=== PATIENT | female | born 1955 | race Caucasian/White ===

== ENCOUNTER 2016-11-28 12:05 | Inpatient (IN) | payer MEDICARE ==
[2016-11-28] MEDS ORDERED: NORMAL SALINE 1000 ML 1,000 ML IV ONE (12:36)
[2016-11-28 13:19] LABS: VENOUS BLOOD HCO3 7.9 mmol/L (20-32); VENOUS BLOOD PH 7.23 (7.30-7.42)
[2016-11-28 13:22] LABS: ABSOLUTE LYMPHOCYTES (AUTO) 1.3 10^3/uL (0.5-4.7); ABSOLUTE MONOCYTES (AUTO) 0.4 10^3/uL (0.1-1.4); BASOPHILS % (AUTO) 0.2 % (0-2); EOSINOPHILS % (AUTO) 0.2 % (0-6); HEMATOCRIT 27.3 % (36.0-47.0); HEMOGLOBIN 9.1 g/dL (12.0-15.5); LYMPHOCYTES % (AUTO) 23.1 % (13-45); MEAN CORPUSCULAR HEMOGLOBIN 35.5 pg (27.0-33.4); MEAN CORPUSCULAR HGB CONC 33.4 g/dL (32.0-36.0); MEAN CORPUSCULAR VOLUME 106 fl (80-97); MONOCYTES % (AUTO) 7.2 % (3-13); RED BLOOD COUNT 2.57 10^6/uL (3.72-5.28); RED CELL DISTRIBUTION WIDTH 14.7 % (11.5-14.0); SEGMENTED NEUTROPHILS % (AUTO) 69.3 % (42-78); WHITE BLOOD COUNT 5.8 10^3/uL (4.0-10.5)
--- NOTE | 2016-11-28 13:36 | RADIOLOGY REPORT (SQ) ---
EXAM DESCRIPTION: CTA CHEST COMPLETED DATE/TIME: 11/28/2016 1:21 pm REASON FOR STUDY: hypotension cp abd pulsations COMPARISON: 05/26/2016 TECHNIQUE: CT scan of the chest performed using helical scanning technique with dynamic intravenous contrast injection. Images reviewed with lung, soft tissue and bone windows. Reconstructed coronal and sagittal MPR images reviewed. Additional 3 dimensional post-processing performed to develop Maximal Intensity Projection images ([place] P). All images stored on PACS. All CT scanners at this facility use dose modulation, iterative reconstruction, and/or weight based d osing when appropriate to reduce radiation dose to as low as reasonably achievable (ALARA). [facility]: Dose Right [facility]: CareDose [facility]: Dose Right [facility]: Teradose 4D [facility]: AesRx CONTRAST TYPE AND DOSE: 95 Isovue 370- low osmolar. RENAL FUNCTION: Not obtained. RADIATION DOSE: 23.09 mGy. LIMITATIONS: None. FINDINGS: LUNGS AND PLEURA: Stable chronic lung change. No masses, infiltrates, pneumothorax. No p leural effusions, calcifications. AORTA AND GREAT VESSELS: Scattered atherosclerotic calcifications. No aneurysm or dissection. HEART: No pericardial effusion. PULMONARY ARTERIES: No emboli visualized in the main pulmonary arteries or the segmental branches. HILAR AND MEDIASTINAL STRUCTURES: No identified masses or abnormal nodes. HARDWARE: None in the chest. UPPER ABDOMEN: See separate report of the CT of the abdomen. THYROID AND OTHER SOFT TISSUES: No masses. No adenopathy. BONES: No acute or significant finding. 3D MIPS: Confirm above findings. OTHER: No other significant finding. IMPRESSION: NO ACUTE INTRATHORACIC PROCESS. NO ACUTE AORTIC INJURY, OR ANEURYSM. NO PULMONARY EMBO LI. TECHNICAL DOCUMENTATION: JOB ID: [id number] Quality ID # [id number]: Final reports with documentation of one or more dose reduction techniques (e.g., Au tomated exposure control, adjustment of the mA and/or kV according to patient size, use of iterative reconstruction technique) 2010 [email or web address]- All Rights Reserved
[2016-11-28 13:37] LABS: PROTHROMBIN TIME 15.8 SEC (11.4-15.4)
[2016-11-28 13:38] LABS: VENOUS BLOOD PCO2 19.4 mmHg (35-63)
[2016-11-28 13:40] LABS: ALANINE AMINOTRANSFERASE 24 U/L (9-52); ALBUMIN 1.9 g/dL (3.5-5.0); ALKALINE PHOSPHATASE 57 U/L (38-126); ANION GAP 9 (5-19); ASPARTATE AMINO TRANSFERASE 14 U/L (14-36); BILIRUBIN,DIRECT 0.3 mg/dL (0.0-0.4); BILIRUBIN,TOTAL 0.3 mg/dL (0.2-1.3); BLOOD UREA NITROGEN 28 mg/dL (7-20); CARBON DIOXIDE 11 mmol/L (22-30); CHLORIDE 109 mmol/L (98-107); CREATININE RESULT 1.19 mg/dL (0.52-1.25); GLUCOSE 106 mg/dL (75-110); POTASSIUM 3.7 mmol/L (3.6-5.0); TOTAL PROTEIN 3.9 g/dL (6.3-8.2)
--- NOTE | 2016-11-28 13:42 | RADIOLOGY REPORT (SQ) ---
EXAM DESCRIPTION: CTA ABDOMEN/PELVIS W WO COMPLETED DATE/TIME: 11/28/2016 1:21 pm REASON FOR STUDY: hypotension cp abd pulsations COMPARISON: 05/26/2016 TECHNIQUE: CT scan of the abdomen and pelvis performed with intravenous contrast using helical scann ing technique with dynamic intravenous contrast injection for CTA protocol. Images reviewed with lung , soft tissue, and bone windows. Reconstructed coronal and sagittal MPR images reviewed. All images s tored on PACS. Advanced 3D imaging as volume rendering, MIPS, SSD performed? yes All CT scanners at this facility use dose modulation, iterative reconstruction, and/or weight based d osing when appropriate to reduce radiation dose to as low as reasonably achievable (ALARA). [facility]: Dose Right [facility]: CareDose [facility]: Dose Right [facility]: Teradose 4D [facility]: [employer] CONTRAST TYPE AND DOSE: 95 Isovue 370- low osmolar. RENAL FUNCTION: Not obtained. LIMITATIONS: None. FINDINGS: AORTA AND VESSELS: Atherosclerotic calcifications. No aneurysm. No dissection. Renal rajinder leta, SMA, celiac without stenosis. LUNG BASES: See separate CT chest report. LIVER: Normal size. No masses or dilated ducts. SPLEEN: Normal size. No focal lesions. PANCREAS: No masses. No significant calcifications. No adjacent inflammation or peripancreatic fluid collections. Pancreatic duct not dilated. GALLBLADDER: Surgically absent. ADRENAL GLANDS: No significant masses or asymmetry. RIGHT KIDNEY AND URETER: Stable simple cyst. No mass, calculi or urinary tract obstruction. LEFT KIDNEY AND URETER: No mass, calculi or urinary tract obstruction. RETROPERITONEUM: No retroperitoneal adenopathy, hemorrhage or masses. BOWEL AND PERITONEAL CAVITY: Postsurgical change related to gastric bypass. No masses or inflammator y changes. No free fluid or peritoneal masses. APPENDIX: Normal. ABDOMINAL WALL: No masses. Stable postsurgical change with small seroma at incision site. BONY STRUCTURES: Stable degenerative change without fracture or suspicious osseous lesion. 3-D IMAGING: Confirms the above findings. OTHER: IVC filter in place. IMPRESSION: NO ABDOMINAL AORTIC ANEURYSM, DISSECTION OR SIGNIFICANT STENOSIS. NO SIGNIFICANT CHANGE FROM PRIOR STUDY. TECHNICAL DOCUMENTATION: JOB ID: [id number] Quality ID # [id number]: Final reports with documentation of one or more dose reduction techniques (e.g., Au tomated exposure control, adjustment of the mA and/or kV according to patient size, use of iterative reconstruction technique) 2010 [employer]- All Rights Reserved
[2016-11-28 13:53] LABS: CALCIUM 5.5 mg/dL (8.4-10.2)
[2016-11-28] MEDS ORDERED: MAG HYDROX/AL HYDROX/SIMETH SUSP 30 ML UDCUP PO ONE (13:57)
[2016-11-28] MEDS ORDERED: METOCLOPRAMIDE HCL ORAL SOLN 10 MG/10 ML UDCUP PO ONE (13:57)
[2016-11-28] MEDS ORDERED: LIDOCAINE 2% VISCOUS SOLN 20 ML UDCUP PO ONE (13:57)
[2016-11-28] MEDS ORDERED: NITROGLYCERIN 2% OINTMENT 1 GM PACKET TP ONE (14:24)
[2016-11-28 14:56] LABS: APPEARANCE,URINE SLIGHTLY-CLOUDY; BILIRUBIN,URINE NEGATIVE (NEGATIVE); GLUCOSE, URINE NEGATIVE (NEGATIVE); KETONES,URINE NEGATIVE (NEGATIVE); LEUKOCYTE ESTERASE,URINE TRACE (NEGATIVE); NITRITE,URINE NEGATIVE (NEGATIVE); PROTEIN,URINE NEGATIVE (NEGATIVE); URINE SPECIFIC GRAVITY 1.021; UROBILINOGEN,URINE NEGATIVE mg/dL (<2.0)
[2016-11-28 15:11] LABS: URINE BARBITURATES SCREEN UNCONFIRMED POSITIVE; URINE METHADONE SCREEN NEGATIVE; URINE OPIATES LOW NEGATIVE; URINE PHENCYCLIDINE SCREEN NEGATIVE
--- NOTE | 2016-11-28 16:03 | ER Document Report ---
ED General - General Chief Complaint: Chest Pain Stated Complaint: CHEST PAIN Time Seen by Provider: 11/28/16 12:35 TRAVEL OUTSIDE OF THE [place] IN LAST 30 DAYS: No - HPI Patient complains to provider of: Pain in chest Notes: Patient coming in for evaluation chest pain. Patient states chest pains been intermittent for the last 3 days she has been taking nitro at home. Patient states that she took for nitrates prior to arrival. Upon arrival patient had a systolic blood pressure of 60. Patient states no history of stones but was transferred to [facility] 1 year ago after severe infection DIC patient states she was on ventilator states that she was told she would need a cardiac catheterization and stent however this was not performed when she was hospitalized patient has not followed up since that time. Patient states chest pain is sharp radiating to her back also abdominal pain that feels like it is pulsating. Patient upon my evaluation patient does look pale however oriented 3 with GCS of 15. - Related Data Allergies/Adverse Reactions: divalproex sodium [From Depakote] Allergy (Verified 11/28/16 12:08) ibuprofen [From Motrin] Allergy (Verified 11/28/16 12:08) nortriptyline Allergy (Verified 11/28/16 12:08) Penicillins Allergy (Verified 11/28/16 12:08) phenytoin sodium extended [From Dilantin] Allergy (Verified 11/28/16 12:08) Past Medical History - Social History Smoking Status: Unknown if Ever Smoked Family History: None Patient has suicidal ideation: No Patient has homicidal ideation: No - Past Medical History Cardiac Medical History: Reports: Hx Hypertension Neurological Medical History: Reports: Hx Seizures Endocrine Medical History: Reports: Hx Diabetes Mellitus Type 2 Renal/ Medical History: Denies: Hx Peritoneal Dialysis Past Surgical History: Reports: Hx Abdominal Surgery - gastric bypass, Hx Cholecystectomy, Hx Hysterectomy, Hx Orthopedic Surgery - bria wrists, Hx Vascular Surgery - IVC filter Review of Systems - Review of Systems Constitutional: No symptoms reported EENT: No symptoms reported Cardiovascular: Chest pain Respiratory: No symptoms reported Gastrointestinal: No symptoms reported Genitourinary: No symptoms reported Female Genitourinary: No symptoms reported Musculoskeletal: No symptoms reported Skin: No symptoms reported Hematologic/Lymphatic: No symptoms reported Neurological/Psychological: No symptoms reported -: Yes All other systems reviewed and negative Physical Exam - Vital signs Vitals: Pulse Resp BP Pulse Ox 81 14 69/46 L 100 11/28/16 12:08 11/28/16 12:08 11/28/16 12:08 11/28/16 12:08 Interpretation: Hypotensive - General General appearance: Appears well, Alert - HEENT Head: Normocephalic, Atraumatic Eyes: Normal Pupils: PERRL - Respiratory Respiratory status: No respiratory distress Chest status: Nontender Breath sounds: Normal Chest palpation: Normal - Cardiovascular Rhythm: Regular Heart sounds: Normal auscultation Murmur: No - Abdominal Inspection: Normal Distension: No distension Bowel sounds: Normal Tenderness: Nontender Organomegaly: No organomegaly - Back Back: Normal, Nontender - Extremities General upper extremity: Normal inspection, Nontender, Normal color, Normal ROM , Normal temperature General lower extremity: Normal inspection, Nontender, Normal color, Normal ROM , Normal temperature, Normal weight bearing. No: Pamela's sign - Neurological Neuro grossly intact: Yes Cognition: Normal Orientation: AAOx4 [place] Coma Scale Eye Opening: Spontaneous [place] Coma Scale Verbal: Oriented Brenda Coma Scale Motor: Obeys Commands Brenda Coma Scale Total: 15 Speech: Normal Motor strength normal: LUE, RUE, LLE, RLE Sensory: Normal - Psychological Associated symptoms: Normal affect, Normal mood - Skin Skin Temperature: Warm Skin Moisture: Dry Skin Color: Normal Course - Re-evaluation Re-evalutation: 11/28/16 16:04 Ultrasound-guided IV was established in the patient's left arm for emergent CTA of the chest abdomen pelvis to rule out aortic dissection after the patient was complaining of chest pain back pain and abdominal pain not pulsatile. She occasionally came back as negative. Patient's lab work does show a metabolic acidosis and chronic anemia. Unclear etiology and metabolic acidosis probably due to the patient's GI bypass. Patient also has a very low calcium waiting for ionized calcium to return. Patient also has hypoalbuminemia. Patient's blood pressure did improve 1 L fluid. Patient otherwise has been stable patient did continue to complain of some mild chest pain Nitropaste was applied with resolution of his pain. Patient case was referred to the hospital for further evaluation as no etiology at this time can be found for her symptoms. - Vital Signs Vital signs: Temp Pulse Resp BP Pulse Ox 81 13 108/51 L 100 11/28/16 12:08 11/28/16 15:30 11/28/16 15:30 11/28/16 15:30 - Laboratory Result Diagrams: 11/28/16 12:54 11/28/16 12:54 Laboratory results interpreted by me: 11/28/16 11/28/16 11/28/16 12:54 12:54 12:54 RBC 2.57 L Hgb 9.1 L Hct 27.3 L MCV 106 H MCH 35.5 H RDW 14.7 H PT 15.8 H VBG pH VBG pCO2 VBG HCO3 Sodium 129.0 L Chloride 109 H Carbon Dioxide 11 L BUN 28 H Est GFR ( Amer) 56 L Est GFR (Non-Af Amer) 47 L Lactic Acid Calcium 5.5 L* Total Protein 3.9 L Albumin 1.9 L Ur Leukocyte Esterase 11/28/16 11/28/16 11/28/16 12:54 12:54 14:15 RBC Hgb Hct MCV MCH RDW PT VBG pH 7.23 L VBG pCO2 19.4 L* VBG HCO3 7.9 L Sodium Chloride Carbon Dioxide BUN Est GFR ( Amer) Est GFR (Non-Af Amer) Lactic Acid < 0.5 L Calcium Total Protein Albumin Ur Leukocyte Esterase TRACE H Critical Care Note - Critical Care Note Total time excluding time spent on procedures (mins): 35 Comments: Multiple evaluations for transient hypotension. Discharge - Discharge Clinical Impression: Metabolic acidemia Chest pain Qualifiers: Chest pain type: unspecified Qualified Code(s): R07.9 - Chest pain, unspecified Abdominal pain Qualifiers: Abdominal location: generalized Qualified Code(s): R10.84 - Generalized abdominal pain Condition: Good Admitting Provider: Hospitalist [facility] Unit Admitted: Telemetry
[2016-11-28] MEDS ORDERED: NITROGLYCERIN 0.4 MG/TAB 25 TAB/BOTTLE SL PRN (16:29)
[2016-11-28] MEDS ORDERED: ONDANSETRON 4 MG TAB.RAPDIS PO PRN (16:29)
[2016-11-28] MEDS ORDERED: ONDANSETRON HCL INJ/PF 4 MG/2 ML SDV IV PRN (16:29)
[2016-11-28] MEDS ORDERED: PANTOPRAZOLE SODIUM 40 MG VIAL IV ONE (16:30)
[2016-11-28] MEDS ORDERED: CYANOCOBALAMIN (VITAMIN B-12) INJ 1000 MCG/1 ML VIAL IM ONE (17:00)
[2016-11-28] MEDS ORDERED: SODIUM BICARBONATE 650 MG TABLET PO ONE (17:00)
[2016-11-28 17:13] LABS: CREATINE KINASE MB 0.82 ng/mL (<4.55)
[2016-11-28] MEDS: LANSOPRAZOLE 30 MG TAB.RAP.DR PO SCH (17:16)
[2016-11-28 17:17] LABS: FREE T3 2.26 pg/mL (2.77-5.27); TROPONIN I < 0.012 ng/mL
[2016-11-28 17:30] LABS: THYROID STIMULATING HORMONE 2.51 uIU/mL (0.47-4.68)
[2016-11-28] MEDS ORDERED: CEFTRIAXONE 1 GM/D5W RTU 1 GM/50 ML RTUPB IV SCH (18:00)
[2016-11-28] MEDS ORDERED: CALCIUM GLUCONATE 1000 MG/10 ML INJ IV ONE ×2 (18:14→22:00)
--- NOTE | 2016-11-28 18:49 | PDOC H&P ---
History of Present Illness Admission Date/PCP: 11/28/16 16:45 ALICE LANDRY DO History of Present Illness: Patient coming in for evaluation chest pain. Patient states chest pains been intermittent for the last 10 days she has been taking nitro at home. Patient states that she took for nitrates prior to arrival. Upon arrival patient had a systolic blood pressure of 60. Patient states chest pain feels like bricks on her chest and radiates to her back also abdominal pain that feels like it is pulsating. Reports that this is accompanied by shortness of breath, sweating, nausea and vomiting. Patient reports that she has not been eating for the last several days and has been unable to tolerate water very well patient reports that she had a bowel movement because she took a cathartic thinking that she may have been constipated. Patient reports that she perspires also when she eats. Patient reports that recently she has begun decreasing the amount that she takes her Protonix and started taking pepito. Medications are currently being reconciled by the pharmacy and are unavailable to me at this time. Patient is unable to recall a list of her medication to entirety. Past Medical History Cardiac Medical History: Reports: DVT, Myocardial Infarction, Hypertension, Pulmonary Embolism Pulmonary Medical History: Reports: Chronic Obstructive Pulmonary Disease (COPD) , Intubation, Pneumonia Neurological Medical History: Reports: Seizures Endocrine Medical History: Reports: Diabetes Mellitus Type 2, Hypothyroidism Endocrine History Note: secondary hyperparathyroidism GI Medical History: Reports: Gastroesophageal Reflux Disease Musculoskeltal Medical History: Reports: Arthritis Psychiatric Medical History: Reports: Tobacco Dependency Hematology: Reports: Anemia, Other - Protein C+ Protein S deficiency Past Surgical History Past Surgical History: Reports: Cholecystectomy, Gastric Bypass Surgery, Hysterectomy, Orthopedic Surgery - bria wrists, Vascular Surgery - IVC filter, Other - Tummy tuck and multiple surgeries related to this, trach and peg Social History Smoking Status: Current Some Day Smoker Frequency of Alcohol Use: Occasional Hx Recreational Drug Use: No Drugs: None Hx Prescription Drug Abuse: No - Advance Directive Resuscitation Status: Full Code Surrogate healthcare decision maker:: Senait Esteban, Family History Family History: Other - Father had IHSS Mother with a-fib, dvt, Parental Family History Reviewed: Yes Children Family History Reviewed: Yes Sibling(s) Family History Reviewed.: Yes Medication/Allergy Home Medications: Levetiracetam [Keppra 500 mg Tablet] 500 mg PO BID 12/08/15 Levocetirizine Dihydrochloride [Xyzal 5 mg Tablet] 5 mg PO DAILY 12/08/15 Levothyroxine Sodium [Synthroid 0.1 mg Tablet] 0.1 mg PO DAILY 12/08/15 Melatonin/Pyridoxine [Melatonin 3 mg Tablet] 3 mg PO DAILY 12/08/15 Mirtazapine [Remeron 15 mg Tablet] 15 mg PO QHS 12/08/15 Ondansetron HCl [Zofran 4 mg Tablet] 1 - 2 tab PO Q4H PRN 12/08/15 Tizanidine HCl [Zanaflex 4 Mg Tablet] 4 mg PO TID 12/08/15 Topiramate [Topamax 25 mg Tablet] 25 mg PO TID PRN 12/08/15 Tramadol HCl [Ultram 50 mg Tablet] 50 mg PO ASDIR PRN #20 tablet 05/26/16 Allergies/Adverse Reactions: divalproex sodium [From Depakote] Allergy (Verified 11/28/16 12:08) ibuprofen [From Motrin] Allergy (Verified 11/28/16 12:08) nortriptyline Allergy (Verified 11/28/16 12:08) Penicillins Allergy (Verified 11/28/16 12:08) phenytoin sodium extended [From Dilantin] Allergy (Verified 11/28/16 12:08) Review of Systems Constitutional: PRESENT: anorexia, fatigue, weight loss. ABSENT: chills, fever( s), headache(s), weight gain Eyes: ABSENT: visual disturbances Ears: ABSENT: hearing changes Cardiovascular: PRESENT: chest pain. ABSENT: dyspnea on exertion, edema, orthropnea, palpitations Respiratory: ABSENT: cough, dyspnea, hemoptysis, sputum Gastrointestinal: PRESENT: abdominal pain, heartburn, nausea, vomiting. ABSENT : constipation, diarrhea, hematemesis, hematochezia, melena Genitourinary: ABSENT: dysuria, hematuria Musculoskeletal: ABSENT: joint swelling Integumentary: ABSENT: rash, wounds Neurological: PRESENT: abnormal gait - chronic. ABSENT: abnormal speech, confusion, dizziness, focal weakness, syncope Psychiatric: ABSENT: anxiety, depression, homidical ideation, suicidal ideation Endocrine: PRESENT: cold intolerance, other - sweat when eating. ABSENT: heat intolerance, polydipsia, polyuria Hematologic/Lymphatic: ABSENT: easy bleeding, easy bruising Physical Exam Vital Signs: Temp Pulse Resp BP Pulse Ox 97.4 F 81 13 108/51 L 100 11/28/16 16:40 11/28/16 12:08 11/28/16 15:30 11/28/16 15:30 11/28/16 15:30 General appearance: PRESENT: no acute distress, well-developed. ABSENT: well- nourished Head exam: PRESENT: atraumatic, normocephalic Eye exam: PRESENT: conjunctiva pink, EOMI, PERRLA. ABSENT: scleral icterus Ear exam: PRESENT: normal external ear exam Mouth exam: PRESENT: dry mucosa, tongue midline Neck exam: ABSENT: JVD, lymphadenopathy, thyromegaly, tracheal deviation Respiratory exam: PRESENT: clear to auscultation bria, prolonged expiratory phas. ABSENT: crackles, rales, rhonchi, wheezes Cardiovascular exam: PRESENT: RRR. ABSENT: diastolic murmur, rubs, systolic murmur Pulses: PRESENT: normal dorsalis pedis pul Vascular exam: PRESENT: normal capillary refill GI/Abdominal exam: PRESENT: normal bowel sounds, soft. ABSENT: distended, guarding, mass, organolmegaly, rebound, tenderness Rectal exam: PRESENT: deferred Extremities exam: PRESENT: full ROM. ABSENT: calf tenderness, clubbing, pedal edema Neurological exam: PRESENT: alert, awake, oriented to person, oriented to place , oriented to time, oriented to situation, CN II-XII grossly intact. ABSENT: motor sensory deficit Psychiatric exam: PRESENT: appropriate affect, normal mood. ABSENT: homicidal ideation, suicidal ideation Skin exam: PRESENT: dry, intact, warm. ABSENT: cyanosis, rash Results Impressions: Abdomen/Pelvis CTA 11/28/16 12:52 IMPRESSION: NO ABDOMINAL AORTIC ANEURYSM, DISSECTION OR SIGNIFICANT STENOSIS. NO SIGNIFICANT CHANGE FROM PRIOR STUDY. Chest/Abdomen CTA 11/28/16 12:52 IMPRESSION: NO ACUTE INTRATHORACIC PROCESS. NO ACUTE AORTIC INJURY, OR ANEURYSM. NO PULMONARY EMBOLI. Assessment & Plan - Diagnosis (1) Chest pain Qualifiers: Chest pain type: precordial pain Qualified Code(s): R07.2 - Precordial pain Is this a current diagnosis for this admission?: YesPlan: Place patient on telemetry and rule out for acute coronary syndrome. Place patient on full dose Lovenox. Place patient on metoprolol, lisinopril, nitroglycerin, and aspirin as needed. Suspect this may be from GI origin. (2) Metabolic acidemia Is this a current diagnosis for this admission?: YesPlan: significant metabolic acidosis which is likely secondary to GI losses. Will initiate patient on sodium bicarbonate. (3) Abdominal pain Qualifiers: Abdominal location: generalized Qualified Code(s): R10.84 - Generalized abdominal pain Is this a current diagnosis for this admission?: YesPlan: The abdomen is unrevealing for pathology. Suspect however that patient likely has GERD plus or minus ulceration. Will consult GI for upper endoscopy. And on Carafate and Protonix (4) Seizure disorder Is this a current diagnosis for this admission?: YesPlan: Patient reports her last seizure was 1 year ago. She is on Keppra 500 twice daily and we will continue this. (5) History of pulmonary embolus (PE) Is this a current diagnosis for this admission?: YesPlan: Has a Lengby filter in place, but reports a history of protein C and protein S deficiency. Currently initiate patient on Lovenox, and will consult hematology/oncology for imput/clarification. (6) Protein C deficiency Is this a current diagnosis for this admission?: No (7) Protein-calorie malnutrition, severe Is this a current diagnosis for this admission?: YesPlan: Dietary (8) Secondary hyperparathyroidism, non-renal Is this a current diagnosis for this admission?: YesPlan: Upon patient's last admission she was found to have hyperparathyroidism secondary to her bariatric surgery. Will send vitamin D level. (9) Anemia Qualifiers: Anemia type: unspecified type Qualified Code(s): D64.9 - Anemia, unspecified Is this a current diagnosis for this admission?: YesPlan: Patient reports B12 deficiency, and will send repeat anemia labs. Patient appears to be more anemic than prior. Guaiac stool. - Time Time Spent: Greater than 70 Minutes Medications reviewed and adjusted accordingly: No - Reconciliation - Inpatient Certification Based on my medical assessment, after consideration of the patient's comorbidities, presenting symptoms, or acuity I expect that the services needed warrant INPATIENT care.: Yes I certify that my determination is in accordance with my understanding of Medicare's requirements for reasonable and necessary INPATIENT services [42 CFR 412.3e].: Yes Medical Necessity: Need For Continuous Telemetry Monitoring, Need for Pain Control, Risk of Complication if Not Cared For in Hospital, Risk of Diagnosis Which Will Require Inpatient Eval/Care/Monitoring Post Hospital Care: D/C Chief Investment Officer Documentation
[2016-11-28 18:59] LABS: PHOSPHORUS 4.6 mg/dL (2.5-4.5)
[2016-11-28] MEDS: NORMAL SALINE 1000 ML 1,000 ML IV PRN (19:07)
[2016-11-28] MEDS: SUCRALFATE SUSP 1 GM/10 ML UDCUP PO SCH (19:09)
[2016-11-28] MEDS: CALCIUM CARBONATE 500 MG TABLET PO SCH (19:13)
[2016-11-28 19:18] LABS: FOLATE > 20.00 ng/mL (>2.76)
[2016-11-28] MEDS ORDERED: TRAZODONE HCL 50 MG TABLET PO SCH (22:00)
[2016-11-28] MEDS ORDERED: METOPROLOL TARTRATE 25 MG TABLET PO SCH (22:00)
[2016-11-28] MEDS: CEFTRIAXONE 1 GM/D5W RTU 1 GM/50 ML RTUPB IV SCH (22:11)
[2016-11-28] MEDS: ENOXAPARIN SODIUM INJ 60 MG/0.6 ML DISP.SYRIN SUBCUT SCH (23:13)
[2016-11-28] MEDS: ATORVASTATIN CALCIUM 40 MG TABLET PO SCH (23:14)
[2016-11-28] MEDS: LEVETIRACETAM 500 MG TABLET PO SCH (23:14)
[2016-11-28] MEDS: METOPROLOL TARTRATE 25 MG TABLET PO SCH (23:15)
[2016-11-28 23:44] LABS: CREATINE KINASE MB 0.64 ng/mL (<4.55)
[2016-11-28 23:45] LABS: TROPONIN I < 0.012 ng/mL
[2016-11-29] MEDS: SUCRALFATE SUSP 1 GM/10 ML UDCUP PO SCH ×5 (00:18→22:58)
[2016-11-29] MEDS: MORPHINE SULFATE 10 MG/ML INJ IV PRN ×2 (04:18→22:58)
[2016-11-29 05:48] LABS: CREATINE KINASE MB 0.62 ng/mL (<4.55)
[2016-11-29 05:53] LABS: TROPONIN I < 0.012 ng/mL
[2016-11-29] MEDS: LANSOPRAZOLE 30 MG TAB.RAP.DR PO SCH ×2 (06:54→17:02)
[2016-11-29 07:34] LABS: ABSOLUTE BASOPHILS # (AUTO) 0.1 10^3/uL (0.0-0.2); ABSOLUTE LYMPHOCYTES (AUTO) 3.2 10^3/uL (0.5-4.7); ABSOLUTE MONOCYTES (AUTO) 0.5 10^3/uL (0.1-1.4); ABSOLUTE NEUT (AUTO) 3.5 10^3/uL (1.7-8.2); BASOPHILS % (AUTO) 0.7 % (0-2); EOSINOPHILS % (AUTO) 0.3 % (0-6); HEMATOCRIT 32.9 % (36.0-47.0); HEMOGLOBIN 11.1 g/dL (12.0-15.5); HGB HCT DIFFERENCE 0.4; LYMPHOCYTES % (AUTO) 44.1 % (13-45); MEAN CORPUSCULAR HEMOGLOBIN 35.6 pg (27.0-33.4); MEAN CORPUSCULAR HGB CONC 33.8 g/dL (32.0-36.0); MEAN CORPUSCULAR VOLUME 105 fl (80-97); MONOCYTES % (AUTO) 6.8 % (3-13); RED BLOOD COUNT 3.13 10^6/uL (3.72-5.28); RED CELL DISTRIBUTION WIDTH 14.7 % (11.5-14.0); SEGMENTED NEUTROPHILS % (AUTO) 48.1 % (42-78); WHITE BLOOD COUNT 7.4 10^3/uL (4.0-10.5)
[2016-11-29 08:03] LABS: ANION GAP 9 (5-19); BLOOD UREA NITROGEN 27 mg/dL (7-20); CALCIUM 8.5 mg/dL (8.4-10.2); CARBON DIOXIDE 16 mmol/L (22-30); CHLORIDE 107 mmol/L (98-107); CHOLESTEROL 153.58 mg/dL (0-200); CREATINE KINASE 28 U/L (30-135); CREATININE RESULT 1.14 mg/dL (0.52-1.25); Direct HDL 73 mg/dL (>40); GLUCOSE 106 mg/dL (75-110); POTASSIUM 4.1 mmol/L (3.6-5.0); SODIUM 131.5 mmol/L (137-145); TRIGLYCERIDES 263 mg/dL (<150)
[2016-11-29 08:14] LABS: DIRECT LDL 50 mg/dL (<100)
[2016-11-29 08:18] LABS: VLDL CHOLESTEROL 52.6 mg/dL (10-31)
[2016-11-29] MEDS: SODIUM BICARBONATE 650 MG TABLET PO SCH ×3 (08:25→17:02)
[2016-11-29] MEDS: NORMAL SALINE 1000 ML 1,000 ML IV PRN (08:26)
[2016-11-29] MEDS: CALCIUM CARBONATE 500 MG TABLET PO SCH ×3 (08:31→17:02)
[2016-11-29] MEDS: LEVETIRACETAM 500 MG TABLET PO SCH ×2 (08:32→21:26)
[2016-11-29] MEDS: DOCUSATE SODIUM 100 MG CAPSULE PO SCH (08:33)
--- NOTE | 2016-11-29 09:33 | EKG REPORT ---
SEVERITY:- ABNORMAL ECG - SINUS RHYTHM FIRST DEGREE AV BLOCK ANTERIOR INFARCT, OLD : Confirmed by: Mitchel Hollingsworth 29-Nov-2016 09:32:59
--- NOTE | 2016-11-29 09:34 | EKG REPORT ---
SEVERITY:- ABNORMAL ECG - SINUS RHYTHM PROBABLE LEFT ATRIAL ABNORMALITY LEFT VENTRICULAR HYPERTROPHY ANTERIOR INFARCT, OLD : Confirmed by: Mitchel Hollingsworth 29-Nov-2016 09:33:22
[2016-11-29] MEDS ORDERED: LISINOPRIL 5 MG TABLET PO SCH (10:00)
[2016-11-29] MEDS ORDERED: ASPIRIN 325 MG TABLET, ENT COATED PO SCH (10:00)
[2016-11-29] MEDS: ENOXAPARIN SODIUM INJ 60 MG/0.6 ML DISP.SYRIN SUBCUT SCH ×2 (10:56→21:26)
[2016-11-29] MEDS: METOPROLOL TARTRATE 25 MG TABLET PO SCH (11:01)
[2016-11-29 12:06] LABS: APPEARANCE,URINE CLEAR; BILIRUBIN,URINE NEGATIVE (NEGATIVE); GLUCOSE, URINE 150 mg/dL (NEGATIVE); KETONES,URINE NEGATIVE (NEGATIVE); LEUKOCYTE ESTERASE,URINE TRACE (NEGATIVE); NITRITE,URINE NEGATIVE (NEGATIVE); PROTEIN,URINE NEGATIVE (NEGATIVE); URINE SPECIFIC GRAVITY 1.013; UROBILINOGEN,URINE NEGATIVE mg/dL (<2.0)
[2016-11-29] MEDS ORDERED: ALBUTEROL SULFATE HFA (90 MCG/PUFF) 200 PUFF/8.5 GM MDI IH PRN (14:15)
[2016-11-29] MEDS ORDERED: ONDANSETRON HCL INJ/PF 4 MG/2 ML SDV IV PRN (14:20)
--- NOTE | 2016-11-29 18:58 | XCELERA REPORT ---
[address] [address] Transthoracic Echocardiogram Report Name: ROBERTO LAYTON Age: 60 yrs Gender: Female : 1955 Patient Status: Inpatient Patient Location: [id number]\S\425\S\A Study Date: 11/29/2016 08:57 AM Height: 57 in Weight: 106 lb BSA: 1.4 m2 Procedure: A complete two-dimensional transthoracic echocardiogram was performed (2D, M-mode, spectral and color flow Doppler). The study was technically adequate with some images being suboptimal in quality. Reason For Study: LV Function, size, wall thickness,Valve Function Ordering Physician: ROB SCOTT Performed By: Olena Herman Interpretation Summary The left ventricular ejection fraction is normal. There is borderline concentric left ventricular hypertrophy. The left ventricle is grossly normal size. Doppler measurements suggest pseudonormalized left ventricular relaxation, which is associated with grade II/IV or mild to moderate diastolic dysfunction Wall motion cannot be accurately commented on, but no definite regional wall motion abnormalities noted. The right ventricular systolic function is normal. The right ventricle is borderline dilated. The right atrium is normal in size The left atrial size is normal. There is a trace to mild amount of mitral regurgitation There is no mitral valve stenosis. No aortic regurgitation is present. There is no aortic valve stenosis There is a trace to mild amount of tricuspid regurgitation Right ventricular systolic pressure is estimated to be within upper limit of normal. The aortic root is not well visualized. The inferior vena cava was not well visualized There is no pericardial effusion. MMode/2D Measurements \T\ Calculations RVDd: 3.0 cm LVIDd: 4.0 cm FS: 46.2 % Ao root diam: 2.4 cm IVSd: 1.0 cm LVIDs: 2.2 cm EDV(Teich): 70.1 ml LVPWd: 1.0 cm ESV(Teich): 15.4 ml Ao root area: 4.7 cm2 EF(Teich): 78.1 % LA dimension: 3.2 cm Doppler Measurements \T\ Calculations MV E max naya: MV P1/2t max naya: Ao V2 max: LV V1 max P.8 cm/sec 143.8 cm/sec 192.0 cm/sec 13.4 mmHg MV A max naya: MV P1/2t: 98.4 msec Ao max PG: LV V1 max: 156.1 cm/sec 14.7 mmHg 183.2 cm/sec MV E/A: 0.92 MVA(P1/2t): 2.2 cm2 MV dec slope: 427.9 cm/sec2 MV dec time: 0.33 sec PA V2 max: TR max naya: 104.6 cm/sec 285.0 cm/sec PA max PG: TR max P.5 mmHg 4.4 mmHg Left Ventricle The left ventricle is grossly normal size. There is borderline concentric left ventricular hypertrophy. The left ventricular ejection fraction is normal. Doppler measurements suggest pseudonormalized left ventricular relaxation, which is associated with grade II/IV or mild to moderate diastolic dysfunction. Wall motion cannot be accurately commented on, but no definite regional wall motion abnormalities noted. Right Ventricle The right ventricle is borderline dilated. There is normal right ventricular wall thickness. The right ventricular systolic function is normal. Atria The right atrium is normal in size. The left atrial size is normal. Interarterial septum not well visualized and not well dopplered. Cannot comment on ASD/PFO presence. Mitral Valve The mitral valve is grossly normal. There is no mitral valve stenosis. There is a trace to mild amount of mitral regurgitation. Aortic Valve The aortic valve is grossly normal. There is no aortic valve stenosis. No aortic regurgitation is present. Tricuspid Valve The tricuspid valve is not well visualized secondary to technical limitations. There is no tricuspid stenosis. There is a trace to mild amount of tricuspid regurgitation. Right ventricular systolic pressure is estimated to be within upper limit of normal. Great Vessels The aortic root is not well visualized. The inferior vena cava was not well visualized. Effusions There is no pericardial effusion. : ROB SCTOT > Mitchel Hollingsworth
--- NOTE | 2016-11-29 19:41 | PDOC PROGRESS REPORT ---
Subjective Progress Note for:: 11/29/16 Subjective:: Reports that she is feeling 100% better today. Patient denied chest pain, shortness of breath, nausea, vomiting, fever, chills, diarrhea. Physical Exam Vital Signs: Temp Pulse Resp BP Pulse Ox 98.1 F 75 16 120/49 L 99 11/29/16 11:00 11/29/16 11:00 11/29/16 07:11 11/29/16 11:00 11/29/16 11:00 Intake & Output 11/28/16 11/29/16 11/30/16 06:59 06:59 06:59 Intake Total 890 Output Total 900 Balance -10 Weight 51.8 kg Exam: GENERAL: No acute distress, no acute distress HEENT: Conjunctiva clear, nonicteric, moist mucous membranes, no JVD, midline trachea RESPIRATORY: CTAB CARDIAC: Regular rate and rhythm, no murmurs/gallops/rubs ABDOMEN: Soft, nondistended, nontender, positive bowel sounds, no rebound, no guarding EXTREMETIES: No cyanosis, clubbing; trace edema NEUROLOGIC: Alert, oriented to person/place/time, CN's grossly intact, no focal deficits SKIN: No rashes or lesions PSYCH: Normal mood and affect Results Laboratory Results: 11/29/16 05:12 11/29/16 05:12 11/28/16 11/28/16 11/29/16 18:22 18:22 05:12 WBC 7.4 RBC 3.13 L Hgb 11.1 L Hct 32.9 L MCV 105 H MCH 35.6 H MCHC 33.8 RDW 14.7 H Plt Count 371 Seg Neutrophils % 48.1 Lymphocytes % 44.1 Monocytes % 6.8 Eosinophils % 0.3 Basophils % 0.7 Absolute Neutrophils 3.5 Absolute Lymphocytes 3.2 Absolute Monocytes 0.5 Absolute Eosinophils 0.0 Absolute Basophils 0.1 Sodium Potassium Chloride Carbon Dioxide Anion Gap BUN Creatinine Est GFR ( Amer) Est GFR (Non-Af Amer) Glucose Calcium Phosphorus 4.6 H Triglycerides Cholesterol LDL Cholesterol Direct VLDL Cholesterol HDL Cholesterol Urine Color Urine Appearance Urine pH Ur Specific [place] Urine Protein Urine Glucose (UA) Urine Ketones Urine Blood Urine Nitrite Ur Leukocyte Esterase Urine WBC (Auto) Urine RBC (Auto) Blood Type O POSITIVE Antibody Screen NEGATIVE 11/29/16 11/29/16 05:12 11:50 WBC RBC Hgb Hct MCV MCH MCHC RDW Plt Count Seg Neutrophils % Lymphocytes % Monocytes % Eosinophils % Basophils % Absolute Neutrophils Absolute Lymphocytes Absolute Monocytes Absolute Eosinophils Absolute Basophils Sodium 131.5 L Potassium 4.1 Chloride 107 Carbon Dioxide 16 L Anion Gap 9 BUN 27 H Creatinine 1.14 Est GFR ( Amer) 59 L Est GFR (Non-Af Amer) 49 L Glucose 106 Calcium 8.5 Phosphorus Triglycerides 263 H Cholesterol 153.58 LDL Cholesterol Direct 50 VLDL Cholesterol 52.6 H HDL Cholesterol 73 Urine Color YELLOW Urine Appearance CLEAR Urine pH 5.0 Ur Specific [place] 1.013 Urine Protein NEGATIVE Urine Glucose (UA) 150 H Urine Ketones NEGATIVE Urine Blood NEGATIVE Urine Nitrite NEGATIVE Ur Leukocyte Esterase TRACE H Urine WBC (Auto) 4 Urine RBC (Auto) 0 Blood Type Antibody Screen 11/28/16 11/29/16 11/29/16 23:03 05:12 05:12 Creatine Kinase 28 L CK-MB (CK-2) 0.64 0.62 Troponin I < 0.012 < 0.012 Impressions: Abdomen/Pelvis CTA 11/28/16 12:52 IMPRESSION: NO ABDOMINAL AORTIC ANEURYSM, DISSECTION OR SIGNIFICANT STENOSIS. NO SIGNIFICANT CHANGE FROM PRIOR STUDY. Chest/Abdomen CTA 11/28/16 12:52 IMPRESSION: NO ACUTE INTRATHORACIC PROCESS. NO ACUTE AORTIC INJURY, OR ANEURYSM. NO PULMONARY EMBOLI. Assessment & Plan - Diagnosis (1) Chest pain Qualifiers: Chest pain type: precordial pain Qualified Code(s): R07.2 - Precordial pain Is this a current diagnosis for this admission?: YesPlan: Patient on telemetry and rule out for acute coronary syndrome. Patient on full dose Lovenox. On metoprolol, lisinopril, nitroglycerin, and aspirin as needed. Likely GI origin for chest pain. Stress test placed for tomorrow. (2) Metabolic acidemia Is this a current diagnosis for this admission?: YesPlan: significant metabolic acidosis which is likely secondary to GI losses. Improving on sodium bicarbonate. (3) Abdominal pain Qualifiers: Abdominal location: generalized Qualified Code(s): R10.84 - Generalized abdominal pain Is this a current diagnosis for this admission?: YesPlan: The abdomen is unrevealing for pathology. Suspect however that patient likely has GERD plus or minus ulceration. Will consult GI for upper endoscopy. And on Carafate and Protonix (4) Seizure disorder Is this a current diagnosis for this admission?: YesPlan: Patient reports her last seizure was 1 year ago. She is on Keppra 1500 twice daily and we will continue this. (5) History of pulmonary embolus (PE) Is this a current diagnosis for this admission?: YesPlan: Has a Bassett filter in place, but reports a history of protein C and protein S deficiency. Currently initiate patient on Lovenox, and will consult hematology/oncology for imput/clarification. (6) Protein C deficiency Is this a current diagnosis for this admission?: No (7) Protein-calorie malnutrition, severe Is this a current diagnosis for this admission?: Yes (8) Secondary hyperparathyroidism, non-renal Is this a current diagnosis for this admission?: YesPlan: Upon patient's last admission she was found to have hyperparathyroidism secondary to her bariatric surgery. Will send vitamin D level. Suspect this is the cause of this. (9) Anemia Qualifiers: Anemia type: unspecified type Qualified Code(s): D64.9 - Anemia, unspecified Is this a current diagnosis for this admission?: YesPlan: Stable and well repleted. Suspect iron and B12 deficiency secondary to malabsorption. - Time Time Spent with patient: 35 or more minutes Medications reviewed and adjusted accordingly: Yes Anticipated discharge: Home Within: within 48 hours
[2016-11-29] MEDS: CEFTRIAXONE 1 GM/D5W RTU 1 GM/50 ML RTUPB IV SCH (21:25)
[2016-11-29] MEDS: TRAZODONE HCL 50 MG TABLET PO SCH (21:26)
[2016-11-29] MEDS: LISINOPRIL 5 MG TABLET PO SCH (21:26)
[2016-11-29] MEDS: ATORVASTATIN CALCIUM 40 MG TABLET PO SCH (21:26)
[2016-11-29] MEDS ORDERED: LISINOPRIL 10 MG TABLET PO SCH (22:00)
[2016-11-29] MEDS ORDERED: CARVEDILOL 3.125 MG TABLET PO SCH (22:00)
[2016-11-29] MEDS: TRAMADOL HCL 50 MG TABLET PO PRN (23:49)
[2016-11-30] MEDS ORDERED: LEVOTHYROXINE SODIUM 0.075 MG TABLET PO SCH ×2 (06:00)
[2016-11-30 08:04] LABS: VITAMIN D 25-HYDROXY 31.2 ng/mL (30.0-100.0)
[2016-11-30] MEDS ORDERED: LISINOPRIL 10 MG TABLET PO SCH (10:00)
[2016-11-30] MEDS ORDERED: ATORVASTATIN CALCIUM 10 MG TABLET PO SCH (10:00)
[2016-11-30] MEDS: SUCRALFATE SUSP 1 GM/10 ML UDCUP PO SCH ×4 (11:03→23:55)
[2016-11-30] MEDS: LISINOPRIL 5 MG TABLET PO SCH ×2 (11:03→21:37)
[2016-11-30] MEDS: LANSOPRAZOLE 30 MG TAB.RAP.DR PO SCH ×2 (11:03→18:01)
[2016-11-30] MEDS: SODIUM BICARBONATE 650 MG TABLET PO SCH ×3 (11:03→15:24)
[2016-11-30] MEDS: ENOXAPARIN SODIUM INJ 60 MG/0.6 ML DISP.SYRIN SUBCUT SCH ×2 (11:08→21:37)
[2016-11-30] MEDS: LEVETIRACETAM 500 MG TABLET PO SCH ×2 (12:44→20:00)
[2016-11-30] MEDS: LEVOTHYROXINE SODIUM 0.088 MG TABLET PO SCH (12:45)
[2016-11-30] MEDS: DOCUSATE SODIUM 100 MG CAPSULE PO SCH (12:53)
[2016-11-30] MEDS: CALCIUM CARBONATE 500 MG TABLET PO SCH ×3 (12:53→18:01)
--- NOTE | 2016-11-30 13:29 | DRAGON STRESS TEST REPORT ---
INTRAVENOUS LEXISCAN CARDIOLITE STRESS TEST USING SINGLE PHOTON EMMISION COMPUTERIZED TOMOGRAPHIC. DATE OF PROCEDURE: November 30, 2016 INDICATION : Chest pain CARDIAC RISK FACTORS: Diabetes, hypertension, dyslipidemia, tobacco abuse RESTING EKG: Sinus rhythm, no significant baseline ST segment changes noted. STRESS EKG: No significant changes noted with LexiScan bolus REASON FOR TERMINATION: Protocol. PROCEDURE REPORT: Baseline heart rate 76 beats per minute with blood pressure of 125/60. Patient had no significant complaints. Heart rate at 2 minutes post bolus 92 with a blood pressure of 122/89. 3 minutes post bolus heart rate 86 with blood pressure of 132/55. No significant EKG changes were noted. Patient had no significant complaints during the procedure or postprocedure. Patient injected with Aminophyllin 75 mg at 3 minutes or later after Lexiscan bolus. CONCLUSIONS: Normal EKG and hemodynamic response to IV LexiScan. NUCLEAR DATA: At rest the patient was given 9.96 millicuries of technetium 99 sestamibi injected intravenously. As per protocol rest gated SPECT images were obtained. Subsequently the patient was given intravenous LexiScan at a dose of 0.4 mg in 5 mL intravenously, followed by flush with normal saline. Subsequently the stress dose of 29.8 millicuries of technetium 99 sestamibi was injected intravenously. As per protocol stress gated images were obtained. NUCLEAR INTERPRETATION: Both raw and processed data were used for interpretation. Visual, qualitative, computer-generated quantitative data was used. There was good myocardial uptake of technetium compound. Motion artifact and soft tissue attenuations were noted. Increased visceral uptake was noted. No definitive areas of transient perfusion defect noted, except for mild decreased uptake in the distal anterior wall in the stress images but there was no corresponding wall motion abnormalities and review of raw data suggest most likely related to differences in breast attenuation artifact. A underlying mild ischemia however cannot be entirely ruled out. No definitive areas of fixed perfusion defect or scars noted. EKG gated imaging showed LV EF at 63 %, rest and stress gated EF similar visually. T. I D. ratio was 0.97. Lung heart ratio noted to be within normal limits 0.27. No significant extracardiac and abnormal radiotracer activities were noted. RV free wall uptake was noted to be WNL. IMPRESSION: Also refer to comments under nuclear interpretation. Also test results needs to be interpreted in the context of pretest probability. 1. There is no definitive scintigraphic evidence of LexiScan induced myocardial ischemia. Please see comments under nuclear interpretation. 2. There is no definitive scintigraphic evidence of myocardial infarction/scar. 3. EKG gated imaging shows left ejection fraction of approximately 63 %. 4. Clinical correlation requested as occasionally single vessel disease or balanced ischemia could be missed. In approximately 10% of the cases Lexiscan may not cause adequate vasodilatory stress. RECOMMENDATIONS: Aggressive risk factor modification, medical therapy. Clinical correlation with echocardiogram derived ejection fraction. Inability to exercise by itself can lead to increased cardiovascular event risks. Consider cardiology consultation and or follow-up if clinically indicated. I AM AVAILABLE FOR CARDIOLOGY CONSULTATION AND FOLLOWUP IF REQUESTED BY PMD Mitchel Hollingsworth M.D., JENN Senior Marketing Associate retail administrative assistant, Board certified in cardiovascular diseases, Nuclear cardiology, Echocardiography Cardiac CT and cardiac MRI Ph. [phone] [facility]
[2016-11-30] MEDS ORDERED: AMINOPHYLLINE INJ/PF 250 MG/10 ML SDV IV ONE (13:43)
[2016-11-30] MEDS ORDERED: REGADENOSON INJ 0.4 MG/5 ML DISP.SYRIN IV ONE (13:43)
--- NOTE | 2016-11-30 14:31 | PDOC PROGRESS REPORT ---
Subjective Progress Note for:: 11/30/16 Subjective:: Patient has no chest pain. She continues to have left upper quadrant. She denies nausea, vomiting, hematemesis, melena. She states that she stopped taking Protonix 6 months ago and started taking an herbal supplement instead. Patient states that she is followed by Dr. Pike hematology for history of DVT , protein C/S deficiency. She was taken off anticoagulation at [facility] last year. It sounds like Dr. Pike was concerned about patient being off anticoagulation given her history of VTE, hypercoagulable state, and IVC filter. Physical Exam Vital Signs: Temp Pulse Resp BP Pulse Ox 98.5 F 74 20 146/70 H 100 11/30/16 13:05 11/30/16 13:05 11/30/16 13:05 11/30/16 13:05 11/30/16 13:05 Intake & Output 11/29/16 11/30/16 12/01/16 06:59 06:59 06:59 Intake Total 890 1590 Output Total 900 850 Balance -10 740 Weight 51.8 kg 51.8 kg GENERAL: No acute distress HEENT: Conjunctiva clear, nonicteric, moist mucous membranes, no JVD, midline trachea RESPIRATORY: Clear to auscultation bilaterally, no wheezes, no rhonchi CARDIAC: Regular rate and rhythm, no murmurs/gallops/rubs ABDOMEN: Soft, nondistended, mild left upper quadrant tenderness, positive bowel sounds, no rebound, no guarding EXTREMETIES: No edema, cyanosis, clubbing NEUROLOGIC: Alert, oriented to person/place/time, CN's grossly intact, no focal deficits SKIN: No rash, wounds PSYCH: Normal mood, normal affect Results Laboratory Results: 11/29/16 05:12 11/29/16 05:12 11/28/16 11/29/16 18:22 18:23 Transferrin 172 L Stool Occult Blood POSITIVE 11/28/16 11/29/16 11/29/16 23:03 05:12 05:12 Creatine Kinase 28 L CK-MB (CK-2) 0.64 0.62 Troponin I < 0.012 < 0.012 Impressions: Abdomen/Pelvis CTA 11/28/16 12:52 IMPRESSION: NO ABDOMINAL AORTIC ANEURYSM, DISSECTION OR SIGNIFICANT STENOSIS. NO SIGNIFICANT CHANGE FROM PRIOR STUDY. Chest/Abdomen CTA 11/28/16 12:52 IMPRESSION: NO ACUTE INTRATHORACIC PROCESS. NO ACUTE AORTIC INJURY, OR ANEURYSM. NO PULMONARY EMBOLI. Cardiolite stress test 11/30/2016: No evidence of ischemia/scar Assessment & Plan - Diagnosis (1) Abdominal pain Qualifiers: Abdominal location: generalized Qualified Code(s): R10.84 - Generalized abdominal pain Is this a current diagnosis for this admission?: YesPlan: CT of abdomen/pelvis with no acute process. Given patient's history of gastric bypass she is being evaluated by GI with EGD. It is noteworthy that patient stopped her Protonix about 6 months ago and switched to an herbal supplement. It is also noted that she has been on Fosamax for osteoporosis. (2) Chest pain Qualifiers: Chest pain type: precordial pain Qualified Code(s): R07.2 - Precordial pain Is this a current diagnosis for this admission?: YesPlan: Cardiolite stress test negative. (3) History of pulmonary embolus (PE) Is this a current diagnosis for this admission?: YesPlan: Followed by Dr. Pike of hematology. Patient has been off anticoagulation for the past year for unclear reasons. She is currently on Lovenox for now. If EGD shows no ulcer or source of GI bleeding then we may start patient back on Eliquis. (4) Protein C deficiency Is this a current diagnosis for this admission?: Yes - Time Time Spent with patient: 35 or more minutes
[2016-11-30] MEDS: TRAMADOL HCL 50 MG TABLET PO PRN ×2 (15:22→23:55)
--- NOTE | 2016-11-30 19:08 | CONSULTATION REPORT E ---
Consultation Report NAME: ROBERTO LAYTON : 1955 AGE: 60Y DATE: 11/30/2016 425 A TO: CLAUDIA MCRAE M.D. FROM: ROB SCOTT M.D. Requesting Physician REASON FOR CONSULTATION: Patient referred with history of blood clots with a Anshul filter, question with anticoagulation. CONSULTATION REPORT: The patient was admitted into the hospital. She presently has a Anshul filter and has not been on anticoagulation at home. She has thrombophilia with protein S and C deficiency. She was unable to receive anticoagulation during her last hospitalization in [place] because of bleeding, so she had a Anshul filter placed. She is doing a lot better since this hospitalization. PAST MEDICAL HISTORY: 1. History of gastric bypass. 2. She has had tummy tuck surgery. 3. Cholecystectomy. 4. Bilateral wrist surgery. 5. She has had several admissions because of respiratory failure. ALLERGIES: 1. NORTRIPTYLINE. 2. NSAIDS. 3. IBUPROFEN. 4. DILANTIN. PHYSICAL EXAMINATION: GENERAL: She is a middle-aged man. She is not acutely ill looking. EXTREMITIES: Lower extremities with no edema. ABDOMEN: Soft. DIAGNOSTIC TEST RESULTS: From 11/29: white count 7.5, hemoglobin 11.1, platelet count 371. Sodium 131.5, potassium 4.1, BUN 27, creatinine 1.1. IMPRESSION/PLAN: The patient is a 60-year-old woman with thrombophilia. She presently has a Anshul filter in place. I explained to her that during periods of high risk of thrombosis, she could be started on Lovenox, if there is no bleeding complication. At other times, I would recommend possibly aspirin, full dose 325 mg if tolerated, otherwise baby aspirin. I explained that if she has bleeding complications, all anticoagulation should be discontinued. I reviewed with her the high-risk periods which would include during hospitalizations, trip that would necessitate prolonged immobilization, post surgery. She understands. I will send in a prescription to *------* Pharmacy, as she tells me she might be taking a trip to [place] following her discharge from the hospital. I will see her back as an outpatient post discharge. I thank you for this consultation and allowing me to be part of her care. DICTATING PHYSICIAN: CLAUDIA MCRAE M.D. [id number] [id number] ID: [id number] JOB#: [id number] ACCT: [id number] cc:CLAUDIA MCRAE M.D. >
[2016-11-30] MEDS: TRAZODONE HCL 50 MG TABLET PO SCH (21:37)
[2016-11-30] MEDS: CEFTRIAXONE 1 GM/D5W RTU 1 GM/50 ML RTUPB IV SCH (21:37)
[2016-11-30] MEDS: ATORVASTATIN CALCIUM 40 MG TABLET PO SCH (21:37)
[2016-12-01] MEDS: MORPHINE SULFATE 10 MG/ML INJ IV PRN (02:51)
[2016-12-01] MEDS: SUCRALFATE SUSP 1 GM/10 ML UDCUP PO SCH ×4 (05:56→23:33)
[2016-12-01] MEDS: LANSOPRAZOLE 30 MG TAB.RAP.DR PO SCH ×2 (05:56→17:18)
[2016-12-01] MEDS: LEVETIRACETAM 500 MG TABLET PO SCH ×2 (05:56→21:12)
[2016-12-01] MEDS: LEVOTHYROXINE SODIUM 0.088 MG TABLET PO SCH (05:56)
[2016-12-01 06:01] LABS: HEMATOCRIT 31.7 % (36.0-47.0); HEMOGLOBIN 10.6 g/dL (12.0-15.5); HGB HCT DIFFERENCE 0.1; MEAN CORPUSCULAR HEMOGLOBIN 35.7 pg (27.0-33.4); MEAN CORPUSCULAR HGB CONC 33.5 g/dL (32.0-36.0); MEAN CORPUSCULAR VOLUME 107 fl (80-97); RED BLOOD COUNT 2.98 10^6/uL (3.72-5.28); RED CELL DISTRIBUTION WIDTH 14.3 % (11.5-14.0)
[2016-12-01 06:16] LABS: ANION GAP 6 (5-19); BLOOD UREA NITROGEN 11 mg/dL (7-20); CALCIUM 8.2 mg/dL (8.4-10.2); CARBON DIOXIDE 26 mmol/L (22-30); CHLORIDE 100 mmol/L (98-107); CREATININE RESULT 0.52 mg/dL (0.52-1.25); GLUCOSE 91 mg/dL (75-110); POTASSIUM 4.6 mmol/L (3.6-5.0)
[2016-12-01 07:01] LABS: VITAMIN D 1,25 DIHYDROXY 36.6 pg/mL (19.9-79.3)
[2016-12-01 07:50] LABS: APPEARANCE,URINE CLEAR; BILIRUBIN,URINE NEGATIVE (NEGATIVE); GLUCOSE, URINE NEGATIVE (NEGATIVE); KETONES,URINE NEGATIVE (NEGATIVE); LEUKOCYTE ESTERASE,URINE NEGATIVE (NEGATIVE); NITRITE,URINE NEGATIVE (NEGATIVE); PROTEIN,URINE NEGATIVE (NEGATIVE); URINE SPECIFIC GRAVITY 1.009; UROBILINOGEN,URINE NEGATIVE mg/dL (<2.0)
[2016-12-01] MEDS: DOCUSATE SODIUM 100 MG CAPSULE PO SCH (09:29)
[2016-12-01] MEDS: CALCIUM CARBONATE 500 MG TABLET PO SCH ×3 (09:29→17:18)
[2016-12-01] MEDS: SODIUM BICARBONATE 650 MG TABLET PO SCH ×3 (09:30→17:18)
[2016-12-01] MEDS: LISINOPRIL 5 MG TABLET PO SCH (09:30)
[2016-12-01] MEDS: ENOXAPARIN SODIUM INJ 60 MG/0.6 ML DISP.SYRIN SUBCUT SCH ×2 (09:30→21:11)
[2016-12-01] MEDS: TRAMADOL HCL 50 MG TABLET PO PRN ×2 (12:01→22:25)
[2016-12-01] MEDS: SULFAMETHOXAZOLE/TRIMETHOPRIM 800-160 MG TABLET PO SCH (17:18)
[2016-12-01] MEDS: CARBAMIDE PEROXIDE 6.5% OTIC SOLN 15 ML AS SCH (17:19)
--- NOTE | 2016-12-01 17:20 | PDOC PROGRESS REPORT ---
Subjective Progress Note for:: 12/01/16 Subjective:: Patient has no chest pain. She continues to have left upper quadrant. She denies nausea, vomiting, hematemesis, melena. Physical Exam Vital Signs: Temp Pulse Resp BP Pulse Ox 97.6 F 74 12 125/67 100 12/01/16 14:34 12/01/16 14:34 12/01/16 14:34 12/01/16 14:34 12/01/16 14:34 Intake & Output 11/30/16 12/01/16 12/02/16 06:59 06:59 06:59 Intake Total 1590 2172 Output Total 850 450 Balance 740 1722 Weight 51.8 kg 55.2 kg GENERAL: No acute distress HEENT: Conjunctiva clear, nonicteric, moist mucous membranes, no JVD, midline trachea RESPIRATORY: Clear to auscultation bilaterally, no wheezes, no rhonchi CARDIAC: Regular rate and rhythm, no murmurs/gallops/rubs ABDOMEN: Soft, nondistended, mild left upper quadrant tenderness, positive bowel sounds, no rebound, no guarding EXTREMETIES: No edema, cyanosis, clubbing NEUROLOGIC: Alert, oriented to person/place/time, CN's grossly intact, no focal deficits SKIN: No rash, wounds PSYCH: Normal mood, normal affect Results Laboratory Results: 12/01/16 05:14 12/01/16 05:14 12/01/16 12/01/16 12/01/16 05:14 05:14 07:00 WBC 5.0 RBC 2.98 L Hgb 10.6 L Hct 31.7 L MCV 107 H MCH 35.7 H MCHC 33.5 RDW 14.3 H Plt Count 280 Sodium 132.0 L Potassium 4.6 Chloride 100 Carbon Dioxide 26 Anion Gap 6 BUN 11 Creatinine 0.52 Est GFR ( Amer) > 60 Est GFR (Non-Af Amer) > 60 Glucose 91 Calcium 8.2 L Urine Color YELLOW Urine Appearance CLEAR Urine pH 6.0 Ur Specific [place] 1.009 Urine Protein NEGATIVE Urine Glucose (UA) NEGATIVE Urine Ketones NEGATIVE Urine Blood NEGATIVE Urine Nitrite NEGATIVE Ur Leukocyte Esterase NEGATIVE Urine WBC (Auto) 0 11/28/16 11/29/16 11/29/16 23:03 05:12 05:12 Creatine Kinase 28 L CK-MB (CK-2) 0.64 0.62 Troponin I < 0.012 < 0.012 Impressions: Abdomen/Pelvis CTA 11/28/16 12:52 IMPRESSION: NO ABDOMINAL AORTIC ANEURYSM, DISSECTION OR SIGNIFICANT STENOSIS. NO SIGNIFICANT CHANGE FROM PRIOR STUDY. Chest/Abdomen CTA 11/28/16 12:52 IMPRESSION: NO ACUTE INTRATHORACIC PROCESS. NO ACUTE AORTIC INJURY, OR ANEURYSM. NO PULMONARY EMBOLI. Assessment & Plan - Diagnosis (1) Abdominal pain Qualifiers: Abdominal location: generalized Qualified Code(s): R10.84 - Generalized abdominal pain Is this a current diagnosis for this admission?: YesPlan: CT of abdomen/pelvis with no acute process. Given patient's history of gastric bypass she is being evaluated by GI with EGD. It is noteworthy that patient stopped her Protonix about 6 months ago and switched to an herbal supplement. It is also noted that she has been on Fosamax for osteoporosis. (2) Chest pain Qualifiers: Chest pain type: precordial pain Qualified Code(s): R07.2 - Precordial pain Is this a current diagnosis for this admission?: YesPlan: Cardiolite stress test negative. (3) History of pulmonary embolus (PE) Is this a current diagnosis for this admission?: YesPlan: Followed by Dr. Pike of hematology. Patient has been off anticoagulation for the past year for unclear reasons. She is currently on Lovenox for now. If EGD shows no ulcer or source of GI bleeding then we may start patient back on Eliquis. Dr. Pike recommended having patient on aspirin 325 mg daily continuously. Patient should take Lovenox during high-risk situations such as long travel, prolonged immobilization. Dr. Pike has sent prescription to pharmacy for this medication given patient's upcoming trip to [place]. (4) Protein C deficiency Is this a current diagnosis for this admission?: Yes (5) Hypothyroid Is this a current diagnosis for this admission?: YesPlan: Patient's levothyroxine was increased to 88 mcg this admission. She is to follow-up with Dr. Christine Arriola of endocrinology after discharge. (6) Hypertension Is this a current diagnosis for this admission?: YesPlan: Decrease lisinopril to 5 mg daily secondary to low blood pressure readings (7) Seizure disorder Is this a current diagnosis for this admission?: YesPlan: Continue Keppra. (8) History of gastric bypass Is this a current diagnosis for this admission?: Yes - Time Time Spent with patient: 25-34 minutes Anticipated discharge: Home Within: within 24 hours
--- NOTE | 2016-12-01 19:34 | PDOC CONSULTATION ---
Consultation Consult Date: 12/01/16 History of Present Illness Admission Date/PCP: 11/28/16 16:45 ALICE LANDRY DO History of Present Illness: This is a 60-year-old patient who was admitted with chest pain and anemia. Consultation was requested for abdominal pain and anemia. According to the patient she has had anemia for many years. Her hemoglobin was 9 on the day of admission but came up to 11 the next day. She has not received any transfusion. Her ferritin was 800, B12 and folate was also normal. She denies any rectal bleeding or black stools. She also has a chronic history of upper abdominal pain radiating down to the suprapubic area. She has had this pain for at least a year but has become worse in the last 6 months. She used to be on Protonix with significant improvement in her pain. She stopped the Protonix in May of last year. She has a history of gastric bypass. The plan was to do an endoscopy on her this evening the patient decided to eat. Past Medical History Cardiac Medical History: Reports: DVT, Myocardial Infarction, Hypertension, Pulmonary Embolism Pulmonary Medical History: Reports: Chronic Obstructive Pulmonary Disease (COPD) , Intubation, Pneumonia EENT Medical History: Reports: Other - Protein C+ Protein S deficiency Neurological Medical History: Reports: Seizures Endocrine Medical History: Reports: Diabetes Mellitus Type 2, Hypothyroidism GI Medical History: Reports: Gastroesophageal Reflux Disease Musculoskeltal Medical History: Reports: Arthritis Psychiatric Medical History: Reports: Tobacco Dependency Hematology: Reports: Anemia, Other - Protein C+ Protein S deficiency Past Surgical History Past Surgical History: Reports: Cholecystectomy, Gastric Bypass Surgery, Hysterectomy, Orthopedic Surgery - bria wrists, Vascular Surgery - IVC filter, Other - Tummy tuck and multiple surgeries related to this, trach and peg Social History Smoking Status: Current Some Day Smoker Frequency of Alcohol Use: Occasional Hx Recreational Drug Use: No Drugs: None Hx Prescription Drug Abuse: No - Advance Directive Resuscitation Status: Full Code Family History Family History: Other - Father had IHSS Mother with a-fib, dvt, Parental Family History Reviewed: No Children Family History Reviewed: NA Sibling(s) Family History Reviewed.: NA Medication/Allergy Home Medications: Albuterol Sulfate [Albuterol Sulfate 2.5mg/3 mL] 1 vial IH RTQIDP PRN 11/29/16 Albuterol Sulfate [Proair HFA] 2 puff IH Q4HP PRN 11/29/16 Alendronate Sodium [Fosamax 70 mg Tablet] 1 tab PO VILLEDA@1000 11/29/16 Atorvastatin Calcium [Lipitor 10 mg Tablet] 10 mg PO DAILY 11/29/16 Butalb/Acetaminophen/Caffeine [Fioricet (50-325-40 mg) Tablet] 1 tab PO Q4HP PRN 11/29/16 Butorphanol Tartrate 1 spray NS Q6HP PRN 11/29/16 Carvedilol [Coreg 3.125 mg Tablet] 3.125 mg PO Q12 11/29/16 Cyclobenzaprine HCl [Flexeril 10 mg Tablet] 10 mg PO Q12HP PRN 11/29/16 Levetiracetam [Keppra 500 mg Tablet] 1,500 mg PO Q12 11/29/16 Levothyroxine Sodium [Synthroid 0.075 mg Tablet] 0.075 mg PO DAILY 11/29/16 Lisinopril [Prinivil 10 mg Tablet] 10 mg PO DAILY 11/29/16 Metformin HCl [Glucophage XR 500 mg Tablet] 1,000 mg PO BID 11/29/16 Nitroglycerin [Nitrostat] 0.4 mg SL ASDIR PRN 11/29/16 Tramadol HCl [Ultram 50 mg Tablet] 50 mg PO Q8HP PRN 11/29/16 Trazodone HCl [Desyrel] 150 mg PO QHS 11/29/16 Allergies/Adverse Reactions: divalproex sodium [From Depakote] Allergy (Verified 11/28/16 12:08) ibuprofen [From Motrin] Allergy (Verified 11/28/16 12:08) nortriptyline Allergy (Verified 11/28/16 12:08) Penicillins Allergy (Verified 11/28/16 12:08) phenytoin sodium extended [From Dilantin] Allergy (Verified 11/28/16 12:08) Review of Systems All systems: reviewed and no additional remarkable complaints except as stated Physical Exam Vital Signs: Temp Pulse Resp BP Pulse Ox 97.6 F 74 12 125/67 100 12/01/16 14:34 12/01/16 14:34 12/01/16 14:34 12/01/16 14:34 12/01/16 14:34 Intake & Output 11/30/16 12/01/16 12/02/16 06:59 06:59 06:59 Intake Total 1590 2172 Output Total 850 450 Balance 740 1722 Weight 51.8 kg 55.2 kg Exam: General: Patient is alert and looks well. HEENT: There is no pallor or jaundice. PERRLA. Oropharynx normal Respiratory: No chest deformity. No respiratory distress. Chest wall palpitation was unremarkable. Breath sounds were normal Cardiovascular: Heart sounds 1 and 2 normal with no murmurs. Abdominal: Not distended. Soft and nontender. Liver and spleen not palpable. No ascites demonstrated. Bowel sounds active. Rectal examination was deferred. Extremities: No edema Neurological: Alert and oriented x4. Grossly nonfocal. Normal speech Skin: No significant rash Psychological: Normal affect Results Laboratory Results: 12/01/16 05:14 12/01/16 05:14 12/01/16 12/01/16 12/01/16 05:14 05:14 07:00 WBC 5.0 RBC 2.98 L Hgb 10.6 L Hct 31.7 L MCV 107 H MCH 35.7 H MCHC 33.5 RDW 14.3 H Plt Count 280 Sodium 132.0 L Potassium 4.6 Chloride 100 Carbon Dioxide 26 Anion Gap 6 BUN 11 Creatinine 0.52 Est GFR ( Amer) > 60 Est GFR (Non-Af Amer) > 60 Glucose 91 Calcium 8.2 L Urine Color YELLOW Urine Appearance CLEAR Urine pH 6.0 Ur Specific [place] 1.009 Urine Protein NEGATIVE Urine Glucose (UA) NEGATIVE Urine Ketones NEGATIVE Urine Blood NEGATIVE Urine Nitrite NEGATIVE Ur Leukocyte Esterase NEGATIVE Urine WBC (Auto) 0 11/28/16 11/29/16 11/29/16 23:03 05:12 05:12 Creatine Kinase 28 L CK-MB (CK-2) 0.64 0.62 Troponin I < 0.012 < 0.012 Impressions: Abdomen/Pelvis CTA 11/28/16 12:52 IMPRESSION: NO ABDOMINAL AORTIC ANEURYSM, DISSECTION OR SIGNIFICANT STENOSIS. NO SIGNIFICANT CHANGE FROM PRIOR STUDY. Chest/Abdomen CTA 11/28/16 12:52 IMPRESSION: NO ACUTE INTRATHORACIC PROCESS. NO ACUTE AORTIC INJURY, OR ANEURYSM. NO PULMONARY EMBOLI. Assessment & Plan - Diagnosis (1) Anemia Qualifiers: Anemia type: unspecified type Qualified Code(s): D64.9 - Anemia, unspecified Is this a current diagnosis for this admission?: YesPlan: The etiology for her chronic anemia is unclear but I suspect this is anemia of chronic disease. She will undergo an EGD and colonoscopy but this will be performed as an outpatient. Her EGD will be performed next week (2) Abdominal pain Qualifiers: Abdominal location: generalized Qualified Code(s): R10.84 - Generalized abdominal pain Is this a current diagnosis for this admission?: YesPlan: Differential diagnosis for her pain include esophagitis, gastric anastomotic ulcer, irritable bowel syndrome or functional dyspepsia. She should be started empirically on a PPI and I will see her as outpatient for her endoscopies (3) History of gastric bypass Is this a current diagnosis for this admission?: Yes
[2016-12-01] MEDS: ATORVASTATIN CALCIUM 40 MG TABLET PO SCH (21:12)
[2016-12-01] MEDS: TRAZODONE HCL 50 MG TABLET PO SCH (21:12)
[2016-12-02] MEDS: MORPHINE SULFATE 10 MG/ML INJ IV PRN (04:50)
[2016-12-02] MEDS: LANSOPRAZOLE 30 MG TAB.RAP.DR PO SCH (05:12)
[2016-12-02] MEDS: SUCRALFATE SUSP 1 GM/10 ML UDCUP PO SCH (05:12)
[2016-12-02] MEDS: LEVOTHYROXINE SODIUM 0.088 MG TABLET PO SCH (05:12)
[2016-12-02] MEDS: SODIUM BICARBONATE 650 MG TABLET PO SCH (07:35)
[2016-12-02] MEDS: LEVETIRACETAM 500 MG TABLET PO SCH (07:35)
[2016-12-02] MEDS: CARBAMIDE PEROXIDE 6.5% OTIC SOLN 15 ML AS SCH (07:36)
[2016-12-02] MEDS ORDERED: LISINOPRIL 5 MG TABLET PO SCH (10:00)
[2016-12-02 11:33] VITALS: BP 138/68
[2016-12-02] MEDS: CALCIUM CARBONATE 500 MG TABLET PO SCH (11:40)
[2016-12-02] MEDS: SULFAMETHOXAZOLE/TRIMETHOPRIM 800-160 MG TABLET PO SCH (11:41)
[2016-12-02] MEDS: DOCUSATE SODIUM 100 MG CAPSULE PO SCH (11:41)
[2016-12-02] MEDS: TRAMADOL HCL 50 MG TABLET PO PRN (11:45)
[2016-12-02] MEDS: ENOXAPARIN SODIUM INJ 60 MG/0.6 ML DISP.SYRIN SUBCUT SCH (11:47)
--- NOTE | 2016-12-02 12:12 | PDOC DISCHARGE SUMMARY ---
General - Admit/Disc Date/PCP Admission Date/Primary Care Provider: 11/28/16 16:45 ALICE LANDRY, Discharge Date: 12/02/16 - Discharge Diagnosis (1) Chest pain Is this a current diagnosis for this admission?: YesSummary: Cardiac enzymes negative 4. Cardiolite stress test negative. Likely gastrointestinal in nature. (2) Abdominal pain Is this a current diagnosis for this admission?: YesSummary: Patient with history of gastric bypass. Patient decided to discontinue Protonix 6 months ago and taken herbal remedy. She was also taking Fosamax. I believe she was on aspirin prior to admission as well. She has been seen by Dr. Harmon of GI and he is planning outpatient EGD. Patient has been started back on Protonix as well as Carafate. (3) History of pulmonary embolus (PE) Is this a current diagnosis for this admission?: YesSummary: Patient is status post IVC filter. She was taken off of anticoagulation during hospitalization and [facility] last year. Patient was seen by Dr. Pike of hematology. She has recommended aspirin 325 mg daily. She has advised that patient take Lovenox during high risk situations such as prolonged travel and immobility. Unfortunately the aspirin may aggravate patient's epigastric pain but the alternative of not being on some type of blood thinner is not good. (4) Protein C deficiency Is this a current diagnosis for this admission?: Yes (5) Hypothyroid Is this a current diagnosis for this admission?: YesSummary: Synthroid was increased to 88 mcg daily. Patient is referred to Dr. Arriola of endocrinology for follow-up. (6) Hypertension Is this a current diagnosis for this admission?: Yes (7) Seizure disorder Is this a current diagnosis for this admission?: YesSummary: Patient on Keppra. She has had no seizure activity during this hospitalization. She already has established care with a neurologist in [place] and will follow up with them. (8) History of gastric bypass Is this a current diagnosis for this admission?: Yes (9) Diabetes Is this a current diagnosis for this admission?: Yes - Additional Information Resuscitation Status: Full Code Discharge Diet: Cardiac, Diabetic Discharge Activity: Activity As Tolerated Home Medications: Albuterol Sulfate [Albuterol Sulfate 2.5mg/3 mL] 1 vial IH RTQIDP PRN 11/29/16 Albuterol Sulfate [Proair HFA] 2 puff IH Q4HP PRN 11/29/16 Atorvastatin Calcium [Lipitor 10 mg Tablet] 10 mg PO DAILY 11/29/16 Butalb/Acetaminophen/Caffeine [Fioricet (50-325-40 mg) Tablet] 1 tab PO Q4HP PRN 11/29/16 Butorphanol Tartrate 1 spray NS Q6HP PRN 11/29/16 Carvedilol [Coreg 3.125 mg Tablet] 3.125 mg PO Q12 11/29/16 Cyclobenzaprine HCl [Flexeril 10 mg Tablet] 10 mg PO Q12HP PRN 11/29/16 Levetiracetam [Keppra 500 mg Tablet] 1,500 mg PO Q12 11/29/16 Metformin HCl [Glucophage XR 500 mg Tablet] 1,000 mg PO BID 11/29/16 Nitroglycerin [Nitrostat] 0.4 mg SL ASDIR PRN 11/29/16 Tramadol HCl [Ultram 50 mg Tablet] 50 mg PO Q8HP PRN 11/29/16 Trazodone HCl [Desyrel] 150 mg PO QHS 11/29/16 Aspirin [Ecotrin 325 mg EC Tablet] 1 tab.ec PO DAILY PRN #30 tab 12/02/16 Calcium Carbonate [Os-Champ 500 mg Tablet (Oyster-Shell)] 1,000 mg PO TID tablet 12/02/16 Carbamide Peroxide [Debrox 6.5 % Otic Drops 15 ml] 1 drop BID #1 bottle 12/02 Levothyroxine Sodium [Synthroid 0.088 mg Tablet] 0.088 mg PO Q6AM #30 tablet Lisinopril [Prinivil 5 mg Tablet] 5 mg PO DAILY #30 tablet 12/02/16 Pantoprazole Sodium [Protonix] 40 mg PO DAILY #30 tablet. 12/02/16 Sucralfate [Carafate Susp 1 gm/10 ml Udcup] 1 gm PO Q6 #120 udc 12/02/16 Sulfamethoxazole/Trimethoprim [Septra-Ds 800-160 mg Tablet] 1 tab PO BID #14 tablet 12/02/16 History of Present Illness History of Present Illness: ROBERTO LAYTON is a 60 year old female Hospital Course Hospital Course: See above Physical Exam Vital Signs: Temp Pulse Resp BP Pulse Ox 98.1 F 74 16 138/68 H 100 12/02/16 11:30 12/02/16 11:30 12/02/16 11:30 12/02/16 11:30 12/02/16 11:30 Intake & Output 12/01/16 12/02/16 12/03/16 06:59 06:59 06:59 Intake Total 2172 905 591 Output Total 450 Balance 1722 905 591 Weight 55.2 kg 55.5 kg GENERAL: No acute distress HEENT: Conjunctiva clear, nonicteric, moist mucous membranes, no JVD, midline trachea RESPIRATORY: Clear to auscultation bilaterally, no wheezes, no rhonchi CARDIAC: Regular rate and rhythm, no murmurs/gallops/rubs ABDOMEN: Soft, nondistended, mild left upper quadrant tenderness, positive bowel sounds, no rebound, no guarding EXTREMETIES: No edema, cyanosis, clubbing NEUROLOGIC: Alert, oriented to person/place/time, CN's grossly intact, no focal deficits SKIN: No rash, wounds PSYCH: Normal mood, normal affect Results Laboratory Results: 12/01/16 05:14 12/01/16 05:14 11/28/16 11/29/16 11/29/16 23:03 05:12 05:12 Creatine Kinase 28 L CK-MB (CK-2) 0.64 0.62 Troponin I < 0.012 < 0.012 Impressions: Abdomen/Pelvis CTA 11/28/16 12:52 IMPRESSION: NO ABDOMINAL AORTIC ANEURYSM, DISSECTION OR SIGNIFICANT STENOSIS. NO SIGNIFICANT CHANGE FROM PRIOR STUDY. Chest/Abdomen CTA 11/28/16 12:52 IMPRESSION: NO ACUTE INTRATHORACIC PROCESS. NO ACUTE AORTIC INJURY, OR ANEURYSM. NO PULMONARY EMBOLI. Qualifiers PATEINT BEING DISCHARGED WITH ANY OF THE FOLLOWING DIAGNOSIS?: No Plan Time Spent: Less than 30 Minutes
== END 2016-12-02 13:02 | disposition home or self-care (01) | DRG 313 ==
LOC: ER 12:05 → EH 16:29 → INTOOBSV 16:45 → UNDOADMOB 16:45 → OBSVTOIN 16:45 → 4S 20:45
PROVIDERS: ADMIT Family Medicine; ATTEND Family Medicine
DX: R07.89 Other chest pain (principal); E87.2 Acidosis; D68.59 Other primary thrombophilia; E86.0 Dehydration; Z86.718 Personal history of other venous thrombosis and embolism; I25.2 Old myocardial infarction; I10 Essential (primary) hypertension; Z86.711 Personal history of pulmonary embolism; J44.9 Chronic obstructive pulmonary disease, unspecified; E11.9 Type 2 diabetes mellitus without complications; E03.9 Hypothyroidism, unspecified; K21.9 Gastro-esophageal reflux disease without esophagitis; M19.90 Unspecified osteoarthritis, unspecified site; F17.200 Nicotine dependence, unspecified, uncomplicated; E21.1 Secondary hyperparathyroidism, not elsewhere classified; G40.909 Epilepsy, unspecified, not intractable, without status epilepticus; D64.9 Anemia, unspecified; M81.0 Age-related osteoporosis without current pathological fracture; Z98.84 Bariatric surgery status; Z90.49 Acquired absence of other specified parts of digestive tract; Z88.6 Allergy status to analgesic agent; Z88.0 Allergy status to penicillin; Z79.899 Other long term (current) drug therapy; Z79.82 Long term (current) use of aspirin; Z98.890 Other specified postprocedural states; Z90.710 Acquired absence of both cervix and uterus
CPT/HCPCS: 36415; 71275; 74174; 78452; 80048; 80053; 80061; 80307; 81001; 82272; 82306; 82330; 82533; 82550; 82553; 82607; 82652; 82728; 82746; 82803; 82962; 83036; 83540; 83550; 83605; 83690; 83735; 84100; 84439; 84443; 84466; 84481; 84484; 85025; 85027; 85045; 85610; 86850; 86900; 86901; 87040; 87086; 87088; 87186; 93005; 93010; 93017; 93306; 99291; A9500; J0280; J0610; J0696; J1650; J2270; J2785; J3420; J3490; J7030; Q9969; S0119; S0164

== ENCOUNTER 2016-12-27 11:11 | Emergency (ER) | payer MEDICAID, MEDICARE ==
--- NOTE | 2016-12-27 11:23 | ER Document Report ---
ED Medical Screen (RME) - General Stated Complaint: FALL/ABDOMINAL PAIN,RIGHT HIP PAIN Time Seen by Provider: 12/27/16 11:22 Mode of Arrival: Medic Information source: Patient Notes: 61 yo female got up a chair in living room to go to the bathroom last night about 7 pm. [place] fine when she got up, next thing she remembered she was getting up off the floor. No recollection. Daughter in bedroom at the time and ran in to see her mom. Hurting at that time in right hip and down leg, couldnt up last night because can't bear weight on the right leg. also the abomen is distended and has stabbing low abdominal pain since last night. Also has nausea. BM this morning dark tar colored. GI bleed due to ibuprofen in the past. Hx gastric bypass, cholecystectomy, hysterectomy, tummy tuck, bria. radius surgery, mild [place] few years ago. Easy bruising since put on aspirin therapy- 325mg daily started november. was here at [facility] for chest pain and abdominal pain ( UGI was negative)-dr. wolf. TRAVEL OUTSIDE OF THE [place] IN LAST 30 DAYS: No - Related Data Allergies/Adverse Reactions: divalproex sodium [From Depakote] Allergy (Verified 11/28/16 12:08) ibuprofen [From Motrin] Allergy (Verified 11/28/16 12:08) nortriptyline Allergy (Verified 11/28/16 12:08) Penicillins Allergy (Verified 11/28/16 12:08) phenytoin sodium extended [From Dilantin] Allergy (Verified 11/28/16 12:08) Past Medical History - Past Medical History Cardiac Medical History: Reports: Hx DVT, Hx Heart Attack, Hx Hypertension, Hx Pulmonary Embolism Pulmonary Medical History: Reports: Hx COPD, Hx Pneumonia, Hx Intubation Neurological Medical History: Reports: Hx Seizures Endocrine Medical History: Reports: Hx Diabetes Mellitus Type 2, Hx Hypothyroidism Renal/ Medical History: Denies: Hx Peritoneal Dialysis GI Medical History: Reports: Hx Gastroesophageal Reflux Disease Musculoskeltal Medical History: Reports Hx Arthritis Past Surgical History: Reports: Hx Abdominal Surgery - gastric bypass, Hx Cholecystectomy, Hx Gastric Bypass Surgery, Hx Hysterectomy, Hx Orthopedic Surgery - bria wrists, Hx Vascular Surgery - IVC filter, Other - Tummy tuck and multiple surgeries related to this, trach and peg
[2016-12-27] MEDS ORDERED: ASPIRIN 81 MG TABLET, CHEWABLE PO ONE (11:32)
[2016-12-27] MEDS ORDERED: ONDANSETRON HCL INJ/PF 4 MG/2 ML SDV IV ONE (11:37)
[2016-12-27] MEDS ORDERED: MORPHINE SULFATE 10 MG/ML INJ IV ONE ×3 (11:37→14:43)
--- NOTE | 2016-12-27 11:48 | ER Document Report ---
ED Fall - General Chief Complaint: Fall Stated Complaint: FALL/ABDOMINAL PAIN,RIGHT HIP PAIN Time Seen by Provider: 12/27/16 11:22 Mode of Arrival: Medic Information source: Patient Notes: 61 yo female got up a chair in living room to go to the bathroom last night about 7 pm. [place] fine when she got up, next thing she remembered she was getting up off the floor. No recollection. Daughter in bedroom at the time and ran in to see her mom. Hurting at that time in right hip and down leg, couldnt up last night because can't bear weight on the right leg. also the abomen is distended and has stabbing low abdominal pain since last night. Also has nausea. BM this morning dark tar colored. GI bleed due to ibuprofen in the past. Hx gastric bypass, cholecystectomy, hysterectomy, tummy tuck, bria. radius surgery, mild [place] few years ago. Easy bruising since put on aspirin therapy- 325mg daily started november. was here at [facility] for chest pain and abdominal pain ( UGI was negative)-dr. wolf. Tetanus is current. No saddle anesthesia. TRAVEL OUTSIDE OF THE [place] IN LAST 30 DAYS: No - Related data Allergies/Adverse Reactions: divalproex sodium [From Depakote] Allergy (Verified 11/28/16 12:08) ibuprofen [From Motrin] Allergy (Verified 11/28/16 12:08) nortriptyline Allergy (Verified 11/28/16 12:08) Penicillins Allergy (Verified 11/28/16 12:08) phenytoin sodium extended [From Dilantin] Allergy (Verified 11/28/16 12:08) Past Medical History - General Information source: Patient - Social History Smoking Status: Current Every Day Smoker Frequency of alcohol use: None Drug Abuse: None Lives with: Family - daughter Family History: Other - Father had IHSS Mother with a-fib, dvt, - Past Medical History Cardiac Medical History: Reports: Hx DVT, Hx Heart Attack, Hx Hypertension, Hx Pulmonary Embolism Pulmonary Medical History: Reports: Hx COPD, Hx Pneumonia, Hx Intubation Neurological Medical History: Reports: Hx Seizures Endocrine Medical History: Reports: Hx Diabetes Mellitus Type 2, Hx Hypothyroidism Renal/ Medical History: Denies: Hx Peritoneal Dialysis GI Medical History: Reports: Hx Gastroesophageal Reflux Disease Musculoskeltal Medical History: Reports Hx Arthritis Past Surgical History: Reports: Hx Abdominal Surgery - gastric bypass, Hx Cholecystectomy, Hx Gastric Bypass Surgery, Hx Hysterectomy, Hx Orthopedic Surgery - bria wrists, Hx Vascular Surgery - IVC filter, Other - Tummy tuck and multiple surgeries related to this, trach and peg Review of Systems - Review of Systems Constitutional: No symptoms reported EENT: No symptoms reported Cardiovascular: No symptoms reported Respiratory: No symptoms reported Gastrointestinal: See HPI Genitourinary: No symptoms reported Female Genitourinary: No symptoms reported Musculoskeletal: See HPI Skin: No symptoms reported Hematologic/Lymphatic: No symptoms reported Neurological/Psychological: No symptoms reported Physical Exam - Vital signs Vitals: Temp Pulse Resp BP Pulse Ox 98.1 F 93 16 112/89 H 97 12/27/16 11:32 12/27/16 11:32 12/27/16 11:32 12/27/16 11:32 12/27/16 11:32 Interpretation: Normal - General General appearance: Appears well, Alert, Anxious In distress: Mild - HEENT Head: Normocephalic, Atraumatic Eyes: Normal Conjunctiva: Normal Pupils: PERRL Pharynx: Normal Neck: Supple - mild tender midline c spine - Respiratory Respiratory status: No respiratory distress Chest status: Nontender Breath sounds: Normal Chest palpation: Normal - Cardiovascular Rhythm: Regular Heart sounds: Normal auscultation Murmur: No - Abdominal Inspection: Normal Distension: No distension Bowel sounds: Normal Tenderness: Tender - yells to light touch low abdomen bilateral, small bruise to the right ant superior iliac spine area. Organomegaly: No organomegaly. No: Hepatomegaly, Splenomegaly Notes: midline scar from surgeries - Back Back: Normal, Nontender, Tender - right low back into SI joint and right buttocks - Extremities General upper extremity: Normal inspection, Nontender, Normal color, Normal ROM , Normal temperature General lower extremity: Normal inspection, Nontender, Normal color, Normal ROM , Normal temperature, Normal weight bearing. No: Pamela's sign - Neurological Neuro grossly intact: Yes Cognition: Normal Orientation: AAOx4 Brenda Coma Scale Eye Opening: Spontaneous Brenda Coma Scale Verbal: Oriented Brenda Coma Scale Motor: Obeys Commands Kent Coma Scale Total: 15 Speech: Normal Motor strength normal: LUE, RUE, LLE, RLE Sensory: Normal Knee - Reflex grade: 2 = Normal - bria Ankle - Reflex grade: 2 = Normal - bria - Psychological Associated symptoms: Normal affect, Normal mood - Skin Skin Temperature: Warm Skin Moisture: Dry Skin Color: Normal Skin irregularity: negative: Rash Course - Re-evaluation Re-evalutation: 12/27/16 14:38 Up walking to the bathroom and points to her right sacroiliac joint into her right mid buttocks for the pain and she is walking on the forefoot with a limp. 12/27/16 16:09 ct shows 12 x 7 x 5 transverse hematoma left pelvis inseparable from the anterior abdominal wall 12/27/16 17:[address] estrada-pt ok with pt going home, but she needs to be rechecked and repeat cbc tomorrow, stop the aspirin. No need to repeat the troponin I. stool hem is negative. mild tender to left low abdomen at this time. - Vital Signs Vital signs: Temp Pulse Resp BP Pulse Ox 98.1 F 93 13 127/95 H 97 12/27/16 11:32 12/27/16 11:32 12/27/16 17:01 12/27/16 17:01 12/27/16 17:01 - Laboratory Result Diagrams: 12/27/16 12:58 12/27/16 12:58 Laboratory results interpreted by me: 12/27/16 12/27/16 12/27/16 12:58 12:58 14:45 WBC 11.4 H RBC 2.78 L Hgb 10.0 L Hct 30.8 L MCV 111 H D MCH 35.9 H RDW 14.9 H Absolute Neutrophils 8.4 H Sodium 130.5 L Potassium 5.1 H Carbon Dioxide 13 L BUN 29 H Glucose 72 L AST 63 H ALT 54 H Total Protein 6.2 L Urine Ketones 20 H - EKG Interpretation by Me EKG shows normal: Sinus rhythm Rate: Normal Additional EKG results interpreted by me: 12/27/16 17:09 old anterior Discharge - Discharge Clinical Impression: Back pain, sacroiliac, Abdominal pain Sciatica Qualifiers: Laterality: right Qualified Code(s): M54.31 - Sciatica, right side Abdominal wall hematoma Qualifiers: Encounter type: initial encounter Qualified Code(s): S30.1XXA - Contusion of abdominal wall, initial encounter Fall Qualifiers: Encounter type: initial encounter Qualified Code(s): W19.XXXA - Unspecified fall, initial encounter Syncopal episodes Qualifiers: Syncope type: unspecified Qualified Code(s): R55 - Syncope and collapse Condition: Good Disposition: HOME, SELF-CARE Instructions: Low Back Pain ([facility]), Muscle Strain ([facility]), Oral Narcotic Medication ([facility]), Hematoma ([facility]), Abdominal Pain ([facility]) Additional Instructions: repeat the complete blood count tomorrow, see your rn neonatal icu tommorrow stop the aspirin therapy to er if any dizziness, worsening pain, any concerns see orthopedic doctor if the right back pain persists heat to right low back and abdomen abdominal binder may help with the hematoma discomfort Please complete the patient satisfaction survey if you get one, and return it.. If you do not receive a survey, then you can go to the [facility] website, [email or web address] and place your comments about your very good care. Thank you very much. It was a pleasure being your medical provider today. Prescriptions: Oxycodone HCl/Acetaminophen [Percocet 5-325 mg Tablet] 1 - 2 tab PO ASDIR PRN # 15 tablet PRN Reason: Referrals: NATACHA BASS MD [ACTIVE STAFF] - Follow up as needed
--- NOTE | 2016-12-27 12:44 | RADIOLOGY REPORT (SQ) ---
EXAM DESCRIPTION: CT HEAD WITHOUT COMPLETED DATE/TIME: 12/27/2016 12:23 pm REASON FOR STUDY: headache after fall COMPARISON: May 2016 TECHNIQUE: Axial images acquired through the brain without intravenous contrast. Images reviewed wi th bone, brain and subdural windows. Images stored on PACS. All CT scanners at this facility use dose modulation, iterative reconstruction, and/or weight based d osing when appropriate to reduce radiation dose to as low as reasonably achievable (ALARA). [facility]: Dose Right [facility]: CareDose [facility]: Dose Right [facility]: Teradose 4D [facility]: Smart [employer] RADIATION DOSE: Up-to-date CT equipment and radiation dose reduction techniques were employed. CTDIv ol: 64.6 mGy. DLP: 1163 mGy-cm. mGy. LIMITATIONS: None. FINDINGS: VENTRICLES: Normal size and contour. CEREBRUM: No masses. No hemorrhage. No midline shift. Normal farris/white matter differentiation. N o evidence for acute infarction. CEREBELLUM: No masses. No hemorrhage. No alteration of density. No evidence for acute infarction. EXTRAAXIAL SPACES: No fluid collections. No masses. ORBITS AND GLOBE: No intra- or extraconal masses. Normal contour of globe without masses. CALVARIUM: No fracture. PARANASAL SINUSES: No fluid or mucosal thickening. SOFT TISSUES: No mass or hematoma. OTHER: No other significant finding. IMPRESSION: NORMAL BRAIN CT WITHOUT CONTRAST. TECHNICAL DOCUMENTATION: JOB ID: [id number] Quality ID # [id number]: Final reports with documentation of one or more dose reduction techniques (e.g., Au tomated exposure control, adjustment of the mA and/or kV according to patient size, use of iterative reconstruction technique) 2010 [employer]- All Rights Reserved
--- NOTE | 2016-12-27 12:49 | RADIOLOGY REPORT (SQ) ---
EXAM DESCRIPTION: CT CERVICAL SPINE WITHOUT COMPLETED DATE/TIME: 12/27/2016 12:23 pm REASON FOR STUDY: fall, tender COMPARISON: 05/26/2016 TECHNIQUE: Axial images acquired through the cervical spine without intravenous contrast. Images re viewed with lung, soft tissue and bone windows. Reconstructed coronal and sagittal MPR images review ed. Images stored on PACS. All CT scanners at this facility use dose modulation, iterative reconstruction, and/or weight based d osing when appropriate to reduce radiation dose to as low as reasonably achievable (ALARA). [facility]: Dose Right [facility]: CareDose [facility]: Dose Right [facility]: Teradose 4D [facility]: Smart Statusly RADIATION DOSE: Up-to-date CT equipment and radiation dose reduction techniques were employed. CTDIv ol: 14.1 mGy. DLP: 251 mGy-cm. mGy. LIMITATIONS: None. FINDINGS: ALIGNMENT: Anatomic. MINERALIZATION: Normal. VERTEBRAL BODIES: No fractures or dislocation. DISCS: Again there is almost complete loss of the C4-C5 disc space heights with associated osteophyti c lipping. There is decrease in the C5-C6 disc space height. Prominent Schmorl's node is identified at the C4-C5 level to the right of midline. FACETS, LATERAL MASSES, POSTERIOR ELEMENTS: No fractures. No dislocation. Again there is bony ankyl osis of the C2-C3 facet on the right. HARDWARE: None in the spine. VISUALIZED RIBS: No fractures. LUNG APICES AND SOFT TISSUES: No significant or acute findings. OTHER: No other significant finding. IMPRESSION: NO ACUTE OR SIGNIFICANT FINDINGS IN THE CERVICAL SPINE. TECHNICAL DOCUMENTATION: JOB ID: [id number] Quality ID # [id number]: Final reports with documentation of one or more dose reduction techniques (e.g., Au tomated exposure control, adjustment of the mA and/or kV according to patient size, use of iterative reconstruction technique) 2010 [employer]- All Rights Reserved
--- NOTE | 2016-12-27 12:53 | RADIOLOGY REPORT (SQ) ---
EXAM DESCRIPTION: CHEST SINGLE VIEW COMPLETED DATE/TIME: 12/27/2016 12:25 pm REASON FOR STUDY: syncopal episode COMPARISON: CTA of the chest dated 11/28/2016 EXAM PARAMETERS: NUMBER OF VIEWS: One view. TECHNIQUE: Single frontal radiographic view of the chest acquired. RADIATION DOSE: NA LIMITATIONS: None. FINDINGS: LUNGS AND PLEURA: No opacities, masses or pneumothorax. No pleural effusion. MEDIASTINUM AND HILAR STRUCTURES: No masses. Contour normal. HEART AND VASCULAR STRUCTURES: Heart normal in size. Normal vasculature. BONES: No acute findings. HARDWARE: None in the chest. OTHER: No other significant finding. IMPRESSION: NO ACUTE RADIOGRAPHIC FINDING IN THE CHEST. TECHNICAL DOCUMENTATION: JOB ID: [id number]
--- NOTE | 2016-12-27 12:59 | EKG REPORT ---
SEVERITY:- ABNORMAL ECG - SINUS RHYTHM ANTERIOR INFARCT, OLD : Confirmed by: Juan Jimenez MD 27-Dec-2016 12:57:56
[2016-12-27 13:14] LABS: ABSOLUTE LYMPHOCYTES (AUTO) 2.3 10^3/uL (0.5-4.7); ABSOLUTE MONOCYTES (AUTO) 0.6 10^3/uL (0.1-1.4); ABSOLUTE NEUT (AUTO) 8.4 10^3/uL (1.7-8.2); BASOPHILS % (AUTO) 0.3 % (0-2); HEMATOCRIT 30.8 % (36.0-47.0); HGB HCT DIFFERENCE -0.8; LYMPHOCYTES % (AUTO) 20.5 % (13-45); MEAN CORPUSCULAR HEMOGLOBIN 35.9 pg (27.0-33.4); MEAN CORPUSCULAR HGB CONC 32.4 g/dL (32.0-36.0); MONOCYTES % (AUTO) 5.7 % (3-13); RED BLOOD COUNT 2.78 10^6/uL (3.72-5.28); RED CELL DISTRIBUTION WIDTH 14.9 % (11.5-14.0); SEGMENTED NEUTROPHILS % (AUTO) 73.5 % (42-78); WHITE BLOOD COUNT 11.4 10^3/uL (4.0-10.5)
[2016-12-27 13:26] LABS: ALANINE AMINOTRANSFERASE 54 U/L (9-52); ALBUMIN 3.7 g/dL (3.5-5.0); ALKALINE PHOSPHATASE 107 U/L (38-126); ANION GAP 14 (5-19); ASPARTATE AMINO TRANSFERASE 63 U/L (14-36); BILIRUBIN,DIRECT 0.4 mg/dL (0.0-0.4); BILIRUBIN,TOTAL 0.7 mg/dL (0.2-1.3); BLOOD UREA NITROGEN 29 mg/dL (7-20); CALCIUM 8.6 mg/dL (8.4-10.2); CARBON DIOXIDE 13 mmol/L (22-30); CHLORIDE 104 mmol/L (98-107); CREATINE KINASE 35 U/L (30-135); CREATININE RESULT 0.85 mg/dL (0.52-1.25); GLUCOSE 72 mg/dL (75-110); POTASSIUM 5.1 mmol/L (3.6-5.0); SODIUM 130.5 mmol/L (137-145); TOTAL PROTEIN 6.2 g/dL (6.3-8.2)
[2016-12-27 13:36] LABS: MEAN CORPUSCULAR VOLUME 111 fl (80-97)
[2016-12-27 13:37] LABS: CREATINE KINASE MB 0.66 ng/mL (<4.55)
[2016-12-27 13:39] LABS: TROPONIN I < 0.012 ng/mL
[2016-12-27 13:45] LABS: ANISOCYTOSIS SLIGHT
[2016-12-27 13:46] LABS: POLYCHROMASIA SLIGHT; TOXIC GRANULATION SLIGHT
[2016-12-27 15:00] LABS: APPEARANCE,URINE CLEAR; BILIRUBIN,URINE NEGATIVE (NEGATIVE); GLUCOSE, URINE NEGATIVE (NEGATIVE); KETONES,URINE 20 mg/dL (NEGATIVE); LEUKOCYTE ESTERASE,URINE NEGATIVE (NEGATIVE); NITRITE,URINE NEGATIVE (NEGATIVE); PROTEIN,URINE NEGATIVE (NEGATIVE); URINE SPECIFIC GRAVITY 1.021; UROBILINOGEN,URINE NEGATIVE mg/dL (<2.0)
[2016-12-27 15:15] LABS: URINE BARBITURATES SCREEN UNCONFIRMED POSITIVE; URINE METHADONE SCREEN NEGATIVE; URINE OPIATES LOW UNCONFIRMED POSITIVE; URINE PHENCYCLIDINE SCREEN NEGATIVE
--- NOTE | 2016-12-27 15:32 | RADIOLOGY REPORT (SQ) ---
EXAM DESCRIPTION: CT ABD/PELVIS WITH IV ORAL COMPLETED DATE/TIME: 12/27/2016 3:07 pm REASON FOR STUDY: abd pain post fall COMPARISON: Abdominal CT scan dated 11/28/2016 TECHNIQUE: CT scan of the abdomen and pelvis performed using helical scanning technique with dynamic intravenous contrast injection. No oral contrast. Images reviewed with lung, soft tissue, and bone windows. Reconstructed coronal and sagittal MPR images reviewed. Delayed images for evaluation of the urinary system also acquired. All images stored on PACS. All CT scanners at this facility use dose modulation, iterative reconstruction, and/or weight based d osing when appropriate to reduce radiation dose to as low as reasonably achievable (ALARA). [facility]: Dose Right [facility]: CareDose [facility]: Dose Right [facility]: Teradose 4D [facility]: Pharmacopeia CONTRAST TYPE AND DOSE: contrast/concentration: Isovue 370.00 mg/ml; Total Contrast Delivered: 62.0 ml; Total Saline Delivered: 51.0 ml RENAL FUNCTION: Creatinine 0.85 RADIATION DOSE: Up-to-date CT equipment and radiation dose reduction techniques were employed. CTDIv ol: 4.9 - 6.2 mGy. DLP: 568 mGy-cm.. LIMITATIONS: None. FINDINGS: LOWER CHEST: See results under recent CTA of the chest. LIVER: Normal size. No masses. No dilated ducts. SPLEEN: Normal size. No focal lesions. PANCREAS: No masses. No significant calcifications. No adjacent inflammation or peripancreatic fluid collections. Pancreatic duct not dilated. GALLBLADDER: Status post cholecystectomy ADRENAL GLANDS: No significant masses or asymmetry. RIGHT KIDNEY AND URETER: No solid masses. No significant calcifications. No hydronephrosis or hyd roureter. LEFT KIDNEY AND URETER: No solid masses. No significant calcifications. No hydronephrosis or hydr oureter. AORTA AND VESSELS: No aneurysm. No dissection. Renal arteries, SMA, celiac without stenosis. RETROPERITONEUM: No retroperitoneal adenopathy, hemorrhage or masses. BOWEL AND PERITONEAL CAVITY: No masses or inflammatory changes. No free fluid or peritoneal masses. Postsurgical changes are again identified related to a gastric bypass procedure. APPENDIX: Normal. PELVIS: No mass. No free fluid. Normal bladder. ABDOMINAL WALL: The previously described postsurgical changes with small seroma appears stable. A he terogeneous mass is identified inseparable from the anterior abdominal wall in the left pelvis measur ing 12.3 cm in cephalocaudal dimension, 7.7 cm in transverse dimension and 5 cm in AP dimension most consistent with a hematoma. BONES: Previously described degenerative changes appears stable. OTHER: Vena cava filter is again identified. IMPRESSION: Findings consistent with a large hematoma involving the anterior musculature in the left pelvis as noted above. No other significant intra-abdominal or pelvic abnormalities were identified . Other findings as noted above TECHNICAL DOCUMENTATION: JOB ID: [id number] Quality ID # [id number]: Final reports with documentation of one or more dose reduction techniques (e.g., Au tomated exposure control, adjustment of the mA and/or kV according to patient size, use of iterative reconstruction technique) 2010 [employer]- All Rights Reserved
[2016-12-27] MEDS ORDERED: OXYCODONE-ACETAMINOPHEN 5-325 MG TABLET PO ONE (17:27)
[2016-12-27 17:28] VITALS: BP 157/66
[2016-12-28 17:10] LABS: PATH REVIEW PATHOLOGIST REVIEWED
== END 2016-12-27 17:42 | disposition home or self-care (01) ==
LOC: ER 11:11
DX: S30.1XXA Contusion of abdominal wall, initial encounter (principal); R55 Syncope and collapse; M54.31 Sciatica, right side; M53.3 Sacrococcygeal disorders, not elsewhere classified; R10.9 Unspecified abdominal pain; M25.551 Pain in right hip; M54.9 Dorsalgia, unspecified; W19.XXXA Unspecified fall, initial encounter; F17.200 Nicotine dependence, unspecified, uncomplicated
CPT/HCPCS: 93005; 96376; 99285; 96374; 96375; 36415; 82553; 80307 ×2; 82550; 85025; 82272; 80053; 81001; 84484; 71010; 70450; 72125; 74177; 93010; J2270; A9270; J2405

== ENCOUNTER 2017-01-01 19:06 | Emergency (ER) | payer MEDICARE, MEDICAID ==
[2017-01-01] MEDS ORDERED: MORPHINE SULFATE 10 MG/ML INJ IV ONE (19:40)
[2017-01-01] MEDS ORDERED: ONDANSETRON HCL INJ/PF 4 MG/2 ML SDV IV ONE (19:40)
--- NOTE | 2017-01-01 19:43 | ER Document Report ---
ED General - General Stated Complaint: HIP PAIN Time Seen by Provider: 01/01/17 19:25 Notes: Patient is a 61-year-old female who comes emergency department for chief complaint of pain in her right hip and thigh. She states she has difficulty walking. She comes by EMS. She was seen 5 days ago after a mechanical fall, diagnosed with a pelvic wall hematoma but no other abnormalities. Patient denies falling again. She does state that she has had some wine earlier but it was only a little bit and she drinks this for her "anemia". She states she took Tylenol and ibuprofen without relief. TRAVEL OUTSIDE OF THE [place] IN LAST 30 DAYS: No - Related Data Allergies/Adverse Reactions: divalproex sodium [From Depakote] Allergy (Verified 11/28/16 12:08) ibuprofen [From Motrin] Allergy (Verified 11/28/16 12:08) nortriptyline Allergy (Verified 11/28/16 12:08) Penicillins Allergy (Verified 11/28/16 12:08) phenytoin sodium extended [From Dilantin] Allergy (Verified 11/28/16 12:08) Past Medical History - General Information source: Patient - Social History Smoking Status: Former Smoker Frequency of alcohol use: Occasional Drug Abuse: None Lives with: Family Family History: Other - Father had IHSS Mother with a-fib, dvt, - Past Medical History Cardiac Medical History: Reports: Hx DVT, Hx Heart Attack, Hx Hypertension, Hx Pulmonary Embolism Pulmonary Medical History: Reports: Hx COPD, Hx Pneumonia, Hx Intubation Neurological Medical History: Reports: Hx Seizures Endocrine Medical History: Reports: Hx Diabetes Mellitus Type 2, Hx Hypothyroidism Renal/ Medical History: Denies: Hx Peritoneal Dialysis GI Medical History: Reports: Hx Gastroesophageal Reflux Disease Musculoskeltal Medical History: Reports Hx Arthritis Past Surgical History: Reports: Hx Abdominal Surgery - gastric bypass, Hx Cholecystectomy, Hx Gastric Bypass Surgery, Hx Hysterectomy, Hx Orthopedic Surgery - bria wrists, Hx Vascular Surgery - IVC filter, Other - Tummy tuck and multiple surgeries related to this, trach and peg Review of Systems - Review of Systems Constitutional: No symptoms reported EENT: No symptoms reported Cardiovascular: No symptoms reported Respiratory: No symptoms reported Gastrointestinal: See HPI Genitourinary: No symptoms reported Female Genitourinary: No symptoms reported Musculoskeletal: See HPI Skin: No symptoms reported Hematologic/Lymphatic: No symptoms reported Neurological/Psychological: No symptoms reported Physical Exam - Vital signs Vitals: Pulse Ox 99 01/01/17 19:40 Interpretation: Normal - General General appearance: Other - patient restless, appears mildly uncomfortable - HEENT Head: Normocephalic, Atraumatic Eyes: Normal Pupils: PERRL - Respiratory Respiratory status: No respiratory distress Chest status: Nontender Breath sounds: Normal Chest palpation: Normal - Cardiovascular Rhythm: Regular Heart sounds: Normal auscultation Murmur: No - Abdominal Inspection: Normal Distension: No distension Bowel sounds: Normal Tenderness: Tender - Generalized lower abdominal tenderness, there is ecchymosis over the right lateral side of the lower abdomen, there is no rigidity, no guarding, no rebound tenderness. Organomegaly: No organomegaly - Back Back: Normal, Nontender - Extremities General upper extremity: Normal inspection, Nontender, Normal color, Normal ROM , Normal temperature General lower extremity: Other - Tenderness over the right anterior thigh proximally and also over the right femoral bursa area, no pain out of proportion , no swelling, normal distal neurovascular exam - Neurological Neuro grossly intact: Yes Cognition: Normal Orientation: AAOx4 Brenda Coma Scale Eye Opening: Spontaneous [place] Coma Scale Verbal: Oriented [place] Coma Scale Motor: Obeys Commands [place] Coma Scale Total: 15 Speech: Normal Motor strength normal: LUE, RUE, LLE, RLE Sensory: Normal - Psychological Associated symptoms: Normal affect, Normal mood - Skin Skin Temperature: Warm Skin Moisture: Dry Skin Color: Normal Course - Re-evaluation Re-evalutation: Hemoglobin, chemistry shows elevated potassium, concern for potentially worsening hematoma and ecchymosis. Discussed with Dr. Monreal, recommends CT, treatments for potassium, and repeat CBC, BMP. CT showing decreased size of hematoma. Repeat CBC without significant change in hemoglobin, potassium normalized. Dr. Monreal recommends that because hematoma is decreasing and patient's labs have normalized that she can perform close outpatient follow-up. I discussed this with patient, she states she rarely has an appointment on Tuesday with her doctor and she will have labs drawn then. I discussed return precautions in detail. Discussed avoidance of alcohol while taking the medication, patient states that she was taking alcohol because she did not have any more medication and she states she will not mix these together. - Vital Signs Vital signs: Temp Pulse Resp BP Pulse Ox 18 117/53 L 96 01/02/17 01:01 07/16/17 01:01 01/02/17 01:01 - Laboratory Result Diagrams: 01/01/17 23:10 01/01/17 23:10 Laboratory results interpreted by me: 01/01/17 01/01/17 01/01/17 19:35 19:35 23:10 RBC 2.23 L 2.08 L Hgb 8.3 L 7.8 L Hct 24.9 L 23.1 L MCV 111 H 111 H MCH 37.1 H 37.7 H RDW 15.0 H 15.0 H Seg Neutrophils % 40.5 L Lymphocytes % 47.0 H Potassium 5.7 H Glucose AST 46 H Alkaline Phosphatase 152 H Total Protein 6.0 L Albumin 3.3 L 01/01/17 23:10 RBC Hgb Hct MCV MCH RDW Seg Neutrophils % Lymphocytes % Potassium Glucose 189 H AST Alkaline Phosphatase Total Protein Albumin Discharge - Discharge Clinical Impression: Abdominal pain Qualifiers: Abdominal location: generalized Qualified Code(s): R10.84 - Generalized abdominal pain Hip pain Qualifiers: Laterality: right Qualified Code(s): M25.551 - Pain in right hip Condition: Stable Disposition: HOME, SELF-CARE Additional Instructions: The hematoma has shrunk compared to previous examination. Your elevated potassium was treated tonight. Take the pain medication if needed because of the pain related to the hematoma and soft tissue injury, no fractures are seen. Avoid any alcohol, especially while taking the pain medication. Please follow-up closely with your primary care provider within 2-3 days for a recheck of your hemoglobin and your chemistry including potassium levels. Return immediately for any concerning or worsening symptoms including severe pain, passing out, vomiting, or any other concerning symptoms. Prescriptions: Hydrocodone/Acetaminophen [[place] 5-325 mg Tablet] 1 - 2 tab PO ASDIR #12 tablet
[2017-01-01 19:59] LABS: ABSOLUTE LYMPHOCYTES (AUTO) 2.3 10^3/uL (0.5-4.7); ABSOLUTE MONOCYTES (AUTO) 0.6 10^3/uL (0.1-1.4); BASOPHILS % (AUTO) 0.4 % (0-2); EOSINOPHILS % (AUTO) 0.9 % (0-6); HEMATOCRIT 24.9 % (36.0-47.0); HEMOGLOBIN 8.3 g/dL (12.0-15.5); MEAN CORPUSCULAR HEMOGLOBIN 37.1 pg (27.0-33.4); MEAN CORPUSCULAR HGB CONC 33.3 g/dL (32.0-36.0); MEAN CORPUSCULAR VOLUME 111 fl (80-97); MONOCYTES % (AUTO) 11.2 % (3-13); RED BLOOD COUNT 2.23 10^6/uL (3.72-5.28); SEGMENTED NEUTROPHILS % (AUTO) 40.5 % (42-78)
[2017-01-01 20:04] LABS: ALANINE AMINOTRANSFERASE 51 U/L (9-52); ALBUMIN 3.3 g/dL (3.5-5.0); ALCOHOL 292 mg/dL (NONE DETECTED); ALKALINE PHOSPHATASE 152 U/L (38-126); ANION GAP 12 (5-19); ASPARTATE AMINO TRANSFERASE 46 U/L (14-36); BILIRUBIN,DIRECT 0.4 mg/dL (0.0-0.4); BILIRUBIN,TOTAL 0.4 mg/dL (0.2-1.3); BLOOD UREA NITROGEN 10 mg/dL (7-20); CALCIUM 8.7 mg/dL (8.4-10.2); CARBON DIOXIDE 22 mmol/L (22-30); CHLORIDE 103 mmol/L (98-107); CREATININE RESULT 0.76 mg/dL (0.52-1.25); GLUCOSE 85 mg/dL (75-110); POTASSIUM 5.7 mmol/L (3.6-5.0); SODIUM 137.1 mmol/L (137-145)
[2017-01-01] MEDS ORDERED: NORMAL SALINE 1000 ML 1,000 ML IV ONE ×2 (20:15→20:16)
[2017-01-01 20:23] LABS: TOXIC GRANULATION SLIGHT
[2017-01-01 20:24] LABS: ANISOCYTOSIS SLIGHT; POIKILOCYTOSIS SLIGHT; POLYCHROMASIA SLIGHT
[2017-01-01] MEDS ORDERED: DEXTROSE 50%-WATER 25 GM/50 ML DISP.SYRIN IV ONE (21:20)
[2017-01-01] MEDS ORDERED: INSULIN REG, HUMAN 100 UNIT/ML 3 ML VIAL (PYX) IV ONE (21:20)
[2017-01-01] MEDS ORDERED: CALCIUM GLUCONATE 1000 MG/10 ML INJ IV ONE (21:20)
[2017-01-01 21:21] LABS: PROTHROMBIN TIME 11.5 SEC (11.4-15.4)
[2017-01-01 21:22] LABS: PARTIAL THROMBOPLASTIN TIME 29.9 SEC (23.5-35.8)
--- NOTE | 2017-01-01 21:53 | RADIOLOGY REPORT (SQ) ---
EXAM DESCRIPTION: CT ABD/PELVIS WITH IV ONLY COMPLETED DATE/TIME: 01/01/2017 9:39 pm REASON FOR STUDY: dropping hemoglobin, elevated potass, eval hematom COMPARISON: 12/27/2016. TECHNIQUE: CT scan of the abdomen and pelvis performed using helical scanning technique with dynamic intravenous contrast injection. No oral contrast. Images reviewed with lung, soft tissue, and bone windows. Reconstructed coronal and sagittal MPR images reviewed. Delayed images for evaluation of the urinary system also acquired. All images stored on PACS. All CT scanners at this facility use dose modulation, iterative reconstruction, and/or weight based d osing when appropriate to reduce radiation dose to as low as reasonably achievable (ALARA). [facility]: Dose Right [facility]: CareDose [facility]: Dose Right [facility]: Teradose 4D [facility]: [employer]us-IVC CONTRAST TYPE AND DOSE: contrast/concentration: Isovue 370.00 mg/ml; Total Contrast Delivered: 56.0 ml; Total Saline Delivered: 65.0 ml RENAL FUNCTION: BUN 10 creatinine 0.76. RADIATION DOSE: Up-to-date CT equipment and radiation dose reduction techniques were employed. CTDIv ol: 4.9 - 6.1 mGy. DLP: 545 mGy-cm.. LIMITATIONS: None. FINDINGS: LOWER CHEST: No significant findings. No nodules or infiltrates. LIVER: Normal size. No masses. No dilated ducts. SPLEEN: Normal size. No focal lesions. PANCREAS: No masses. No significant calcifications. No adjacent inflammation or peripancreatic fluid collections. Pancreatic duct not dilated. GALLBLADDER: Surgically absent. ADRENAL GLANDS: No significant masses or asymmetry. RIGHT KIDNEY AND URETER: Small cortical cyst. No solid masses. No significant calcifications. No hydronephrosis or hydroureter. LEFT KIDNEY AND URETER: No solid masses. No significant calcifications. No hydronephrosis or hydr oureter. AORTA AND VESSELS: No aneurysm. No dissection. Renal arteries, SMA, celiac without stenosis. Inferio r vena cava filter. RETROPERITONEUM: No retroperitoneal adenopathy, hemorrhage or masses. BOWEL AND PERITONEAL CAVITY: Previous gastric surgery. No masses or inflammatory changes. No free fl uid or peritoneal masses. APPENDIX: Normal. PELVIS: No mass. No free fluid. Normal bladder. ABDOMINAL WALL: The rectus sheath hematoma in the lower left anterior abdominal wall has decreased in size. Previous transverse measurements 5 x 7.7 cm and current measurements 4 x 7.4 cm. BONES: No significant or acute findings. OTHER: No other significant finding. IMPRESSION: 1. RECTUS SHEATH HEMATOMA IN THE LOWER LEFT ANTERIOR ABDOMINAL WALL HAS DECREASED IN SIZE SINCE THE P RIOR STUDY. 2. STABLE SURGICAL CHANGES. SMALL CORTICAL CYST IN THE RIGHT KIDNEY. NO OTHER SIGNIFICANT OR ACUTE FINDING IN THE ABDOMEN OR PELVIS ON CT SCAN WITH IV CONTRAST. TECHNICAL DOCUMENTATION: JOB ID: [id number] Quality ID # [id number]: Final reports with documentation of one or more dose reduction techniques (e.g., Au tomated exposure control, adjustment of the mA and/or kV according to patient size, use of iterative reconstruction technique) 2010 [employer]- All Rights Reserved
[2017-01-01 23:30] LABS: HEMATOCRIT 23.1 % (36.0-47.0); HGB HCT DIFFERENCE 0.3; MEAN CORPUSCULAR HEMOGLOBIN 37.7 pg (27.0-33.4); MEAN CORPUSCULAR HGB CONC 33.9 g/dL (32.0-36.0); MEAN CORPUSCULAR VOLUME 111 fl (80-97); RED BLOOD COUNT 2.08 10^6/uL (3.72-5.28); WHITE BLOOD COUNT 4.2 10^3/uL (4.0-10.5)
[2017-01-01 23:42] LABS: ANION GAP 9 (5-19); BLOOD UREA NITROGEN 10 mg/dL (7-20); CALCIUM 8.5 mg/dL (8.4-10.2); CARBON DIOXIDE 22 mmol/L (22-30); CHLORIDE 106 mmol/L (98-107); CREATININE RESULT 0.69 mg/dL (0.52-1.25); GLUCOSE 189 mg/dL (75-110); SODIUM 137.1 mmol/L (137-145)
[2017-01-01 23:47] LABS: HEMOGLOBIN 7.8 g/dL (12.0-15.5)
[2017-01-01 23:50] LABS: POTASSIUM 4.5 mmol/L (3.6-5.0)
[2017-01-02] MEDS ORDERED: MORPHINE SULFATE 10 MG/ML INJ IV ONE (00:05)
[2017-01-02] MEDS ORDERED: HYDROCODONE/ACETAMINOPHEN 5-325 MG 6 TAB/DSPK PO PRN (00:29)
[2017-01-02 01:31] VITALS: BP 117/53
--- NOTE | 2017-01-02 09:57 | EKG REPORT ---
SEVERITY:- ABNORMAL ECG - SINUS RHYTHM ANTERIOR INFARCT, AGE INDETERMINATE CONSIDER HYPERKALEMIA : Confirmed by: Juan Jimenez MD 02-Jan-2017 09:56:34
== END 2017-01-02 01:29 | disposition home or self-care (01) ==
LOC: ER 19:06
DX: M25.551 Pain in right hip (principal); M79.651 Pain in right thigh; S30.1XXA Contusion of abdominal wall, initial encounter; W19.XXXA Unspecified fall, initial encounter; R10.84 Generalized abdominal pain; R26.2 Difficulty in walking, not elsewhere classified; E11.9 Type 2 diabetes mellitus without complications; I25.2 Old myocardial infarction; I10 Essential (primary) hypertension; J44.9 Chronic obstructive pulmonary disease, unspecified; Z88.8 Allergy status to other drugs, medicaments and biological substances; Z88.6 Allergy status to analgesic agent; Z88.0 Allergy status to penicillin; Z88.5 Allergy status to narcotic agent; Z87.891 Personal history of nicotine dependence; Z86.718 Personal history of other venous thrombosis and embolism; Z86.711 Personal history of pulmonary embolism
CPT/HCPCS: 93005; 99284; 96361; 96374; 96375; 36415; 80307; 85025; 85027; 85610; 85730; 82272; 80048; 80053; 74177; 93010; J0610; J3490; J2270; A9270 ×2; J2405; J7030; J1815

== ENCOUNTER 2017-02-28 11:22 | Emergency (ER) | payer MEDICARE, MEDICAID ==
[2017-02-28 11:27] VITALS: BP 137/71
[2017-02-28] MEDS ORDERED: NORMAL SALINE 1000 ML 1,000 ML IV ONE (11:59)
[2017-02-28] MEDS ORDERED: MORPHINE SULFATE 10 MG/ML INJ IV ONE (12:01)
[2017-02-28] MEDS ORDERED: ONDANSETRON HCL INJ/PF 4 MG/2 ML SDV IV ONE (12:01)
--- NOTE | 2017-02-28 12:03 | ER Document Report ---
ED Medical Screen (RME) - General Chief Complaint: Abdominal Pain Stated Complaint: ABNORMAL LABS Time Seen by Provider: 02/28/17 11:59 Mode of Arrival: Ambulatory Information source: Patient TRAVEL OUTSIDE OF THE [place] IN LAST 30 DAYS: No - HPI Patient complains to provider of: Abdominal pain, diarrhea Notes: 02/28/17 12:02 Patient is a 61-year-old female presenting to the emergency room from primary care provider's office for complaints of diarrhea 2 weeks with abdominal pain, vomiting, increased lower extremity swelling with weight gain from 108-125, patient is pale with generalized weakness, occasional shortness of breath and dyspnea on exertion, patient's primary care provider called the emergency room prior to sending patient here and attempted to have her directly admitted, however the hospitalist service wanted her to be seen and stabilized in the emergency department, he did report her hemoglobin went from 18-10 on recent outpatient - Related Data Allergies/Adverse Reactions: divalproex sodium [From Depakote] Allergy (Verified 02/28/17 11:27) ibuprofen [From Motrin] Allergy (Verified 02/28/17 11:27) nortriptyline Allergy (Verified 02/28/17 11:27) Penicillins Allergy (Verified 02/28/17 11:27) phenytoin sodium extended [From Dilantin] Allergy (Verified 02/28/17 11:27) Past Medical History - Past Medical History Cardiac Medical History: Reports: Hx DVT, Hx Heart Attack, Hx Hypertension, Hx Pulmonary Embolism Pulmonary Medical History: Reports: Hx COPD, Hx Pneumonia, Hx Intubation Neurological Medical History: Reports: Hx Seizures Endocrine Medical History: Reports: Hx Diabetes Mellitus Type 2, Hx Hypothyroidism Renal/ Medical History: Denies: Hx Peritoneal Dialysis GI Medical History: Reports: Hx Gastroesophageal Reflux Disease Musculoskeltal Medical History: Reports Hx Arthritis Past Surgical History: Reports: Hx Abdominal Surgery - gastric bypass, Hx Cholecystectomy, Hx Gastric Bypass Surgery, Hx Hysterectomy, Hx Orthopedic Surgery - bria wrists, Hx Vascular Surgery - IVC filter, Other - Tummy tuck and multiple surgeries related to this, trach and peg Physical Exam - Vital signs Vitals: Temp Pulse Resp BP Pulse Ox 98.1 F 75 20 137/71 H 97 02/28/17 11:25 02/28/17 11:25 02/28/17 11:25 02/28/17 11:25 02/28/17 11:25 Course - Vital Signs Vital signs: Temp Pulse Resp BP Pulse Ox 98.1 F 75 20 137/71 H 97 02/28/17 11:25 02/28/17 11:25 02/28/17 11:25 02/28/17 11:25 02/28/17 11:25
[2017-02-28] MEDS ORDERED: ONDANSETRON 4 MG TAB.RAPDIS SL ONE (12:39)
[2017-02-28 13:19] LABS: PROTHROMBIN TIME 13.6 SEC (11.4-15.4)
[2017-02-28 13:23] LABS: VENOUS BLOOD BASE EXCESS -4.2 mmol/L; VENOUS BLOOD HCO3 20.9 mmol/L (20-32); VENOUS BLOOD PCO2 38.4 mmHg (35-63); VENOUS BLOOD PH 7.35 (7.30-7.42)
--- NOTE | 2017-02-28 13:23 | ER Document Report ---
ED GI/ - General Chief Complaint: Abdominal Pain Stated Complaint: ABNORMAL LABS Time Seen by Provider: 02/28/17 11:59 Mode of Arrival: Ambulatory Information source: Patient Notes: 61 yo DM, HTN, PE, COPD, DVT, GERD, [place], B12 shot awomalo monthly, IVC filter, hypothyroidism, gastric bypass, anemia, protein C & S deficiency, clotting trouble, osteopenia, exsmoker, ex etoh 6-8 weeks, fatty liver, female sent from [facility] c/o vomiting (nausea only now) and diarrhea(6-8) for 2.5 weeks, RLQ abdominal "lump" worse when standing for 1.5 weeks, and bilateral leg swelling, all blood work was off, he suggested it was hemaglobin and potassium. Also c/o head congestion, left nostril bleeds, gums sore, fatique. 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 PMH: tummy tuck, Hysterectomy, gastric bypass, hugo , carpel tunnel, fx radius. Denies rectal bleeding, oral bleeding. No hx c diff TRAVEL OUTSIDE OF THE [place] IN LAST 30 DAYS: No - Related Data Allergies/Adverse Reactions: divalproex sodium [From Depakote] Allergy (Verified 02/28/17 11:27) ibuprofen [From Motrin] Allergy (Verified 02/28/17 11:27) nortriptyline Allergy (Verified 02/28/17 11:27) Penicillins Allergy (Verified 02/28/17 11:27) phenytoin sodium extended [From Dilantin] Allergy (Verified 02/28/17 11:27) Past Medical History - General Information source: Patient - Social History Smoking Status: Former Smoker Chew tobacco use (# tins/day): No Frequency of alcohol use: none in 6-8 weeks Drug Abuse: None Lives with: Family Family History: Reviewed & Not Pertinent, Other - Father had IHSS Mother with a -fib, dvt, - Past Medical History Cardiac Medical History: Reports: Hx DVT, Hx Heart Attack, Hx Hypertension, Hx Pulmonary Embolism Pulmonary Medical History: Reports: Hx COPD, Hx Pneumonia, Hx Intubation Neurological Medical History: Reports: Hx Seizures Endocrine Medical History: Reports: Hx Diabetes Mellitus Type 2, Hx Hypothyroidism Renal/ Medical History: Denies: Hx Peritoneal Dialysis GI Medical History: Reports: Hx Gastroesophageal Reflux Disease Musculoskeltal Medical History: Reports Hx Arthritis Past Surgical History: Reports: Hx Cholecystectomy, Hx Gastric Bypass Surgery, Hx Hysterectomy, Hx Orthopedic Surgery - bria wrists, Hx Vascular Surgery - IVC filter, Other - Tummy tuck and multiple surgeries related to this, trach and peg Review of Systems - Review of Systems Constitutional: No symptoms reported EENT: No symptoms reported Cardiovascular: No symptoms reported Respiratory: No symptoms reported Gastrointestinal: See HPI Genitourinary: No symptoms reported Female Genitourinary: No symptoms reported Musculoskeletal: No symptoms reported Skin: No symptoms reported Hematologic/Lymphatic: No symptoms reported Neurological/Psychological: No symptoms reported Physical Exam - Vital signs Vitals: Temp Pulse Resp BP Pulse Ox 98.1 F 75 20 137/71 H 97 02/28/17 11:25 02/28/17 11:25 02/28/17 11:25 02/28/17 11:25 02/28/17 11:25 Interpretation: Normal - Notes Notes: wearing makeup - General General appearance: Appears well, Alert - HEENT Head: Normocephalic, Atraumatic Eyes: Normal Pupils: PERRL - Respiratory Respiratory status: No respiratory distress Chest status: Nontender Breath sounds: Normal Chest palpation: Normal - Cardiovascular Rhythm: Regular Heart sounds: Normal auscultation Murmur: No - Abdominal Inspection: Normal Distension: No distension Bowel sounds: Normal Tenderness: Nontender Organomegaly: No organomegaly - Back Back: Normal, Nontender - Extremities General upper extremity: Normal inspection, Nontender, Normal color, Normal ROM , Normal temperature General lower extremity: Normal inspection, Nontender, Normal color, Normal ROM , Normal temperature, Normal weight bearing. No: Pamela's sign - Neurological Neuro grossly intact: Yes Cognition: Normal Orientation: AAOx4 Cornish Coma Scale Eye Opening: Spontaneous Cornish Coma Scale Verbal: Oriented Cornish Coma Scale Motor: Obeys Commands Cornish Coma Scale Total: 15 Speech: Normal Motor strength normal: LUE, RUE, LLE, RLE Sensory: Normal - Psychological Associated symptoms: Normal affect, Normal mood - Skin Skin Temperature: Warm Skin Moisture: Dry Skin Color: Normal Course - Re-evaluation Re-evalutation: 02/28/17 17:[address] with oral only, did fine getting in and out of restroom. Labs are WNL. pt crying before the CT, wants to be admitted. 02/28/17 18:45 CT shows several things that she needs to follow up on, Left lower lung nodular changes- radiology rec. PET-CT and possible biopsy, pt understands and will give the CT to dr carbajal at [facility]. copy of all other labs showing low protein and albumin. the aorta has atherosclerosis, small hiatal hernia, residual left pelvis hematoma , subacute left pubic ramus fx. (fall 01-01) 02/28/17 18:53 Patient was given 60 hydrocodone 5 mg on 02/23/[address] quevedo and I told her that I would not be prescribing any more pain medication that she could try taking 2 of the hydrocodone 5 mg and see if that would relieve the pain that she can discuss this with Dr. quevedo. - Vital Signs Vital signs: Temp Pulse Resp BP Pulse Ox 98.1 F 75 20 137/71 H 97 02/28/17 11:25 02/28/17 11:25 02/28/17 11:25 02/28/17 11:25 02/28/17 11:25 - Laboratory Result Diagrams: 02/28/17 12:27 02/28/17 12:27 Laboratory results interpreted by me: 02/28/17 02/28/17 02/28/17 12:27 12:27 12:27 RBC 3.10 L Hgb 11.4 L Hct 35.7 L MCV 115 H MCH 36.9 H RDW 18.2 H Sodium 134.4 L Calcium 8.3 L Total Bilirubin 2.0 H Direct Bilirubin 1.4 H Alkaline Phosphatase 255 H Total Protein 5.1 L Albumin 2.4 L Urine Urobilinogen 4.0 H Ur Leukocyte Esterase TRACE H Discharge - Discharge Clinical Impression: Peripheral edema, Hypoalbuminemia, Low total protein, Chronic abdominal pain, Protein C deficiency, History of gastric bypass Abdominal pain Qualifiers: Abdominal location: generalized Qualified Code(s): R10.84 - Generalized abdominal pain Condition: Good Disposition: HOME, SELF-CARE Instructions: Abdominal Pain ([facility]), Edema, Peripheral ([facility]), Growth or Mass, Pending Workup ([facility]), Oral Narcotic Medication ([facility]) Additional Instructions: You need to give all the lab results which showed the low albumin and low total protein also:: the CT scan results that shows the left lower lobe nodular mass sent he recommends a PET CT and possible biopsy eat more protein to er if worse Please complete the patient satisfaction survey if you get one, and return it.. If you do not receive a survey, then you can go to the [facility] website, [email or web address] and place your comments about your very good care. Thank you very much. It was a pleasure being your medical provider today. Prescriptions: Walker [Ultra-Light Rollator] 1 each [facility] DAILY #1 each Referrals: BRUCE QUEVEDO MD [Primary Care Provider] - Follow up as needed
[2017-02-28 13:26] LABS: ABSOLUTE EOSINOPHILS # (AUTO) 0.1 10^3/uL (0.0-0.6); ABSOLUTE MONOCYTES (AUTO) 0.5 10^3/uL (0.1-1.4); ABSOLUTE NEUT (AUTO) 3.6 10^3/uL (1.7-8.2); BASOPHILS % (AUTO) 0.8 % (0-2); EOSINOPHILS % (AUTO) 2.1 % (0-6); HEMATOCRIT 35.7 % (36.0-47.0); HEMOGLOBIN 11.4 g/dL (12.0-15.5); HGB HCT DIFFERENCE -1.5; LYMPHOCYTES % (AUTO) 31.6 % (13-45); MEAN CORPUSCULAR HEMOGLOBIN 36.9 pg (27.0-33.4); MEAN CORPUSCULAR VOLUME 115 fl (80-97); MONOCYTES % (AUTO) 8.1 % (3-13); RED CELL DISTRIBUTION WIDTH 18.2 % (11.5-14.0); SEGMENTED NEUTROPHILS % (AUTO) 57.4 % (42-78); WHITE BLOOD COUNT 6.2 10^3/uL (4.0-10.5)
[2017-02-28 13:45] LABS: ALANINE AMINOTRANSFERASE 25 U/L (9-52); ALBUMIN 2.4 g/dL (3.5-5.0); ALKALINE PHOSPHATASE 255 U/L (38-126); ANION GAP 7 (5-19); ASPARTATE AMINO TRANSFERASE 34 U/L (14-36); BILIRUBIN,DIRECT 1.4 mg/dL (0.0-0.4); BLOOD UREA NITROGEN 10 mg/dL (7-20); CALCIUM 8.3 mg/dL (8.4-10.2); CARBON DIOXIDE 22 mmol/L (22-30); CHLORIDE 105 mmol/L (98-107); CREATININE RESULT 0.77 mg/dL (0.52-1.25); GLUCOSE 82 mg/dL (75-110); POTASSIUM 4.7 mmol/L (3.6-5.0); SODIUM 134.4 mmol/L (137-145); TOTAL PROTEIN 5.1 g/dL (6.3-8.2)
[2017-02-28 13:56] LABS: APPEARANCE,URINE CLEAR; BILIRUBIN,URINE NEGATIVE (NEGATIVE); GLUCOSE, URINE NEGATIVE (NEGATIVE); KETONES,URINE NEGATIVE (NEGATIVE); LEUKOCYTE ESTERASE,URINE TRACE (NEGATIVE); NITRITE,URINE NEGATIVE (NEGATIVE); PROTEIN,URINE NEGATIVE (NEGATIVE)
[2017-02-28 14:09] LABS: ANISOCYTOSIS 1+
[2017-02-28 14:13] LABS: URINE BARBITURATES SCREEN NEGATIVE; URINE METHADONE SCREEN NEGATIVE; URINE OPIATES LOW UNCONFIRMED POSITIVE; URINE PHENCYCLIDINE SCREEN NEGATIVE
--- NOTE | 2017-02-28 17:39 | RADIOLOGY REPORT (SQ) ---
EXAM DESCRIPTION: CT ABD/PELVIS ORAL ONLY COMPLETED DATE/TIME: 02/28/2017 5:15 pm REASON FOR STUDY: abdominal pain COMPARISON: 12/27/2016 11/28/2016 05/26/2016 TECHNIQUE: CT scan of the abdomen and pelvis performed without intravenous or oral contrast. Images reviewed with lung, soft tissue, and bone windows. Reconstructed coronal and sagittal MPR images revi ewed. All images stored on PACS. All CT scanners at this facility use dose modulation, iterative reconstruction, and/or weight based d osing when appropriate to reduce radiation dose to as low as reasonably achievable (ALARA). [facility]: Dose Right [facility]: CareDose [facility]: Dose Right [facility]: Teradose 4D [facility]: [employer] RADIATION DOSE: Up-to-date CT equipment and radiation dose reduction techniques were employed. CTDIv ol: 5.4 mGy. DLP: 265 mGy-cm.mGy. LIMITATIONS: Venous access not available. FINDINGS: LOWER CHEST: Pleural/parenchymal scarring in the left base with a somewhat nodular appeara nce. This has progressed. This is not seen on study from May 2016. Small hiatal hernia. NON-CONTRASTED LIVER, SPLEEN, ADRENALS: The liver is diffusely low in density. The spleen is unremar kable. There is no adrenal mass. PANCREAS: No masses. No peripancreatic inflammatory changes. GALLBLADDER: Surgically absent. RIGHT KIDNEY AND URETER: No suspicious masses. Assessment limited by lack of IV contrast. No signif icant calcifications. No hydronephrosis or hydroureter. LEFT KIDNEY AND URETER: No suspicious masses. Assessment limited by lack of IV contrast. No signifi cant calcifications. No hydronephrosis or hydroureter. AORTA AND RETROPERITONEUM: No aneurysm. Atherosclerosis. Prominent plaques are seen at the origins of the celiac and particularly the SMA. BOWEL AND PERITONEAL CAVITY: Small hiatal hernia. Radiopaque sutures associated with upper stomach. No bowel masses. APPENDIX: Not identified. PELVIS, BLADDER, AND ABDOMINAL WALL:Residual hematoma in the anterior pelvis 62 mm in transverse diam eter on image 63 series 3. 70 mm cephalocaudal dimension. BONES: Subacute fractures of the left pubic rami not seen on the study from December 27. OTHER: Subcutaneous edema. IVC filter. IMPRESSION: 1. Nodular pleural/ parenchymal changes in the left posterior costophrenic sulcus have become more prominent. Consider PET-CT. Consider biopsy. 2. Atherosclerosis with significant plaque at the origin of the SMA. 3. Residual abdominal wall hematoma on the left in the pelvis. 4. Subacute pubic rami fractures on the left. 5. Subcutaneous edema. COMMENT: Quality ID # [id number]: Final reports with documentation of one or more dose reduction techniques (e.g., Automated exposure control, adjustment of the mA and/or kV according to patient size, use of iterative reconstruction technique) TECHNICAL DOCUMENTATION: JOB ID: [id number] [employer]- All Rights Reserved
--- NOTE | 2017-02-28 20:33 | EKG REPORT ---
SEVERITY:- ABNORMAL ECG - SINUS RHYTHM LOW VOLTAGE IN FRONTAL LEADS CONSIDER ANTEROSEPTAL INFARCT BORDERLINE T ABNORMALITIES, INFERIOR LEADS : Confirmed by: Mitchel Hollingsworth 28-Feb-2017 20:32:13
== END 2017-02-28 19:19 | disposition home or self-care (01) ==
LOC: ER 11:22
DX: E88.09 Other disorders of plasma-protein metabolism, not elsewhere classified (principal); R60.9 Edema, unspecified; R10.84 Generalized abdominal pain; G89.29 Other chronic pain; D68.59 Other primary thrombophilia; R10.9 Unspecified abdominal pain; E11.9 Type 2 diabetes mellitus without complications; I10 Essential (primary) hypertension; J44.9 Chronic obstructive pulmonary disease, unspecified; K21.9 Gastro-esophageal reflux disease without esophagitis; I25.2 Old myocardial infarction; E03.9 Hypothyroidism, unspecified; Z87.891 Personal history of nicotine dependence; R09.81 Nasal congestion; R04.0 Epistaxis; R53.83 Other fatigue
CPT/HCPCS: 93005; 99284; 96374; 86900; 86901; 36415; 87040; 87086; 86850; 82962; 80307 ×2; 84443; 85025; 85610; 82272; 87088; 80053; 81001; 87186; 82803; 83605; 74176; 93010; A9270; J2270; J7030; S0119

== ENCOUNTER 2017-03-07 03:31 | Inpatient (IN) | payer MEDICAID, MEDICARE ==
[2017-03-07] MEDS ORDERED: MORPHINE SULFATE 10 MG/ML INJ IV ONE ×3 (04:12→10:37)
[2017-03-07 04:13] LABS: PROTHROMBIN TIME 15.9 SEC (11.4-15.4)
[2017-03-07 04:14] LABS: PARTIAL THROMBOPLASTIN TIME 34.9 SEC (23.5-35.8)
[2017-03-07 04:20] LABS: ABSOLUTE EOSINOPHILS # (AUTO) 0.1 10^3/uL (0.0-0.6); ABSOLUTE LYMPHOCYTES (AUTO) 1.8 10^3/uL (0.5-4.7); ABSOLUTE MONOCYTES (AUTO) 0.2 10^3/uL (0.1-1.4); BASOPHILS % (AUTO) 0.8 % (0-2); EOSINOPHILS % (AUTO) 0.8 % (0-6); HEMATOCRIT 34.1 % (36.0-47.0); HEMOGLOBIN 11.4 g/dL (12.0-15.5); HGB HCT DIFFERENCE 0.1; LYMPHOCYTES % (AUTO) 29.6 % (13-45); MEAN CORPUSCULAR HEMOGLOBIN 37.7 pg (27.0-33.4); MEAN CORPUSCULAR HGB CONC 33.4 g/dL (32.0-36.0); MEAN CORPUSCULAR VOLUME 113 fl (80-97); MONOCYTES % (AUTO) 3.9 % (3-13); RED BLOOD COUNT 3.02 10^6/uL (3.72-5.28); RED CELL DISTRIBUTION WIDTH 17.5 % (11.5-14.0); SEGMENTED NEUTROPHILS % (AUTO) 64.9 % (42-78); WHITE BLOOD COUNT 6.2 10^3/uL (4.0-10.5)
[2017-03-07 04:26] LABS: VENOUS BLOOD BASE EXCESS -4.1 mmol/L; VENOUS BLOOD HCO3 20.3 mmol/L (20-32); VENOUS BLOOD PH 7.39 (7.30-7.42)
[2017-03-07 04:30] LABS: ALANINE AMINOTRANSFERASE 26 U/L (9-52); ALBUMIN 2.1 g/dL (3.5-5.0); ALKALINE PHOSPHATASE 265 U/L (38-126); ANION GAP 8 (5-19); ASPARTATE AMINO TRANSFERASE 53 U/L (14-36); BILIRUBIN,DIRECT 2.3 mg/dL (0.0-0.4); BILIRUBIN,TOTAL 2.6 mg/dL (0.2-1.3); BLOOD UREA NITROGEN 12 mg/dL (7-20); CALCIUM 8.2 mg/dL (8.4-10.2); CARBON DIOXIDE 20 mmol/L (22-30); CHLORIDE 107 mmol/L (98-107); CREATININE RESULT 0.81 mg/dL (0.52-1.25); GLUCOSE 83 mg/dL (75-110); LIPASE 22.3 U/L (23-300); POTASSIUM 4.1 mmol/L (3.6-5.0); SODIUM 134.6 mmol/L (137-145); TOTAL PROTEIN 4.8 g/dL (6.3-8.2)
[2017-03-07 04:31] LABS: ALCOHOL < 10 mg/dL (NONE DETECTED)
[2017-03-07] MEDS ORDERED: LEVETIRACETAM 500 MG/NACL-ISO 500 MG/100 ML RTUPB IV ONE (04:57)
[2017-03-07 05:03] LABS: APPEARANCE,URINE CLEAR; BILIRUBIN,URINE NEGATIVE (NEGATIVE); GLUCOSE, URINE NEGATIVE (NEGATIVE); KETONES,URINE NEGATIVE (NEGATIVE); LEUKOCYTE ESTERASE,URINE TRACE (NEGATIVE); NITRITE,URINE NEGATIVE (NEGATIVE); PROTEIN,URINE NEGATIVE (NEGATIVE); URINE SPECIFIC GRAVITY 1.014
[2017-03-07 05:18] LABS: URINE BARBITURATES SCREEN UNCONFIRMED POSITIVE; URINE METHADONE SCREEN NEGATIVE; URINE OPIATES LOW NEGATIVE; URINE PHENCYCLIDINE SCREEN NEGATIVE
[2017-03-07] MEDS ORDERED: ONDANSETRON HCL INJ/PF 4 MG/2 ML SDV IV ONE ×2 (05:48→07:41)
--- NOTE | 2017-03-07 06:01 | ER Document Report ---
ED GI/ - General Mode of Arrival: Stretcher Information source: Patient TRAVEL OUTSIDE OF THE [place] IN LAST 30 DAYS: No - HPI Patient complains to provider of: Abdominal pain Timing/Duration: Persistent, Worse Quality of pain: Achy Severity at maximum: Severe Severity in ED: Severe Pain Level: 5 Location: Other - Diffuse Associated symptoms: Diarrhea, Dizzy, Nausea <CLYDE CERRATO - Last Filed: 03/07/17 05:56> <PARAG LOPEZ - Last Filed: 03/07/17 11:08> - General Chief Complaint: Abdominal Pain Stated Complaint: ABDOMINAL PAIN/WEAKNESS Time Seen by Provider: 03/07/17 03:41 - HPI Notes: 03/07/17 05:58 Patient is a 61-year-old female presenting to the emergency room today complaining of diffuse abdominal pain with worsening pain in the left lower quadrant, she previously had diarrhea and has been taking Imodium so that has seemed to cease at this point in time, she reports generalized weakness, inability to basically get her set himself up out of the bathtub today requiring her daughter to help lift her up out of the bathtub, she has had multiple recent falls as well, denies any fevers, no chest pain or shortness of breath, she is complaining of a headache with pain radiating from the right side of her neck as well with muscle tightness and tenderness (CLYDE CERRATO) - Related Data Allergies/Adverse Reactions: divalproex sodium [From Depakote] Allergy (Verified 02/28/17 11:27) nortriptyline Allergy (Verified 02/28/17 11:27) phenytoin sodium extended [From Dilantin] Allergy (Verified 02/28/17 11:27) Past Medical History - General Information source: Patient - Social History Smoking Status: Unknown if Ever Smoked Family History: Reviewed & Not Pertinent, Other - Father had IHSS Mother with a -fib, dvt, - Past Medical History Cardiac Medical History: Reports: Hx DVT, Hx Heart Attack, Hx Hypertension, Hx Pulmonary Embolism Pulmonary Medical History: Reports: Hx COPD, Hx Pneumonia, Hx Intubation Neurological Medical History: Reports: Hx Seizures Endocrine Medical History: Reports: Hx Diabetes Mellitus Type 2, Hx Hypothyroidism Renal/ Medical History: Denies: Hx Peritoneal Dialysis GI Medical History: Reports: Hx Gastroesophageal Reflux Disease Musculoskeltal Medical History: Reports Hx Arthritis Past Surgical History: Reports: Hx Abdominal Surgery - gastric bypass, Hx Cholecystectomy, Hx Gastric Bypass Surgery, Hx Hysterectomy, Hx Orthopedic Surgery - bria wrists, Hx Vascular Surgery - IVC filter, Other - Tummy tuck and multiple surgeries related to this, trach and peg <CLYDE CERRATO - Last Filed: 03/07/17 05:56> Review of Systems - Review of Systems Constitutional: Weakness EENT: No symptoms reported Cardiovascular: Edema Respiratory: No symptoms reported Gastrointestinal: See HPI Genitourinary: No symptoms reported Female Genitourinary: No symptoms reported Musculoskeletal: Neck pain Skin: No symptoms reported Hematologic/Lymphatic: No symptoms reported Neurological/Psychological: Headaches -: Yes All other systems reviewed and negative <CLYDE CERRATO - Last Filed: 03/07/17 05:56> Physical Exam - Vital signs Interpretation: Normal - General In distress: None - HEENT Head: Normocephalic Eyes: Normal Conjunctiva: Normal Extraocular movements intact: Yes Eyelashes: Normal Pupils: PERRL Mucous membranes: Dry - Respiratory Respiratory status: No respiratory distress Chest status: Nontender Breath sounds: Normal Chest palpation: Normal - Cardiovascular Rhythm: Regular Heart sounds: Normal auscultation Murmur: No - Abdominal Inspection: Healed incision Distension: Distended - mild Bowel sounds: Hypoactive Tenderness: Tender - Diffusely, increased in left lower quadrant - Back Back: Normal - Extremities General lower extremity: Edema - Neurological Orientation: AAOx4, Disoriented to events Brenda Coma Scale Verbal: Oriented Brenda Coma Scale Motor: Obeys Commands Speech: Normal Cranial nerves: Normal - Psychological Associated symptoms: Flat affect - Skin Skin Temperature: Cool Skin Moisture: Dry Skin Color: Pale <CLYDE CERRATO - Last Filed: 03/07/17 05:56> - Vital signs Vitals: Temp Pulse Ox 97.4 F 95 03/07/17 03:39 03/07/17 03:39 Course - Laboratory Result Diagrams: 03/07/17 03:59 03/07/17 03:59 - EKG Interpretation by Pr EKG shows normal: Sinus rhythm Rate: Normal Rhythm: NSR - Transfer of Care Care transferred to following provider: Dr Lopez <CLYDE CERRATO - Last Filed: 03/07/17 05:56> - Laboratory Result Diagrams: 03/07/17 03:59 03/07/17 03:59 - Diagnostic Test Radiology reviewed: Reports reviewed - Free Air - Consults Dr. Diaz Time consulted: 09:52 - He will evaluate the patient. <PARAG LOPEZ Carmen - Last Filed: 03/07/17 11:08> - Re-evaluation Re-evalutation: 03/07/17 07:42 Assumed care of the patient. Reevaluated. She has mild generalized tenderness to palpation. Complaining of nausea. CT scan is pending at this point. Reviewed labs. Her hemoglobin and hematocrit are stable compared to prior though she was heme positive. 03/07/17 10:[address] Agrawal and they will consult. (PARAG LOPEZ) - Vital Signs Vital signs: Temp Pulse Resp BP Pulse Ox 97.4 F 12 99/74 L 92 03/07/17 03:39 03/07/17 10:00 03/07/17 08:03 03/07/17 09:03 - Laboratory Laboratory results interpreted by me: 03/07/17 03/07/17 03/07/17 03:59 03:59 03:59 RBC 3.02 L Hgb 11.4 L Hct 34.1 L MCV 113 H MCH 37.7 H RDW 17.5 H PT 15.9 H VBG pCO2 Sodium 134.6 L Carbon Dioxide 20 L Calcium 8.2 L Total Bilirubin 2.6 H Direct Bilirubin 2.3 H AST 53 H Alkaline Phosphatase 265 H Ammonia Total Protein 4.8 L Albumin 2.1 L Lipase 22.3 L Urine Urobilinogen Ur Leukocyte Esterase 03/07/17 03/07/17 03/07/17 04:15 04:15 04:38 RBC Hgb Hct MCV MCH RDW PT VBG pCO2 34.0 L Sodium Carbon Dioxide Calcium Total Bilirubin Direct Bilirubin AST Alkaline Phosphatase Ammonia < 8.7 L Total Protein Albumin Lipase Urine Urobilinogen 4.0 H Ur Leukocyte Esterase TRACE H Procedures - Central Line Right Internal jugular Consent obtained: Yes Central line pre-insertion: Sterile PPE donned, Chloraprep applied, Sterile drapes applied Central line lumen type: Triple Anesthetic type: 1% Lidocaine mL's of anesthesia: 2 Ultrasound guided: Yes Line secured with sutures: Yes Central line post-insertion: Blood return from lumens, Biopatch applied, Sutured , Sterile dressing applied, Other - CXR pending Number of attempts: 1 Complications: No <PARAG LOPEZ - Last Filed: 03/07/17 11:08> Critical Care Note - Critical Care Note Total time excluding time spent on procedures (mins): 40 <PARAG LOPEZ - Last Filed: 03/07/17 11:08> Discharge <CLYDE CERRATO - Last Filed: 03/07/17 05:56> - Discharge Admitting Provider: [facility] Unit Admitted: ICU <PARAG LOPEZ - Last Filed: 03/07/17 11:08> - Discharge Clinical Impression: Perforation bowel Condition: Critical Disposition: ADMITTED INPATIENT
--- NOTE | 2017-03-07 07:12 | EKG REPORT ---
SEVERITY:- ABNORMAL ECG - SINUS RHYTHM ANTERIOR INFARCT, AGE INDETERMINATE BORDERLINE T ABNORMALITIES, INFEROLATERAL LEADS : Confirmed by: Juan Jimenez MD 07-Mar-2017 07:12:27
[2017-03-07] MEDS ORDERED: PHENYLEPHRINE HCL INJ/PF 10 MG/1 ML SDV ONE (07:51)
[2017-03-07] MEDS ORDERED: NEOSTIGMINE METHYLSULFATE 10 MG/10 ML VIAL ONE (07:51)
[2017-03-07] MEDS ORDERED: ROCURONIUM BROMIDE INJ 50 MG/5 ML VIAL IV ONE (07:51)
[2017-03-07] MEDS ORDERED: LIDOCAINE 2% INJ-PF (20 MG/ML) 10 ML AMPUL ONE (07:51)
[2017-03-07] MEDS ORDERED: SUCCINYLCHOLINE CHLORIDE INJ 200 MG/10 ML VIAL ONE (07:51)
[2017-03-07] MEDS ORDERED: ONDANSETRON HCL INJ/PF 4 MG/2 ML SDV ONE (07:51)
[2017-03-07] MEDS ORDERED: GLYCOPYRROLATE INJ 0.4 MG/2 ML VIAL ONE (07:51)
[2017-03-07] MEDS ORDERED: PANTOPRAZOLE SODIUM 40 MG VIAL IV ONE ×2 (08:36→15:30)
[2017-03-07] MEDS ORDERED: LEVOFLOXACIN 750 MG/D5W RTU 750 MG/150 ML RTUPB IV ONE (09:51)
[2017-03-07] MEDS ORDERED: METRONIDAZOLE 500 MG/NS RTU 100 ML IV ONE (09:51)
--- NOTE | 2017-03-07 09:57 | RADIOLOGY REPORT (SQ) ---
EXAM DESCRIPTION: CT ABD/PELVIS WITH IV ORAL COMPLETED DATE/TIME: 03/07/2017 9:09 am REASON FOR STUDY: abdominal pain COMPARISON: 02/28/2017 TECHNIQUE: CT scan of the abdomen and pelvis performed using helical scanning technique with dynamic intravenous contrast injection. No oral contrast. Images reviewed with lung, soft tissue, and bone windows. Reconstructed coronal and sagittal MPR images reviewed. Delayed images for evaluation of the urinary system also acquired. All images stored on PACS. All CT scanners at this facility use dose modulation, iterative reconstruction, and/or weight based d osing when appropriate to reduce radiation dose to as low as reasonably achievable (ALARA). [facility]: Dose Right [facility]: CareDose [facility]: Dose Right [facility]: Teradose 4D [facility]: [employer] CONTRAST TYPE AND DOSE: contrast/concentration: Isovue 370.00 mg/ml; Total Contrast Delivered: 74.0 ml; Total Saline Delivered: 52.9 ml RENAL FUNCTION: BUN 12, creatinine 0.87 RADIATION DOSE: Up-to-date CT equipment and radiation dose reduction techniques were employed. CTDIv ol: 6.9 - 9.7 mGy. DLP: 888 mGy-cm.. LIMITATIONS: None. FINDINGS: LOWER CHEST: There are bilateral pleural effusions and basilar atelectasis. LIVER: The liver demonstrates decreased attenuation throughout consistent with fatty infiltration. A reas present within the hepatic parenchyma either representing biliary air or air within the portal v enous system. There is pneumoperitoneum. SPLEEN: Normal size. No focal lesions. PANCREAS: The pancreas is atrophic. GALLBLADDER: Surgically absent. ADRENAL GLANDS: No significant masses or asymmetry. RIGHT KIDNEY AND URETER: No solid masses. No significant calcifications. No hydronephrosis or hyd roureter. LEFT KIDNEY AND URETER: No solid masses. No significant calcifications. No hydronephrosis or hydr oureter. AORTA AND VESSELS: There is atherosclerotic change. No aneurysmal dilatation. There is significant narrowing of the celiac axis at its origin. The SMA and JOSH are patent. RETROPERITONEUM: No retroperitoneal adenopathy, hemorrhage or masses. BOWEL AND PERITONEAL CAVITY: There is ascites. There is diffuse thickening of the wall of the colon and portions the small bowel. Bowel wall ischemia cannot be excluded. APPENDIX: Not visualized. PELVIS: There is free fluid in the pelvis. ABDOMINAL WALL: There is a 5.6 x 4.0 cm fluid collection along the posterior aspect of the left recta l sheath. This is stable from prior study. BONES: No significant or acute findings. OTHER: No other significant finding. IMPRESSION: 1. Pneumoperitoneum new from prior study. There is serpiginous air collections now pres ent within the liver portal venous gas cannot be excluded. There is bowel wall thickening. Bowel is chemia cannot be excluded. 2. Ascites. 3. Bilateral pleural effusions and basilar atelectasis. 4. Left rectal sheath fluid collection is grossly stable in appearance in consistent with hematoma. COMMENT: Pertinent findings on the imaging study reported as a CRITICAL RESULT to Dr. Lopez At09:51 on 03/07/2017. Category of Critical Result: Pneumoperitoneum TECHNICAL DOCUMENTATION: JOB ID: [id number] Quality ID # [id number]: Final reports with documentation of one or more dose reduction techniques (e.g., Au tomated exposure control, adjustment of the mA and/or kV according to patient size, use of iterative reconstruction technique) 2010 [employer]- All Rights Reserved
[2017-03-07] MEDS ORDERED: NORMAL SALINE 500 ML IV ONE (10:06)
[2017-03-07] MEDS ORDERED: NORMAL SALINE 1000 ML 1,000 ML IV ONE (10:11)
--- NOTE | 2017-03-07 10:41 | PDOC H&P ---
History of Present Illness Admission Date/PCP: 03/07/17 10:25 BRUCE UPTON MD Patient complains of: Abdominal pain History of Present Illness: ROBERTO LAYTON is a 61 year old female who presents to [facility] [place] [facility] ER with abdominal pain for the prior 3 weeks. Associated nausea vomiting and diarrhea. Outpatient workup had been uneventful. EGD done 11/2016 was WNL. Acutely pain had worsened yesturday prompting ER visit this am. ER workup notes normal WBC but CT findings of free air. Last BM was this am. Last attempt at oral intake was this am with prompt emesis. Currently denying any fever, chest pain, shortness of breath, headache, dizziness or LOC. Notable surgical history of Laparoscopic RNYGBP with complicated postop. History of stroke and epilepsy on Keppra 1000mg BID. IVC filter for protein C&S. Medicine to consult, ICU bed and CVC for probable TPN need given malnutrition up front. Past Medical History Cardiac Medical History: Reports: DVT, Myocardial Infarction, Hypertension, Pulmonary Embolism Pulmonary Medical History: Reports: Chronic Obstructive Pulmonary Disease (COPD) , Intubation, Pneumonia Neurological Medical History: Reports: Seizures Endocrine Medical History: Reports: Diabetes Mellitus Type 2, Hypothyroidism GI Medical History: Reports: Gastroesophageal Reflux Disease Musculoskeltal Medical History: Reports: Arthritis Hematology: Reports: Anemia Past Surgical History Past Surgical History: Reports: Cholecystectomy, Gastric Bypass Surgery, Hysterectomy, Orthopedic Surgery - bria wrists, Vascular Surgery - IVC filter, Other - Tummy tuck and multiple surgeries related to this, trach and peg Social History Smoking Status: Unknown if Ever Smoked Frequency of Alcohol Use: Occasional Hx Recreational Drug Use: No Drugs: None Hx Prescription Drug Abuse: No Family History Family History: Reviewed & Not Pertinent, Other - Father had IHSS Mother with a -fib, dvt, Parental Family History Reviewed: No Children Family History Reviewed: No Sibling(s) Family History Reviewed.: No Medication/Allergy Allergies/Adverse Reactions: divalproex sodium [From Depakote] Allergy (Verified 02/28/17 11:27) nortriptyline Allergy (Verified 02/28/17 11:27) phenytoin sodium extended [From Dilantin] Allergy (Verified 02/28/17 11:27) Review of Systems Constitutional: PRESENT: fatigue, weakness. ABSENT: chills, fever(s) Nose, Mouth, and Throat: ABSENT: headache(s), sore throat Cardiovascular: PRESENT: dyspnea on exertion. ABSENT: chest pain Respiratory: PRESENT: dyspnea. ABSENT: cough Gastrointestinal: PRESENT: abdominal pain, diarrhea, heartburn, nausea, vomiting. ABSENT: coffee ground emesis, constipation Neurological: PRESENT: weakness. ABSENT: abnormal gait, abnormal movements Physical Exam Vital Signs: Temp Pulse Resp BP Pulse Ox 97.4 F 12 99/74 L 92 03/07/17 03:39 03/07/17 10:00 03/07/17 08:03 03/07/17 09:03 General appearance: PRESENT: no acute distress, cooperative Head exam: PRESENT: atraumatic, normocephalic Mouth exam: PRESENT: moist Respiratory exam: PRESENT: clear to auscultation bria Cardiovascular exam: PRESENT: RRR Vascular exam: PRESENT: normal capillary refill GI/Abdominal exam: PRESENT: diminished bowel sounds, firm, guarding, rebound, tenderness Extremities exam: PRESENT: +1 edema Neurological exam: PRESENT: alert, altered, awake, CN II-XII grossly intact Results Laboratory Results: Selected Entries 03/07/17 03/07/17 03/07/17 03:39 03:52 03:53 Temperature 97.4 F Respiratory 14 17 Rate Blood Pressure 123/48 L O2 Sat by Pulse 95 96 Oximetry 03/07/17 03/07/17 03/07/17 03:59 04:00 05:00 Temperature Respiratory 12 12 Rate Blood Pressure O2 Sat by Pulse 96 Oximetry 03/07/17 03/07/17 03/07/17 06:00 06:33 06:34 Temperature Respiratory 10 L 12 10 L Rate Blood Pressure 105/79 O2 Sat by Pulse 95 95 95 Oximetry 03/07/17 03/07/17 03:59 03:59 WBC 6.2 Hgb 11.4 L Hct 34.1 L Plt Count 443 Sodium 134.6 L Potassium 4.1 Chloride 107 Carbon Dioxide 20 L Anion Gap 8 BUN 12 Creatinine 0.81 Calcium 8.2 L Total Bilirubin 2.6 H Direct Bilirubin 2.3 H Impressions: Abdomen/Pelvis CT 03/07/17 05:48 IMPRESSION: 1. Pneumoperitoneum new from prior study. There is serpiginous air collections now present within the liver portal venous gas cannot be excluded. There is bowel wall thickening. Bowel ischemia cannot be excluded. 2. Ascites. 3. Bilateral pleural effusions and basilar atelectasis. 4. Left rectal sheath fluid collection is grossly stable in appearance in consistent with hematoma. Status: Imported from PACS Assessment & Plan - Diagnosis (1) Perforation bowel Is this a current diagnosis for this admission?: Yes Plan: OR for exploration CVC for resuscitation ICU admission Medicine consult Pain control NPO IVF Antibiotics, broad spectrum TPN likely needed given malnutrition prior to visit, lack of intake for last 3 weeks - Time Time Spent: 30 to 50 Minutes
--- NOTE | 2017-03-07 11:28 | RADIOLOGY REPORT (SQ) ---
EXAM DESCRIPTION: CHEST SINGLE VIEW COMPLETED DATE/TIME: 03/07/2017 11:16 am REASON FOR STUDY: bed 8 s/p central line placement COMPARISON: 12/27/2016 EXAM PARAMETERS: NUMBER OF VIEWS: One view. TECHNIQUE: Single frontal radiographic view of the chest acquired. RADIATION DOSE: NA LIMITATIONS: None. FINDINGS: LUNGS AND PLEURA: No opacities, masses or pneumothorax. No pleural effusion. MEDIASTINUM AND HILAR STRUCTURES: No masses. Contour normal. HEART AND VASCULAR STRUCTURES: Heart normal in size. Normal vasculature. BONES: No acute findings. HARDWARE: A right internal jugular catheter has its tip near the right atrium. OTHER: There is free air beneath the right hemidiaphragm. There is the patient had abdominal surgery ? IMPRESSION: Central line placement as described. Free air beneath the right hemidiaphragm. TECHNICAL DOCUMENTATION: JOB ID: [id number]
[2017-03-07] MEDS ORDERED: MIDAZOLAM 2 MG/2 ML INJ ONE (11:55)
[2017-03-07] MEDS ORDERED: ACETAMINOPHEN 100 ML IV ONE (11:55)
[2017-03-07] MEDS ORDERED: PROPOFOL INJ 200 MG/20 ML VIAL IV ONE (11:55)
[2017-03-07] MEDS ORDERED: EPHEDRINE SULFATE INJ 50 MG/1 ML AMPULE ONE (11:55)
[2017-03-07] MEDS ORDERED: FENTANYL CITRATE INJ/PF 250 MCG/5 ML AMPULE ONE (11:55)
[2017-03-07] MEDS ORDERED: HYDROMORPHONE HCL INJ/PF 2 MG/ML AMPULE ONE (11:56)
[2017-03-07] MEDS ORDERED: MEPERIDINE HCL/PF INJ 25 MG/1 ML DISP.SYRIN IV PRN (13:58)
[2017-03-07] MEDS ORDERED: FENTANYL CITRATE INJ/PF 100 MCG/2 ML AMPUL IV PRN ×3 (13:58)
[2017-03-07] MEDS ORDERED: PROMETHAZINE HCL INJ 25 MG/1 ML VIAL IV PRN ×3 (13:58→14:42)
[2017-03-07] MEDS ORDERED: OXYCODONE-ACETAMINOPHEN 5-325 MG TABLET PO PRN ×2 (13:58)
[2017-03-07] MEDS ORDERED: DIPHENHYDRAMINE HCL 50 MG/ML VIAL IV PRN (13:58)
[2017-03-07] MEDS ORDERED: MORPHINE SULFATE 10 MG/ML INJ IV PRN (13:58)
[2017-03-07] MEDS ORDERED: DEXTROSE 50%-WATER 25 GM/50 ML DISP.SYRIN IV PRN ×2 (14:42)
[2017-03-07] MEDS ORDERED: ONDANSETRON HCL INJ/PF 4 MG/2 ML SDV IV PRN (14:42)
[2017-03-07] MEDS ORDERED: ACETAMINOPHEN 650 MG SUPP.RECT PR PRN (14:42)
[2017-03-07] MEDS ORDERED: GLUCAGON,HUMAN RECOMB 1 MG INJ SUBCUT PRN (14:42)
[2017-03-07] MEDS ORDERED: DEXTROSE 40% GEL 15 GM TUBE PO PRN ×3 (14:42→17:40)
[2017-03-07] MEDS ORDERED: PHARMACY COMMUNICATION ORDER MC NR (14:45)
[2017-03-07] MEDS ORDERED: PROPOFOL 100 ML IV ONE (15:03)
[2017-03-07] MEDS: DEXTROSE 5%-LACTATED RINGERS 1,000 ML IV PRN ×2 (15:14→22:09)
--- NOTE | 2017-03-07 15:15 | Operative Report ---
Operative Report DATE OF SURGERY: 03/07/17 Operative Report: Clinical indications: Mrs. Esteban is a 61-year-old female that presented to the ER with acute worsening of abdominal pain. Notably this had been progressively worsening over the last 3 weeks culminating in 7-10 out of 10 pain this morning. ER workup revealed her to have CT findings consistent with free air in the abdomen. Consent was obtained for the patient explained competitions risks and benefits of the procedure including but limited to bleeding infection need for reoperation to which she accepted. Procedure in detail: Patient brought to the operative suite prior to anesthetic induction SCDs were placed and functional. After adequate anesthetic induction and successful intubation she was sterilely prepped and draped in the usual manner. Payan catheter had been placed to gravity at the patient's head of the bed. Incision was placed subxiphoid to directly infra umbilical through prior incision site. This was done with a #10 blade through the abdominal wall to the fascia. Care was taken here to traverse the fashion to the abdominal cavity slowly given her prior history surgery. Enter the abdomen was done sharply and cleanly continued dissection cephalad and inferiorly was done with blunt dissection. Continued dissection throughout the abdomen was accomplished with retraction of the abdominal wall and fracture of adhesions using blunt dissection, sharp dissection and electrocautery. Irrigation was done of all 4 quadrants to clear. Entry into the abdomen noted bilious drainage into the abdomen. Continued observation noted allowed localization to the site of the drainage being from the duodenum from an ulcer site directly posterior to her prior RNYGBP pouch. Repair ensued of the site using 3-0 vicryl suture to the site imbricating edges of the ulcer with a patch applied superficially using the adjacent perigastric fat. No draining of succus was noted with closure of the ulcer boundaries. FAUZIA drain 15 danish was placed to the site with an adjacent stab incision and fixed to the abdominal wall using 3-0 nylon suture. Inspection of the abdomen at this time notes no further succus. Closure ensued using Looped PDS suture #2 for reapproximation of the abdominal wall. Closure of the skin was with roberto. Superficial dressing of opsite and 4x4. Patient was maintained intubated and transported to ICU in serious but stable condition. PREOPERATIVE DIAGNOSIS: Perforated viscus POSTOPERATIVE DIAGNOSIS: Perforated duodenal ulcer, extensive intraabdominal adhesions OPERATION: Exploratory laparotomy with extensive lysis of adhesions and primary repair of duodenal ulcer SURGEON: DEXTER DEMPSEY 1ST SCIENTIFIC EDITOR: Kristian ANESTHESIA: GA TISSUE REMOVED OR ALTERED: Abdominal wall mass COMPLICATIONS: None ESTIMATED BLOOD LOSS: 50ml INTRAOPERATIVE FINDINGS: Extensive intraabdominal adhesions
[2017-03-07] MEDS ORDERED: PROPOFOL 100 ML IV PRN (15:25)
--- NOTE | 2017-03-07 16:01 | RADIOLOGY REPORT (SQ) ---
EXAM DESCRIPTION: CHEST SINGLE VIEW COMPLETED DATE/TIME: 03/07/2017 3:44 pm REASON FOR STUDY: Check Placement of NG AND ET TUBE COMPARISON: 03/07/2017. EXAM PARAMETERS: NUMBER OF VIEWS: One view. TECHNIQUE: Single frontal radiographic view of the chest acquired. RADIATION DOSE: NA LIMITATIONS: None. FINDINGS: LUNGS AND PLEURA: No opacities, masses or pneumothorax. No pleural effusion. MEDIASTINUM AND HILAR STRUCTURES: No masses. Contour normal. HEART AND VASCULAR STRUCTURES: Heart normal in size. Normal vasculature. BONES: No acute findings. HARDWARE: Endotracheal tube with the tip at the right mainstem bronchus. Nasogastric tube with the t ip in the stomach and the side hole at the level of the gastroesophageal junction. Surgical drains a nd skin roberto in the upper abdomen. OTHER: No other significant finding. IMPRESSION: 1. ENDOTRACHEAL TUBE DESCRIBED. SHOULD BE WITHDRAWN BY 2 TO 3 CM. NASOGASTRIC TUBE DESCRIBED WHICH SHOULD BE ADVANCED BY 4-5 CM. 2. INTERVAL SURGICAL CHANGES IN THE UPPER ABDOMEN. OTHERWISE NO ACUTE FINDINGS. TECHNICAL DOCUMENTATION: JOB ID: [id number]
[2017-03-07] MEDS ORDERED: NOREPINEPHRINE BITARTRATE INJ/PF 4 MG/4 ML SDV IV ONE (16:16)
--- NOTE | 2017-03-07 17:00 | PDOC CONSULTATION ---
Consultation Consult Date: 03/07/17 Attending physician:: DEXTER DEMPSEY Consult reason:: Assist with medical management History of Present Illness Admission Date/PCP: 03/07/17 10:25 BRUCE UPTON MD History of Present Illness: ROBERTO LAYTON is a 61 year old female who presents to [facility] ER with abdominal pain for the prior 3 weeks. Associated nausea vomiting and diarrhea. Outpatient workup had been uneventful. EGD done 11/2016 was WNL. Acutely pain had worsened yesturday prompting ER visit this am. ER workup notes normal WBC but CT findings of free air. Last BM was this am. Last attempt at oral intake was this am with prompt emesis. Currently denying any fever, chest pain, shortness of breath, headache, dizziness or LOC. Notable surgical history of Laparoscopic RNYGBP with complicated postop. History of stroke and epilepsy on Keppra 1000mg BID. IVC filter for DVT. She is presently orally intubated in the ICU postoperative repair Past Medical History Cardiac Medical History: Reports: DVT, Myocardial Infarction, Hypertension, Pulmonary Embolism Pulmonary Medical History: Reports: Chronic Obstructive Pulmonary Disease (COPD) , Intubation, Pneumonia Neurological Medical History: Reports: Seizures Endocrine Medical History: Reports: Diabetes Mellitus Type 2, Hypothyroidism GI Medical History: Reports: Gastroesophageal Reflux Disease Musculoskeltal Medical History: Reports: Arthritis Hematology: Reports: Anemia, Heparin Induced Thrombocytopenia Infectious Medical History: Reports: None Past Surgical History Past Surgical History: Reports: Cholecystectomy, Gastric Bypass Surgery, Hysterectomy, Orthopedic Surgery - bria wrists, Vascular Surgery - IVC filter, Other - Tummy tuck and multiple surgeries related to this, trach and peg Social History Information Source: [facility] Records Lives with: Family Smoking Status: Unknown if Ever Smoked Frequency of Alcohol Use: Occasional Hx Recreational Drug Use: No Drugs: None Hx Prescription Drug Abuse: No - Advance Directive Resuscitation Status: Full Code Family History Family History: Hypertension, Other - Father had IHSS Mother with a-fib, dvt, Parental Family History Reviewed: Yes Children Family History Reviewed: Yes Sibling(s) Family History Reviewed.: Yes Medication/Allergy Allergies/Adverse Reactions: divalproex sodium [From Depakote] Allergy (Verified 02/28/17 11:27) nortriptyline Allergy (Verified 02/28/17 11:27) phenytoin sodium extended [From Dilantin] Allergy (Verified 02/28/17 11:27) Review of Systems ROS unobtainable: Due to endotracheal tube Physical Exam Vital Signs: Temp Pulse Resp BP Pulse Ox 97.6 F 70 11 L 101/87 H 95 03/07/17 15:20 03/07/17 16:00 03/07/17 16:00 03/07/17 16:00 03/07/17 16:00 Intake & Output 03/06/17 03/07/17 03/08/17 06:59 06:59 06:59 Intake Total 7900 Output Total 4275 Balance 3625 Weight 66.5 kg General appearance: PRESENT: no acute distress, well-developed, well-nourished, other - Orally intubated and pale Head exam: PRESENT: atraumatic, normocephalic Eye exam: PRESENT: conjunctiva pale Ear exam: PRESENT: normal external ear exam Mouth exam: PRESENT: moist, tongue midline Neck exam: ABSENT: carotid bruit, JVD, lymphadenopathy, thyromegaly Respiratory exam: PRESENT: clear to auscultation bria. ABSENT: rales, rhonchi, wheezes Cardiovascular exam: PRESENT: RRR. ABSENT: diastolic murmur, rubs, systolic murmur Pulses: PRESENT: normal dorsalis pedis pul Vascular exam: PRESENT: normal capillary refill GI/Abdominal exam: PRESENT: normal bowel sounds, soft. ABSENT: distended, guarding, mass, organolmegaly, rebound, tenderness Rectal exam: PRESENT: deferred Extremities exam: PRESENT: full ROM. ABSENT: calf tenderness, clubbing, pedal edema Neurological exam: PRESENT: alert, awake, oriented to person, oriented to place , oriented to time, oriented to situation, CN II-XII grossly intact. ABSENT: motor sensory deficit Psychiatric exam: PRESENT: appropriate affect, normal mood. ABSENT: homicidal ideation, suicidal ideation Skin exam: PRESENT: dry, intact, warm. ABSENT: cyanosis, rash Results Impressions: Abdomen/Pelvis CT 03/07/17 05:48 IMPRESSION: 1. Pneumoperitoneum new from prior study. There is serpiginous air collections now present within the liver portal venous gas cannot be excluded. There is bowel wall thickening. Bowel ischemia cannot be excluded. 2. Ascites. 3. Bilateral pleural effusions and basilar atelectasis. 4. Left rectal sheath fluid collection is grossly stable in appearance in consistent with hematoma. Chest X-Ray 03/07/17 14:45 IMPRESSION: 1. ENDOTRACHEAL TUBE DESCRIBED. SHOULD BE WITHDRAWN BY 2 TO 3 CM. NASOGASTRIC TUBE DESCRIBED WHICH SHOULD BE ADVANCED BY 4-5 CM. 2. INTERVAL SURGICAL CHANGES IN THE UPPER ABDOMEN. OTHERWISE NO ACUTE FINDINGS. Assessment & Plan - Diagnosis (1) Perforation bowel Is this a current diagnosis for this admission?: Yes Plan: She is status post colectomy. Management per surgery. Will place on IV Invanz (2) Abdominal pain Qualifiers: Abdominal location: generalized Qualified Code(s): R10.84 - Generalized abdominal pain Is this a current diagnosis for this admission?: Yes (3) Anemia Qualifiers: Anemia type: unspecified type Qualified Code(s): D64.9 - Anemia, unspecified Is this a current diagnosis for this admission?: Yes (4) DVT (deep venous thrombosis) Qualifiers: DVT location: lower extremity Affected thrombotic vein of extremity: femoral Chronicity: acute Laterality: right Qualified Code(s): I82.411 - Acute embolism and thrombosis of right femoral vein Is this a current diagnosis for this admission?: Yes Plan: Patient with history of DVT, status post IVC filter placement. She has had heparin-induced thrombocytopenia in the past. Placed on SCDs and observe (5) History of pulmonary embolus (PE) Is this a current diagnosis for this admission?: Yes Plan: As above (6) Protein C deficiency Is this a current diagnosis for this admission?: Yes (7) Seizure disorder Is this a current diagnosis for this admission?: Yes Plan: Continue IV Keppra. Check levels in the a.m. (8) Metabolic acidemia Is this a current diagnosis for this admission?: Yes Plan: Secondary to bowel perforation and possible early sepsis. She was not tachycardic hypotensive or febrile when she presented. She has no leukocytosis - Time Time Spent: 50 to 70 Minutes Critical Time spent with patient: 25-34 minutes Medications reviewed and adjusted accordingly: Yes
--- NOTE | 2017-03-07 17:16 | RADIOLOGY REPORT (SQ) ---
EXAM DESCRIPTION: CHEST SINGLE VIEW COMPLETED DATE/TIME: 03/07/2017 4:53 pm REASON FOR STUDY: ET TUBE PLACEMENT COMPARISON: None. EXAM PARAMETERS: NUMBER OF VIEWS: One view. TECHNIQUE: Single frontal radiographic view of the chest acquired. RADIATION DOSE: NA LIMITATIONS: None. FINDINGS: LUNGS AND PLEURA: No opacities, masses or pneumothorax. No pleural effusion. MEDIASTINUM AND HILAR STRUCTURES: No masses. Contour normal. HEART AND VASCULAR STRUCTURES: Heart normal in size. Normal vasculature. BONES: No acute findings. HARDWARE: Endotracheal tube is now identified with its tip above the level of the lorena. NG tube is unchanged in position. Central line is unchanged in position. OTHER: No other significant finding. IMPRESSION: Endotracheal tube is now identified with its tip above the level of the lorena. Other f indings as noted above TECHNICAL DOCUMENTATION: JOB ID: [id number]
[2017-03-07] MEDS: METRONIDAZOLE 500 MG/NS RTU 100 ML IV SCH (17:36)
[2017-03-07] MEDS ORDERED: DEXTROSE 10%-WATER 1,000 ML IV PRN (17:40)
[2017-03-07] MEDS ORDERED: DEXTROSE 50%-WATER SYRINGE 25 GM/50 ML DOSE IV PRN (17:40)
[2017-03-07] MEDS ORDERED: DEXTROSE 50%-WATER SYRINGE 12.5 GM/25 ML DOSE IV PRN (17:40)
[2017-03-07] MEDS ORDERED: GLUCAGON,HUMAN RECOMB 1 MG INJ IM PRN (17:40)
[2017-03-07] MEDS ORDERED: INSULIN REG, HUMAN 100 UNIT/ML 3 ML VIAL (PYX) SUBCUT PRN (17:40)
[2017-03-07] MEDS ORDERED: DEXTROSE 40% GEL 15 GM TUBE X 2 PO PRN (17:40)
[2017-03-07 18:48] LABS: ABSOLUTE BASOPHILS # (AUTO) 0.1 10^3/uL (0.0-0.2); ABSOLUTE LYMPHOCYTES (AUTO) 1.5 10^3/uL (0.5-4.7); ABSOLUTE MONOCYTES (AUTO) 0.9 10^3/uL (0.1-1.4); ABSOLUTE NEUT (AUTO) 15.1 10^3/uL (1.7-8.2); BASOPHILS % (AUTO) 0.4 % (0-2); HEMATOCRIT 27.7 % (36.0-47.0); HGB HCT DIFFERENCE -0.4; LYMPHOCYTES % (AUTO) 8.3 % (13-45); MEAN CORPUSCULAR HEMOGLOBIN 37.6 pg (27.0-33.4); MEAN CORPUSCULAR HGB CONC 32.9 g/dL (32.0-36.0); MEAN CORPUSCULAR VOLUME 114 fl (80-97); MONOCYTES % (AUTO) 4.9 % (3-13); RED BLOOD COUNT 2.42 10^6/uL (3.72-5.28); SEGMENTED NEUTROPHILS % (AUTO) 86.4 % (42-78)
[2017-03-07 19:01] LABS: ALANINE AMINOTRANSFERASE 28 U/L (9-52); ALBUMIN 1.4 g/dL (3.5-5.0); ALKALINE PHOSPHATASE 156 U/L (38-126); ANION GAP 5 (5-19); ASPARTATE AMINO TRANSFERASE 45 U/L (14-36); BILIRUBIN,DIRECT 1.6 mg/dL (0.0-0.4); BILIRUBIN,TOTAL 1.7 mg/dL (0.2-1.3); BLOOD UREA NITROGEN 13 mg/dL (7-20); CARBON DIOXIDE 18 mmol/L (22-30); CHLORIDE 109 mmol/L (98-107); CREATININE RESULT 0.78 mg/dL (0.52-1.25); GLUCOSE 200 mg/dL (75-110); POTASSIUM 3.7 mmol/L (3.6-5.0); SODIUM 132.4 mmol/L (137-145); TOTAL PROTEIN 3.4 g/dL (6.3-8.2)
[2017-03-07 19:15] LABS: ANISOCYTOSIS 1+; CALCIUM 6.8 mg/dL (8.4-10.2); MAGNESIUM 0.9 mg/dL (1.6-2.3); PLATELET CLUMPS PRESENT
[2017-03-07 19:16] LABS: WHITE BLOOD COUNT 17.5 10^3/uL (4.0-10.5)
[2017-03-07 19:17] LABS: HEMOGLOBIN 9.1 g/dL (12.0-15.5)
[2017-03-07 19:41] LABS: ARTERIAL BLOOD BASE EXCESS -6.7 mmol/L
[2017-03-07] MEDS: LEVETIRACETAM 500 MG/NACL-ISO 500 MG/100 ML RTUPB IV SCH (20:32)
[2017-03-07] MEDS ORDERED: MAGNESIUM SULFATE 4 GM/D5W 100 ML IV ONE (21:00)
[2017-03-07] MEDS ORDERED: CALCIUM GLUCONATE 2,000 MG in DEXTROSE 5%-WATER 50 ML IV ONE (21:00)
[2017-03-07] MEDS: ALBUMIN HUMAN 50 ML IV SCH ×2 (21:12→22:05)
[2017-03-07 21:24] LABS: ARTERIAL BLOOD BASE EXCESS -6.7 mmol/L; ARTERIAL BLOOD O2 SATURATION 97.3 % (94-98)
[2017-03-07] MEDS ORDERED: CALCIUM GLUCONATE 2,000 MG in DEXTROSE 5%-WATER 100 ML IV ONE (22:00)
[2017-03-07] MEDS: DEXTROSE 5%-WATER 250 ML with NOREPINEPHRINE BITARTRATE 4 MG IV PRN ×2 (23:35)
[2017-03-08] MEDS: METRONIDAZOLE 500 MG/NS RTU 100 ML IV SCH ×2 (00:21→05:10)
[2017-03-08] MEDS: MORPHINE SULFATE 10 MG/ML INJ IV PRN ×2 (02:37→08:23)
[2017-03-08] MEDS: DEXTROSE 5%-WATER 250 ML with NOREPINEPHRINE BITARTRATE 4 MG IV PRN ×4 (05:10→10:21)
[2017-03-08] MEDS: DEXTROSE 5%-LACTATED RINGERS 1,000 ML IV PRN ×2 (05:10→11:14)
[2017-03-08 06:09] LABS: ABSOLUTE LYMPHOCYTES (AUTO) 2.1 10^3/uL (0.5-4.7); ABSOLUTE MONOCYTES (AUTO) 0.9 10^3/uL (0.1-1.4); ABSOLUTE NEUT (AUTO) 12.5 10^3/uL (1.7-8.2); BASOPHILS % (AUTO) 0.3 % (0-2); EOSINOPHILS % (AUTO) 0.1 % (0-6); HGB HCT DIFFERENCE 0.6; LYMPHOCYTES % (AUTO) 13.5 % (13-45); MEAN CORPUSCULAR HEMOGLOBIN 38.8 pg (27.0-33.4); MEAN CORPUSCULAR HGB CONC 34.2 g/dL (32.0-36.0); MEAN CORPUSCULAR VOLUME 113 fl (80-97); MONOCYTES % (AUTO) 5.6 % (3-13); RED BLOOD COUNT 1.85 10^6/uL (3.72-5.28); RED CELL DISTRIBUTION WIDTH 17.9 % (11.5-14.0); SEGMENTED NEUTROPHILS % (AUTO) 80.5 % (42-78); WHITE BLOOD COUNT 15.6 10^3/uL (4.0-10.5)
[2017-03-08 06:19] LABS: ALANINE AMINOTRANSFERASE 18 U/L (9-52); ALBUMIN 1.6 g/dL (3.5-5.0); ALKALINE PHOSPHATASE 124 U/L (38-126); ANION GAP 8 (5-19); ASPARTATE AMINO TRANSFERASE 27 U/L (14-36); BILIRUBIN,DIRECT 1.4 mg/dL (0.0-0.4); BILIRUBIN,TOTAL 1.7 mg/dL (0.2-1.3); BLOOD UREA NITROGEN 13 mg/dL (7-20); CALCIUM 7.7 mg/dL (8.4-10.2); CARBON DIOXIDE 16 mmol/L (22-30); CHLORIDE 108 mmol/L (98-107); CREATININE RESULT 0.89 mg/dL (0.52-1.25); GLUCOSE 308 mg/dL (75-110); PHOSPHORUS 3.7 mg/dL (2.5-4.5); POTASSIUM 3.5 mmol/L (3.6-5.0); SODIUM 131.9 mmol/L (137-145); TOTAL PROTEIN 3.4 g/dL (6.3-8.2)
[2017-03-08 06:30] LABS: PROTHROMBIN TIME 22.1 SEC (11.4-15.4)
[2017-03-08 06:46] LABS: HEMOGLOBIN 7.2 g/dL (12.0-15.5)
[2017-03-08 06:54] LABS: ANISOCYTOSIS 1+; OVALOCYTES SLIGHT; PLATELET CLUMPS PRESENT; POIKILOCYTOSIS SLIGHT; TARGET CELLS SLIGHT
[2017-03-08] MEDS: LEVETIRACETAM 500 MG/NACL-ISO 500 MG/100 ML RTUPB IV SCH (07:00)
--- NOTE | 2017-03-08 07:48 | RADIOLOGY REPORT (SQ) ---
EXAM DESCRIPTION: CHEST SINGLE VIEW COMPLETED DATE/TIME: 03/08/2017 6:21 am REASON FOR STUDY: resp failure COMPARISON: 03/07/2017. EXAM PARAMETERS: NUMBER OF VIEWS: One view. TECHNIQUE: Single frontal radiographic view of the chest acquired. RADIATION DOSE: NA LIMITATIONS: None. FINDINGS: LUNGS AND PLEURA: Mild interstitial markings. Moderate lung volume. MEDIASTINUM AND HILAR STRUCTURES: No masses. Contour normal. HEART AND VASCULAR STRUCTURES: Heart normal in size. Normal vasculature. BONES: No acute findings. HARDWARE: Adequate appearing endotracheal tube. NG tube tip at the expected pylorus -1st duodenum se gment. Right internal jugular central line tip at the inferior aspect of the cavoatrial junction. C atheter material of the upper abdomen. Right upper abdominal clips. Midline surgical clips of the u pper abdomen. OTHER: No other significant finding. IMPRESSION: No significant interval change. Lines and tubes. TECHNICAL DOCUMENTATION: JOB ID: [id number]
[2017-03-08] MEDS ORDERED: CALCIUM GLUCONATE 1000 MG/10 ML INJ IV SCH (08:00)
[2017-03-08 08:02] LABS: ARTERIAL BLOOD BASE EXCESS -8.5 mmol/L; ARTERIAL BLOOD O2 SATURATION 98.9 % (94-98)
[2017-03-08] MEDS ORDERED: AZTREONAM INJ 1 GM VIAL IV SCH (08:45)
--- NOTE | 2017-03-08 08:45 | PDOC PROGRESS REPORT ---
Subjective Progress Note for:: 03/08/17 Subjective:: Patient is on the ventilator. Patient is postoperative for free air in the abdomen. Patient has a FAUZIA drain and draining serosanguineous material. Hemoglobin dropped and 2 units of packed RBCs being transfused. No reported temperature spikes or respiratory distress. Patient is on TPN. She is intubated and sedated. Physical Exam Vital Signs: Temp Pulse Resp BP Pulse Ox 97.7 F 65 15 127/70 H 98 03/08/17 08:25 03/08/17 08:25 03/08/17 08:25 03/08/17 08:25 03/08/17 08:25 Intake & Output 03/07/17 03/08/17 03/09/17 06:59 06:59 06:59 Intake Total 6803 0 Output Total 1145 30 Balance 5658 -30 Weight 67.8 kg General appearance: PRESENT: other - Intubated and sedated Head exam: PRESENT: normocephalic Eye exam: PRESENT: conjunctiva pale Mouth exam: PRESENT: moist, neck supple Respiratory exam: PRESENT: rhonchi - Minimal bilateral. ABSENT: wheezes Cardiovascular exam: PRESENT: RRR. ABSENT: gallop GI/Abdominal exam: PRESENT: hypoactive bowel sounds, other - Drain in place, surgical wound clean without dehiscence. ABSENT: distended Extremities exam: PRESENT: other - Trace lower extremity edema. ABSENT: clubbing Neurological exam: PRESENT: altered Skin exam: PRESENT: dry, warm. ABSENT: cyanosis Results Laboratory Results: 03/08/17 05:50 03/08/17 05:50 03/07/17 03/07/17 03/07/17 18:15 18:15 19:00 WBC 17.5 H D RBC 2.42 L Hgb 9.1 L D Hct 27.7 L MCV 114 H MCH 37.6 H MCHC 32.9 RDW 18.0 H Plt Count 387 Seg Neutrophils % 86.4 H Lymphocytes % 8.3 L Monocytes % 4.9 Eosinophils % 0.0 Basophils % 0.4 Absolute Neutrophils 15.1 H Absolute Lymphocytes 1.5 Absolute Monocytes 0.9 Absolute Eosinophils 0.0 Absolute Basophils 0.1 Carbonic Acid 1.26 HCO3/H2CO3 Ratio 15:1 ABG pH 7.29 L ABG pCO2 41.7 ABG pO2 38.2 L* ABG HCO3 19.4 L ABG O2 Saturation 66.0 L ABG Base Excess -6.7 FiO2 30% Sodium 132.4 L Potassium 3.7 Chloride 109 H Carbon Dioxide 18 L Anion Gap 5 BUN 13 Creatinine 0.78 Est GFR ( Amer) > 60 Est GFR (Non-Af Amer) > 60 Glucose 200 H Lactic Acid Calcium 6.8 L* Ionized Calcium Fior Phosphorus Magnesium 0.9 L* Total Bilirubin 1.7 H AST 45 H ALT 28 Alkaline Phosphatase 156 H Total Protein 3.4 L Albumin 1.4 L Prealbumin 03/07/17 03/07/17 03/07/17 19:30 19:47 20:50 WBC RBC Hgb Hct MCV MCH MCHC RDW Plt Count Seg Neutrophils % Lymphocytes % Monocytes % Eosinophils % Basophils % Absolute Neutrophils Absolute Lymphocytes Absolute Monocytes Absolute Eosinophils Absolute Basophils Carbonic Acid 0.82 L HCO3/H2CO3 Ratio 20:1 ABG pH 7.41 ABG pCO2 27.2 L ABG pO2 92.8 ABG HCO3 17.0 L ABG O2 Saturation 97.3 ABG Base Excess -6.7 FiO2 30% Sodium Potassium Chloride Carbon Dioxide Anion Gap BUN Creatinine Est GFR ( Amer) Est GFR (Non-Af Amer) Glucose Lactic Acid 1.6 Calcium Ionized Calcium Fior 1.01 L Phosphorus Magnesium Total Bilirubin AST ALT Alkaline Phosphatase Total Protein Albumin Prealbumin 03/08/17 03/08/17 03/08/17 04:56 05:50 05:50 WBC 15.6 H RBC 1.85 L Hgb 7.2 L Hct 21.0 L MCV 113 H MCH 38.8 H MCHC 34.2 RDW 17.9 H Plt Count 345 Seg Neutrophils % 80.5 H Lymphocytes % 13.5 Monocytes % 5.6 Eosinophils % 0.1 Basophils % 0.3 Absolute Neutrophils 12.5 H Absolute Lymphocytes 2.1 Absolute Monocytes 0.9 Absolute Eosinophils 0.0 Absolute Basophils 0.0 Carbonic Acid Cancelled HCO3/H2CO3 Ratio Cancelled ABG pH Cancelled ABG pCO2 Cancelled ABG pO2 Cancelled ABG HCO3 Cancelled ABG O2 Saturation Cancelled ABG Base Excess Cancelled FiO2 Cancelled Sodium Potassium Chloride Carbon Dioxide Anion Gap BUN Creatinine Est GFR ( Amer) Est GFR (Non-Af Amer) Glucose Lactic Acid Calcium Ionized Calcium Fior 1.11 L Phosphorus Magnesium Total Bilirubin AST ALT Alkaline Phosphatase Total Protein Albumin Prealbumin 03/08/17 03/08/17 03/08/17 05:50 05:50 07:44 WBC RBC Hgb Hct MCV MCH MCHC RDW Plt Count Seg Neutrophils % Lymphocytes % Monocytes % Eosinophils % Basophils % Absolute Neutrophils Absolute Lymphocytes Absolute Monocytes Absolute Eosinophils Absolute Basophils Carbonic Acid 0.63 L HCO3/H2CO3 Ratio 23:1 ABG pH 7.46 H ABG pCO2 20.8 L* ABG pO2 133.9 H ABG HCO3 14.5 L ABG O2 Saturation 98.9 H ABG Base Excess -8.5 FiO2 30% Sodium 131.9 L Potassium 3.5 L Chloride 108 H Carbon Dioxide 16 L Anion Gap 8 BUN 13 Creatinine 0.89 Est GFR ( Amer) > 60 Est GFR (Non-Af Amer) > 60 Glucose 308 H Lactic Acid 3.2 H Calcium 7.7 L Ionized Calcium Fior Phosphorus 3.7 Magnesium 2.0 D Total Bilirubin 1.7 H AST 27 ALT 18 Alkaline Phosphatase 124 Total Protein 3.4 L Albumin 1.6 L Prealbumin 8.0 L Impressions: Abdomen/Pelvis CT 03/07/17 05:48 IMPRESSION: 1. Pneumoperitoneum new from prior study. There is serpiginous air collections now present within the liver portal venous gas cannot be excluded. There is bowel wall thickening. Bowel ischemia cannot be excluded. 2. Ascites. 3. Bilateral pleural effusions and basilar atelectasis. 4. Left rectal sheath fluid collection is grossly stable in appearance in consistent with hematoma. Chest X-Ray 03/08/17 06:00 IMPRESSION: No significant interval change. Lines and tubes. Assessment & Plan - Diagnosis (1) Acute respiratory failure Qualifiers: Respiratory failure complication: hypoxia Qualified Code(s): J96.01 - Acute respiratory failure with hypoxia Is this a current diagnosis for this admission?: Yes (2) Pleural effusion Is this a current diagnosis for this admission?: Yes (3) Metabolic acidemia Is this a current diagnosis for this admission?: Yes (4) Perforation bowel Is this a current diagnosis for this admission?: Yes (5) Anemia Qualifiers: Anemia type: unspecified type Qualified Code(s): D64.9 - Anemia, unspecified Is this a current diagnosis for this admission?: Yes (6) Coagulopathy Is this a current diagnosis for this admission?: Yes (7) Protein C deficiency Is this a current diagnosis for this admission?: Yes (8) Diabetes Qualifiers: Diabetes mellitus type: type 2 Diabetes mellitus complication status: with unspecified complications Diabetes mellitus fdc insulin use: unspecified fdc insulin use status Qualified Code(s): E11.8 - Type 2 diabetes mellitus with unspecified complications Is this a current diagnosis for this admission?: Yes (9) History of pulmonary embolus (PE) Is this a current diagnosis for this admission?: Yes (10) Hypothyroid Is this a current diagnosis for this admission?: Yes (11) Seizure disorder Is this a current diagnosis for this admission?: Yes - Time Time Spent with patient: 25-34 minutes - Plan Summary Plan Summary: Due to patient's history of seizure we will discontinue Invanz. We will switch Levaquin to Azactam. History of E. coli resistant to quinolones. Continue Flagyl. Replace electrolytes. Follow chest x-ray. Continue supportive care. We will continue to follow.
[2017-03-08] MEDS ORDERED: POTASSI CL 20 MEQ/50 ML RIDER 20 MEQ/50 ML RTUPB IV SCH (09:00)
[2017-03-08] MEDS ORDERED: ERTAPENEM SODIUM 1 GM in NORMAL SALINE 50 ML IV SCH (09:00)
[2017-03-08] MEDS ORDERED: NORMAL SALINE INJ/PF 0.9% 10 ML SDV IV PRN (09:10)
--- NOTE | 2017-03-08 09:31 | PDOC PROGRESS REPORT ---
Subjective Progress Note for:: 03/08/17 Subjective:: Patient with worsened hemodynamics overnight, requiring max dose IVdrip levophed Hgb 7.2 this am warranting transfusion 2u PRBCs, likely real base given resuscitation during hospitalization No sources of bleeding supporting this, minimal blood loss during surgery Regular discussion with daughter/crystal given status Discussion with Pulmonology and Hospitalist support for transfer of patient given complexity and severity of case Noted bile drainage from FAUZIA drain, likely 2nd to draining from duodenal ulcer repair site, nonhealing given >3 weeks of lack of adequate nutrition [facility] plan with initiation of TPN now, with slowing of bilious drainage resolution possible with scientology of nutrition. 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, DVT - +family history History of epilepsy History of stroke History of complicated postoperative course RNYGBP requiring PEG and Trach Physical Exam Vital Signs: Temp Pulse Resp BP Pulse Ox 97.7 F 66 9 L 115/49 L 98 03/08/17 08:25 03/08/17 08:25 03/08/17 08:25 03/08/17 08:25 03/08/17 08:25 Intake & Output 03/07/17 03/08/17 03/09/17 06:59 06:59 06:59 Intake Total 6803 0 Output Total 1145 105 Balance 5658 -105 Weight 67.8 kg General appearance: PRESENT: thin, other - sedated, minimal interaction Head exam: PRESENT: atraumatic Eye exam: PRESENT: conjunctiva pale Neck exam: ABSENT: lymphadenopathy, thyromegaly, tracheal deviation Respiratory exam: PRESENT: rhonchi - bilaterally basal Cardiovascular exam: PRESENT: RRR Pulses: PRESENT: +2 pedal pulses bilateral Vascular exam: PRESENT: pallor - diffuse GI/Abdominal exam: PRESENT: hypoactive bowel sounds. ABSENT: distended, firm, hernia Extremities exam: PRESENT: +1 edema. ABSENT: clubbing Psychiatric exam: PRESENT: other - sedated intubated Results Laboratory Results: 03/08/17 05:50 03/08/17 05:50 03/07/17 03/07/17 03/07/17 18:15 18:15 19:00 WBC 17.5 H D RBC 2.42 L Hgb 9.1 L D Hct 27.7 L MCV 114 H MCH 37.6 H MCHC 32.9 RDW 18.0 H Plt Count 387 Seg Neutrophils % 86.4 H Lymphocytes % 8.3 L Monocytes % 4.9 Eosinophils % 0.0 Basophils % 0.4 Absolute Neutrophils 15.1 H Absolute Lymphocytes 1.5 Absolute Monocytes 0.9 Absolute Eosinophils 0.0 Absolute Basophils 0.1 Carbonic Acid 1.26 HCO3/H2CO3 Ratio 15:1 ABG pH 7.29 L ABG pCO2 41.7 ABG pO2 38.2 L* ABG HCO3 19.4 L ABG O2 Saturation 66.0 L ABG Base Excess -6.7 FiO2 30% Sodium 132.4 L Potassium 3.7 Chloride 109 H Carbon Dioxide 18 L Anion Gap 5 BUN 13 Creatinine 0.78 Est GFR ( Amer) > 60 Est GFR (Non-Af Amer) > 60 Glucose 200 H Lactic Acid Calcium 6.8 L* Ionized Calcium Fior Phosphorus Magnesium 0.9 L* Total Bilirubin 1.7 H AST 45 H ALT 28 Alkaline Phosphatase 156 H Total Protein 3.4 L Albumin 1.4 L Prealbumin 03/07/17 03/07/17 03/07/17 19:30 19:47 20:50 WBC RBC Hgb Hct MCV MCH MCHC RDW Plt Count Seg Neutrophils % Lymphocytes % Monocytes % Eosinophils % Basophils % Absolute Neutrophils Absolute Lymphocytes Absolute Monocytes Absolute Eosinophils Absolute Basophils Carbonic Acid 0.82 L HCO3/H2CO3 Ratio 20:1 ABG pH 7.41 ABG pCO2 27.2 L ABG pO2 92.8 ABG HCO3 17.0 L ABG O2 Saturation 97.3 ABG Base Excess -6.7 FiO2 30% Sodium Potassium Chloride Carbon Dioxide Anion Gap BUN Creatinine Est GFR ( Amer) Est GFR (Non-Af Amer) Glucose Lactic Acid 1.6 Calcium Ionized Calcium Fior 1.01 L Phosphorus Magnesium Total Bilirubin AST ALT Alkaline Phosphatase Total Protein Albumin Prealbumin 03/08/17 03/08/17 03/08/17 04:56 05:50 05:50 WBC 15.6 H RBC 1.85 L Hgb 7.2 L Hct 21.0 L MCV 113 H MCH 38.8 H MCHC 34.2 RDW 17.9 H Plt Count 345 Seg Neutrophils % 80.5 H Lymphocytes % 13.5 Monocytes % 5.6 Eosinophils % 0.1 Basophils % 0.3 Absolute Neutrophils 12.5 H Absolute Lymphocytes 2.1 Absolute Monocytes 0.9 Absolute Eosinophils 0.0 Absolute Basophils 0.0 Carbonic Acid Cancelled HCO3/H2CO3 Ratio Cancelled ABG pH Cancelled ABG pCO2 Cancelled ABG pO2 Cancelled ABG HCO3 Cancelled ABG O2 Saturation Cancelled ABG Base Excess Cancelled FiO2 Cancelled Sodium Potassium Chloride Carbon Dioxide Anion Gap BUN Creatinine Est GFR ( Amer) Est GFR (Non-Af Amer) Glucose Lactic Acid Calcium Ionized Calcium Fior 1.11 L Phosphorus Magnesium Total Bilirubin AST ALT Alkaline Phosphatase Total Protein Albumin Prealbumin 03/08/17 03/08/17 03/08/17 05:50 05:50 07:44 WBC RBC Hgb Hct MCV MCH MCHC RDW Plt Count Seg Neutrophils % Lymphocytes % Monocytes % Eosinophils % Basophils % Absolute Neutrophils Absolute Lymphocytes Absolute Monocytes Absolute Eosinophils Absolute Basophils Carbonic Acid 0.63 L HCO3/H2CO3 Ratio 23:1 ABG pH 7.46 H ABG pCO2 20.8 L* ABG pO2 133.9 H ABG HCO3 14.5 L ABG O2 Saturation 98.9 H ABG Base Excess -8.5 FiO2 30% Sodium 131.9 L Potassium 3.5 L Chloride 108 H Carbon Dioxide 16 L Anion Gap 8 BUN 13 Creatinine 0.89 Est GFR ( Amer) > 60 Est GFR (Non-Af Amer) > 60 Glucose 308 H Lactic Acid 3.2 H Calcium 7.7 L Ionized Calcium Fior Phosphorus 3.7 Magnesium 2.0 D Total Bilirubin 1.7 H AST 27 ALT 18 Alkaline Phosphatase 124 Total Protein 3.4 L Albumin 1.6 L Prealbumin 8.0 L Impressions: Abdomen/Pelvis CT 03/07/17 05:48 IMPRESSION: 1. Pneumoperitoneum new from prior study. There is serpiginous air collections now present within the liver portal venous gas cannot be excluded. There is bowel wall thickening. Bowel ischemia cannot be excluded. 2. Ascites. 3. Bilateral pleural effusions and basilar atelectasis. 4. Left rectal sheath fluid collection is grossly stable in appearance in consistent with hematoma. Chest X-Ray 03/08/17 06:00 IMPRESSION: No significant interval change. Lines and tubes. Status: Imported from PACS - CVC in normal position Assessment & Plan - Diagnosis (1) Perforation bowel Is this a current diagnosis for this admission?: Yes (2) Sepsis associated hypotension Is this a current diagnosis for this admission?: Yes Plan: Patient with worsened hemodynamics overnight, requiring max dose IVdrip levophed Hgb 7.2 this am warranting transfusion 2u PRBCs, likely real base given resuscitation during hospitalization No sources of bleeding supporting this, minimal blood loss during surgery Regular discussion with daughter/crystal given status Discussion with Pulmonology and Hospitalist support for transfer of patient given complexity and severity of case Noted bile drainage from FAUZIA drain, likely 2nd to draining from duodenal ulcer repair site, nonhealing given >3 weeks of lack of adequate nutrition [facility] plan with initiation of TPN now, with slowing of bilious drainage resolution possible with scientology of nutrition. Without improvement patient may require additional surgical procedure with resection of site and revision/ reversal of RNYGBP Monitor UOP DVT/GI prophylaxis - no heparin products Continue IV antibiotics - Time Critical Time spent with patient: 35 or more minutes Anticipated discharge: [facility] Within: within 24 hours
[2017-03-08] MEDS ORDERED: AZTREONAM 1 GM in DEXTROSE 5%-WATER 50 ML IV SCH (10:00)
[2017-03-08] MEDS ORDERED: PANTOPRAZOLE SODIUM 40 MG VIAL IV SCH (10:00)
[2017-03-08] MEDS ORDERED: LEVOFLOXACIN 500 MG/D5W RTU 500 MG/100 ML RTUPB IV SCH (10:00)
--- NOTE | 2017-03-08 10:07 | PDOC DISCHARGE SUMMARY ---
Discharge Summary (SDC) - Discharge Final Diagnosis: Septic shock Acute respiratory failure Malnutrition POD 1 s/p ex lap, DEYSI, duodenal ulcer repair Date of Surgery: 03/07/17 Discharge Date: 03/08/17 Condition: Critical Referrals: BRUCE UPTON MD [Primary Care Provider] - Follow up as needed Discharge Diet: Other (Comments) - NPO, NGT to LIWS, Intubated Other Items to Report to MD: Patient to transfer to [facility], Dr. Nunez accepting
--- NOTE | 2017-03-08 11:19 | PDOC PROGRESS REPORT ---
Subjective Progress Note for:: 03/08/17 Subjective:: Intubated and sedated unchanged Physical Exam Vital Signs: Temp Pulse Resp BP Pulse Ox 97.7 F 88 12 117/53 L 100 03/08/17 08:10 03/08/17 08:10 03/08/17 08:10 03/08/17 08:10 03/08/17 08:10 Intake & Output 03/07/17 03/08/17 03/09/17 06:59 06:59 06:59 Intake Total 6803 0 Output Total 1145 30 Balance 5658 -30 Weight 67.8 kg General appearance: PRESENT: no acute distress, disheveled, thin, well-developed Head exam: PRESENT: atraumatic, normocephalic Eye exam: PRESENT: conjunctiva pale Mouth exam: PRESENT: dry mucosa, neck supple, tongue midline, other - ET tube in place Neck exam: ABSENT: carotid bruit, JVD, lymphadenopathy, thyromegaly Respiratory exam: PRESENT: decreased breath sounds, prolonged expiratory phas, rales, rhonchi, symmetrical, unlabored. ABSENT: retraction, stridor, tachypnea Cardiovascular exam: PRESENT: RRR, +S1, +S2 Pulses: PRESENT: normal radial pulses GI/Abdominal exam: PRESENT: other - Status post surgery drain in place Rectal exam: PRESENT: deferred Gentrourinary exam: PRESENT: indwelling catheter Extremities exam: PRESENT: +1 edema Neurological exam: ABSENT: awake Skin exam: PRESENT: dry, warm Results Laboratory Results: 03/08/17 05:50 03/08/17 05:50 03/07/17 03/07/17 03/07/17 18:15 18:15 19:00 WBC 17.5 H D RBC 2.42 L Hgb 9.1 L D Hct 27.7 L MCV 114 H MCH 37.6 H MCHC 32.9 RDW 18.0 H Plt Count 387 Seg Neutrophils % 86.4 H Lymphocytes % 8.3 L Monocytes % 4.9 Eosinophils % 0.0 Basophils % 0.4 Absolute Neutrophils 15.1 H Absolute Lymphocytes 1.5 Absolute Monocytes 0.9 Absolute Eosinophils 0.0 Absolute Basophils 0.1 Carbonic Acid 1.26 HCO3/H2CO3 Ratio 15:1 ABG pH 7.29 L ABG pCO2 41.7 ABG pO2 38.2 L* ABG HCO3 19.4 L ABG O2 Saturation 66.0 L ABG Base Excess -6.7 FiO2 30% Sodium 132.4 L Potassium 3.7 Chloride 109 H Carbon Dioxide 18 L Anion Gap 5 BUN 13 Creatinine 0.78 Est GFR ( Amer) > 60 Est GFR (Non-Af Amer) > 60 Glucose 200 H Lactic Acid Calcium 6.8 L* Ionized Calcium Fior Phosphorus Magnesium 0.9 L* Total Bilirubin 1.7 H AST 45 H ALT 28 Alkaline Phosphatase 156 H Total Protein 3.4 L Albumin 1.4 L Prealbumin 03/07/17 03/07/17 03/07/17 19:30 19:47 20:50 WBC RBC Hgb Hct MCV MCH MCHC RDW Plt Count Seg Neutrophils % Lymphocytes % Monocytes % Eosinophils % Basophils % Absolute Neutrophils Absolute Lymphocytes Absolute Monocytes Absolute Eosinophils Absolute Basophils Carbonic Acid 0.82 L HCO3/H2CO3 Ratio 20:1 ABG pH 7.41 ABG pCO2 27.2 L ABG pO2 92.8 ABG HCO3 17.0 L ABG O2 Saturation 97.3 ABG Base Excess -6.7 FiO2 30% Sodium Potassium Chloride Carbon Dioxide Anion Gap BUN Creatinine Est GFR ( Amer) Est GFR (Non-Af Amer) Glucose Lactic Acid 1.6 Calcium Ionized Calcium Fior 1.01 L Phosphorus Magnesium Total Bilirubin AST ALT Alkaline Phosphatase Total Protein Albumin Prealbumin 03/08/17 03/08/17 03/08/17 04:56 05:50 05:50 WBC 15.6 H RBC 1.85 L Hgb 7.2 L Hct 21.0 L MCV 113 H MCH 38.8 H MCHC 34.2 RDW 17.9 H Plt Count 345 Seg Neutrophils % 80.5 H Lymphocytes % 13.5 Monocytes % 5.6 Eosinophils % 0.1 Basophils % 0.3 Absolute Neutrophils 12.5 H Absolute Lymphocytes 2.1 Absolute Monocytes 0.9 Absolute Eosinophils 0.0 Absolute Basophils 0.0 Carbonic Acid Cancelled HCO3/H2CO3 Ratio Cancelled ABG pH Cancelled ABG pCO2 Cancelled ABG pO2 Cancelled ABG HCO3 Cancelled ABG O2 Saturation Cancelled ABG Base Excess Cancelled FiO2 Cancelled Sodium Potassium Chloride Carbon Dioxide Anion Gap BUN Creatinine Est GFR ( Amer) Est GFR (Non-Af Amer) Glucose Lactic Acid Calcium Ionized Calcium Fior 1.11 L Phosphorus Magnesium Total Bilirubin AST ALT Alkaline Phosphatase Total Protein Albumin Prealbumin 03/08/17 03/08/17 05:50 05:50 WBC RBC Hgb Hct MCV MCH MCHC RDW Plt Count Seg Neutrophils % Lymphocytes % Monocytes % Eosinophils % Basophils % Absolute Neutrophils Absolute Lymphocytes Absolute Monocytes Absolute Eosinophils Absolute Basophils Carbonic Acid HCO3/H2CO3 Ratio ABG pH ABG pCO2 ABG pO2 ABG HCO3 ABG O2 Saturation ABG Base Excess FiO2 Sodium 131.9 L Potassium 3.5 L Chloride 108 H Carbon Dioxide 16 L Anion Gap 8 BUN 13 Creatinine 0.89 Est GFR ( Amer) > 60 Est GFR (Non-Af Amer) > 60 Glucose 308 H Lactic Acid 3.2 H Calcium 7.7 L Ionized Calcium Fior Phosphorus 3.7 Magnesium 2.0 D Total Bilirubin 1.7 H AST 27 ALT 18 Alkaline Phosphatase 124 Total Protein 3.4 L Albumin 1.6 L Prealbumin 8.0 L Impressions: Abdomen/Pelvis CT 03/07/17 05:48 IMPRESSION: 1. Pneumoperitoneum new from prior study. There is serpiginous air collections now present within the liver portal venous gas cannot be excluded. There is bowel wall thickening. Bowel ischemia cannot be excluded. 2. Ascites. 3. Bilateral pleural effusions and basilar atelectasis. 4. Left rectal sheath fluid collection is grossly stable in appearance in consistent with hematoma. Chest X-Ray 03/08/17 06:00 IMPRESSION: No significant interval change. Lines and tubes. Assessment & Plan - Diagnosis (1) Coagulopathy Is this a current diagnosis for this admission?: Yes (2) Metabolic acidemia Is this a current diagnosis for this admission?: Yes (3) Perforation bowel Is this a current diagnosis for this admission?: Yes (4) Protein C deficiency Is this a current diagnosis for this admission?: Yes (5) Sepsis associated hypotension Is this a current diagnosis for this admission?: Yes (6) Acute respiratory failure Qualifiers: Respiratory failure complication: hypoxia Qualified Code(s): J96.01 - Acute respiratory failure with hypoxia Is this a current diagnosis for this admission?: Yes (7) Malnourished Qualifiers: Malnutrition type: protein-calorie malnutrition Protein-calorie malnutrition severity: severe Qualified Code(s): E43 - Unspecified severe protein-calorie malnutrition Is this a current diagnosis for this admission?: Yes - Time Critical Time spent with patient: 35 or more minutes - 50 minutes - Plan Summary Plan Summary: Discussed with medical consult as well as primary care surgeon agree transfers and patient's best interest as she has multiple complex problems
--- NOTE | 2017-03-08 11:25 | PDOC CONSULTATION ---
Consultation Consult Date: 03/07/17 Attending physician:: DEXTER DEMPSEY Consult reason:: resp failure History of Present Illness Admission Date/PCP: 03/07/17 10:25 BRUCE UPTON MD History of Present Illness: all information from chart as patient intubated no family at bedside at this time ROBERTO LAYTON is a 61 year old female who presents to [facility] ER with abdominal pain for the prior 3 weeks. Associated nausea vomiting and diarrhea. Outpatient workup had been uneventful. EGD done 11/2016 was WNL. Acutely pain had worsened yesturday prompting ER visit this am. ER workup notes normal WBC but CT findings of free air. Last BM was this am. Last attempt at oral intake was this am with prompt emesis. Currently denying any fever, chest pain, shortness of breath, headache, dizziness or LOC. Notable surgical history of Laparoscopic RNYGBP with complicated postop. History of stroke and epilepsy on Keppra 1000mg BID. IVC filter for DVT. She is presently orally intubated in the ICU postoperative repair. Significant coagulopathy and anemia as well as history of heparin-induced thrombocytopenia profound malnourishment. All of the above make this extremely complex patient continued to stabilize Past Medical History Cardiac Medical History: Reports: DVT, Myocardial Infarction, Hypertension, Pulmonary Embolism Pulmonary Medical History: Reports: Chronic Obstructive Pulmonary Disease (COPD) , Intubation, Pneumonia Neurological Medical History: Reports: Seizures Endocrine Medical History: Reports: Diabetes Mellitus Type 2, Hypothyroidism GI Medical History: Reports: Gastroesophageal Reflux Disease Musculoskeltal Medical History: Reports: Arthritis Hematology: Reports: Anemia, Heparin Induced Thrombocytopenia Infectious Medical History: Reports: None Past Surgical History Past Surgical History: Reports: Cholecystectomy, Gastric Bypass Surgery, Hysterectomy, Orthopedic Surgery - bria wrists, Vascular Surgery - IVC filter, Other - Tummy tuck and multiple surgeries related to this, trach and peg Social History Information Source: [facility] Records Lives with: Family Smoking Status: Unknown if Ever Smoked Frequency of Alcohol Use: Occasional Hx Recreational Drug Use: No Drugs: None Hx Prescription Drug Abuse: No - Advance Directive Resuscitation Status: Full Code Family History Family History: Hypertension, Other - Father had IHSS Mother with a-fib, dvt, Parental Family History Reviewed: No Children Family History Reviewed: No Sibling(s) Family History Reviewed.: No Medication/Allergy Home Medications: Albuterol Sulfate [Albuterol Sulfate 2.5mg/3 mL] 1 vial IH RTQIDP PRN 03/08/17 Albuterol Sulfate [Proair HFA] 2 puff IH Q4HP PRN 03/08/17 Butalb/Acetaminophen/Caffeine [Fioricet 50-300-40 mg Capsule] 1 cap PO Q8HP PRN 03/08/17 Butorphanol Tartrate 1 spray NS Q6HP PRN 03/08/17 Carvedilol [Coreg 3.125 mg Tablet] 3.125 mg PO Q12 03/08/17 Cyclobenzaprine HCl [Flexeril 10 mg Tablet] 10 mg PO BIDP PRN 03/08/17 Bhargavi Root 550 mg PO DAILY 03/08/17 Hydrocodone/Acetaminophen [[place] 5-325 mg Tablet] 1 tab PO Q6HP PRN 03/08/17 Levetiracetam [Keppra 500 mg Tablet] 500 mg PO Q12 03/08/17 Levothyroxine Sodium [Synthroid 0.088 mg Tablet] 88 mcg PO DAILY 03/08/17 Lisinopril [Prinivil 5 mg Tablet] 5 mg PO DAILY 03/08/17 Nitroglycerin [Nitrostat 0.4 mg (1/150 Gr) Tabs 25/Bottle] 1 tab SL Q5MP PRN Ondansetron [Zofran Odt 4 mg Tablet] 4 mg PO Q4HP PRN 03/08/17 Ondansetron [Zofran Odt] 8 mg PO TIDP PRN 03/08/17 Pantoprazole Sodium [Protonix] 40 mg PO BIDACBS 03/08/17 Sulfamethoxazole/Trimethoprim [Septra-Ds 800-160 mg Tablet] 1 tab PO BID Tramadol HCl [Ultram 50 mg Tablet] 50 mg PO TIDP PRN 03/08/17 Trazodone HCl [Desyrel] 150 mg PO HSP PRN 03/08/17 Vitamin B Complex [B Complex] 1 each PO DAILY 03/08/17 Allergies/Adverse Reactions: divalproex sodium [From Depakote] Allergy (Verified 02/28/17 11:27) nortriptyline Allergy (Verified 02/28/17 11:27) phenytoin sodium extended [From Dilantin] Allergy (Verified 02/28/17 11:27) Review of Systems ROS unobtainable: Due to endotracheal tube Physical Exam Vital Signs: Temp Pulse Resp BP Pulse Ox 97.6 F 70 11 L 101/87 H 95 03/07/17 15:20 03/07/17 16:00 03/07/17 16:00 03/07/17 16:00 03/07/17 16:00 Intake & Output 03/06/17 03/07/17 03/08/17 06:59 06:59 06:59 Intake Total 7900 Output Total 4275 Balance 3625 Weight 66.5 kg General appearance: PRESENT: no acute distress, disheveled, thin, well-developed Head exam: PRESENT: atraumatic, normocephalic Eye exam: PRESENT: conjunctiva pale Mouth exam: PRESENT: dry mucosa, neck supple, tongue midline, other - ET tube in place Neck exam: ABSENT: carotid bruit, JVD, lymphadenopathy, thyromegaly Respiratory exam: PRESENT: decreased breath sounds, prolonged expiratory phas, rales, rhonchi, symmetrical, unlabored. ABSENT: retraction, stridor, tachypnea , wheezes Cardiovascular exam: PRESENT: RRR, +S1 Pulses: PRESENT: normal radial pulses GI/Abdominal exam: PRESENT: other - Status post surgery wound drain in place Rectal exam: PRESENT: deferred Gentrourinary exam: PRESENT: indwelling catheter Extremities exam: PRESENT: +1 edema Neurological exam: ABSENT: alert, awake Skin exam: PRESENT: dry, warm Results Impressions: Abdomen/Pelvis CT 03/07/17 05:48 IMPRESSION: 1. Pneumoperitoneum new from prior study. There is serpiginous air collections now present within the liver portal venous gas cannot be excluded. There is bowel wall thickening. Bowel ischemia cannot be excluded. 2. Ascites. 3. Bilateral pleural effusions and basilar atelectasis. 4. Left rectal sheath fluid collection is grossly stable in appearance in consistent with hematoma. Chest X-Ray 03/07/17 14:45 IMPRESSION: 1. ENDOTRACHEAL TUBE DESCRIBED. SHOULD BE WITHDRAWN BY 2 TO 3 CM. NASOGASTRIC TUBE DESCRIBED WHICH SHOULD BE ADVANCED BY 4-5 CM. 2. INTERVAL SURGICAL CHANGES IN THE UPPER ABDOMEN. OTHERWISE NO ACUTE FINDINGS. Assessment & Plan - Diagnosis (1) Malnourished Qualifiers: Malnutrition type: protein-calorie malnutrition Protein-calorie malnutrition severity: severe Qualified Code(s): E43 - Unspecified severe protein-calorie malnutrition Is this a current diagnosis for this admission?: Yes (2) Sepsis associated hypotension Is this a current diagnosis for this admission?: Yes Plan: Currently requiring multiple vasopressor agents (3) Acute respiratory failure Qualifiers: Respiratory failure complication: hypoxia Qualified Code(s): J96.01 - Acute respiratory failure with hypoxia Is this a current diagnosis for this admission?: Yes Plan: Hyperventilation to maintain pH oxygenation good (4) Anemia Qualifiers: Anemia type: unspecified type Qualified Code(s): D64.9 - Anemia, unspecified Is this a current diagnosis for this admission?: Yes (5) DVT (deep venous thrombosis) Qualifiers: DVT location: lower extremity Affected thrombotic vein of extremity: femoral Chronicity: acute Laterality: right Qualified Code(s): I82.411 - Acute embolism and thrombosis of right femoral vein Is this a current diagnosis for this admission?: Yes (6) History of pulmonary embolus (PE) Is this a current diagnosis for this admission?: Yes - Time Critical Time spent with patient: 35 or more minutes - 60 minutes
[2017-03-08 12:11] VITALS: BP 111/57
[2017-03-08] MEDS ORDERED: AMINO ACIDS 5%/D25W 1,000 ML IV PRN (18:00)
== END 2017-03-08 11:47 | disposition short-term general hospital (02) | DRG 329 ==
LOC: EDBD → ER 03:31 → EH 10:25 → UNDOADMIN 10:25 → ICU 14:42 → EH 14:50 → ICU 14:50
PROVIDERS: ATTEND Surgery
PROC: 0DNW0ZZ Release Peritoneum, Open Approach (ICD-10-PCS; 2017-03-07)
PROC: 0D9670Z Drainage of Stomach with Drainage Device, Via Natural or Artificial Opening (ICD-10-PCS; 2017-03-07)
PROC: 0BH17EZ Insertion of Endotracheal Airway into Trachea, Via Natural or Artificial Opening (ICD-10-PCS; 2017-03-07)
PROC: 5A1935Z Respiratory Ventilation, Less than 24 Consecutive Hours (ICD-10-PCS; 2017-03-07)
PROC: 02H633Z Insertion of Infusion Device into Right Atrium, Percutaneous Approach (ICD-10-PCS; 2017-03-07)
PROC: 0DU907Z Supplement Duodenum with Autologous Tissue Substitute, Open Approach (ICD-10-PCS; principal; 2017-03-07 11:30)
PROC: 30233N1 Transfusion of Nonautologous Red Blood Cells into Peripheral Vein, Percutaneous Approach (ICD-10-PCS; 2017-03-08)
PROC: 3E0436Z Introduction of Nutritional Substance into Central Vein, Percutaneous Approach (ICD-10-PCS; 2017-03-08)
DX: K26.5 Chronic or unspecified duodenal ulcer with perforation (principal); J96.01 Acute respiratory failure with hypoxia; A41.9 Sepsis, unspecified organism; R65.21 Severe sepsis with septic shock; E43 Unspecified severe protein-calorie malnutrition; D68.59 Other primary thrombophilia; K66.0 Peritoneal adhesions (postprocedural) (postinfection); D75.82 Heparin induced thrombocytopenia (HIT); D64.9 Anemia, unspecified; J44.9 Chronic obstructive pulmonary disease, unspecified; G40.909 Epilepsy, unspecified, not intractable, without status epilepticus; I10 Essential (primary) hypertension; E11.9 Type 2 diabetes mellitus without complications; E03.9 Hypothyroidism, unspecified; K21.9 Gastro-esophageal reflux disease without esophagitis; M19.90 Unspecified osteoarthritis, unspecified site; Z79.899 Other long term (current) drug therapy; I25.2 Old myocardial infarction; Z86.711 Personal history of pulmonary embolism; Z86.718 Personal history of other venous thrombosis and embolism; Z86.73 Personal history of transient ischemic attack (TIA), and cerebral infarction without residual deficits; Z90.49 Acquired absence of other specified parts of digestive tract; Z90.710 Acquired absence of both cervix and uterus; Z98.84 Bariatric surgery status; Z88.8 Allergy status to other drugs, medicaments and biological substances
CPT/HCPCS: 36415; 36430; 36600; 71010; 74177; 790; 80053; 80177; 80307; 81001; 82140; 82272; 82330; 82803; 82962; 83605; 83690; 83735; 83880; 84100; 84134; 85025; 85610; 85730; 86850; 86900; 86901; 86920; 87040; 87086; 87088; 87186; 88305; 93005; 93010; 94002; 94003; 96374; 96375; 96376; 99291; C1751; J0131; J0330; J0610; J1170; J1953; J1956; J2250; J2270; J2370; J2405; J2704; J3010; J3475; J3480; J3490; J7040; J7060; P9016; P9047; S0164

== ENCOUNTER 2017-03-10 18:11 | Inpatient (IN) | payer MEDICARE, MEDICAID ==
[2017-03-10] MEDS ORDERED: NORMAL SALINE 1000 ML 1,000 ML IV PRN (18:34)
[2017-03-10] MEDS ORDERED: ALBUTEROL SULFATE 0.083% NEB 2.5 MG/3 ML AMPUL NEB PRN ×2 (19:12→19:42)
[2017-03-10] MEDS ORDERED: NITROGLYCERIN 0.4 MG/TAB 25 TAB/BOTTLE SL PRN (19:12)
--- NOTE | 2017-03-10 19:31 | PDOC H&P ---
History of Present Illness Admission Date/PCP: 03/10/17 18:11 BRUCE UPTON MD Patient complains of: Abdominal pain History of Present Illness: ROBERTO LAYTON is a 65 year old female who is status post exploratory laparotomy and duodenal ulcer primary repair 3 days ago. Patient was septic and was transferred to [facility] postoperatively. Patient is no longer septic and was transferred back to our hospital. Patient states that she still has abdominal pain but it is mild. She has no emesis. She has not had a bowel movement since surgery. She apparently had an NG tube through which they were giving her enteral nutrition but this was pulled prior to transfer. Patient has a history of Abraham-en-Y gastric bypass surgery in the remote past. She had a upper endoscopy several months ago and was told that it was unremarkable. Patient had been sick for quite some time prior to her emergency surgery. Past Medical History Cardiac Medical History: Reports: DVT, Myocardial Infarction, Hypertension, Pulmonary Embolism Pulmonary Medical History: Reports: Chronic Obstructive Pulmonary Disease (COPD) , Intubation, Pneumonia Neurological Medical History: Reports: Seizures Endocrine Medical History: Reports: Diabetes Mellitus Type 2, Hypothyroidism GI Medical History: Reports: Gastroesophageal Reflux Disease Musculoskeltal Medical History: Reports: Arthritis Hematology: Reports: Anemia, Heparin Induced Thrombocytopenia Past Surgical History Past Surgical History: Reports: Cholecystectomy, Gastric Bypass Surgery, Hysterectomy, Orthopedic Surgery - bria wrists, Vascular Surgery - IVC filter, Other - Abdominoplasty, tracheostomy, PEG. Expiratory laparotomy with DU repair Social History Smoking Status: Unknown if Ever Smoked Frequency of Alcohol Use: Occasional Hx Recreational Drug Use: No Drugs: None Hx Prescription Drug Abuse: No Family History Family History: Hypertension, Other - Father had IHSS Mother with a-fib, dvt, Parental Family History Reviewed: No Children Family History Reviewed: No Sibling(s) Family History Reviewed.: No Medication/Allergy Home Medications: Albuterol Sulfate [Albuterol Sulfate 2.5mg/3 mL] 1 vial IH RTQIDP PRN 03/08/17 Albuterol Sulfate [Proair HFA] 2 puff IH Q4HP PRN 03/08/17 Butalb/Acetaminophen/Caffeine [Fioricet 50-300-40 mg Capsule] 1 cap PO Q8HP PRN 03/08/17 Butorphanol Tartrate 1 spray NS Q6HP PRN 03/08/17 Carvedilol [Coreg 3.125 mg Tablet] 3.125 mg PO Q12 03/08/17 Cyclobenzaprine HCl [Flexeril 10 mg Tablet] 10 mg PO BIDP PRN 03/08/17 Bhargavi Root 550 mg PO DAILY 03/08/17 Hydrocodone/Acetaminophen [[place] 5-325 mg Tablet] 1 tab PO Q6HP PRN 03/08/17 Levetiracetam [Keppra 500 mg Tablet] 500 mg PO Q12 03/08/17 Levothyroxine Sodium [Synthroid 0.088 mg Tablet] 88 mcg PO DAILY 03/08/17 Lisinopril [Prinivil 5 mg Tablet] 5 mg PO DAILY 03/08/17 Nitroglycerin [Nitrostat 0.4 mg (1/150 Gr) Tabs 25/Bottle] 1 tab SL Q5MP PRN Ondansetron [Zofran Odt 4 mg Tablet] 4 mg PO Q4HP PRN 03/08/17 Ondansetron [Zofran Odt] 8 mg PO TIDP PRN 03/08/17 Pantoprazole Sodium [Protonix] 40 mg PO BIDACBS 03/08/17 Sulfamethoxazole/Trimethoprim [Septra-Ds 800-160 mg Tablet] 1 tab PO BID Tramadol HCl [Ultram 50 mg Tablet] 50 mg PO TIDP PRN 03/08/17 Trazodone HCl [Desyrel] 150 mg PO HSP PRN 03/08/17 Vitamin B Complex [B Complex] 1 each PO DAILY 03/08/17 Allergies/Adverse Reactions: divalproex sodium [From Depakote] Allergy (Verified 02/28/17 11:27) nortriptyline Allergy (Verified 02/28/17 11:27) phenytoin sodium extended [From Dilantin] Allergy (Verified 02/28/17 11:27) Physical Exam Vital Signs: Temp Pulse Resp BP Pulse Ox 97.4 F 64 18 125/56 L 94 03/10/17 18:16 03/10/17 18:16 03/10/17 18:16 03/10/17 18:16 03/10/17 18:16 Intake & Output 03/09/17 03/10/17 03/11/17 06:59 06:59 06:59 Output Total 75 90 Balance -75 -90 Weight 68.9 kg General appearance: PRESENT: cooperative, disheveled Eye exam: PRESENT: conjunctiva pink Neck exam: PRESENT: other - Supple Respiratory exam: PRESENT: clear to auscultation bria Cardiovascular exam: PRESENT: RRR GI/Abdominal exam: PRESENT: other - Soft, mildly distended, no erythema at the midline wound with intact roberto and clear serous drainage. FAUZIA drain output is serous as well. Extremities exam: PRESENT: other - Anasarca Neurological exam: PRESENT: awake, oriented to person, oriented to place, oriented to situation Psychiatric exam: PRESENT: anxious Skin exam: PRESENT: other - Anasarca Assessment & Plan - Diagnosis (1) Duodenal ulcer with perforation Is this a current diagnosis for this admission?: Yes Plan: Status post exploratory laparotomy with duodenal ulcer repair complicated by abdominal sepsis postoperatively. Sepsis has since resolved but patient with the severe malnutrition with anasarca with weepiness of the abdominal wound. Will place a PICC line for possible TPN. Will check laboratory studies. Will obtain abdominal pelvic CT scan. Keep n.p.o. for now until we can verify that indeed her gastric bypass is intact and therefore the duodenum is anatomically excluded. Will ask hospitalist to assist in management of this patient with complex multiple medical problems.
[2017-03-10] MEDS: MORPHINE SULFATE 10 MG/ML INJ IV PRN ×2 (19:34→21:44)
[2017-03-10 20:11] LABS: ALANINE AMINOTRANSFERASE 26 U/L (9-52); ALBUMIN 1.5 g/dL (3.5-5.0); ALKALINE PHOSPHATASE 115 U/L (38-126); ANION GAP 5 (5-19); ASPARTATE AMINO TRANSFERASE 26 U/L (14-36); BILIRUBIN,DIRECT 1.3 mg/dL (0.0-0.4); BILIRUBIN,TOTAL 1.9 mg/dL (0.2-1.3); BLOOD UREA NITROGEN 8 mg/dL (7-20); CALCIUM 7.8 mg/dL (8.4-10.2); CARBON DIOXIDE 19 mmol/L (22-30); CHLORIDE 108 mmol/L (98-107); CREATININE RESULT 0.52 mg/dL (0.52-1.25); GLUCOSE 99 mg/dL (75-110); POTASSIUM 4.3 mmol/L (3.6-5.0); SODIUM 131.7 mmol/L (137-145); TOTAL PROTEIN 3.3 g/dL (6.3-8.2)
[2017-03-10] MEDS: PANTOPRAZOLE SODIUM 40 MG VIAL IV SCH (21:34)
[2017-03-10 21:35] LABS: HEMATOCRIT 26.7 % (36.0-47.0); HGB HCT DIFFERENCE 1.5; MEAN CORPUSCULAR HEMOGLOBIN 34.8 pg (27.0-33.4); MEAN CORPUSCULAR HGB CONC 35.2 g/dL (32.0-36.0); RED CELL DISTRIBUTION WIDTH 24.9 % (11.5-14.0); WHITE BLOOD COUNT 8.3 10^3/uL (4.0-10.5)
[2017-03-10] MEDS: ONDANSETRON 4 MG TAB.RAPDIS PO PRN (21:35)
[2017-03-10 21:37] LABS: HEMOGLOBIN 9.4 g/dL (12.0-15.5)
[2017-03-10 21:38] LABS: MEAN CORPUSCULAR VOLUME 99 fl (80-97)
[2017-03-10] MEDS ORDERED: DEXTROSE 40% GEL 15 GM TUBE PO PRN ×2 (21:44)
[2017-03-10] MEDS ORDERED: DEXTROSE 50%-WATER 25 GM/50 ML DISP.SYRIN IV PRN ×2 (21:44)
[2017-03-10] MEDS ORDERED: GLUCAGON,HUMAN RECOMB 1 MG INJ IM PRN (21:44)
[2017-03-10 21:45] LABS: BASOPHILS % (MANUAL) 0 % (0-2); EOSINOPHILS % (MANUAL) 1 % (0-6); LYMPHOCYTES % (MANUAL) 22 % (13-45); TOTAL CELLS COUNTED 100
[2017-03-10 21:46] LABS: ANISOCYTOSIS 3+; OVALOCYTES SLIGHT; POIKILOCYTOSIS 1+; TOXIC GRANULATION SLIGHT
[2017-03-10] MEDS ORDERED: CARVEDILOL 3.125 MG TABLET PO SCH (22:00)
[2017-03-10] MEDS ORDERED: LEVETIRACETAM 500 MG TABLET PO SCH (22:00)
[2017-03-10 22:24] LABS: ADD ON TESTING BLD IN LAB ACKNOWLEDGE
[2017-03-10 22:41] LABS: MAGNESIUM 1.3 mg/dL (1.6-2.3)
--- NOTE | 2017-03-11 00:08 | PDOC CONSULTATION ---
Consultation Consult Date: 03/10/17 Attending physician:: MARLIN WADE Consult reason:: Medical management History of Present Illness Admission Date/PCP: 03/10/17 18:11 BRUCE UPTON MD Hematology Dr. Hernandez Patient complains of: Transfer back from [facility] History of Present Illness: ROBERTO LAYTON is a 65 year old female who is status post exploratory laparotomy and duodenal ulcer primary repair 3 days ago. Patient was septic and was transferred to [facility] postoperatively. Patient is no longer septic and was transferred back to our hospital. Patient states that she still has abdominal pain but it is mild. She has no emesis. She has not had a bowel movement since surgery. She apparently had an NG tube through which they were giving her enteral nutrition but this was pulled prior to transfer. Patient has a history of Abraham-en-Y gastric bypass surgery in the remote past. She had a upper endoscopy several months ago and was told that it was unremarkable. Patient had been sick for quite some time prior to her emergency surgery. 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 Currently resting quietly, complaining of abdominal discomfort. Patient hospitalized on our service November 28, 2016 through the with discharge diagnoses including chest pain, and history of pulmonary embolus. Of note, discharge summary makes mention of consult with Dr. Hernandez who recommended patient stay on aspirin 325 mg a day, but also reportedly advised patient to take Lovenox during high risk situations such as prolonged travel or immobility. History and physical and discharge summary have been reviewed. Patient has been discussed with the referring surgeon who evaluated the patient. Dictation via voice recognition software. Laboratory results are listed in [employer] and are reviewed. Social history/personal habits: . Lives with daughter. Retired. No use of alcohol tobacco or illicit drugs. Allergies/adverse reactions are listed in [employer] and are reviewed. Home medications initially autopopulated into [employer] may not accurately reflect patient's true medications, dosages, and/or frequencies. 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 Unfortunately, patient not certain of all medications/dosages/frequencies. She does state that she takes Keppra 500 mg p.o. twice a day for seizure disorder. States has been a number of years since she last had a glenroy seizure, although does occasionally have an aura, for which she takes an extra dose of Keppra. Last such episode was approximately a month ago. REVIEW OF SYSTEMS: Constitutional: No fever or chills. Eyes: Wears glasses. ENT: No swallowing problems or complaints. Denies hearing loss. Pulmonary: No current complaints. Cardiovascular: No current complaints, including chest pain. Gastrointestinal: See history and present illness. Skin: No current complaints, including rashes. Hematologic: Easy bruising. Neurologic: Mild diabetic neuropathy in her feet. Musculoskeletal: Joint pain from arthritis. Psychiatric: Denies anxiety or depression. Endocrine: No current complaints, including polyuria. Genitourinary: No current complaints, including dysuria. PHYSICAL EXAMINATION: Floor nurse Sky is present. 4 feet 9 inches tall. 71.7 kg. BMI 34.2 kg/m. Temperature 98.3. Blood pressure 110/67. Pulse 67 and regular. Respirations are 13 and unlabored. 99 % saturation on 2 L oxygen per nasal cannula. Chronically ill-appearing female who appears a fair number of years older than her stated age. Slightly drowsy and fatigued, but pleasant and cooperative. Skin is warm and dry. No grossly obvious evidence of rash in areas of skin examined. No subcutaneous nodules palpated. ENT: Hearing grossly normal to normal conversation. Tongue midline on protrusion pink and slightly tacky. Eyes: No scleral icterus. Pupils equal and reactive to light at 4 mm. [place] conjunctivae. Neck is supple and nontender to gentle active range of motion and palpation. Midline trachea. No palpable thyroid nodule mass enlargement or tenderness. Lymphatic: No palpable cervical or clavicular nodes. Neck and lymphatic exams limited by patient body habitus. Psychiatric: Reasonable insight into acute and chronic medical issues. Oriented to time location and why here. Lungs: Auscultation reveals clear and equal breath sounds bilaterally. No use of accessory respiratory muscles. Cardiovascular: Heart regular rate and rhythm, without gallop murmur or rub. No carotid or abdominal aortic bruits. Diffuse symmetric bilateral somewhat pitting upper and lower extremity edema. Not sure I can palpate dorsalis pedis or posterior tibial pulses on either side, but toes are warm and dry with quite acceptable capillary refill. Abdomen:soft somewhat distended with mild diffuse tenderness with rare bowel sounds. No evidence of guarding or peritoneal signs. Unable to adequately evaluate abdomen for masses or organomegaly due to distention and discomfort. Extremities: Feet are warm and dry. No calf tenderness to compression. Gentle manipulation of lower extremities fails to reveal any obvious evidence of injury or instability to knees hips or ankles, although range of motion is somewhat limited, due to movements exacerbating her abdominal discomfort. Neurologic: Moves upper extremities grossly normally. Patellar reflexes absent. Absent Babinski. Light touch somewhat decreased at feet, which according to patient, is chronic, and without recent change. Dorsiflexion and plantarflexion of feet 5 / 5 and symmetric. Past Medical History Cardiac Medical History: Reports: DVT, Myocardial Infarction, Hypertension, Pulmonary Embolism Denies: Atrial Fibrillation, Congestive Heart Failure, Coronary Artery Disease, Hyperlipidema Pulmonary Medical History: Reports: Intubation, Pneumonia Denies: Asthma, Chronic Obstructive Pulmonary Disease (COPD), Sleep Apnea EENT Medical History: Reports: Eyes - Wears glasses Denies: Ears, Throat Neurological Medical History: Reports: Seizures Denies: Hemorrhagic CVA, Ischemic CVA Endocrine Medical History: Reports: Diabetes Mellitus Type 2 - Diet controlled, Hypothyroidism Denies: Diabetes Mellitus Type 1, Hyperthyroidism Renal/ Medical History: Reports: None GI Medical History: Reports: Gastroesophageal Reflux Disease, Peptic Ulcer Disease Denies: Cirrhosis, Hepatitis Musculoskeltal Medical History: Reports: Arthritis Skin Medical History: Reports: None Psychiatric Medical History: Denies: Alcohol Dependency, Depression, General Anxiety Disorder, Substance Abuse, Tobacco Dependency Hematology: Reports: Anemia, Heparin Induced Thrombocytopenia, Other - Protein C and protein S deficiency Infectious Medical History: Denies: Hepatitis B, Hepatitis C Past Surgical History Past Surgical History: Reports: Cholecystectomy, Gastric Bypass Surgery, Hysterectomy, Orthopedic Surgery - bria wrists, Vascular Surgery - IVC filter, Other - Abdominoplasty, tracheostomy, PEG. Exploratory laparotomy with DU repair, Social History Information Source: Patient, Emergency Med Personnel, [facility] Records Smoking Status: Unknown if Ever Smoked Frequency of Alcohol Use: None Hx Recreational Drug Use: No Drugs: None Hx Prescription Drug Abuse: No - Advance Directive Resuscitation Status: Full Code Surrogate healthcare decision maker:: Daughter Nilsa. Family History Family History: Hypertension, Other - Father had IHSS Mother with a-fib, dvt, Parental Family History Reviewed: Yes - Father of IHSS; mother of cancer. Children Family History Reviewed: Yes - Daughter also with hypercoagulable problems Sibling(s) Family History Reviewed.: Yes - Multiple siblings with hypertension Medication/Allergy Home Medications: Albuterol Sulfate [Albuterol Sulfate 2.5mg/3 mL] 1 vial IH RTQIDP PRN 03/11/17 Albuterol Sulfate [Proair HFA] 2 puff IH Q4 PRN 03/11/17 Butalb/Acetaminophen/Caffeine [Fioricet 50-300-40 mg Capsule] 1 cap PO Q8 PRN Carvedilol [Coreg 3.125 mg Tablet] 3.125 mg PO Q12 03/11/17 Cyanocobalamin (Vitamin B-12) [Vitamin B-12 1000 Mcg Tablet] 1,000 mcg PO DAILY 03/11/17 Cyclobenzaprine HCl [Flexeril 10 mg Tablet] 10 mg PO BIDP PRN 03/11/17 Bhargavi Root [Bhargavi] 550 mg PO DAILY 03/11/17 Hydrocodone/Acetaminophen [[place] 5-325 mg Tablet] 1 tab PO Q6HP PRN 03/11/17 Levetiracetam [Keppra 500 mg Tablet] 500 mg PO Q12 03/11/17 Levothyroxine Sodium [Synthroid 0.088 mg Tablet] 88 mcg PO DAILY 03/11/17 Lisinopril [Prinivil 5 mg Tablet] 5 mg PO DAILY 03/11/17 Nitroglycerin [Nitrostat 0.4 mg (1/150 Gr) Tabs 25/Bottle] 1 tab SL Q5MP PRN Ondansetron [Zofran Odt 4 mg Tablet] 4 mg PO Q4HP PRN 03/11/17 Pantoprazole Sodium [Protonix] 40 mg PO BIDACBS 03/11/17 RX: Butorphanol Tartrate 1 spray NS Q6HP PRN 03/11/17 Tramadol HCl [Ultram 50 mg Tablet] 50 mg PO TIDP PRN 03/11/17 Trazodone HCl [Desyrel 50 mg Tablet] 175 mg PO QHS 03/11/17 Vitamin B Complex [B Complex] 1 tab PO DAILY 03/11/17 Allergies/Adverse Reactions: divalproex sodium [From Depakote] Allergy (Verified 02/28/17 11:27) nortriptyline Allergy (Verified 02/28/17 11:27) phenytoin sodium extended [From Dilantin] Allergy (Verified 02/28/17 11:27) Physical Exam Vital Signs: Temp Pulse Resp BP Pulse Ox 98.3 F 71 18 122/60 100 03/10/17 19:48 03/10/17 19:48 03/10/17 19:48 03/10/17 19:48 03/10/17 19:48 Intake & Output 03/09/17 03/10/17 03/11/17 00:59 00:59 00:59 Output Total 75 90 Balance -75 -90 Weight 68.9 kg Results Laboratory Results: 03/10/17 21:00 03/10/17 19:30 03/10/17 03/10/17 03/10/17 19:30 19:30 19:30 WBC Cancelled RBC Cancelled Hgb Cancelled Hct Cancelled MCV Cancelled MCH Cancelled MCHC Cancelled RDW Cancelled Plt Count Cancelled Seg Neutrophils % Cancelled Lymphocytes % Cancelled Monocytes % Cancelled Eosinophils % Cancelled Basophils % Cancelled Absolute Neutrophils Cancelled Absolute Lymphocytes Cancelled Absolute Monocytes Cancelled Absolute Eosinophils Cancelled Absolute Basophils Cancelled Sodium 131.7 L Potassium 4.3 Chloride 108 H Carbon Dioxide 19 L Anion Gap 5 BUN 8 Creatinine 0.52 Est GFR ( Amer) > 60 Est GFR (Non-Af Amer) > 60 Glucose 99 Calcium 7.8 L Magnesium 1.3 L Total Bilirubin 1.9 H AST 26 ALT 26 Alkaline Phosphatase 115 Total Protein 3.3 L Albumin 1.5 L 03/10/17 21:00 WBC 8.3 RBC 2.70 L Hgb 9.4 L D Hct 26.7 L MCV 99 H D MCH 34.8 H MCHC 35.2 RDW 24.9 H Plt Count 167 Seg Neutrophils % Not Reportable Lymphocytes % Not Reportable Monocytes % Not Reportable Eosinophils % Not Reportable Basophils % Not Reportable Absolute Neutrophils Not Reportable Absolute Lymphocytes Not Reportable Absolute Monocytes Not Reportable Absolute Eosinophils Not Reportable Absolute Basophils Not Reportable Sodium Potassium Chloride Carbon Dioxide Anion Gap BUN Creatinine Est GFR ( Amer) Est GFR (Non-Af Amer) Glucose Calcium Magnesium Total Bilirubin AST ALT Alkaline Phosphatase Total Protein Albumin Assessment & Plan - Diagnosis (1) Generalized abdominal pain Is this a current diagnosis for this admission?: Yes Plan: CT scan of abdomen and pelvis ordered by surgery. Abdominal issues to be managed by surgery. (2) HIST PERFORATED DUOD ULCER Is this a current diagnosis for this admission?: Yes (3) Hypomagnesemia Is this a current diagnosis for this admission?: Yes Plan: Magnesium replacement with follow-up level. (4) History of DVT (deep vein thrombosis) Is this a current diagnosis for this admission?: Yes (5) Protein S deficiency Is this a current diagnosis for this admission?: Yes (6) History of heparin-induced thrombocytopenia Is this a current diagnosis for this admission?: Yes Plan: Reported history of same. Underlying protein C and protein S deficiency. Reportedly is on no anticoagulants as an outpatient. Hematology consult. (7) CAD (coronary artery disease) Qualifiers: Coronary Disease-Associated Artery/Lesion type: [place] artery [place] vs. transplanted heart: [place] heart Associated angina: without angina Qualified Code(s): I25.10 - Atherosclerotic heart disease of [place] coronary artery without angina pectoris Is this a current diagnosis for this admission?: Yes Plan: Resume home medications as appropriate once these have been determined and reviewed. (8) History of inferior vena caval filter placement Is this a current diagnosis for this admission?: No (9) History of pulmonary embolus (PE) Is this a current diagnosis for this admission?: Yes (10) Hypertension Qualifiers: Hypertension type: essential hypertension Qualified Code(s): I10 - Essential (primary) hypertension Is this a current diagnosis for this admission?: Yes Plan: Resume home medications as appropriate once these have been determined and reviewed. (11) Hypothyroid Qualifiers: Hypothyroidism type: unspecified Qualified Code(s): E03.9 - Hypothyroidism , unspecified Is this a current diagnosis for this admission?: Yes Plan: Resume home medications as appropriate once these have been determined and reviewed. (12) Protein C deficiency Is this a current diagnosis for this admission?: Yes (13) Seizure disorder Is this a current diagnosis for this admission?: Yes Plan: Seizure precautions. Resume home medications as appropriate once these have been determined and reviewed. With ongoing GI tract issues, will change Keppra to parenteral version. - Time Time Spent: Greater than 70 Minutes - Inpatient Certification Based on my medical assessment, after consideration of the patient's comorbidities, presenting symptoms, or acuity I expect that the services needed warrant INPATIENT care.: Yes I certify that my determination is in accordance with my understanding of Medicare's requirements for reasonable and necessary INPATIENT services [42 CFR 412.3e].: Yes Medical Necessity: Need Close Monitoring Due to Risk of Patient Decompensation, Need For IV Fluids, Need for Pain Control, Risk of Diagnosis Which Will Require Inpatient Eval/Care/Monitoring Post Hospital Care: D/C or Transfer Summary - Thank you for asking us see this unfortunate patient. Hospitalist team will follow and provide medical management.
[2017-03-11] MEDS: MORPHINE SULFATE 10 MG/ML INJ IV PRN ×6 (00:51→22:52)
[2017-03-11] MEDS: MAGNESIUM SULFATE/D5W 1 GM/100 ML RTUPB IV SCH ×2 (01:26→03:05)
--- NOTE | 2017-03-11 03:26 | RADIOLOGY REPORT (SQ) ---
EXAM DESCRIPTION: CT ABD/PELVIS ORAL ONLY COMPLETED DATE/TIME: 03/11/2017 12:25 am REASON FOR STUDY: s/p duodenal ulcer perforation repair COMPARISON: 03/07/2017, 02/28/2017, 12/27/2016. CR, 03/08/2017. TECHNIQUE: CT scan of the abdomen and pelvis performed without intravenous or oral contrast. Images reviewed with lung, soft tissue, and bone windows. Reconstructed coronal and sagittal MPR images revi ewed. All images stored on PACS. All CT scanners at this facility use dose modulation, iterative reconstruction, and/or weight based d osing when appropriate to reduce radiation dose to as low as reasonably achievable (ALARA). [facility]: Dose Right [facility]: CareDose [facility]: Dose Right [facility]: Teradose 4D [facility]: [employer] RADIATION DOSE: Up-to-date CT equipment and radiation dose reduction techniques were employed. CTDIv ol: 17.5 mGy. DLP: 941 mGy-cm.mGy. LIMITATIONS: None. FINDINGS: LOWER CHEST: Small-moderate bilateral pleural effusions, small right lower lobar atelectas is, small to moderate airspace opacities of bilateral lower lungs partially imaged, coronary arterial calcification. Small pericardial fluid. NON-CONTRASTED LIVER, SPLEEN, ADRENALS: Evaluation limited by lack of IV contrast. No identified sign ificant masses. Moderate hepatic steatosis. PANCREAS: No masses. No peripancreatic inflammatory changes. GALLBLADDER: Surgically absent. RIGHT KIDNEY AND URETER: No suspicious masses. Assessment limited by lack of IV contrast. No signif icant calcifications. No hydronephrosis or hydroureter. LEFT KIDNEY AND URETER: No suspicious masses. Assessment limited by lack of IV contrast. No signifi cant calcifications. No hydronephrosis or hydroureter. AORTA AND RETROPERITONEUM: No aneurysm. No retroperitoneal masses or adenopathy. Adequate appearing IVC filter. Prong penetration of the inferior vena cava appears chronic. BOWEL AND PERITONEAL CAVITY: Drainage tubing in the right upper abdominal cavity. APPENDIX: Intra luminal contrast. Diffuse nonspecific mural thickening. No periappendiceal inflamma tion. PELVIS, BLADDER, AND ABDOMINAL WALL:8.4 x 4.2 by 5.9 cm complex well defined mass with CT density 38 Hounsfield units in the left paracentral anterior pelvis along the pelvic wall consistent with previo usly suspected hematoma not significantly changed. BONES: Comminuted fractures of the superior and inferior pubic rami at the pubic symphysis and of the sacrum bilaterally, not significantly displaced. OTHER: Moderate anasarca. IMPRESSION: 1. New bilateral lower lobar pneumonia. Small-moderate bilateral pleural effusions. S mall pericarditis. 2. In 8.4 cm likely hematoma associated with the anterior pelvic wall without si gnificant interval change. 3. Moderate -severe anasarca. 4. Subacute comminuted fractures of the superior and inferior pubic rami bilaterally; and nondisplaced fractures of bilateral aspects of the sacrum. COMMENT: This report was called to Nurse Tayler Culver at03:16 on 03/11/2017. Quality ID # 436: Final reports with documentation of one or more dose reduction techniques (e.g., Au tomated exposure control, adjustment of the mA and/or kV according to patient size, use of iterative reconstruction technique) TECHNICAL DOCUMENTATION: JOB ID: [id number] [employer]- All Rights Reserved
[2017-03-11 03:48] LABS: APPEARANCE,URINE CLEAR; BILIRUBIN,URINE NEGATIVE (NEGATIVE); GLUCOSE, URINE NEGATIVE (NEGATIVE); KETONES,URINE NEGATIVE (NEGATIVE); LEUKOCYTE ESTERASE,URINE NEGATIVE (NEGATIVE); NITRITE,URINE NEGATIVE (NEGATIVE); PROTEIN,URINE NEGATIVE (NEGATIVE); URINE SPECIFIC GRAVITY 1.006; UROBILINOGEN,URINE NEGATIVE mg/dL (<2.0)
[2017-03-11] MEDS ORDERED: MAGNESIUM SULFATE/D5W 1 GM/100 ML RTUPB IV ONE ×2 (04:30→15:30)
[2017-03-11] MEDS ORDERED: VANCOMYCIN HCL 0 MG in DEXTROSE 5%-WATER 250 ML IV NR (05:00)
[2017-03-11] MEDS ORDERED: PIPERACILLIN/TAZOBACTAM 4.5 GM VIAL IV PRN (05:08)
[2017-03-11] MEDS ORDERED: VANCOMYCIN HCL INJ 1000 MG VIAL IV PRN (05:15)
[2017-03-11] MEDS ORDERED: VANCOMYCIN HCL INJ 500 MG VIAL IV PRN (05:16)
[2017-03-11] MEDS ORDERED: VANCOMYCIN HCL INJ 500 MG VIAL ONE (05:51)
[2017-03-11] MEDS ORDERED: VANCOMYCIN HCL INJ 1000 MG VIAL ONE (05:51)
[2017-03-11] MEDS ORDERED: PIPERACILLIN SODIUM/TAZOBACTAM 4.5 GM in NORMAL SALINE 100 ML IV SCH (06:00)
[2017-03-11] MEDS ORDERED: VANCOMYCIN HCL 1,500 MG in DEXTROSE 5%-WATER 250 ML IV ONE (06:00)
[2017-03-11] MEDS ORDERED: AZTREONAM INJ 1 GM VIAL IV SCH (06:00)
[2017-03-11] MEDS: CARVEDILOL 3.125 MG TABLET PO SCH ×2 (09:16→22:37)
[2017-03-11] MEDS: LEVOTHYROXINE SODIUM 0.088 MG TABLET PO SCH (09:17)
[2017-03-11] MEDS ORDERED: AZTREONAM 2 GM in DEXTROSE 5%-WATER 100 ML IV SCH ×2 (10:00→22:00)
[2017-03-11] MEDS ORDERED: LEVETIRACETAM INJ/PF 500 MG/5 ML SDV IV SCH (10:00)
--- NOTE | 2017-03-11 10:44 | RADIOLOGY REPORT (SQ) ---
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 TECHNIQUE: Fluoroscopic and ultrasound guided PICC placement. LIMITATIONS: None. PROCEDURE: After written consent and assessment were obtained, the patient was brought into the fluo roscopy room and place supine on the table. Ultrasound was used on the patient's right arm for PICC access. The right arm was prepped and draped in a sterile fashion along with the ultrasound probe. Th e entry site was anesthetized with 3 mL of 1% lidocaine. A 21 gauge 7 cm needle was advanced through the skin and into the basilic vein under live ultrasound guidance. An ultrasound image was saved to PACS confirming access site. A .018 guide wire was then inserted through the needle and into the dinesh ous system. The needle was the removed and an 11 blade scalpel was used to make a 1cm skin incision. A 5 fr peel-away sheath was advanced over the wire and into the venous system. A measurement was the n made using the existing wire and live fluoroscopic guidance. The wire was then removed and the trim med. The PICC was advanced through the peel-away sheath and into the venous system. The peel-away she ath was removed and the catheter was adhered to the patients arm with a stat lock. The catheter was t hen aspirated and flushed and a sterile bandage was placed over the access site. A fluoroscopic spot image was saved to PACS confirming the catheter tip within the superior vena cava. IMPRESSION: SUCCESSFUL PLACEMENT OF A 5 FR DUAL LUMEN 35 CM PICC IN THE RIGHT BASILIC VEIN. COMMENT: Patient medication list reviewed: Yes- Quality ID# 130:Eligible professional attests to doc umenting in the medical record they obtained, updated, or reviewed the patient's current medications. . Quality ID 145: Final reports for procedures using fluoroscopy that document radiation exposure oralia eliceo, or exposure time and number of fluorographic images (if radiation exposure indices are not avail able) Quality ID #76: The patient was prepped and draped using maximum sterile barrier technique including cap, mask, sterile gown, sterile gloves, a large sterile sheet, hand hygiene, and 2% Chlorhexidine fo r cutaneous antisepsis. When ultrasound is used, sterile ultrasound techniques are followed requiring sterile gel and sterile probes. TECHNICAL DOCUMENTATION: JOB ID: [id number] [employer]- All Rights Reserved
--- NOTE | 2017-03-11 10:50 | RADIOLOGY REPORT (SQ) ---
EXAM DESCRIPTION: BARIUM SWALLOW ESOPHAGUS COMPLETED DATE/TIME: 03/11/2017 10:22 am REASON FOR STUDY: gastrograffin swallow to rule out fistula COMPARISON: CT abdomen pelvis 03/11/2017 TECHNIQUE: Under fluoroscopic guidance, patient ingested Omnipaque 300. Fluoroscopic spot images and routine radiographic images acquired and stored on PACS. 12 MM BARIUM TABLET GIVEN: No LIMITATIONS: None. FLUOROSCOPY TIME: 2.1 minutes 26 series of digital images saved to PACS. FINDINGS: NEUROMUSCULAR COORDINATION OF SWALLOW: Normal. No aspiration. ESOPHAGEAL MOTILITY: Normal peristalsis. No esophageal spasm. ESOPHAGEAL MUCOSA: Normal mucosa without masses or ulceration. GASTRO-ESOPHAGEAL JUNCTION: Small hiatal hernia with mild gastroesophageal reflux. There was prompt emptying of the gastric bypass fundal pouch into the small bowel Abraham loop. No opacification of the patient's [place] stomach. NON-GI TRACT STRUCTURES: No significant finding. OTHER: No other significant finding. IMPRESSION: Post gastric bypass. Small hiatal hernia with reflux. Prompt emptying of the gastric f undal bypass pouch into the small bowel efferrent loop COMMENT: Quality ID 145: Final reports for procedures using fluoroscopy that document radiation exp osure indices, or exposure time and number of fluorographic images (if radiation exposure indices are not available) TECHNICAL DOCUMENTATION: JOB ID: [id number] [employer]- All Rights Reserved
[2017-03-11] MEDS ORDERED: PIPERACILLIN SODIUM/TAZOBACTAM 4.5 GM in DEXTROSE 5%-WATER 100 ML IV SCH (12:00)
[2017-03-11] MEDS: LEVETIRACETAM 500 MG/NACL-ISO 500 MG/100 ML RTUPB IV SCH ×2 (12:01→22:33)
[2017-03-11] MEDS: PANTOPRAZOLE SODIUM 40 MG VIAL IV SCH ×2 (12:01→22:35)
[2017-03-11 13:49] LABS: ABSOLUTE EOSINOPHILS # (AUTO) 0.1 10^3/uL (0.0-0.6); ABSOLUTE LYMPHOCYTES (AUTO) 1.3 10^3/uL (0.5-4.7); ABSOLUTE MONOCYTES (AUTO) 0.5 10^3/uL (0.1-1.4); ABSOLUTE NEUT (AUTO) 5.1 10^3/uL (1.7-8.2); BASOPHILS % (AUTO) 0.6 % (0-2); EOSINOPHILS % (AUTO) 0.8 % (0-6); HEMATOCRIT 27.1 % (36.0-47.0); HEMOGLOBIN 9.4 g/dL (12.0-15.5); HGB HCT DIFFERENCE 1.1; LYMPHOCYTES % (AUTO) 18.9 % (13-45); MEAN CORPUSCULAR HEMOGLOBIN 34.5 pg (27.0-33.4); MEAN CORPUSCULAR HGB CONC 34.5 g/dL (32.0-36.0); MEAN CORPUSCULAR VOLUME 100 fl (80-97); MONOCYTES % (AUTO) 7.1 % (3-13); RED BLOOD COUNT 2.71 10^6/uL (3.72-5.28); RED CELL DISTRIBUTION WIDTH 24.8 % (11.5-14.0); SEGMENTED NEUTROPHILS % (AUTO) 72.6 % (42-78); WHITE BLOOD COUNT 7.1 10^3/uL (4.0-10.5)
[2017-03-11 14:08] LABS: ALANINE AMINOTRANSFERASE 21 U/L (9-52); ALBUMIN 1.5 g/dL (3.5-5.0); ALKALINE PHOSPHATASE 112 U/L (38-126); ASPARTATE AMINO TRANSFERASE 23 U/L (14-36); BILIRUBIN,DIRECT 1.2 mg/dL (0.0-0.4); BILIRUBIN,TOTAL 1.8 mg/dL (0.2-1.3); BLOOD UREA NITROGEN 6 mg/dL (7-20); CALCIUM 7.5 mg/dL (8.4-10.2); CREATININE RESULT 0.45 mg/dL (0.52-1.25); GLUCOSE 86 mg/dL (75-110); MAGNESIUM 1.5 mg/dL (1.6-2.3); TOTAL PROTEIN 3.3 g/dL (6.3-8.2)
[2017-03-11 14:19] LABS: CARBON DIOXIDE 23 mmol/L (22-30); CHLORIDE 106 mmol/L (98-107); POTASSIUM 3.7 mmol/L (3.6-5.0); SODIUM 132.4 mmol/L (137-145)
[2017-03-11 14:21] LABS: LIPASE < 10.0 U/L (23-300)
[2017-03-11 14:22] LABS: ANION GAP 3 (5-19)
[2017-03-11 14:34] LABS: ANISOCYTOSIS 3+; HYPOCHROMASIA 1+; OVALOCYTES 1+; PLATELET CLUMPS PRESENT; POIKILOCYTOSIS 1+; POLYCHROMASIA SLIGHT
--- NOTE | 2017-03-11 14:57 | PDOC PROGRESS REPORT ---
Subjective Progress Note for:: 03/11/17 Subjective:: This is a follow-up visit for a consult for medical management. The patient states that she has trouble sleeping. And is usually on trazodone. Her med rec has not yet been done. She also tells me that she is as per Lasix before for her lower extremity swelling but cannot convince anyone as an outpatient to give it to her. Patient's also states she had 2 bowel movements yesterday. She is not currently in any pain. Physical Exam Vital Signs: Temp Pulse Resp BP Pulse Ox 98.3 F 72 18 103/63 100 03/11/17 11:14 03/11/17 11:14 03/11/17 11:14 03/11/17 11:14 03/11/17 11:14 Intake & Output 03/10/17 03/11/17 03/12/17 06:59 06:59 06:59 Intake Total 1058 Output Total 1260 300 Balance -202 -300 Weight 71.7 kg GENERAL: This is a well-developed well-nourished obese white female resting in bed currently in no acute distress. HEART: Regular rate and rhythm. No murmurs, rubs or gallops. LUNGS: Clear to auscultation anteriorly bilaterally with equal rise and fall of the chest. ABDOMEN: Soft, nontender, nondistended with normoactive bowel sounds EXTREMETIES: No clubbing, cyanosis. 3+ pitting edema/anasarca. The patient's hands are quite swollen as well. 2+ peripheral pulses bilaterally. NEURO: Awake, alert and oriented 3. Patient just received morphine and has slurred speech. Cranial nerves II through XII are grossly intact. Results Laboratory Results: 03/10/17 03/10/17 03/10/17 19:30 19:30 19:30 WBC Cancelled RBC Cancelled Hgb Cancelled Hct Cancelled MCV Cancelled MCH Cancelled MCHC Cancelled RDW Cancelled Plt Count Cancelled Seg Neutrophils % Cancelled Lymphocytes % Cancelled Monocytes % Cancelled Eosinophils % Cancelled Basophils % Cancelled Absolute Neutrophils Cancelled Absolute Lymphocytes Cancelled Absolute Monocytes Cancelled Absolute Eosinophils Cancelled Absolute Basophils Cancelled Sodium 131.7 L Potassium 4.3 Chloride 108 H Carbon Dioxide 19 L Anion Gap 5 BUN 8 Creatinine 0.52 Est GFR ( Amer) > 60 Est GFR (Non-Af Amer) > 60 Glucose 99 Calcium 7.8 L Magnesium 1.3 L Total Bilirubin 1.9 H AST 26 ALT 26 Alkaline Phosphatase 115 Total Protein 3.3 L Albumin 1.5 L Urine Color Urine Appearance Urine pH Ur Specific [place] Urine Protein Urine Glucose (UA) Urine Ketones Urine Blood Urine Nitrite Ur Leukocyte Esterase Urine WBC (Auto) Urine RBC (Auto) 03/10/17 03/11/17 21:00 01:15 WBC 8.3 RBC 2.70 L Hgb 9.4 L D Hct 26.7 L MCV 99 H D MCH 34.8 H MCHC 35.2 RDW 24.9 H Plt Count 167 Seg Neutrophils % Not Reportable Lymphocytes % Not Reportable Monocytes % Not Reportable Eosinophils % Not Reportable Basophils % Not Reportable Absolute Neutrophils Not Reportable Absolute Lymphocytes Not Reportable Absolute Monocytes Not Reportable Absolute Eosinophils Not Reportable Absolute Basophils Not Reportable Sodium Potassium Chloride Carbon Dioxide Anion Gap BUN Creatinine Est GFR ( Amer) Est GFR (Non-Af Amer) Glucose Calcium Magnesium Total Bilirubin AST ALT Alkaline Phosphatase Total Protein Albumin Urine Color YELLOW Urine Appearance CLEAR Urine pH 6.0 Ur Specific [place] 1.006 Urine Protein NEGATIVE Urine Glucose (UA) NEGATIVE Urine Ketones NEGATIVE Urine Blood SMALL H Urine Nitrite NEGATIVE Ur Leukocyte Esterase NEGATIVE Urine WBC (Auto) 1 Urine RBC (Auto) 0 Impressions: Abdomen/Pelvis CT 03/11/17 00:00 IMPRESSION: 1. New bilateral lower lobar pneumonia. Small-moderate bilateral pleural effusions. Small pericarditis. 2. In 8.4 cm likely hematoma associated with the anterior pelvic wall without significant interval change. 3. Moderate -severe anasarca. 4. Subacute comminuted fractures of the superior and inferior pubic rami bilaterally; and nondisplaced fractures of bilateral aspects of the sacrum. Esophagus X-Ray 03/11/17 00:00 IMPRESSION: Post gastric bypass. Small hiatal hernia with reflux. Prompt emptying of the gastric fundal bypass pouch into the small bowel efferrent loop Guidance Fluoroscopy 03/11/17 00:00 IMPRESSION: SUCCESSFUL PLACEMENT OF A 5 FR DUAL LUMEN 35 CM PICC IN THE RIGHT BASILIC VEIN. Interventional Vascular Procedure 03/11/17 00:00 IMPRESSION: SUCCESSFUL PLACEMENT OF A 5 FR DUAL LUMEN 35 CM PICC IN THE RIGHT BASILIC VEIN. PICC Line Insertion 03/11/17 00:00 IMPRESSION: SUCCESSFUL PLACEMENT OF A 5 FR DUAL LUMEN 35 CM PICC IN THE RIGHT BASILIC VEIN. 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 (2) Hypothyroid Qualifiers: Hypothyroidism type: unspecified Qualified Code(s): E03.9 - Hypothyroidism , unspecified Is this a current diagnosis for this admission?: Yes Plan: Continue Synthroid. (3) Protein C deficiency Is this a current diagnosis for this admission?: Yes (4) Hypomagnesemia Is this a current diagnosis for this admission?: Yes Plan: Replace today. Continue supplementation. (5) Protein S deficiency Is this a current diagnosis for this admission?: Yes (6) Seizure disorder Is this a current diagnosis for this admission?: Yes Plan: Continue Keppra. (7) Chronic insomnia Plan: resume trazadone (8) Hyponatremia Plan: Likely secondary to volume overload. (9) Anasarca Plan: I suspect this is likely due to volume overload from aggressive fluid resuscitation the patient's fluid extends all the way up to her thighs and involves her arms and hands. We will give her scheduled Lasix for the next day. Hopefully this will help. She has a Payan catheter in we should be able to get good measurements for her I's and O's. - Time Time Spent with patient: 25-34 minutes
[2017-03-11] MEDS: FUROSEMIDE INJ/PF 40 MG/4 ML SDV IV SCH (17:28)
[2017-03-11] MEDS: VANCOMYCIN HCL 750 MG in DEXTROSE 5%-WATER 250 ML IV SCH (17:30)
[2017-03-11] MEDS ORDERED: FUROSEMIDE INJ/PF 20 MG/2 ML SDV IV SCH (18:00)
--- NOTE | 2017-03-11 18:19 | PDOC CONSULTATION ---
History of Present Illness Admission Date/PCP: 03/10/17 18:11 BRUCE UPTON MD History of Present Illness: ROBERTO LAYTON is a 65 year old female who is status post exploratory laparotomy and duodenal ulcer primary repair 3 days ago. Patient was septic and was transferred to [facility] postoperatively. Patient is no longer septic and was transferred back to our hospital. Most recent CT scan demonstrated sacral and rami fractures. This was not noted according to the radiologist report on 03/07/17. Further questioning of the patient she was aware of her previous sacral and pubic rami fractures and was being treated at [facility] for her pelvic fractures. She was beginning to undergo physical therapy. She continues to have considerable discomfort bilaterally and has not seen much improvement over the past 3 weeks. The original injury occurred early in February when she sustained a fall. Current pain is 7/10 worse with motion. Denies numbness or tingling. Past Medical History Cardiac Medical History: Reports: DVT, Myocardial Infarction, Hypertension, Pulmonary Embolism Denies: Atrial Fibrillation, Congestive Heart Failure, Coronary Artery Disease, Hyperlipidema Pulmonary Medical History: Reports: Intubation, Pneumonia Denies: Asthma, Chronic Obstructive Pulmonary Disease (COPD), Sleep Apnea EENT Medical History: Reports: Eyes - Wears glasses, Other - Protein C and protein S deficiency Denies: Ears, Throat Neurological Medical History: Reports: Seizures Denies: Hemorrhagic CVA, Ischemic CVA Endocrine Medical History: Reports: Diabetes Mellitus Type 2 - Diet controlled, Hypothyroidism Denies: Diabetes Mellitus Type 1, Hyperthyroidism Renal/ Medical History: Reports: None GI Medical History: Reports: Gastroesophageal Reflux Disease, Peptic Ulcer Disease Denies: Cirrhosis, Hepatitis Musculoskeltal Medical History: Reports: Arthritis Skin Medical History: Reports: None Psychiatric Medical History: Denies: Alcohol Dependency, Depression, General Anxiety Disorder, Substance Abuse, Tobacco Dependency Hematology: Reports: Anemia, Heparin Induced Thrombocytopenia, Other - Protein C and protein S deficiency Infectious Medical History: Denies: Hepatitis B, Hepatitis C Past Surgical History Past Surgical History: Reports: Cholecystectomy, Gastric Bypass Surgery, Hysterectomy, Orthopedic Surgery - bria wrists, Vascular Surgery - IVC filter, Other - Abdominoplasty, tracheostomy, PEG. Exploratory laparotomy with DU repair, Social History Smoking Status: Unknown if Ever Smoked Frequency of Alcohol Use: None Hx Recreational Drug Use: No Drugs: None Hx Prescription Drug Abuse: No - Advance Directive Resuscitation Status: Full Code Family History Family History: Hypertension, Other - Father had IHSS Mother with a-fib, dvt, Parental Family History Reviewed: No Children Family History Reviewed: No Sibling(s) Family History Reviewed.: No Medication/Allergy Home Medications: Albuterol Sulfate [Albuterol Sulfate 2.5mg/3 mL] 1 vial IH RTQIDP PRN 03/11/17 Albuterol Sulfate [Proair HFA] 2 puff IH Q4 PRN 03/11/17 Butalb/Acetaminophen/Caffeine [Fioricet 50-300-40 mg Capsule] 1 cap PO Q8 PRN Butorphanol Tartrate 1 spray NS Q6HP PRN 03/11/17 Carvedilol [Coreg 3.125 mg Tablet] 3.125 mg PO Q12 03/11/17 Cyanocobalamin (Vitamin B-12) [Vitamin B-12 1000 Mcg Tablet] 1,000 mcg PO DAILY 03/11/17 Cyclobenzaprine HCl [Flexeril 10 mg Tablet] 10 mg PO BIDP PRN 03/11/17 Bhargavi Root [Bhargavi] 550 mg PO DAILY 03/11/17 Hydrocodone/Acetaminophen [[place]arson 5-325 mg Tablet] 1 tab PO Q6HP PRN 03/11/17 Levetiracetam [Keppra 500 mg Tablet] 500 mg PO Q12 03/11/17 Levothyroxine Sodium [Synthroid 0.088 mg Tablet] 88 mcg PO DAILY 03/11/17 Lisinopril [Prinivil 5 mg Tablet] 5 mg PO DAILY 03/11/17 Nitroglycerin [Nitrostat 0.4 mg (1/150 Gr) Tabs 25/Bottle] 1 tab SL Q5MP PRN Ondansetron [Zofran Odt 4 mg Tablet] 4 mg PO Q4HP PRN 03/11/17 Pantoprazole Sodium [Protonix] 40 mg PO BIDACBS 03/11/17 Tramadol HCl [Ultram 50 mg Tablet] 50 mg PO TIDP PRN 03/11/17 Trazodone HCl [Desyrel 50 mg Tablet] 175 mg PO QHS 03/11/17 Vitamin B Complex [B Complex] 1 tab PO DAILY 03/11/17 Allergies/Adverse Reactions: divalproex sodium [From Depakote] Allergy (Verified 02/28/17 11:27) nortriptyline Allergy (Verified 02/28/17 11:27) phenytoin sodium extended [From Dilantin] Allergy (Verified 02/28/17 11:27) Review of Systems All systems: as per PMH Constitutional: PRESENT: fever(s), headache(s). ABSENT: chills, weight gain, weight loss Eyes: ABSENT: visual disturbances Ears: ABSENT: hearing changes Cardiovascular: ABSENT: chest pain, dyspnea on exertion, edema, orthropnea, palpitations Respiratory: ABSENT: cough, hemoptysis Gastrointestinal: PRESENT: abdominal pain. ABSENT: constipation, diarrhea, hematemesis, hematochezia Genitourinary: ABSENT: dysuria, hematuria Musculoskeletal: PRESENT: as per HPI Integumentary: ABSENT: rash, wounds Neurological: ABSENT: abnormal gait, abnormal speech, confusion, dizziness, focal weakness, syncope Psychiatric: ABSENT: anxiety, depression, homidical ideation, suicidal ideation Endocrine: ABSENT: cold intolerance, heat intolerance, menstrual abnormalities, polydipsia, polyuria Hematologic/Lymphatic: ABSENT: easy bleeding, easy bruising, lymphadenopathy Physical Exam Vital Signs: Temp Pulse Resp BP Pulse Ox 98.4 F 63 18 103/62 99 03/11/17 15:30 03/11/17 15:30 03/11/17 15:30 03/11/17 15:30 03/11/17 15:30 Intake & Output 03/10/17 03/11/17 03/12/17 06:59 06:59 06:59 Intake Total 1058 Output Total 1260 600 Balance -202 -600 Weight 71.7 kg General appearance: PRESENT: no acute distress, well-developed, well-nourished Head exam: PRESENT: atraumatic, normocephalic Eye exam: PRESENT: conjunctiva pink. ABSENT: scleral icterus Ear exam: PRESENT: normal external ear exam Mouth exam: PRESENT: moist, tongue midline Neck exam: PRESENT: full ROM. ABSENT: carotid bruit, JVD, lymphadenopathy, thyromegaly Respiratory exam: PRESENT: unlabored Cardiovascular exam: PRESENT: RRR. ABSENT: diastolic murmur, rubs, systolic murmur Pulses: PRESENT: normal dorsalis pedis pul, +2 pedal pulses bilateral Vascular exam: PRESENT: normal capillary refill GI/Abdominal exam: PRESENT: normal bowel sounds, other - abdominal wound. ABSENT: distended, guarding, mass, organolmegaly, rebound, tenderness Rectal exam: PRESENT: deferred Musculoskeletal exam: PRESENT: other Neurological exam: PRESENT: alert, awake, oriented to person, oriented to place , oriented to time, oriented to situation, CN II-XII grossly intact. ABSENT: motor sensory deficit Psychiatric exam: PRESENT: appropriate affect, normal mood. ABSENT: homicidal ideation, suicidal ideation Skin exam: PRESENT: dry, intact, warm. ABSENT: cyanosis, rash Results Laboratory Results: 03/11/17 13:25 03/11/17 13:25 03/10/17 03/10/17 03/10/17 19:30 19:30 19:30 WBC Cancelled RBC Cancelled Hgb Cancelled Hct Cancelled MCV Cancelled MCH Cancelled MCHC Cancelled RDW Cancelled Plt Count Cancelled Seg Neutrophils % Cancelled Lymphocytes % Cancelled Monocytes % Cancelled Eosinophils % Cancelled Basophils % Cancelled Absolute Neutrophils Cancelled Absolute Lymphocytes Cancelled Absolute Monocytes Cancelled Absolute Eosinophils Cancelled Absolute Basophils Cancelled Sodium 131.7 L Potassium 4.3 Chloride 108 H Carbon Dioxide 19 L Anion Gap 5 BUN 8 Creatinine 0.52 Est GFR ( Amer) > 60 Est GFR (Non-Af Amer) > 60 Glucose 99 Calcium 7.8 L Magnesium 1.3 L Total Bilirubin 1.9 H AST 26 ALT 26 Alkaline Phosphatase 115 Total Protein 3.3 L Albumin 1.5 L Lipase Urine Color Urine Appearance Urine pH Ur Specific [place] Urine Protein Urine Glucose (UA) Urine Ketones Urine Blood Urine Nitrite Ur Leukocyte Esterase Urine WBC (Auto) Urine RBC (Auto) 03/10/17 03/11/17 03/11/17 21:00 01:15 13:25 WBC 8.3 7.1 RBC 2.70 L 2.71 L Hgb 9.4 L D 9.4 L Hct 26.7 L 27.1 L MCV 99 H D 100 H MCH 34.8 H 34.5 H MCHC 35.2 34.5 RDW 24.9 H 24.8 H Plt Count 167 174 Seg Neutrophils % Not Reportable 72.6 Lymphocytes % Not Reportable 18.9 Monocytes % Not Reportable 7.1 Eosinophils % Not Reportable 0.8 Basophils % Not Reportable 0.6 Absolute Neutrophils Not Reportable 5.1 Absolute Lymphocytes Not Reportable 1.3 Absolute Monocytes Not Reportable 0.5 Absolute Eosinophils Not Reportable 0.1 Absolute Basophils Not Reportable 0.0 Sodium Potassium Chloride Carbon Dioxide Anion Gap BUN Creatinine Est GFR ( Amer) Est GFR (Non-Af Amer) Glucose Calcium Magnesium Total Bilirubin AST ALT Alkaline Phosphatase Total Protein Albumin Lipase Urine Color YELLOW Urine Appearance CLEAR Urine pH 6.0 Ur Specific [place] 1.006 Urine Protein NEGATIVE Urine Glucose (UA) NEGATIVE Urine Ketones NEGATIVE Urine Blood SMALL H Urine Nitrite NEGATIVE Ur Leukocyte Esterase NEGATIVE Urine WBC (Auto) 1 Urine RBC (Auto) 0 03/11/17 13:25 WBC RBC Hgb Hct MCV MCH MCHC RDW Plt Count Seg Neutrophils % Lymphocytes % Monocytes % Eosinophils % Basophils % Absolute Neutrophils Absolute Lymphocytes Absolute Monocytes Absolute Eosinophils Absolute Basophils Sodium 132.4 L Potassium 3.7 Chloride 106 Carbon Dioxide 23 Anion Gap 3 L BUN 6 L Creatinine 0.45 L Est GFR ( Amer) > 60 Est GFR (Non-Af Amer) > 60 Glucose 86 Calcium 7.5 L Magnesium 1.5 L Total Bilirubin 1.8 H AST 23 ALT 21 Alkaline Phosphatase 112 Total Protein 3.3 L Albumin 1.5 L Lipase < 10.0 L Urine Color Urine Appearance Urine pH Ur Specific [place] Urine Protein Urine Glucose (UA) Urine Ketones Urine Blood Urine Nitrite Ur Leukocyte Esterase Urine WBC (Auto) Urine RBC (Auto) Impressions: Abdomen/Pelvis CT 03/11/17 00:00 IMPRESSION: 1. New bilateral lower lobar pneumonia. Small-moderate bilateral pleural effusions. Small pericarditis. 2. In 8.4 cm likely hematoma associated with the anterior pelvic wall without significant interval change. 3. Moderate -severe anasarca. 4. Subacute comminuted fractures of the superior and inferior pubic rami bilaterally; and nondisplaced fractures of bilateral aspects of the sacrum. Esophagus X-Ray 03/11/17 00:00 IMPRESSION: Post gastric bypass. Small hiatal hernia with reflux. Prompt emptying of the gastric fundal bypass pouch into the small bowel efferrent loop Guidance Fluoroscopy 03/11/17 00:00 IMPRESSION: SUCCESSFUL PLACEMENT OF A 5 FR DUAL LUMEN 35 CM PICC IN THE RIGHT BASILIC VEIN. Interventional Vascular Procedure 03/11/17 00:00 IMPRESSION: SUCCESSFUL PLACEMENT OF A 5 FR DUAL LUMEN 35 CM PICC IN THE RIGHT BASILIC VEIN. PICC Line Insertion 03/11/17 00:00 IMPRESSION: SUCCESSFUL PLACEMENT OF A 5 FR DUAL LUMEN 35 CM PICC IN THE RIGHT BASILIC VEIN. Status: Image reviewed by me - I have reviewed patient's CT scans which demonstrate rami and sacral fractures alignment relatively unchanged. Assessment & Plan - Diagnosis (1) Bilateral pubic rami fractures Qualifiers: Encounter type: initial encounter Fracture type: closed Qualified Code(s) : S32.591A - Other specified fracture of right pubis, initial encounter for closed fracture; S32.592A - Other specified fracture of left pubis, initial encounter for closed fracture Is this a current diagnosis for this admission?: Yes (2) Sacral fracture Qualifiers: Encounter type: initial encounter Fracture type: closed Is this a current diagnosis for this admission?: Yes Plan: Patient CT scan demonstrates subacute fractures of the rami and sacrum. These were evident back on 02/28/17, and most recent CT scan. There is no change of the alignment. Patient has been treated by orthopedics and was to begin physical therapy. At this point I have recommended continuing physical therapy using rolling walker for assisted ambulation. Patient may follow-up as an outpatient.
--- NOTE | 2017-03-11 21:33 | PROGRESS NOTE E ---
Progress Note NAME: ROBERTO LAYTON : 12/07/1951 AGE: 65Y DATE: 03/11/2017 ROOM: 320 SUBJECTIVE: The patient had a Gastrografin swallow this afternoon and it showed no evidence of fistula. The dye went through the esophagus to the gastric pouch to the small bowel promptly. There is a small hiatal hernia noted. The patient is about 5 days postop post perforated duodenal ulcer which was repaired primarily with an omental patch. OBJECTIVE: VITAL SIGNS: The patient is afebrile, temperature 98.4. Heart rate of 66 per minute. ABDOMEN: Soft with some serous drainage at the lower part of the incision, but the incision itself looks without definite infection. No inflammation noted and nontender. LABORATORY DATA: Her labs showed the white count is down to 7.1 with a hemoglobin stable at 9.4. Her electrolytes; sodium is 132.4 slightly low and potassium is normal at 3.7, chloride is 106. BUN is 6, creatinine of 0.45. Magnesium is a little bit on the low side 1.5. LFTs are normal with bilirubin slightly elevated at 1.8, direct bilirubin 1.2. The albumin level is low at 1.5. ASSESSMENT: There is a question of some dehiscence but on review of the x-rays done by Dr. Jett and Dr. Baptiste, no obvious dehiscence noted. PLAN: Continue with her TPN and IV antibiotic therapy. ADDENDUM: The patient has a fracture of the pelvis and sacral bones which are nondisplaced. A consultation with orthopedic was done. The patient will have physical therapy to help her get out of bed and continue with ambulation per Dr. Darden the orthopedic surgeon. The patient denies any significant pains. DICTATING PHYSICIAN: MARILU STEWART M.D. [id number] [id number] [id number] JOB#: [id number] ACCT: [id number] cc: > MTDD
[2017-03-11] MEDS: PIPERACILLIN SODIUM/TAZOBACTAM 4.5 GM in DEXTROSE 5%-WATER 100 ML IV SCH (22:31)
[2017-03-11] MEDS: TRAZODONE HCL 50 MG TABLET PO SCH (22:34)
[2017-03-11] MEDS: NORMAL SALINE 10 ML SDV (SCHEDULED) IV SCH (22:36)
[2017-03-12] MEDS: PIPERACILLIN SODIUM/TAZOBACTAM 4.5 GM in DEXTROSE 5%-WATER 100 ML IV SCH ×4 (03:09→21:10)
[2017-03-12] MEDS: MORPHINE SULFATE 10 MG/ML INJ IV PRN ×5 (03:17→23:31)
[2017-03-12] MEDS: VANCOMYCIN HCL 750 MG in DEXTROSE 5%-WATER 250 ML IV SCH ×2 (06:38→18:48)
[2017-03-12] MEDS: FUROSEMIDE INJ/PF 40 MG/4 ML SDV IV SCH (09:08)
[2017-03-12] MEDS: PANTOPRAZOLE SODIUM 40 MG VIAL IV SCH ×2 (09:08→21:13)
[2017-03-12] MEDS: LEVOTHYROXINE SODIUM 0.088 MG TABLET PO SCH (09:09)
[2017-03-12] MEDS: CARVEDILOL 3.125 MG TABLET PO SCH ×2 (09:12→21:11)
[2017-03-12] MEDS: NORMAL SALINE 10 ML SDV (SCHEDULED) IV SCH ×2 (09:12→21:15)
[2017-03-12] MEDS: LEVETIRACETAM 500 MG/NACL-ISO 500 MG/100 ML RTUPB IV SCH ×2 (10:27→21:13)
[2017-03-12] MEDS: INSULIN REG, HUMAN 100 UNIT/ML 3 ML VIAL (PYX) SUBCUT PRN (13:32)
--- NOTE | 2017-03-12 17:26 | PDOC PROGRESS REPORT ---
Subjective Progress Note for:: 03/12/17 Subjective:: Denies any complaints. Physical Exam Vital Signs: Temp Pulse Resp BP Pulse Ox 97.6 F 58 L 18 99/50 L 100 03/12/17 16:27 03/12/17 16:27 03/12/17 16:27 03/12/17 16:27 03/12/17 16:27 Intake & Output 03/11/17 03/12/17 03/13/17 06:59 06:59 06:59 Intake Total 1058 2468 504 Output Total 1260 1140 1600 Balance -202 1328 -1096 Weight 71.7 kg 75 kg General appearance: PRESENT: no acute distress Eye exam: PRESENT: conjunctiva pink. ABSENT: scleral icterus Mouth exam: PRESENT: moist, tongue midline Neck exam: ABSENT: JVD Respiratory exam: PRESENT: crackles. ABSENT: rales, rhonchi, wheezes Cardiovascular exam: PRESENT: RRR. ABSENT: diastolic murmur, rubs, systolic murmur GI/Abdominal exam: PRESENT: other - Dressing in place. Extremities exam: PRESENT: pedal edema. ABSENT: calf tenderness, clubbing Neurological exam: PRESENT: alert, awake, oriented to person, oriented to place , oriented to time, oriented to situation, CN II-XII grossly intact. ABSENT: motor sensory deficit Psychiatric exam: PRESENT: appropriate affect Skin exam: PRESENT: dry, intact, warm. ABSENT: cyanosis, rash Results Laboratory Results: 03/11/17 13:25 03/11/17 13:25 Impressions: Abdomen/Pelvis CT 03/11/17 00:00 IMPRESSION: 1. New bilateral lower lobar pneumonia. Small-moderate bilateral pleural effusions. Small pericarditis. 2. In 8.4 cm likely hematoma associated with the anterior pelvic wall without significant interval change. 3. Moderate -severe anasarca. 4. Subacute comminuted fractures of the superior and inferior pubic rami bilaterally; and nondisplaced fractures of bilateral aspects of the sacrum. Esophagus X-Ray 03/11/17 00:00 IMPRESSION: Post gastric bypass. Small hiatal hernia with reflux. Prompt emptying of the gastric fundal bypass pouch into the small bowel efferrent loop Guidance Fluoroscopy 03/11/17 00:00 IMPRESSION: SUCCESSFUL PLACEMENT OF A 5 FR DUAL LUMEN 35 CM PICC IN THE RIGHT BASILIC VEIN. Interventional Vascular Procedure 03/11/17 00:00 IMPRESSION: SUCCESSFUL PLACEMENT OF A 5 FR DUAL LUMEN 35 CM PICC IN THE RIGHT BASILIC VEIN. PICC Line Insertion 03/11/17 00:00 IMPRESSION: SUCCESSFUL PLACEMENT OF A 5 FR DUAL LUMEN 35 CM PICC IN THE RIGHT BASILIC VEIN. Assessment & Plan - Diagnosis (1) Duodenal ulcer with perforation Is this a current diagnosis for this admission?: Yes Plan: Patient has had surgical repair done at [facility]. Patient tolerating liquid diet well (2) Bilateral pubic rami fractures Qualifiers: Encounter type: initial encounter Fracture type: closed Qualified Code(s) : S32.591A - Other specified fracture of right pubis, initial encounter for closed fracture; S32.592A - Other specified fracture of left pubis, initial encounter for closed fracture Is this a current diagnosis for this admission?: Yes Plan: Has been evaluated by orthopedic surgery. Will need physical therapy. (3) Hypomagnesemia Is this a current diagnosis for this admission?: Yes (5) Protein S deficiency Is this a current diagnosis for this admission?: Yes Plan: Has had a previous pulmonary embolism in the past. (6) CAD (coronary artery disease) Qualifiers: Coronary Disease-Associated Artery/Lesion type: [place] artery [place] vs. transplanted heart: [place] heart Associated angina: without angina Qualified Code(s): I25.10 - Atherosclerotic heart disease of [place] coronary artery without angina pectoris Is this a current diagnosis for this admission?: Yes Plan: Denies any chest pain. 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 (9) Hypertension Qualifiers: Hypertension type: essential hypertension Qualified Code(s): I10 - Essential (primary) hypertension Is this a current diagnosis for this admission?: Yes Plan: Stable (10) Protein C deficiency Is this a current diagnosis for this admission?: Yes (11) Seizure disorder Is this a current diagnosis for this admission?: Yes - Time Time Spent with patient: 25-34 minutes - Inpatient Certification Medical Necessity: Need Close Monitoring Due to Risk of Patient Decompensation
--- NOTE | 2017-03-12 19:23 | PROGRESS NOTE E ---
Progress Note NAME: ROBERTO LAYTON : 12/07/1951 AGE: 65Y DATE: 03/12/2017 ROOM: 320 SUBJECTIVE: The patient remained afebrile. She just has some minimal pains along the abdominal incision site. OBJECTIVE: The abdominal incision site does not look inflamed, though still has some serous drainage when the ABD dressing appears to be slightly soaked. No evidence of glenroy dehiscence noted. Her white count yesterday was 7.1 with a hemoglobin of 9.4. PLAN: She is still n.p.o. We will likely start her on clear liquids in the morning. DICTATING PHYSICIAN: MARILU STEWART M.D. [id number] PHY#: [id number] ID: [id number] JOB#: [id number] ACCT: [id number] cc: >
[2017-03-12] MEDS: TRAZODONE HCL 50 MG TABLET PO SCH (21:14)
[2017-03-13] MEDS: PIPERACILLIN SODIUM/TAZOBACTAM 4.5 GM in DEXTROSE 5%-WATER 100 ML IV SCH ×4 (03:03→22:07)
[2017-03-13] MEDS: MORPHINE SULFATE 10 MG/ML INJ IV PRN ×5 (03:15→23:46)
[2017-03-13] MEDS: VANCOMYCIN HCL 750 MG in DEXTROSE 5%-WATER 250 ML IV SCH (05:53)
[2017-03-13 07:25] LABS: ABSOLUTE EOSINOPHILS # (AUTO) 0.1 10^3/uL (0.0-0.6); ABSOLUTE LYMPHOCYTES (AUTO) 1.6 10^3/uL (0.5-4.7); ABSOLUTE MONOCYTES (AUTO) 0.7 10^3/uL (0.1-1.4); ABSOLUTE NEUT (AUTO) 3.4 10^3/uL (1.7-8.2); BASOPHILS % (AUTO) 0.5 % (0-2); EOSINOPHILS % (AUTO) 1.5 % (0-6); HEMATOCRIT 25.6 % (36.0-47.0); HEMOGLOBIN 8.9 g/dL (12.0-15.5); HGB HCT DIFFERENCE 1.1; LYMPHOCYTES % (AUTO) 27.7 % (13-45); MEAN CORPUSCULAR HEMOGLOBIN 34.9 pg (27.0-33.4); MEAN CORPUSCULAR HGB CONC 34.8 g/dL (32.0-36.0); MEAN CORPUSCULAR VOLUME 100 fl (80-97); MONOCYTES % (AUTO) 12.1 % (3-13); RED BLOOD COUNT 2.55 10^6/uL (3.72-5.28); RED CELL DISTRIBUTION WIDTH 23.7 % (11.5-14.0); SEGMENTED NEUTROPHILS % (AUTO) 58.2 % (42-78); WHITE BLOOD COUNT 5.8 10^3/uL (4.0-10.5)
[2017-03-13] MEDS: LEVOTHYROXINE SODIUM 0.088 MG TABLET PO SCH (09:43)
[2017-03-13] MEDS: PANTOPRAZOLE SODIUM 40 MG VIAL IV SCH (09:44)
[2017-03-13] MEDS: NORMAL SALINE 10 ML SDV (SCHEDULED) IV SCH ×2 (09:45→22:17)
--- NOTE | 2017-03-13 09:50 | EKG REPORT ---
SEVERITY:- DEFECTIVE ECG - SINUS RHYTHM CONSIDER ANTEROSEPTAL INFARCT NONSPECIFIC T ABNORMALITIES, LATERAL LEADS : Confirmed by: Juan Jimenez MD 13-Mar-2017 09:49:37
[2017-03-13] MEDS: LEVETIRACETAM 500 MG/NACL-ISO 500 MG/100 ML RTUPB IV SCH (10:24)
[2017-03-13 10:58] LABS: ANION GAP 7 (5-19); BLOOD UREA NITROGEN 4 mg/dL (7-20); CALCIUM 7.3 mg/dL (8.4-10.2); CARBON DIOXIDE 26 mmol/L (22-30); CHLORIDE 98 mmol/L (98-107); CREATININE RESULT 0.44 mg/dL (0.52-1.25); GLUCOSE 247 mg/dL (75-110); SODIUM 131.1 mmol/L (137-145)
[2017-03-13 11:04] LABS: POTASSIUM 3.1 mmol/L (3.6-5.0)
[2017-03-13] MEDS ORDERED: LANSOPRAZOLE 30 MG TAB.RAP.DR PO ONE (13:00)
[2017-03-13] MEDS: MAGNESIUM SULFATE/D5W 1 GM/100 ML RTUPB IV SCH ×4 (13:00→22:03)
--- NOTE | 2017-03-13 18:07 | PDOC PROGRESS REPORT ---
Subjective Progress Note for:: 03/13/17 Subjective:: This is a follow-up visit for a consult for medical management. Patient has had a bowel movement this morning. She still quite swollen. Physical Exam Vital Signs: Temp Pulse Resp BP Pulse Ox 97.7 F 120 H 18 95/49 L 98 03/13/17 07:31 03/13/17 07:31 03/13/17 07:31 03/13/17 07:31 03/13/17 07:31 Intake & Output 03/12/17 03/13/17 03/14/17 06:59 06:59 06:59 Intake Total 2468 3734 Output Total 1140 3400 Balance 1328 334 Weight 75 kg 77.3 kg GENERAL: This is a well-developed well-nourished obese white female resting in bed currently in no acute distress. HEART: Regular rate and rhythm. 2/6 systolic ejection murmur. rubs or gallops. LUNGS: Clear to auscultation anteriorly bilaterally with equal rise and fall of the chest. ABDOMEN: Soft, nontender, nondistended with normoactive bowel sounds. Incision looks good. Neo are intact EXTREMETIES: No clubbing, cyanosis. 3+ pitting edema/anasarca. The patient's hands are nowhere near as swollen as they were on Tuesday.. 2+ peripheral pulses bilaterally. NEURO: Awake, alert and oriented 3. Cranial nerves II through XII are grossly intact. Results Laboratory Results: 03/13/17 05:45 03/13/17 10:30 03/13/17 03/13/17 03/13/17 05:45 05:45 09:25 WBC 5.8 RBC 2.55 L Hgb 8.9 L Hct 25.6 L MCV 100 H MCH 34.9 H MCHC 34.8 RDW 23.7 H Plt Count 165 Seg Neutrophils % 58.2 Lymphocytes % 27.7 Monocytes % 12.1 Eosinophils % 1.5 Basophils % 0.5 Absolute Neutrophils 3.4 Absolute Lymphocytes 1.6 Absolute Monocytes 0.7 Absolute Eosinophils 0.1 Absolute Basophils 0.0 Sodium Cancelled Cancelled Potassium Cancelled Cancelled Chloride Cancelled Cancelled Carbon Dioxide Cancelled Cancelled Anion Gap Cancelled Cancelled BUN Cancelled Cancelled Creatinine Cancelled Cancelled Est GFR ( Amer) Cancelled Cancelled Est GFR (Non-Af Amer) Cancelled Cancelled Glucose Cancelled Cancelled Calcium Cancelled Cancelled Magnesium Cancelled Cancelled 03/13/17 10:30 WBC RBC Hgb Hct MCV MCH MCHC RDW Plt Count Seg Neutrophils % Lymphocytes % Monocytes % Eosinophils % Basophils % Absolute Neutrophils Absolute Lymphocytes Absolute Monocytes Absolute Eosinophils Absolute Basophils Sodium 131.1 L Potassium 3.1 L Chloride 98 Carbon Dioxide 26 Anion Gap 7 BUN 4 L Creatinine 0.44 L Est GFR ( Amer) > 60 Est GFR (Non-Af Amer) > 60 Glucose 247 H Calcium 7.3 L Magnesium 1.0 L* Impressions: Abdomen/Pelvis CT 03/11/17 00:00 IMPRESSION: 1. New bilateral lower lobar pneumonia. Small-moderate bilateral pleural effusions. Small pericarditis. 2. In 8.4 cm likely hematoma associated with the anterior pelvic wall without significant interval change. 3. Moderate -severe anasarca. 4. Subacute comminuted fractures of the superior and inferior pubic rami bilaterally; and nondisplaced fractures of bilateral aspects of the sacrum. Esophagus X-Ray 03/11/17 00:00 IMPRESSION: Post gastric bypass. Small hiatal hernia with reflux. Prompt emptying of the gastric fundal bypass pouch into the small bowel efferrent loop Guidance Fluoroscopy 03/11/17 00:00 IMPRESSION: SUCCESSFUL PLACEMENT OF A 5 FR DUAL LUMEN 35 CM PICC IN THE RIGHT BASILIC VEIN. Interventional Vascular Procedure 03/11/17 00:00 IMPRESSION: SUCCESSFUL PLACEMENT OF A 5 FR DUAL LUMEN 35 CM PICC IN THE RIGHT BASILIC VEIN. PICC Line Insertion 03/11/17 00:00 IMPRESSION: SUCCESSFUL PLACEMENT OF A 5 FR DUAL LUMEN 35 CM PICC IN THE RIGHT BASILIC VEIN. Assessment & Plan - Diagnosis (1) Diabetes Qualifiers: Diabetes mellitus type: type 2 Diabetes mellitus complication status: with unspecified complications Diabetes mellitus longterm insulin use: unspecified long term care social worker insulin use status Qualified Code(s): E11.8 - Type 2 diabetes mellitus with unspecified complications Is this a current diagnosis for this admission?: Yes Plan: Continue sliding scale insulin. (2) Hypothyroid Qualifiers: Hypothyroidism type: unspecified Qualified Code(s): E03.9 - Hypothyroidism , unspecified Is this a current diagnosis for this admission?: Yes Plan: Continue Synthroid. (3) Protein C deficiency Is this a current diagnosis for this admission?: Yes (4) Hypomagnesemia Is this a current diagnosis for this admission?: Yes Plan: Replace today. With 2 g of magnesium stat. Repeat magnesium later this afternoon.. (5) Protein S deficiency Is this a current diagnosis for this admission?: Yes (6) Seizure disorder Is this a current diagnosis for this admission?: Yes Plan: Continue Keppra. Change from IV to p.o. (7) Chronic insomnia Plan: Continue trazadone (8) Hyponatremia Plan: Likely secondary to volume overload. (9) Anasarca Plan: I suspect this is likely due to volume overload from aggressive fluid resuscitation the patient's fluid extends all the way up to her thighs. Patient has been diuresing quite well. However, she still has a positive fluid balance on a daily basis. I have calculated her total amount of fluid in and the patient is taking in 3.7 L of fluid overnight. This fluid in part is due to antibiotics, various flushes, IV Keppra, IV Protonix. Now that the patient is allowed full clear liquids I will convert her Keppra to p.o. as well as her Protonix. She may also have p.o. pain meds. She will also be placed on fluid restriction of 1200 cc a day. Hopefully we will begin to see a negative balance with her Lasix. (10) Pneumonia Qualifiers: Pneumonia type: due to unspecified organism Laterality: right Lung location: unspecified part of lung Qualified Code(s): J18.9 - Pneumonia, unspecified organism Plan: Continue current medications. Hopefully soon we can eliminate a few antibiotics. (11) Pubic ramus fracture Plan: Orthopedics has seen the patient and the patient is to continue PT. - Time Time Spent with patient: 35 or more minutes - Inpatient Certification Based on my medical assessment, after consideration of the patient's comorbidities, presenting symptoms, or acuity I expect that the services needed warrant INPATIENT care.: Yes Medical Necessity: Need Close Monitoring Due to Risk of Patient Decompensation
[2017-03-13] MEDS: ONDANSETRON 4 MG TAB.RAPDIS PO PRN (18:55)
[2017-03-13] MEDS: LANSOPRAZOLE 30 MG TAB.RAP.DR PO SCH (18:56)
[2017-03-13] MEDS: VANCOMYCIN HCL 1,000 MG in DEXTROSE 5%-WATER 250 ML IV SCH (18:56)
[2017-03-13 19:38] LABS: ADD ON TESTING BLD IN LAB ACKNOWLEDGE
[2017-03-13 19:54] LABS: BLOOD UREA NITROGEN 4 mg/dL (7-20); CALCIUM 7.2 mg/dL (8.4-10.2); CARBON DIOXIDE 28 mmol/L (22-30); CHLORIDE 98 mmol/L (98-107); CREATININE RESULT 0.42 mg/dL (0.52-1.25); GLUCOSE 182 mg/dL (75-110); POTASSIUM 3.2 mmol/L (3.6-5.0)
[2017-03-13 20:02] LABS: ANION GAP 5 (5-19); SODIUM 130.7 mmol/L (137-145)
--- NOTE | 2017-03-13 20:48 | PROGRESS NOTE E ---
Progress Note NAME: ROBERTO LAYTON : 12/07/1951 AGE: 65Y DATE: 03/13/2017 ROOM: 320 SUBJECTIVE: The patient denies any abdominal pains this morning. The wound looks good. There is just minimal serous drainage on the dressing. Otherwise, the incision looks intact. Abdomen is soft and nontender. She had a bowel movement this morning. She still has diffuse edema/anasarca. She is tolerating a small amount of soft diet. Her white count is normal at 5.8, hemoglobin 8.9. Continue on IV antibiotic and continue to increase diet intake. DICTATING PHYSICIAN: MARILU STEWART M.D. [id number] PHY#: [id number] ID: [id number] JOB#: [id number] ACCT: [id number] cc: >
[2017-03-13] MEDS ORDERED: LEVETIRACETAM 500 MG in NORMAL SALINE 100 ML IV SCH (22:00)
[2017-03-13] MEDS: TRAZODONE HCL 50 MG TABLET PO SCH (22:07)
[2017-03-13] MEDS: LEVETIRACETAM 500 MG TABLET PO SCH (22:09)
[2017-03-13] MEDS: POTASSIUM CHLORIDE 20 MEQ/15 ML UDCUP PO SCH ×2 (22:16→23:42)
[2017-03-13] MEDS: INSULIN REG, HUMAN 100 UNIT/ML 3 ML VIAL (PYX) SUBCUT PRN (23:43)
[2017-03-14] MEDS: POTASSIUM CHLORIDE 20 MEQ/15 ML UDCUP PO SCH (01:56)
[2017-03-14] MEDS: PIPERACILLIN SODIUM/TAZOBACTAM 4.5 GM in DEXTROSE 5%-WATER 100 ML IV SCH ×3 (02:52→15:50)
[2017-03-14] MEDS: MORPHINE SULFATE 10 MG/ML INJ IV PRN ×4 (06:34→21:11)
[2017-03-14] MEDS: VANCOMYCIN HCL 1,000 MG in DEXTROSE 5%-WATER 250 ML IV SCH (06:35)
[2017-03-14] MEDS: LANSOPRAZOLE 30 MG TAB.RAP.DR PO SCH ×2 (06:35→18:30)
[2017-03-14 07:00] LABS: HGB HCT DIFFERENCE 0.9
[2017-03-14 07:02] LABS: HEMATOCRIT 35.7 % (36.0-47.0); LYMPHOCYTES % (AUTO) 21.7 % (13-45); MEAN CORPUSCULAR HEMOGLOBIN 34.2 pg (27.0-33.4); MEAN CORPUSCULAR HGB CONC 34.1 g/dL (32.0-36.0); MEAN CORPUSCULAR VOLUME 101 fl (80-97); RED BLOOD COUNT 3.55 10^6/uL (3.72-5.28); RED CELL DISTRIBUTION WIDTH 23.8 % (11.5-14.0); SEGMENTED NEUTROPHILS % (AUTO) 67.2 % (42-78); WHITE BLOOD COUNT 4.5 10^3/uL (4.0-10.5)
[2017-03-14 07:03] LABS: ABSOLUTE EOSINOPHILS # (AUTO) 0.1 10^3/uL (0.0-0.6); ABSOLUTE MONOCYTES (AUTO) 0.4 10^3/uL (0.1-1.4); BASOPHILS % (AUTO) 0.8 % (0-2); EOSINOPHILS % (AUTO) 1.3 % (0-6)
[2017-03-14 07:07] LABS: BLOOD UREA NITROGEN 3 mg/dL (7-20); CHLORIDE 97 mmol/L (98-107); CREATININE RESULT 0.38 mg/dL (0.52-1.25); GLUCOSE 132 mg/dL (75-110); MAGNESIUM 1.7 mg/dL (1.6-2.3)
[2017-03-14 07:10] LABS: HEMOGLOBIN 12.2 g/dL (12.0-15.5)
[2017-03-14 07:20] LABS: CARBON DIOXIDE 29 mmol/L (22-30); SODIUM 129.9 mmol/L (137-145)
[2017-03-14 07:29] LABS: ANION GAP 4 (5-19)
[2017-03-14] MEDS: INSULIN REG, HUMAN 100 UNIT/ML 3 ML VIAL (PYX) SUBCUT PRN ×2 (08:50→12:23)
[2017-03-14] MEDS: ONDANSETRON 4 MG TAB.RAPDIS PO PRN (09:39)
[2017-03-14] MEDS: LEVETIRACETAM 500 MG TABLET PO SCH ×2 (11:52→21:13)
[2017-03-14] MEDS: LEVOTHYROXINE SODIUM 0.088 MG TABLET PO SCH (11:52)
[2017-03-14] MEDS: NORMAL SALINE 10 ML SDV (SCHEDULED) IV SCH ×2 (11:52→21:14)
[2017-03-14] MEDS: MAGNESIUM OXIDE 400 MG TABLET PO SCH ×2 (11:52→18:31)
[2017-03-14 12:50] LABS: URINE CREATININE 27.1 mg/dL (15-278)
--- NOTE | 2017-03-14 16:04 | PDOC PROGRESS REPORT ---
Subjective Progress Note for:: 03/14/17 Subjective:: Patient is postoperative day 7 status post exploratory laparotomy, closure of duodenal ulcer, recovering very slowly, taking p.o. gradually Physical Exam Vital Signs: Temp Pulse Resp BP Pulse Ox 98.3 F 60 19 99/58 L 100 03/14/17 11:39 03/14/17 11:39 03/14/17 11:39 03/14/17 11:39 03/14/17 11:39 Intake & Output 03/13/17 03/14/17 03/15/17 06:59 06:59 06:59 Intake Total 3734 2118 564 Output Total 3400 630 800 Balance 334 1488 -236 Weight 77.3 kg 76.6 kg General appearance: PRESENT: mild distress Eye exam: PRESENT: EOMI GI/Abdominal exam: PRESENT: other - Abdomen exposed. Drain right upper quadrant putting out serosanguineous material, midline wound approximated with roberto, weepy this fluid Musculoskeletal exam: PRESENT: other - Massive total body anasarca Results Laboratory Results: 03/14/17 06:25 03/14/17 06:25 03/13/17 03/13/17 03/14/17 18:20 18:20 06:25 WBC 4.5 RBC 3.55 L Hgb 12.2 D Hct 35.7 L MCV 101 H MCH 34.2 H MCHC 34.1 RDW 23.8 H Plt Count 167 Seg Neutrophils % 67.2 Lymphocytes % 21.7 Monocytes % 9.0 Eosinophils % 1.3 Basophils % 0.8 Absolute Neutrophils 3.0 Absolute Lymphocytes 1.0 Absolute Monocytes 0.4 Absolute Eosinophils 0.1 Absolute Basophils 0.0 Sodium 130.7 L Potassium 3.2 L Chloride 98 Carbon Dioxide 28 Anion Gap 5 BUN 4 L Creatinine 0.42 L Est GFR ( Amer) > 60 Est GFR (Non-Af Amer) > 60 Glucose 182 H Calcium 7.2 L Ionized Calcium Fior Magnesium 1.5 L 03/14/17 03/14/17 03/14/17 06:25 11:45 12:45 WBC RBC Hgb Hct MCV MCH MCHC RDW Plt Count Seg Neutrophils % Lymphocytes % Monocytes % Eosinophils % Basophils % Absolute Neutrophils Absolute Lymphocytes Absolute Monocytes Absolute Eosinophils Absolute Basophils Sodium 129.9 L Potassium 4.0 Chloride 97 L Carbon Dioxide 29 Anion Gap 4 L BUN 3 L Creatinine 0.38 L Est GFR ( Amer) > 60 Est GFR (Non-Af Amer) > 60 Glucose 132 H Calcium 7.0 L* Ionized Calcium Fior Cancelled 1.09 L Magnesium 1.7 Impressions: Abdomen/Pelvis CT 03/11/17 00:00 IMPRESSION: 1. New bilateral lower lobar pneumonia. Small-moderate bilateral pleural effusions. Small pericarditis. 2. In 8.4 cm likely hematoma associated with the anterior pelvic wall without significant interval change. 3. Moderate -severe anasarca. 4. Subacute comminuted fractures of the superior and inferior pubic rami bilaterally; and nondisplaced fractures of bilateral aspects of the sacrum. Esophagus X-Ray 03/11/17 00:00 IMPRESSION: Post gastric bypass. Small hiatal hernia with reflux. Prompt emptying of the gastric fundal bypass pouch into the small bowel efferrent loop Guidance Fluoroscopy 03/11/17 00:00 IMPRESSION: SUCCESSFUL PLACEMENT OF A 5 FR DUAL LUMEN 35 CM PICC IN THE RIGHT BASILIC VEIN. Interventional Vascular Procedure 03/11/17 00:00 IMPRESSION: SUCCESSFUL PLACEMENT OF A 5 FR DUAL LUMEN 35 CM PICC IN THE RIGHT BASILIC VEIN. PICC Line Insertion 03/11/17 00:00 IMPRESSION: SUCCESSFUL PLACEMENT OF A 5 FR DUAL LUMEN 35 CM PICC IN THE RIGHT BASILIC VEIN. Assessment & Plan - Diagnosis (1) Duodenal ulcer with perforation Is this a current diagnosis for this admission?: Yes Plan: Postoperative day 7, with satisfactory repair, tolerating diet reasonably well Recommendations: 1. Patient is extremely weak, deconditioned. She will need a rehab stay. Physical therapy is working with her, but patient's chronic multiple pelvic fractures impede for activity. 2. We will discuss role of intravenous antibiotics and consider discontinuation 3. Likely discontinue abdominal drain tomorrow. 4. Patient suffering from malnutrition; role of enteral feeds to be considered.
--- NOTE | 2017-03-14 17:26 | PDOC PROGRESS REPORT ---
Subjective Progress Note for:: 03/14/17 Subjective:: This is a follow-up visit for a consult for medical management. Patient has had no further bowel movement since yesterday. She still quite swollen. Physical Exam Vital Signs: Temp Pulse Resp BP Pulse Ox 98.3 F 60 19 99/58 L 100 03/14/17 11:39 03/14/17 11:39 03/14/17 11:39 03/14/17 11:39 03/14/17 11:39 Intake & Output 03/13/17 03/14/17 03/15/17 06:59 06:59 06:59 Intake Total 3734 2118 564 Output Total 3400 630 800 Balance 334 1488 -236 Weight 77.3 kg 76.6 kg GENERAL: This is a well-developed well-nourished obese white female resting in bed currently in no acute distress. HEART: Regular rate and rhythm. 2/6 systolic ejection murmur. rubs or gallops. LUNGS: Clear to auscultation anteriorly bilaterally with equal rise and fall of the chest. ABDOMEN: Soft, nontender, nondistended with normoactive bowel sounds. Abdominal bandage was replaced over the roberto secondary to losing from the site. FAUZIA drain is in place. It is draining serosanguineous fluid. EXTREMETIES: No clubbing, cyanosis. 3+ pitting edema/anasarca. The patient's hands are nowhere near as swollen as they were on Tuesday. 2+ peripheral pulses bilaterally. NEURO: Awake, alert and oriented 3. Cranial nerves II through XII are grossly intact. Results Laboratory Results: 03/14/17 06:25 03/14/17 06:25 03/13/17 03/13/17 03/14/17 18:20 18:20 06:25 WBC 4.5 RBC 3.55 L Hgb 12.2 D Hct 35.7 L MCV 101 H MCH 34.2 H MCHC 34.1 RDW 23.8 H Plt Count 167 Seg Neutrophils % 67.2 Lymphocytes % 21.7 Monocytes % 9.0 Eosinophils % 1.3 Basophils % 0.8 Absolute Neutrophils 3.0 Absolute Lymphocytes 1.0 Absolute Monocytes 0.4 Absolute Eosinophils 0.1 Absolute Basophils 0.0 Sodium 130.7 L Potassium 3.2 L Chloride 98 Carbon Dioxide 28 Anion Gap 5 BUN 4 L Creatinine 0.42 L Est GFR ( Amer) > 60 Est GFR (Non-Af Amer) > 60 Glucose 182 H Calcium 7.2 L Ionized Calcium Fior Magnesium 1.5 L 03/14/17 03/14/17 03/14/17 06:25 11:45 12:45 WBC RBC Hgb Hct MCV MCH MCHC RDW Plt Count Seg Neutrophils % Lymphocytes % Monocytes % Eosinophils % Basophils % Absolute Neutrophils Absolute Lymphocytes Absolute Monocytes Absolute Eosinophils Absolute Basophils Sodium 129.9 L Potassium 4.0 Chloride 97 L Carbon Dioxide 29 Anion Gap 4 L BUN 3 L Creatinine 0.38 L Est GFR ( Amer) > 60 Est GFR (Non-Af Amer) > 60 Glucose 132 H Calcium 7.0 L* Ionized Calcium Fior Cancelled 1.09 L Magnesium 1.7 Impressions: Abdomen/Pelvis CT 03/11/17 00:00 IMPRESSION: 1. New bilateral lower lobar pneumonia. Small-moderate bilateral pleural effusions. Small pericarditis. 2. In 8.4 cm likely hematoma associated with the anterior pelvic wall without significant interval change. 3. Moderate -severe anasarca. 4. Subacute comminuted fractures of the superior and inferior pubic rami bilaterally; and nondisplaced fractures of bilateral aspects of the sacrum. Esophagus X-Ray 03/11/17 00:00 IMPRESSION: Post gastric bypass. Small hiatal hernia with reflux. Prompt emptying of the gastric fundal bypass pouch into the small bowel efferrent loop Guidance Fluoroscopy 03/11/17 00:00 IMPRESSION: SUCCESSFUL PLACEMENT OF A 5 FR DUAL LUMEN 35 CM PICC IN THE RIGHT BASILIC VEIN. Interventional Vascular Procedure 03/11/17 00:00 IMPRESSION: SUCCESSFUL PLACEMENT OF A 5 FR DUAL LUMEN 35 CM PICC IN THE RIGHT BASILIC VEIN. PICC Line Insertion 03/11/17 00:00 IMPRESSION: SUCCESSFUL PLACEMENT OF A 5 FR DUAL LUMEN 35 CM PICC IN THE RIGHT BASILIC VEIN. Assessment & Plan - Diagnosis (1) Diabetes Qualifiers: Diabetes mellitus type: type 2 Diabetes mellitus complication status: with unspecified complications Diabetes mellitus middle or intermediate school principal insulin use: unspecified middle or intermediate school principal insulin use status Qualified Code(s): E11.8 - Type 2 diabetes mellitus with unspecified complications Is this a current diagnosis for this admission?: Yes Plan: Continue sliding scale insulin. (2) Hypothyroid Qualifiers: Hypothyroidism type: unspecified Qualified Code(s): E03.9 - Hypothyroidism , unspecified Is this a current diagnosis for this admission?: Yes Plan: Continue Synthroid. (3) Protein C deficiency Is this a current diagnosis for this admission?: Yes (4) Hypomagnesemia Is this a current diagnosis for this admission?: Yes Plan: Patient is still borderline low. She is status placed replacement yesterday we will go ahead and begin oral supplementation daily. 800 mg p.o. twice daily. (5) Protein S deficiency Is this a current diagnosis for this admission?: Yes (6) Seizure disorder Is this a current diagnosis for this admission?: Yes Plan: Continue Keppra. Change from IV to p.o. (7) Chronic insomnia Plan: Continue trazadone (8) Hyponatremia Plan: Likely secondary to volume overload. The patient's edema is just beginning to improve. Continue diuresis. (9) Anasarca Plan: Continue diuresis.Patient's last echocardiogram was in November 2015 at that time she had grade 2 out of 6 mild to moderate diastolic dysfunction mildly dilated right ventricle borderline concentric left ventricular hypertrophy and mild pulmonary hypertension with RV pressure at 30-40. Will recheck echo. (10) Pneumonia Qualifiers: Pneumonia type: due to unspecified organism Laterality: right Lung location: unspecified part of lung Qualified Code(s): J18.9 - Pneumonia, unspecified organism Plan: Continue current medications. Hopefully soon we can eliminate a few antibiotics. (11) Pubic ramus fracture Plan: Orthopedics has seen the patient and the patient is to continue PT. - Time Time Spent with patient: 25-34 minutes - Inpatient Certification Based on my medical assessment, after consideration of the patient's comorbidities, presenting symptoms, or acuity I expect that the services needed warrant INPATIENT care.: Yes Medical Necessity: Need Close Monitoring Due to Risk of Patient Decompensation
[2017-03-14] MEDS: OXYCODONE HCL IR 5 MG TABLET PO PRN (18:30)
[2017-03-14] MEDS: TRAZODONE HCL 50 MG TABLET PO SCH (21:13)
[2017-03-15] MEDS: MORPHINE SULFATE 10 MG/ML INJ IV PRN ×3 (02:02→19:51)
[2017-03-15] MEDS: LANSOPRAZOLE 30 MG TAB.RAP.DR PO SCH ×2 (06:59→17:27)
--- NOTE | 2017-03-15 09:58 | PROGRESS NOTE E ---
Progress Note NAME: ROBERTO LAYTON : 12/07/1951 AGE: 65Y DATE: 03/15/2017 ROOM: 320 SUBJECTIVE: The patient appears to be progressing quite well. She is still complaining of some pains along the periumbilical area with mild tenderness. She is actually on fluid restrictions. However, anasarca and I think her main problem is low albumin, which is like 1.5 the latest. PLAN: I ordered her to have a soft diet and to have a relatively unlimited amount of Ensure that she can drink. She is off IV antibiotics. If her p.o. intake is not sufficient, then consideration for a Dobhoff feeding tube versus TPN will be considered. DICTATING PHYSICIAN: MARILU STEWART M.D. [id number] KALYAN#: [id number] ID: [id number] JOB#: [id number] ACCT: [id number] cc: >
[2017-03-15] MEDS: OXYCODONE HCL IR 5 MG TABLET PO PRN ×2 (10:38→21:25)
[2017-03-15] MEDS: ONDANSETRON 4 MG TAB.RAPDIS PO PRN ×2 (10:38→19:51)
[2017-03-15] MEDS: LEVETIRACETAM 500 MG TABLET PO SCH ×2 (10:39→21:25)
[2017-03-15] MEDS: MAGNESIUM OXIDE 400 MG TABLET PO SCH ×2 (10:39→17:30)
[2017-03-15] MEDS: LEVOTHYROXINE SODIUM 0.088 MG TABLET PO SCH (10:39)
[2017-03-15] MEDS: NORMAL SALINE 10 ML SDV (SCHEDULED) IV SCH ×2 (10:40→21:25)
[2017-03-15] MEDS ORDERED: TOLVAPTAN 15 MG TABLET PO ONE (14:00)
[2017-03-15] MEDS ORDERED: FUROSEMIDE INJ/PF 20 MG/2 ML SDV IV ONE (14:00)
[2017-03-15] MEDS ORDERED: METOLAZONE 2.5 MG TABLET PO ONE (14:00)
--- NOTE | 2017-03-15 14:26 | PDOC PROGRESS REPORT ---
Subjective Progress Note for:: 03/15/17 Subjective:: This is follow up for medical management. Patient day 8 status post exploratory laparotomy, closure of duodenal ulcer, recovery very slowly, taking p.o. gradually. Patient is wanting to have a regular diet. She does not want a modified diet because she does not eat a modified diet at home. She has had a bowel movement. She is complaining of her generalized edema. She is complaining of some abdominal discomfort and nausea. Physical Exam Vital Signs: Temp Pulse Resp BP Pulse Ox 97.8 F 62 19 110/76 69 L 03/15/17 11:53 03/15/17 11:53 03/15/17 11:53 03/15/17 11:53 03/15/17 11:53 Intake & Output 03/14/17 03/15/17 03/16/17 06:59 06:59 06:59 Intake Total 2118 1145 Output Total 630 1225 Balance 1488 -80 Weight 76.6 kg 77.2 kg General appearance: PRESENT: cooperative, mild distress Head exam: PRESENT: normocephalic Eye exam: PRESENT: EOMI. ABSENT: periorbital swelling, scleral icterus Mouth exam: PRESENT: moist, neck supple Neck exam: PRESENT: full ROM Respiratory exam: PRESENT: clear to auscultation bria, unlabored Cardiovascular exam: PRESENT: RRR, +S1, +S2, other - Right side pic line GI/Abdominal exam: PRESENT: firm, hypoactive bowel sounds, other - abdominal wall edema Rectal exam: PRESENT: deferred Gentrourinary exam: PRESENT: indwelling catheter Extremities exam: PRESENT: +2 edema Musculoskeletal exam: PRESENT: other - scral edema Neurological exam: PRESENT: alert, awake, oriented to person, oriented to place , oriented to time, CN II-XII grossly intact Psychiatric exam: PRESENT: normal mood Results Laboratory Results: 03/14/17 06:25 03/14/17 06:25 Impressions: Abdomen/Pelvis CT 03/11/17 00:00 IMPRESSION: 1. New bilateral lower lobar pneumonia. Small-moderate bilateral pleural effusions. Small pericarditis. 2. In 8.4 cm likely hematoma associated with the anterior pelvic wall without significant interval change. 3. Moderate -severe anasarca. 4. Subacute comminuted fractures of the superior and inferior pubic rami bilaterally; and nondisplaced fractures of bilateral aspects of the sacrum. Esophagus X-Ray 03/11/17 00:00 IMPRESSION: Post gastric bypass. Small hiatal hernia with reflux. Prompt emptying of the gastric fundal bypass pouch into the small bowel efferrent loop Guidance Fluoroscopy 03/11/17 00:00 IMPRESSION: SUCCESSFUL PLACEMENT OF A 5 FR DUAL LUMEN 35 CM PICC IN THE RIGHT BASILIC VEIN. Interventional Vascular Procedure 03/11/17 00:00 IMPRESSION: SUCCESSFUL PLACEMENT OF A 5 FR DUAL LUMEN 35 CM PICC IN THE RIGHT BASILIC VEIN. PICC Line Insertion 03/11/17 00:00 IMPRESSION: SUCCESSFUL PLACEMENT OF A 5 FR DUAL LUMEN 35 CM PICC IN THE RIGHT BASILIC VEIN. Assessment & Plan - Diagnosis (1) Anasarca Is this a current diagnosis for this admission?: Yes Plan: Possible due to third spacing as patient albumin level is 1.5 as of 03/11. Dietary consulted. Patient requesting a regular diet. Patient started on a regular diet. Will continue diuretic and monitor electrolytes closely. (2) Chronic insomnia Is this a current diagnosis for this admission?: Yes Plan: Patient continued on trazadone. (3) Hypomagnesemia Is this a current diagnosis for this admission?: Yes Plan: Patient on magnesium supplement. Will continue to monitor. (4) Hyponatremia Is this a current diagnosis for this admission?: Yes Plan: Could be due to volume overload. Patient was given Tolvaptan x dose. Patient also restarted on lasix and metolazone for her generalized edema. Will follow up labs. (5) Pubic ramus fracture Qualifiers: Encounter type: subsequent encounter Is this a current diagnosis for this admission?: Yes Plan: Patient was seen by ortho and patient is being followed by PT and is suppose to be discharge to rehab. (6) Protein S deficiency Is this a current diagnosis for this admission?: Yes Plan: Patient currently on heparin. This normally treated with coumadin however this was not noted on any of her medication lists. Will further inquire with patient and her daughter as to how she was being treated. (7) Pneumonia Qualifiers: Pneumonia type: due to unspecified organism Laterality: right Lung location: unspecified part of lung Qualified Code(s): J18.9 - Pneumonia, unspecified organism Is this a current diagnosis for this admission?: Yes Plan: Concern for pneumonia based on chest XR findings however clinical patient does not appear to have pneumonia. She may however have an effusion as a result of her generalized edema with hypoalbuminemia. (8) Diabetes Qualifiers: Diabetes mellitus type: type 2 Diabetes mellitus complication status: with unspecified complications Diabetes mellitus home maker insulin use: unspecified half-way insulin use status Qualified Code(s): E11.8 - Type 2 diabetes mellitus with unspecified complications Is this a current diagnosis for this admission?: Yes Plan: Continue SSI and monitoring. (9) Protein C deficiency Is this a current diagnosis for this admission?: Yes Plan: Please refer to protein S deficiency. (10) Protein-calorie malnutrition, severe Plan: Seen by motorcycle racer. Patient on ensure and regular diet. Patient states she will try to eat. Albumin was 1.5. Will check prealbumin. Will also replace electrolytes. Possible start a multivitamin.
[2017-03-15] MEDS: INSULIN REG, HUMAN 100 UNIT/ML 3 ML VIAL (PYX) SUBCUT PRN (17:27)
[2017-03-15] MEDS: TRAZODONE HCL 50 MG TABLET PO SCH (21:25)
[2017-03-15] MEDS: FUROSEMIDE INJ/PF 20 MG/2 ML SDV IV SCH (21:25)
[2017-03-16] MEDS: MORPHINE SULFATE 10 MG/ML INJ IV PRN ×4 (00:08→21:53)
[2017-03-16] MEDS: OXYCODONE HCL IR 5 MG TABLET PO PRN ×2 (03:24→19:59)
[2017-03-16 04:47] LABS: ALANINE AMINOTRANSFERASE 25 U/L (9-52); ALBUMIN 1.4 g/dL (3.5-5.0); ALKALINE PHOSPHATASE 112 U/L (38-126); ASPARTATE AMINO TRANSFERASE 16 U/L (14-36); BILIRUBIN,DIRECT 0.5 mg/dL (0.0-0.4); BILIRUBIN,TOTAL 0.6 mg/dL (0.2-1.3); BLOOD UREA NITROGEN 5 mg/dL (7-20); CALCIUM 7.4 mg/dL (8.4-10.2); CREATININE RESULT 0.52 mg/dL (0.52-1.25); GLUCOSE 96 mg/dL (75-110); MAGNESIUM 1.4 mg/dL (1.6-2.3); TOTAL PROTEIN 3.5 g/dL (6.3-8.2)
[2017-03-16 04:54] LABS: PREALBUMIN 4.7 mg/dL (17.6-36.0)
[2017-03-16 04:59] LABS: CHLORIDE 94 mmol/L (98-107)
[2017-03-16 05:06] LABS: CARBON DIOXIDE 33 mmol/L (22-30)
[2017-03-16 05:07] LABS: ANION GAP 0 (5-19)
[2017-03-16] MEDS: LANSOPRAZOLE 30 MG TAB.RAP.DR PO SCH ×2 (06:14→16:53)
[2017-03-16] MEDS: MAGNESIUM SULFATE/D5W 1 GM/100 ML RTUPB IV SCH ×2 (08:32→09:59)
[2017-03-16] MEDS ORDERED: METOLAZONE 2.5 MG TABLET PO ONE (09:41)
[2017-03-16] MEDS: FUROSEMIDE INJ/PF 20 MG/2 ML SDV IV SCH ×2 (09:47→21:51)
[2017-03-16] MEDS: LEVETIRACETAM 500 MG TABLET PO SCH ×2 (09:50→21:51)
[2017-03-16] MEDS: LEVOTHYROXINE SODIUM 0.088 MG TABLET PO SCH (09:50)
[2017-03-16] MEDS: MAGNESIUM OXIDE 400 MG TABLET PO SCH ×2 (09:50→17:26)
[2017-03-16] MEDS: NORMAL SALINE 10 ML SDV (SCHEDULED) IV SCH ×2 (09:51→23:31)
[2017-03-16 11:18] LABS: FOLATE 5.81 ng/mL (>2.76)
[2017-03-16] MEDS: ONDANSETRON 4 MG TAB.RAPDIS PO PRN ×2 (12:41→21:59)
[2017-03-16] MEDS: INSULIN REG, HUMAN 100 UNIT/ML 3 ML VIAL (PYX) SUBCUT PRN (14:03)
--- NOTE | 2017-03-16 14:39 | PDOC PROGRESS REPORT ---
Subjective Progress Note for:: 03/16/17 Subjective:: This is follow up for medical management. Patient day 8 status post exploratory laparotomy, closure of duodenal ulcer, recovery very slowly, taking p.o. gradually. Patient states that she is trying to eat better. She had gastric bypass surgery previously and has difficulty eating large amounts of food however she does attempt to eat frequently. Patient denies any pain. Physical Exam Vital Signs: Temp Pulse Resp BP Pulse Ox 97.3 F 73 12 115/65 100 03/16/17 11:56 03/16/17 11:56 03/16/17 11:56 03/16/17 11:56 03/16/17 11:56 Intake & Output 03/15/17 03/16/17 03/17/17 06:59 06:59 06:59 Intake Total 1145 294 237 Output Total 1225 830 200 Balance -80 -536 37 Weight 77.2 kg 70 kg General appearance: PRESENT: no acute distress Head exam: PRESENT: normocephalic Neck exam: PRESENT: full ROM Respiratory exam: PRESENT: clear to auscultation bria. ABSENT: unlabored, wheezes Cardiovascular exam: PRESENT: RRR, +S1, +S2 GI/Abdominal exam: PRESENT: soft, other - Surgical roberto and drain. Abdominal wall edema Rectal exam: PRESENT: deferred Gentrourinary exam: PRESENT: indwelling catheter Extremities exam: PRESENT: pedal edema, tenderness, +2 edema Musculoskeletal exam: PRESENT: tenderness Neurological exam: PRESENT: alert, awake, oriented to person, oriented to place , oriented to time, oriented to situation Psychiatric exam: PRESENT: normal mood Results Laboratory Results: 03/14/17 06:25 03/16/17 03:50 03/16/17 03/16/17 03:50 06:35 Sodium 127.0 L Potassium 4.0 Chloride 94 L Carbon Dioxide 33 H Anion Gap 0 L BUN 5 L Creatinine 0.52 Est GFR ( Amer) > 60 Est GFR (Non-Af Amer) > 60 Glucose 96 Calcium 7.4 L Magnesium 1.4 L Total Bilirubin 0.6 AST 16 ALT 25 Alkaline Phosphatase 112 Total Protein 3.5 L Albumin 1.4 L Prealbumin 4.7 L Vitamin B12 > 1000.0 H Folate 5.81 Impressions: Abdomen/Pelvis CT 03/11/17 00:00 IMPRESSION: 1. New bilateral lower lobar pneumonia. Small-moderate bilateral pleural effusions. Small pericarditis. 2. In 8.4 cm likely hematoma associated with the anterior pelvic wall without significant interval change. 3. Moderate -severe anasarca. 4. Subacute comminuted fractures of the superior and inferior pubic rami bilaterally; and nondisplaced fractures of bilateral aspects of the sacrum. Esophagus X-Ray 03/11/17 00:00 IMPRESSION: Post gastric bypass. Small hiatal hernia with reflux. Prompt emptying of the gastric fundal bypass pouch into the small bowel efferrent loop Guidance Fluoroscopy 03/11/17 00:00 IMPRESSION: SUCCESSFUL PLACEMENT OF A 5 FR DUAL LUMEN 35 CM PICC IN THE RIGHT BASILIC VEIN. Interventional Vascular Procedure 03/11/17 00:00 IMPRESSION: SUCCESSFUL PLACEMENT OF A 5 FR DUAL LUMEN 35 CM PICC IN THE RIGHT BASILIC VEIN. PICC Line Insertion 03/11/17 00:00 IMPRESSION: SUCCESSFUL PLACEMENT OF A 5 FR DUAL LUMEN 35 CM PICC IN THE RIGHT BASILIC VEIN. Assessment & Plan - Diagnosis (1) Anasarca Is this a current diagnosis for this admission?: Yes Plan: Possible due to third spacing as patient albumin level is 1.4 as of 03/11. Patient started on Lasix 20 mg IV push twice daily along with metolazone 2.5 mg daily. Will continue to diurese as long as blood pressure tolerates and hyponatremia doesn't worsen. (2) Protein-calorie malnutrition, severe Plan: Dietary consulted. She on a regular diet. Patient also receiving Ensure supplementation. Patient is taking 25-75% of her meals in addition to snacks. (3) Hypomagnesemia Is this a current diagnosis for this admission?: Yes Plan: Patient magnesium level still low despite being on oral supplementation. Will give patient 2 g IV of magnesium and repeat magnesium level in the morning. (4) Hyponatremia Is this a current diagnosis for this admission?: Yes Plan: Could be due to volume overload. Patient was given Tolvaptan x dose. We will continue with Lasix and metolazone. Sodium slightly low today Will continue to monitor. (5) Pubic ramus fracture Qualifiers: Encounter type: subsequent encounter Is this a current diagnosis for this admission?: Yes Plan: Patient was seen by ortho and patient is being followed by PT and is suppose to be discharge to rehab. (6) Diabetes Qualifiers: Diabetes mellitus type: type 2 Diabetes mellitus complication status: with unspecified complications Diabetes mellitus fdc insulin use: unspecified fdc insulin use status Qualified Code(s): E11.8 - Type 2 diabetes mellitus with unspecified complications Is this a current diagnosis for this admission?: Yes Plan: Continue SSI and monitoring. (7) Protein S deficiency Is this a current diagnosis for this admission?: Yes Plan: Patient currently on heparin. This normally treated with coumadin however this was not noted on any of her medication lists. Daughter states that it was treated with aspirin. (8) Protein C deficiency Is this a current diagnosis for this admission?: Yes Plan: Please refer to protein S deficiency. (9) Pneumonia Qualifiers: Pneumonia type: due to unspecified organism Laterality: right Lung location: unspecified part of lung Qualified Code(s): J18.9 - Pneumonia, unspecified organism Is this a current diagnosis for this admission?: Yes Plan: Concern for pneumonia based on chest XR findings however clinical patient does not appear to have pneumonia. She may however have an effusion as a result of her generalized edema with hypoalbuminemia. All antibiotics were discontinued. (10) Chronic insomnia Is this a current diagnosis for this admission?: Yes Plan: Continued trazadone. - Time Time Spent with patient: Less than 15 minutes Anticipated discharge: Acute Rehab - Still diuresing patient and correctly electrolyte abnormalities.
--- NOTE | 2017-03-16 16:47 | PROGRESS NOTE E ---
Progress Note NAME: ROBERTO LAYTON : 12/07/1951 AGE: 65Y DATE: 03/16/2017 ROOM: 320 SUBJECTIVE: This is about the ninth postop day for this patient post repair of perforated duodenal ulcer. The Biju-Mejia drain has clear drainage and decrease in amount and this was subsequently removed this morning. Her abdomen remains soft with mild tenderness. She is tolerating soft diet, but not enough nutrition. She is taking some supplements like Ensure. She has multiple medical conditions, primarily anasarca and low sodium and chloride and low magnesium which is being treated medically by the hospitalist. Once the patient is tolerating enough nutrition then plans may be done for her to be transferred to a rehab facility. She has fractures of the pubis and sacrum which are stable at this time, and management is conservative per orthopedics. PLAN: We will asked hospitalist to accept the patient in transfer. DICTATING PHYSICIAN: MARILU STEWART M.D. [id number] PHY#: [id number] ID: [id number] JOB#: [id number] ACCT: [id number] cc: >
[2017-03-16] MEDS: TRAZODONE HCL 50 MG TABLET PO SCH (21:47)
[2017-03-16] MEDS: NORMAL SALINE 10 ML SDV (AFTER EACH USE) IV PRN (23:13)
[2017-03-16] MEDS: NYSTATIN TOPICAL POWDER 15 GM TP SCH (23:30)
[2017-03-17] MEDS: MORPHINE SULFATE 10 MG/ML INJ IV PRN ×5 (02:11→20:55)
[2017-03-17] MEDS: OXYCODONE HCL IR 5 MG TABLET PO PRN ×4 (03:25→22:07)
[2017-03-17] MEDS: LANSOPRAZOLE 30 MG TAB.RAP.DR PO SCH ×2 (05:42→17:42)
[2017-03-17] MEDS ORDERED: FUROSEMIDE INJ/PF 40 MG/4 ML SDV IV ONE (08:17)
[2017-03-17] MEDS ORDERED: FLUCONAZOLE 100 MG TABLET PO ONE (08:19)
--- NOTE | 2017-03-17 08:20 | PDOC PROGRESS REPORT ---
Subjective Progress Note for:: 03/17/17 Subjective:: Feels okay. Generalized weakness. Has not ambulated. Tolerating diet. Physical Exam Vital Signs: Temp Pulse Resp BP Pulse Ox 98.6 F 65 16 111/58 L 100 03/17/17 07:25 03/17/17 07:25 03/17/17 07:25 03/17/17 07:25 03/17/17 07:25 Intake & Output 03/16/17 03/17/17 03/18/17 06:59 06:59 06:59 Intake Total 294 4664 Output Total 830 2425 Balance -536 2239 Weight 70 kg 70.9 kg General appearance: PRESENT: no acute distress, cooperative Respiratory exam: PRESENT: clear to auscultation bria Cardiovascular exam: PRESENT: RRR GI/Abdominal exam: PRESENT: other - Soft, nondistended, minimal tenderness. Wound clean dry and intact with roberto. No drainage. No erythema. Extremities exam: PRESENT: other - Still with diffuse generalized edema Results Laboratory Results: 03/14/17 06:25 03/16/17 03:50 03/16/17 06:35 Vitamin B12 > 1000.0 H Folate 5.81 Impressions: Abdomen/Pelvis CT 03/11/17 00:00 IMPRESSION: 1. New bilateral lower lobar pneumonia. Small-moderate bilateral pleural effusions. Small pericarditis. 2. In 8.4 cm likely hematoma associated with the anterior pelvic wall without significant interval change. 3. Moderate -severe anasarca. 4. Subacute comminuted fractures of the superior and inferior pubic rami bilaterally; and nondisplaced fractures of bilateral aspects of the sacrum. Esophagus X-Ray 03/11/17 00:00 IMPRESSION: Post gastric bypass. Small hiatal hernia with reflux. Prompt emptying of the gastric fundal bypass pouch into the small bowel efferrent loop Guidance Fluoroscopy 03/11/17 00:00 IMPRESSION: SUCCESSFUL PLACEMENT OF A 5 FR DUAL LUMEN 35 CM PICC IN THE RIGHT BASILIC VEIN. Interventional Vascular Procedure 03/11/17 00:00 IMPRESSION: SUCCESSFUL PLACEMENT OF A 5 FR DUAL LUMEN 35 CM PICC IN THE RIGHT BASILIC VEIN. PICC Line Insertion 03/11/17 00:00 IMPRESSION: SUCCESSFUL PLACEMENT OF A 5 FR DUAL LUMEN 35 CM PICC IN THE RIGHT BASILIC VEIN. Assessment & Plan - Diagnosis (1) Duodenal ulcer with perforation Is this a current diagnosis for this admission?: Yes (2) Duodenal ulcer with perforation Is this a current diagnosis for this admission?: Yes Plan: Overall much improved. Will ask physical therapy to start ambulating patient with rolling walker as per orthopedic consult recommendation. Will start discharge planning measures. Patient requests home physical therapy.
[2017-03-17] MEDS ORDERED: METOLAZONE 2.5 MG TABLET PO ONE (09:00)
[2017-03-17] MEDS ORDERED: ALBUMIN HUMAN 50 ML IV ONE (09:00)
[2017-03-17] MEDS: MAGNESIUM OXIDE 400 MG TABLET PO SCH ×2 (09:56→17:42)
[2017-03-17] MEDS: LEVETIRACETAM 500 MG TABLET PO SCH ×2 (09:56→22:08)
[2017-03-17] MEDS: LEVOTHYROXINE SODIUM 0.088 MG TABLET PO SCH (09:56)
[2017-03-17] MEDS: NORMAL SALINE 10 ML SDV (SCHEDULED) IV SCH ×2 (09:57→22:09)
[2017-03-17] MEDS: NYSTATIN TOPICAL POWDER 15 GM TP SCH ×2 (10:52→22:10)
[2017-03-17] MEDS: NORMAL SALINE 10 ML SDV (AFTER EACH USE) IV PRN ×2 (13:33→17:43)
[2017-03-17] MEDS: GABAPENTIN 100 MG CAPSULE PO SCH ×2 (13:37→22:08)
[2017-03-17] MEDS: ONDANSETRON 4 MG TAB.RAPDIS PO PRN ×2 (13:41→18:48)
[2017-03-17 13:45] LABS: BLOOD UREA NITROGEN 8 mg/dL (7-20); CALCIUM 7.4 mg/dL (8.4-10.2); CREATININE RESULT 0.56 mg/dL (0.52-1.25); GLUCOSE 116 mg/dL (75-110); MAGNESIUM 1.3 mg/dL (1.6-2.3)
[2017-03-17 13:56] LABS: CARBON DIOXIDE 37 mmol/L (22-30); CHLORIDE 87 mmol/L (98-107); POTASSIUM 3.4 mmol/L (3.6-5.0); SODIUM 127.7 mmol/L (137-145)
[2017-03-17 13:57] LABS: ANION GAP 4 (5-19)
[2017-03-17] MEDS ORDERED: POTASSIUM CHLORIDE 10 MEQ TABLET.SA PO ONE (17:00)
[2017-03-17] MEDS ORDERED: MAGNESIUM SULFATE/D5W 1 GM/100 ML RTUPB IV SCH (17:00)
--- NOTE | 2017-03-17 20:39 | PDOC PROGRESS REPORT ---
Subjective Progress Note for:: 03/17/17 Subjective:: This is follow up for medical management. Patient is status post exploratory laparotomy, closure of duodenal ulcer, recovery very slowly, taking p.o. gradually. Patient states she would feel much better if she was not so swollen. Patient does agree that the swelling is improving. Physical Exam Vital Signs: Temp Pulse Resp BP Pulse Ox 97.2 F 75 18 98/52 L 97 03/17/17 15:14 03/17/17 15:14 03/17/17 15:14 03/17/17 15:14 03/17/17 15:14 Intake & Output 03/16/17 03/17/17 03/18/17 06:59 06:59 06:59 Intake Total 294 4664 562 Output Total 830 2425 2075 Balance -536 2239 -1513 Weight 70 kg 70.9 kg General appearance: PRESENT: no acute distress Head exam: PRESENT: normocephalic Eye exam: PRESENT: EOMI. ABSENT: scleral icterus Mouth exam: PRESENT: moist Neck exam: PRESENT: full ROM. ABSENT: JVD Respiratory exam: PRESENT: decreased breath sounds, unlabored. ABSENT: accessory muscle use, wheezes Cardiovascular exam: PRESENT: RRR, +S1, +S2 GI/Abdominal exam: PRESENT: soft, tenderness - Surgical roberto, other - Midline surgical roberto Rectal exam: PRESENT: deferred Gentrourinary exam: PRESENT: indwelling catheter Extremities exam: PRESENT: pedal edema, other - Patient pedal edema improved no longer tense or tender. ABSENT: tenderness Musculoskeletal exam: PRESENT: normal inspection, other - Sacral edema Neurological exam: PRESENT: alert, awake, oriented to person, oriented to place , oriented to time, oriented to situation Psychiatric exam: PRESENT: normal mood Skin exam: PRESENT: intact, warm Results Laboratory Results: 03/14/17 06:25 03/17/17 12:45 03/17/17 03/17/17 12:45 17:27 Sodium 127.7 L Potassium 3.4 L Chloride 87 L Carbon Dioxide 37 H Anion Gap 4 L BUN 8 Creatinine 0.56 Est GFR ( Amer) > 60 Est GFR (Non-Af Amer) > 60 Glucose 116 H Calcium 7.4 L Magnesium 1.3 L 1.3 L Impressions: Abdomen/Pelvis CT 03/11/17 00:00 IMPRESSION: 1. New bilateral lower lobar pneumonia. Small-moderate bilateral pleural effusions. Small pericarditis. 2. In 8.4 cm likely hematoma associated with the anterior pelvic wall without significant interval change. 3. Moderate -severe anasarca. 4. Subacute comminuted fractures of the superior and inferior pubic rami bilaterally; and nondisplaced fractures of bilateral aspects of the sacrum. Esophagus X-Ray 03/11/17 00:00 IMPRESSION: Post gastric bypass. Small hiatal hernia with reflux. Prompt emptying of the gastric fundal bypass pouch into the small bowel efferrent loop Guidance Fluoroscopy 03/11/17 00:00 IMPRESSION: SUCCESSFUL PLACEMENT OF A 5 FR DUAL LUMEN 35 CM PICC IN THE RIGHT BASILIC VEIN. Interventional Vascular Procedure 03/11/17 00:00 IMPRESSION: SUCCESSFUL PLACEMENT OF A 5 FR DUAL LUMEN 35 CM PICC IN THE RIGHT BASILIC VEIN. PICC Line Insertion 03/11/17 00:00 IMPRESSION: SUCCESSFUL PLACEMENT OF A 5 FR DUAL LUMEN 35 CM PICC IN THE RIGHT BASILIC VEIN. Assessment & Plan - Diagnosis (1) Anasarca Is this a current diagnosis for this admission?: Yes Plan: Possible due to third spacing as patient albumin level is 1.4 as of 03/11. Patient given albumin and 40 of IV lasix and metolazone. Will continue to diurese as long as blood pressure tolerates and hyponatremia doesn't worsen. Patient in negative fluid balance today. Weight is down to 70.9kg from 77.2kg. Will monitor electrolytes. (2) Protein-calorie malnutrition, severe Plan: Dietary consulted. She on a regular diet. Patient also receiving Ensure supplementation. Patient took 50% of her breakfast and lunch today. (3) Hypomagnesemia Is this a current diagnosis for this admission?: Yes Plan: Patient magnesium level still low despite being on oral supplementation. Patient requiring another 2 g IV of magnesium today. Will repeat level in the morning. (4) Hyponatremia Is this a current diagnosis for this admission?: Yes Plan: Could be due to volume overload. Patient was given Tolvaptan x dose. Patient sodium is low but stable. Will continue diuretics and monitor level. (5) Pubic ramus fracture Qualifiers: Encounter type: subsequent encounter Is this a current diagnosis for this admission?: Yes Plan: Patient was seen by ortho and patient is being followed by PT and is suppose to be discharge to rehab. (6) Diabetes Qualifiers: Diabetes mellitus type: type 2 Diabetes mellitus complication status: with unspecified complications Diabetes mellitus fpc insulin use: unspecified fpc insulin use status Qualified Code(s): E11.8 - Type 2 diabetes mellitus with unspecified complications Is this a current diagnosis for this admission?: Yes Plan: Continue SSI and monitoring. (7) Protein S deficiency Is this a current diagnosis for this admission?: Yes Plan: Patient currently on heparin. This normally treated with coumadin however this was not noted on any of her medication lists. Daughter states that it was treated with aspirin. (8) Protein C deficiency Is this a current diagnosis for this admission?: Yes Plan: Please refer to protein S deficiency. (9) Pneumonia Qualifiers: Pneumonia type: due to unspecified organism Laterality: right Lung location: unspecified part of lung Qualified Code(s): J18.9 - Pneumonia, unspecified organism Is this a current diagnosis for this admission?: Yes Plan: Concern for pneumonia based on chest XR findings however clinical patient does not appear to have pneumonia. She may however have an effusion as a result of her generalized edema with hypoalbuminemia. All antibiotics were discontinued. (10) Chronic insomnia Is this a current diagnosis for this admission?: Yes Plan: Continue trazadone. (11) Hypokalemia Is this a current diagnosis for this admission?: Yes Plan: Secondary to lasix. Will replace orally and monitor. - Time Time Spent with patient: 15-24 minutes Anticipated discharge: SNF - Disposition per surgery the primary. Will continue to follow as customer consultant.
[2017-03-17] MEDS ORDERED: FUROSEMIDE INJ/PF 20 MG/2 ML SDV IV ONE (21:30)
[2017-03-17] MEDS: TRAZODONE HCL 50 MG TABLET PO SCH (22:08)
[2017-03-18] MEDS: MORPHINE SULFATE 10 MG/ML INJ IV PRN ×3 (03:52→13:46)
[2017-03-18] MEDS: ONDANSETRON 4 MG TAB.RAPDIS PO PRN ×4 (03:59→21:25)
[2017-03-18] MEDS: GABAPENTIN 100 MG CAPSULE PO SCH ×3 (05:11→21:25)
[2017-03-18] MEDS: LANSOPRAZOLE 30 MG TAB.RAP.DR PO SCH ×2 (05:12→18:35)
[2017-03-18] MEDS: OXYCODONE HCL IR 5 MG TABLET PO PRN ×3 (05:12→18:36)
[2017-03-18 05:51] LABS: BLOOD UREA NITROGEN 10 mg/dL (7-20); CALCIUM 7.8 mg/dL (8.4-10.2); CREATININE RESULT 0.67 mg/dL (0.52-1.25); GLUCOSE 128 mg/dL (75-110); POTASSIUM 4.2 mmol/L (3.6-5.0)
[2017-03-18 06:02] LABS: CARBON DIOXIDE 37 mmol/L (22-30); CHLORIDE 92 mmol/L (98-107); SODIUM 129.8 mmol/L (137-145)
[2017-03-18 06:09] LABS: ANION GAP 1 (5-19)
--- NOTE | 2017-03-18 09:14 | PDOC PROGRESS REPORT ---
Subjective Progress Note for:: 03/18/17 Subjective:: Sound hospitalists have been consulted for medical management. The patient is a 65-year-old female status post exploratory laparotomy for closure of a duodenal ulcer. She has been having normal and formed bowel movements. She did not have one yesterday. She is passing flatus. She is tolerating a diet. She continues to have nausea which has been controlled with Zofran. She has not yet been up out of bed. Physical Exam Vital Signs: Temp Pulse Resp BP Pulse Ox 97.8 F 71 18 120/59 L 100 03/18/17 08:11 03/18/17 08:11 03/18/17 08:11 03/18/17 08:11 03/18/17 08:11 Intake & Output 03/17/17 03/18/17 03/19/17 06:59 06:59 06:59 Intake Total 4664 1104 Output Total 2425 5275 Balance 2239 -4171 Weight 70.9 kg Additional comments: The patient appears older than her stated age. She does not appear to be in good, general health. She is alert and oriented 4. She does not appear to have any cognitive deficits. She moves all 4 extremities and follows commands. Her facial appearance is normal. Her lips and mucous membranes are moist. Her lungs are clear to auscultation bilaterally both anteriorly and posteriorly. I do not hear any adventitious sounds. The cardiac exam demonstrates a regular rate and rhythm. Patient has a bounding S2 but no murmurs. There are no gallops or rubs. The abdomen is firm. There is erythema along the incision. Patient has diffuse tenderness. Patient's lower extremities show 2+ generalized anasarca. Other than along the staple line there are no lesions or rashes appreciated. Results Laboratory Results: 03/14/17 06:25 03/18/17 05:15 03/17/17 03/17/17 03/18/17 12:45 17:27 05:15 Sodium 127.7 L 129.8 L Potassium 3.4 L 4.2 Chloride 87 L 92 L Carbon Dioxide 37 H 37 H Anion Gap 4 L 1 L BUN 8 10 Creatinine 0.56 0.67 Est GFR ( Amer) > 60 > 60 Est GFR (Non-Af Amer) > 60 > 60 Glucose 116 H 128 H Calcium 7.4 L 7.8 L Magnesium 1.3 L 1.3 L Impressions: Abdomen/Pelvis CT 03/11/17 00:00 IMPRESSION: 1. New bilateral lower lobar pneumonia. Small-moderate bilateral pleural effusions. Small pericarditis. 2. In 8.4 cm likely hematoma associated with the anterior pelvic wall without significant interval change. 3. Moderate -severe anasarca. 4. Subacute comminuted fractures of the superior and inferior pubic rami bilaterally; and nondisplaced fractures of bilateral aspects of the sacrum. Esophagus X-Ray 03/11/17 00:00 IMPRESSION: Post gastric bypass. Small hiatal hernia with reflux. Prompt emptying of the gastric fundal bypass pouch into the small bowel efferrent loop Guidance Fluoroscopy 03/11/17 00:00 IMPRESSION: SUCCESSFUL PLACEMENT OF A 5 FR DUAL LUMEN 35 CM PICC IN THE RIGHT BASILIC VEIN. Interventional Vascular Procedure 03/11/17 00:00 IMPRESSION: SUCCESSFUL PLACEMENT OF A 5 FR DUAL LUMEN 35 CM PICC IN THE RIGHT BASILIC VEIN. PICC Line Insertion 03/11/17 00:00 IMPRESSION: SUCCESSFUL PLACEMENT OF A 5 FR DUAL LUMEN 35 CM PICC IN THE RIGHT BASILIC VEIN. Assessment & Plan - Diagnosis (1) Anasarca Is this a current diagnosis for this admission?: Yes Plan: Continue diuresis. (2) Bilateral pubic rami fractures Qualifiers: Encounter type: initial encounter Fracture type: closed Qualified Code(s) : S32.591A - Other specified fracture of right pubis, initial encounter for closed fracture; S32.592A - Other specified fracture of left pubis, initial encounter for closed fracture Is this a current diagnosis for this admission?: Yes Plan: Patient is receiving narcotics for pain control. Physical therapy is due to start today. (3) Chronic insomnia Is this a current diagnosis for this admission?: Yes Plan: Continue trazodone. (4) Duodenal ulcer with perforation Is this a current diagnosis for this admission?: Yes Plan: Management per surgery. (5) Hospital-acquired pneumonia Plan: There was a suspicion for pneumonia based on a CT scan of the abdomen and pelvis. Clinically, patient has no evidence of pneumonia. Antibiotics were discontinued by prior [facility] hospitalist. (6) Hypokalemia Is this a current diagnosis for this admission?: Yes Plan: Continue supplementation. (7) Hypomagnesemia Is this a current diagnosis for this admission?: Yes Plan: Patient received 2 g of intravenous magnesium yesterday and is receiving oral magnesium. (8) Hyponatremia Is this a current diagnosis for this admission?: Yes (9) History of DVT (deep vein thrombosis) Is this a current diagnosis for this admission?: Yes Plan: Due to hypercoagulable state. Patient has protein C and protein S deficiency. An IVC filter has been placed. She is also status post pulmonary embolus. The patient is followed by Dr. Pike in the outpatient setting. She is currently on heparin. (10) Protein S deficiency Is this a current diagnosis for this admission?: Yes (11) Protein-calorie malnutrition, severe Plan: Patient is tolerating her diet. Continue supplementation. (12) Diabetes Qualifiers: Diabetes mellitus type: type 2 Diabetes mellitus complication status: with unspecified complications Diabetes mellitus residential insulin use: unspecified joint terminal attack controller insulin use status Qualified Code(s): E11.8 - Type 2 diabetes mellitus with unspecified complications Is this a current diagnosis for this admission?: Yes Plan: Continue supplemental insulin. (13) History of inferior vena caval filter placement Is this a current diagnosis for this admission?: No (14) History of pulmonary embolus (PE) Is this a current diagnosis for this admission?: Yes (15) Protein C deficiency Is this a current diagnosis for this admission?: Yes - Time Time Spent with patient: 15-24 minutes - Inpatient Certification Medical Necessity: Need for Pain Control - Ultimately, disposition will be per surgery. - Plan Summary Plan Summary: Once the patient's labs continue to be stable and she is making progress with physical therapy the plan will be to discharge her to correction.
[2017-03-18] MEDS: POTASSIUM CHLORIDE 10 MEQ TABLET.SA PO SCH (09:56)
[2017-03-18] MEDS: LEVETIRACETAM 500 MG TABLET PO SCH ×2 (09:57→21:25)
[2017-03-18] MEDS: MAGNESIUM OXIDE 400 MG TABLET PO SCH ×2 (09:57→18:35)
[2017-03-18] MEDS: METOLAZONE 2.5 MG TABLET PO SCH (09:57)
[2017-03-18] MEDS: LEVOTHYROXINE SODIUM 0.088 MG TABLET PO SCH (09:57)
[2017-03-18] MEDS: FUROSEMIDE INJ/PF 20 MG/2 ML SDV IV SCH ×2 (09:59→21:25)
[2017-03-18] MEDS: NORMAL SALINE 10 ML SDV (SCHEDULED) IV SCH ×2 (10:00→21:25)
[2017-03-18] MEDS: NYSTATIN TOPICAL POWDER 15 GM TP SCH ×2 (10:03→21:26)
--- NOTE | 2017-03-18 11:37 | PROGRESS NOTE E ---
Progress Note NAME: ROBERTO LAYTON : 12/07/1951 AGE: 65Y DATE: 03/18/2017 ROOM: 320 SUBJECTIVE: Patient feels okay. Asking for longer physical therapy since she has not really done any ambulation with a walker yet, at least over the weekend, prior to discharge to home with home physical therapy. She remains afebrile and tolerating diet well. OBJECTIVE: On examination, temperature is 97.8, heart rate of 71 per minute, blood pressure 120/59, O2 sat is 100% on nasal cannula 2 L. Her abdomen is soft with some mild tenderness around the upper abdomen. The incision is clean and dry, though slightly erythematous around the staple line. PLAN: We will keep the roberto until the day of discharge, hopefully by Tuesday, 03/21. Meantime, continue with physical therapy. The Payan catheter will be removed as soon as she starts ambulating, hopefully today. DICTATING PHYSICIAN: MARILU STEWART M.D. [id number] [id number] ID: [id number] JOB#: [id number] ACCT: [id number] cc: >
[2017-03-18] MEDS: TRAZODONE HCL 50 MG TABLET PO SCH (21:25)
[2017-03-19] MEDS: OXYCODONE HCL IR 5 MG TABLET PO PRN ×3 (00:27→16:49)
[2017-03-19 05:12] LABS: BLOOD UREA NITROGEN 17 mg/dL (7-20); CREATININE RESULT 0.54 mg/dL (0.52-1.25); GLUCOSE 96 mg/dL (75-110); MAGNESIUM 1.4 mg/dL (1.6-2.3)
[2017-03-19 05:24] LABS: CARBON DIOXIDE 37 mmol/L (22-30); CHLORIDE 96 mmol/L (98-107); POTASSIUM 3.8 mmol/L (3.6-5.0); SODIUM 133.4 mmol/L (137-145)
[2017-03-19 05:29] LABS: ANION GAP 1 (5-19)
[2017-03-19] MEDS: GABAPENTIN 100 MG CAPSULE PO SCH ×3 (05:58→23:43)
[2017-03-19] MEDS: LANSOPRAZOLE 30 MG TAB.RAP.DR PO SCH ×2 (05:58→16:48)
--- NOTE | 2017-03-19 08:36 | PDOC PROGRESS REPORT ---
Subjective Progress Note for:: 03/19/17 Subjective:: [facility] hospitalists have been consulted for medical management. The patient is a 65-year-old female status post exploratory laparotomy for closure of a duodenal ulcer. She has been having normal and formed bowel movements. She had two bowel movements yesterday. She is passing flatus. She is tolerating a diet. She continues to have nausea which has been controlled with Zofran. She has not yet been up out of bed. Physical Exam Vital Signs: Temp Pulse Resp BP Pulse Ox 98.0 F 67 20 102/46 L 100 03/19/17 03:42 03/19/17 03:42 03/19/17 03:42 03/19/17 03:42 03/19/17 03:42 Intake & Output 03/18/17 03/19/17 03/20/17 06:59 06:59 06:59 Intake Total 1104 2617 Output Total 5275 6400 Balance -4171 -3783 Weight 65.4 kg General appearance: PRESENT: no acute distress, cooperative Head exam: PRESENT: atraumatic Eye exam: PRESENT: EOMI Mouth exam: PRESENT: moist, neck supple Neck exam: PRESENT: full ROM Respiratory exam: PRESENT: clear to auscultation bria - BS are somewhat diminished in right base. Cardiovascular exam: PRESENT: RRR, systolic murmur GI/Abdominal exam: PRESENT: normal bowel sounds - abdomen is softer today. There is no guarding or rebound. The patient is diffusely tender around the incision. She is less tender today in the LLQ. Rectal exam: PRESENT: deferred Extremities exam: PRESENT: +1 edema Musculoskeletal exam: PRESENT: full ROM - Patient is able to sit herself up with little assistance. Neurological exam: PRESENT: alert, awake Psychiatric exam: PRESENT: appropriate affect Results Laboratory Results: 03/14/17 06:25 03/19/17 04:36 03/19/17 04:36 Sodium 133.4 L Potassium 3.8 Chloride 96 L Carbon Dioxide 37 H Anion Gap 1 L BUN 17 Creatinine 0.54 Est GFR ( Amer) > 60 Est GFR (Non-Af Amer) > 60 Glucose 96 Calcium 8.0 L Magnesium 1.4 L Impressions: Abdomen/Pelvis CT 03/11/17 00:00 IMPRESSION: 1. New bilateral lower lobar pneumonia. Small-moderate bilateral pleural effusions. Small pericarditis. 2. In 8.4 cm likely hematoma associated with the anterior pelvic wall without significant interval change. 3. Moderate -severe anasarca. 4. Subacute comminuted fractures of the superior and inferior pubic rami bilaterally; and nondisplaced fractures of bilateral aspects of the sacrum. Esophagus X-Ray 03/11/17 00:00 IMPRESSION: Post gastric bypass. Small hiatal hernia with reflux. Prompt emptying of the gastric fundal bypass pouch into the small bowel efferrent loop Guidance Fluoroscopy 03/11/17 00:00 IMPRESSION: SUCCESSFUL PLACEMENT OF A 5 FR DUAL LUMEN 35 CM PICC IN THE RIGHT BASILIC VEIN. Interventional Vascular Procedure 03/11/17 00:00 IMPRESSION: SUCCESSFUL PLACEMENT OF A 5 FR DUAL LUMEN 35 CM PICC IN THE RIGHT BASILIC VEIN. PICC Line Insertion 03/11/17 00:00 IMPRESSION: SUCCESSFUL PLACEMENT OF A 5 FR DUAL LUMEN 35 CM PICC IN THE RIGHT BASILIC VEIN. Assessment & Plan - Diagnosis (1) Anasarca Is this a current diagnosis for this admission?: Yes Plan: Continue diuresis. (2) Bilateral pubic rami fractures Qualifiers: Encounter type: initial encounter Fracture type: closed Qualified Code(s) : S32.591A - Other specified fracture of right pubis, initial encounter for closed fracture; S32.592A - Other specified fracture of left pubis, initial encounter for closed fracture Is this a current diagnosis for this admission?: Yes Plan: Patient is receiving narcotics for pain control. Physical therapy did not evaluate yesterday. We will ask for their assistance today. The patient does have an order for a rolling walker. Therefore, presumably, she can bear weight. (3) Chronic insomnia Is this a current diagnosis for this admission?: Yes Plan: Continue trazodone. (4) Duodenal ulcer with perforation Is this a current diagnosis for this admission?: Yes Plan: Management per surgery. (5) Hospital-acquired pneumonia Plan: There was a suspicion for pneumonia based on a CT scan of the abdomen and pelvis. Clinically, patient has no evidence of pneumonia. Antibiotics were discontinued by prior [facility] hospitalist. (6) Hypokalemia Is this a current diagnosis for this admission?: Yes Plan: Continue supplementation. (7) Hypomagnesemia Is this a current diagnosis for this admission?: Yes Plan: Magnesium is low again today. Will supplement IV and increase dose of oral supplementation. (8) Hyponatremia Is this a current diagnosis for this admission?: Yes Plan: Resolved. Na is 133.4 today. (9) History of DVT (deep vein thrombosis) Is this a current diagnosis for this admission?: Yes Plan: Due to hypercoagulable state. Patient has protein C and protein S deficiency. An IVC filter has been placed. She is also status post pulmonary embolus. The patient is followed by Dr. Pkie in the outpatient setting. She is currently on heparin flushes but no prophylaxis or therapy due to sensitivity. (10) Protein S deficiency Is this a current diagnosis for this admission?: Yes Plan: See H DVT. (11) Protein-calorie malnutrition, severe Plan: Patient is tolerating her diet. Continue supplementation. (12) Diabetes Qualifiers: Diabetes mellitus type: type 2 Diabetes mellitus complication status: with unspecified complications Diabetes mellitus termite helper insulin use: unspecified termite helper insulin use status Qualified Code(s): E11.8 - Type 2 diabetes mellitus with unspecified complications Is this a current diagnosis for this admission?: Yes Plan: Continue supplemental insulin. (13) History of inferior vena caval filter placement Is this a current diagnosis for this admission?: No Plan: See above under H DVT. (14) History of pulmonary embolus (PE) Is this a current diagnosis for this admission?: Yes Plan: As above. (15) Protein C deficiency Is this a current diagnosis for this admission?: Yes - Time Time Spent with patient: 25-34 minutes - Inpatient Certification Medical Necessity: Need For IV Fluids, Need for Pain Control, Risk of Complication if Not Cared For in Hospital
[2017-03-19] MEDS: MAGNESIUM SULFATE/D5W 1 GM/100 ML RTUPB IV SCH ×2 (09:02→10:01)
[2017-03-19] MEDS: MAGNESIUM OXIDE 400 MG TABLET PO SCH ×3 (10:00→18:43)
[2017-03-19] MEDS: LEVOTHYROXINE SODIUM 0.088 MG TABLET PO SCH (10:00)
[2017-03-19] MEDS: METOLAZONE 2.5 MG TABLET PO SCH (10:01)
[2017-03-19] MEDS: POTASSIUM CHLORIDE 10 MEQ TABLET.SA PO SCH (10:01)
[2017-03-19] MEDS: FUROSEMIDE INJ/PF 20 MG/2 ML SDV IV SCH ×2 (10:03→23:45)
[2017-03-19] MEDS: LEVETIRACETAM 500 MG TABLET PO SCH ×2 (10:03→23:43)
[2017-03-19] MEDS: NYSTATIN TOPICAL POWDER 15 GM TP SCH ×2 (10:04→23:44)
[2017-03-19] MEDS: NORMAL SALINE 10 ML SDV (SCHEDULED) IV SCH ×2 (10:04→23:44)
[2017-03-19] MEDS: INSULIN REG, HUMAN 100 UNIT/ML 3 ML VIAL (PYX) SUBCUT PRN (12:06)
--- NOTE | 2017-03-19 16:27 | PROGRESS NOTE E ---
Progress Note NAME: ROBERTO LAYTON : 12/07/1951 AGE: 65Y DATE: 03/19/2017 ROOM: 320 SUBJECTIVE: The patient able to ambulate with a walker with the help of physical therapy. She is still complaining of some discomfort. She had a couple of bowel movements yesterday and continued to pass flatus this morning and feels like she is going to have another bowel movement. She is probably going to stay for a few more days for her physical therapy because of her pelvic bone fractures. PLAN: Continue with her physical therapy and hopefully when she is walking a little longer, we could definitely discontinue the Payan catheter. She also requested to have physical therapy at home, and this will be arranged. DICTATING PHYSICIAN: MARILU STEWART M.D. [id number] KATY#: [id number] ID: [id number] JOB#: [id number] ACCT: [id number] cc: >
[2017-03-19] MEDS: ONDANSETRON 4 MG TAB.RAPDIS PO PRN (16:48)
[2017-03-19] MEDS: MORPHINE SULFATE 10 MG/ML INJ IV PRN (18:53)
[2017-03-19] MEDS: TRAZODONE HCL 50 MG TABLET PO SCH (23:41)
[2017-03-20] MEDS: MORPHINE SULFATE 10 MG/ML INJ IV PRN (01:09)
[2017-03-20] MEDS: LANSOPRAZOLE 30 MG TAB.RAP.DR PO SCH ×2 (05:22→16:53)
[2017-03-20] MEDS: GABAPENTIN 100 MG CAPSULE PO SCH ×3 (05:22→22:30)
[2017-03-20 05:54] LABS: BLOOD UREA NITROGEN 20 mg/dL (7-20); CALCIUM 7.6 mg/dL (8.4-10.2); CARBON DIOXIDE 34 mmol/L (22-30); CREATININE RESULT 0.63 mg/dL (0.52-1.25); GLUCOSE 113 mg/dL (75-110); MAGNESIUM 1.6 mg/dL (1.6-2.3)
[2017-03-20 06:07] LABS: CHLORIDE 95 mmol/L (98-107); POTASSIUM 3.9 mmol/L (3.6-5.0); SODIUM 129.1 mmol/L (137-145)
[2017-03-20 06:09] LABS: ANION GAP 0 (5-19)
[2017-03-20] MEDS: OXYCODONE HCL IR 5 MG TABLET PO PRN ×2 (08:03→20:00)
[2017-03-20] MEDS: FUROSEMIDE INJ/PF 20 MG/2 ML SDV IV SCH ×2 (09:28→22:30)
[2017-03-20] MEDS: NORMAL SALINE 10 ML SDV (AFTER EACH USE) IV PRN (09:29)
[2017-03-20] MEDS: LEVETIRACETAM 500 MG TABLET PO SCH ×2 (09:30→22:30)
[2017-03-20] MEDS: LEVOTHYROXINE SODIUM 0.088 MG TABLET PO SCH (09:31)
[2017-03-20] MEDS: POTASSIUM CHLORIDE 10 MEQ TABLET.SA PO SCH (09:31)
[2017-03-20] MEDS: MAGNESIUM OXIDE 400 MG TABLET PO SCH ×3 (09:31→16:53)
[2017-03-20] MEDS: METOLAZONE 2.5 MG TABLET PO SCH (09:32)
[2017-03-20] MEDS: NYSTATIN TOPICAL POWDER 15 GM TP SCH ×2 (10:15→22:30)
[2017-03-20] MEDS: NORMAL SALINE 10 ML SDV (SCHEDULED) IV SCH ×2 (10:15→22:30)
[2017-03-20] MEDS: ONDANSETRON 4 MG TAB.RAPDIS PO PRN ×2 (10:15→20:05)
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
--- NOTE | 2017-03-20 14:58 | PROGRESS NOTE E ---
Progress Note NAME: ROBERTO LAYTON : 12/07/1951 AGE: 65Y DATE: 03/20/2017 ROOM: 320 SUBJECTIVE: Patient still having some pains in the abdomen when she has a bowel movement. She did have a bowel movement this morning. Her abdomen remains soft with minimal tenderness. The incision has a small amount of drainage and slightly red along the staple sites. I told the nurse to remove alternate roberto. She is still undergoing physical therapy which she will continue at home. She still has her Payan catheter and as soon as she gets more out of bed, I think the Payan should be removed primarily before she goes home. DICTATING PHYSICIAN: MARILU STEWART M.D. [id number] PHY#: [id number] ID: [id number] JOB#: [id number] ACCT: [id number] cc: >
[2017-03-20] MEDS ORDERED: MORPHINE SULFATE 10 MG/ML INJ IV ONE (15:30)
[2017-03-20] MEDS ORDERED: INFLUENZA ADLT QUAD (36MOS+) 2017-18 VAC 0.5 ML SYR IM PRN (16:40)
[2017-03-20] MEDS: INSULIN REG, HUMAN 100 UNIT/ML 3 ML VIAL (PYX) SUBCUT PRN (16:54)
[2017-03-20] MEDS: TRAZODONE HCL 50 MG TABLET PO SCH (22:30)
[2017-03-21] MEDS: OXYCODONE HCL IR 5 MG TABLET PO PRN ×3 (03:24→18:22)
[2017-03-21] MEDS: ONDANSETRON 4 MG TAB.RAPDIS PO PRN (04:52)
[2017-03-21] MEDS: LANSOPRAZOLE 30 MG TAB.RAP.DR PO SCH ×2 (05:24→17:16)
[2017-03-21] MEDS: GABAPENTIN 100 MG CAPSULE PO SCH ×2 (05:24→14:04)
[2017-03-21 05:42] LABS: HEMOGLOBIN 8.2 g/dL (12.0-15.5); HGB HCT DIFFERENCE 1.6; MEAN CORPUSCULAR HEMOGLOBIN 36.2 pg (27.0-33.4); MEAN CORPUSCULAR HGB CONC 35.4 g/dL (32.0-36.0); MEAN CORPUSCULAR VOLUME 102 fl (80-97); RED BLOOD COUNT 2.25 10^6/uL (3.72-5.28); RED CELL DISTRIBUTION WIDTH 21.9 % (11.5-14.0); WHITE BLOOD COUNT 6.7 10^3/uL (4.0-10.5)
[2017-03-21 06:18] LABS: BLOOD UREA NITROGEN 18 mg/dL (7-20); CALCIUM 7.7 mg/dL (8.4-10.2); CARBON DIOXIDE 30 mmol/L (22-30); CHLORIDE 96 mmol/L (98-107); CREATININE RESULT 0.66 mg/dL (0.52-1.25); GLUCOSE 271 mg/dL (75-110); MAGNESIUM 1.5 mg/dL (1.6-2.3); POTASSIUM 3.6 mmol/L (3.6-5.0)
[2017-03-21 06:44] LABS: SODIUM 128.1 mmol/L (137-145)
[2017-03-21 06:45] LABS: ANION GAP 2 (5-19)
[2017-03-21] MEDS: MAGNESIUM SULFATE/D5W 1 GM/100 ML RTUPB IV SCH ×2 (08:08→09:48)
[2017-03-21] MEDS: INSULIN REG, HUMAN 100 UNIT/ML 3 ML VIAL (PYX) SUBCUT PRN (08:10)
[2017-03-21] MEDS: FUROSEMIDE INJ/PF 20 MG/2 ML SDV IV SCH (09:43)
[2017-03-21] MEDS: LEVETIRACETAM 500 MG TABLET PO SCH (09:45)
[2017-03-21] MEDS: LEVOTHYROXINE SODIUM 0.088 MG TABLET PO SCH (09:45)
[2017-03-21] MEDS: MAGNESIUM OXIDE 400 MG TABLET PO SCH ×3 (09:45→17:17)
[2017-03-21] MEDS: METOLAZONE 2.5 MG TABLET PO SCH (09:46)
[2017-03-21] MEDS: POTASSIUM CHLORIDE 10 MEQ TABLET.SA PO SCH (09:46)
[2017-03-21] MEDS: NYSTATIN TOPICAL POWDER 15 GM TP SCH (09:50)
[2017-03-21] MEDS: NORMAL SALINE 10 ML SDV (SCHEDULED) IV SCH (09:50)
--- NOTE | 2017-03-21 09:53 | PDOC PROGRESS REPORT ---
Subjective Progress Note for:: 03/21/17 Subjective:: Patient eating, off IV antibiotics, still his Payan catheter in, ambulating with walker minimally. Anticipates going home today. Getting magnesium replaced intravenously. Physical Exam Vital Signs: Temp Pulse Resp BP Pulse Ox 98.8 F 77 18 104/57 L 91 L 03/21/17 07:32 03/21/17 07:32 03/21/17 07:32 03/21/17 07:32 03/21/17 07:32 Intake & Output 03/20/17 03/21/17 03/22/17 06:59 06:59 06:59 Intake Total 1568 1676 Output Total 2750 7155 Balance -1182 -8009 Weight 64.5 kg 64.5 kg General appearance: PRESENT: no acute distress GI/Abdominal exam: PRESENT: other - Soft, no peritoneal signs Midline incision approximated with about 8 roberto left. Mild erythema around roberto. Small open areas to midline incision probed with CTA, minimal tracking, no pus Results Laboratory Results: 03/21/17 05:25 03/21/17 05:25 03/21/17 03/21/17 05:25 05:25 WBC 6.7 RBC 2.25 L Hgb 8.2 L Hct 23.0 L MCV 102 H MCH 36.2 H MCHC 35.4 RDW 21.9 H Plt Count 482 H Sodium 128.1 L Potassium 3.6 Chloride 96 L Carbon Dioxide 30 Anion Gap 2 L BUN 18 Creatinine 0.66 Est GFR ( Amer) > 60 Est GFR (Non-Af Amer) > 60 Glucose 271 H Calcium 7.7 L Magnesium 1.5 L Impressions: Abdomen/Pelvis CT 03/11/17 00:00 IMPRESSION: 1. New bilateral lower lobar pneumonia. Small-moderate bilateral pleural effusions. Small pericarditis. 2. In 8.4 cm likely hematoma associated with the anterior pelvic wall without significant interval change. 3. Moderate -severe anasarca. 4. Subacute comminuted fractures of the superior and inferior pubic rami bilaterally; and nondisplaced fractures of bilateral aspects of the sacrum. Esophagus X-Ray 03/11/17 00:00 IMPRESSION: Post gastric bypass. Small hiatal hernia with reflux. Prompt emptying of the gastric fundal bypass pouch into the small bowel efferrent loop Guidance Fluoroscopy 03/11/17 00:00 IMPRESSION: SUCCESSFUL PLACEMENT OF A 5 FR DUAL LUMEN 35 CM PICC IN THE RIGHT BASILIC VEIN. Interventional Vascular Procedure 03/11/17 00:00 IMPRESSION: SUCCESSFUL PLACEMENT OF A 5 FR DUAL LUMEN 35 CM PICC IN THE RIGHT BASILIC VEIN. PICC Line Insertion 03/11/17 00:00 IMPRESSION: SUCCESSFUL PLACEMENT OF A 5 FR DUAL LUMEN 35 CM PICC IN THE RIGHT BASILIC VEIN. Assessment & Plan - Diagnosis (1) Duodenal ulcer with perforation Is this a current diagnosis for this admission?: Yes Plan: Postoperative day 14 status post exploratory laparotomy, closure of perforated duodenal ulcer. Drain out, tolerating a diet, stamina improving. Plan: 1. Discontinue Payan catheter; see if patient voids 2. Hemoglobin has dropped to 8.2. This may be by factorial in allergy; doubt acute source of blood loss. We will see if patient can manage without it at this point discussed with Dr. Wolf who agrees with plan 3. Has PICC line in; indications for ongoing need explored; may end up pulling PICC line upon discharge 4. Need to discuss patient's multiple care needs with her home provider team.
[2017-03-21] MEDS: FERROUS SULFATE 325 MG TABLET PO SCH ×2 (12:22→17:16)
--- NOTE | 2017-03-21 12:27 | PDOC DISCHARGE SUMMARY ---
General - Admit/Disc Date/PCP Admission Date/Primary Care Provider: 03/10/17 18:11 BRUCE UPTON MD Discharge Date: 03/21/17 - Discharge Diagnosis (1) Anasarca Is this a current diagnosis for this admission?: Yes (2) Bilateral pubic rami fractures Is this a current diagnosis for this admission?: Yes (3) Chronic insomnia Is this a current diagnosis for this admission?: Yes (4) Duodenal ulcer with perforation Is this a current diagnosis for this admission?: Yes (6) Hypokalemia Is this a current diagnosis for this admission?: Yes (7) Hypomagnesemia Is this a current diagnosis for this admission?: Yes (8) Hyponatremia Is this a current diagnosis for this admission?: Yes (9) History of DVT (deep vein thrombosis) Is this a current diagnosis for this admission?: Yes (10) Protein S deficiency Is this a current diagnosis for this admission?: Yes (12) Diabetes Is this a current diagnosis for this admission?: Yes (13) History of inferior vena caval filter placement Is this a current diagnosis for this admission?: No (14) History of pulmonary embolus (PE) Is this a current diagnosis for this admission?: Yes (15) Protein C deficiency Is this a current diagnosis for this admission?: Yes - Additional Information Resuscitation Status: Full Code Discharge Diet: Regular, Other (Comments) - Free water restrict to 1500. Discharge Activity: Supervised Activity - As directed by physical therapy Home Medications: Albuterol Sulfate [Albuterol Sulfate 2.5mg/3 mL] 1 vial IH RTQIDP PRN 03/11/17 Albuterol Sulfate [Proair HFA] 2 puff IH Q4 PRN 03/11/17 Butalb/Acetaminophen/Caffeine [Fioricet 50-300-40 mg Capsule] 1 cap PO Q8 PRN Butorphanol Tartrate 1 spray NS Q6HP PRN 03/11/17 Carvedilol [Coreg 3.125 mg Tablet] 3.125 mg PO Q12 03/11/17 Cyanocobalamin (Vitamin B-12) [Vitamin B-12 1000 mcg Tablet] 1,000 mcg PO DAILY 03/11/17 Cyclobenzaprine HCl [Flexeril 10 mg Tablet] 10 mg PO BIDP PRN 03/11/17 Bhargavi Root [Bhargavi] 550 mg PO DAILY 03/11/17 Hydrocodone/Acetaminophen [[place] 5-325 mg Tablet] 1 tab PO Q6HP PRN 03/11/17 Levetiracetam [Keppra 500 mg Tablet] 500 mg PO Q12 03/11/17 Levothyroxine Sodium [Synthroid 0.088 mg Tablet] 88 mcg PO DAILY 03/11/17 Lisinopril [Prinivil 5 mg Tablet] 5 mg PO DAILY 03/11/17 Nitroglycerin [Nitrostat 0.4 mg (1/150 Gr) Tabs 25/Bottle] 1 tab SL Q5MP PRN Ondansetron [Zofran Odt 4 mg Tablet] 4 mg PO Q4HP PRN 03/11/17 Pantoprazole Sodium [Protonix] 40 mg PO BIDACBS 03/11/17 Tramadol HCl [Ultram 50 mg Tablet] 50 mg PO TIDP PRN 03/11/17 Trazodone HCl [Desyrel 50 mg Tablet] 175 mg PO QHS 03/11/17 Vitamin B Complex [B Complex] 1 tab PO DAILY 03/11/17 Ascorbic Acid [Vitamin C 500 mg Tablet] 500 mg PO TID tablet 03/21/17 Ferrous Sulfate [Feosol 325 mg Tablet] 325 mg PO MEALS 30 Days #90 tablet Gabapentin [Neurontin 100 mg Capsule] 100 mg PO Q8 30 Days #90 capsule 03/21/17 Magnesium Oxide [Mag-Ox 400 mg Tablet] 800 mg PO TID 30 Days #90 tablet Nystatin [Mycostatin Topical Powder 15 gm] 1 applic TP Q12 #1 bottle 03/21/17 History of Present Illness History of Present Illness: ROBERTO LAYTON is a 65 year old female who is status post exploratory laparotomy and duodenal ulcer primary repair 3 days ago. Patient was septic and was transferred to [facility] postoperatively. Patient is no longer septic and was transferred back to our hospital. Patient states that she still has abdominal pain but it is mild. She has no emesis. She has not had a bowel movement since surgery. She apparently had an NG tube through which they were giving her enteral nutrition but this was pulled prior to transfer. Patient has a history of Abraham-en-Y gastric bypass surgery in the remote past. She had a upper endoscopy several months ago and was told that it was unremarkable. Patient had been sick for quite some time prior to her emergency surgery. Hospital Course Hospital Course: The patient is a 65-year-old female that underwent primary closure of a duodenal ulcer approximately 3 days prior to admission on 03/10/2017. Postoperatively, the patient developed sepsis and was transferred to [facility]. She was stabilized at [facility] and transferred back to [facility]. The patient has been slow to recover. She has evidence of severe protein calorie malnutrition. At the time of discharge the patient is eating a regular diet. She is having formed stools. She has only mild abdominal pain. The patient did develop an 8.4 cm pelvic hematoma. At the time of discharge she is anemic with a hemoglobin of 8.2 and hematocrit of 23. On 03/14/2017 her hemoglobin was 12 with hematocrit of 36. She will start supplemental iron at discharge. She appears to be tolerating the postoperative anemia without dizziness or lightheadedness. She does have generalized failure to thrive which is a combination of her postoperative deconditioned state, anemia, severe malnutrition. Her weakness is complicated by pubic rami fractures. Prior to admission the patient fell at home and has bilateral pubic rami fractures. She has been evaluated by physical therapy during this hospitalization. She can now bear weight and use a rolling walker but she does need 1 person to assist her. Initially, it was planned for the patient to go to a skilled facility for rehabilitation. However, the patient has declined and wishes to go home with home physical therapy and support from family. During his hospitalization the patient did require supplementation with magnesium. She developed generalized anasarca and was receiving Lasix with supplemental potassium. This will be discontinued at discharge. The patient has a history of protein C and protein S deficiency. She has been by report intolerant of all blood thinners. She is followed by hematology as an outpatient. She is status post placement of an inferior vena cava for pulmonary embolus. She did tolerate heparin flushes to her PICC line but she was not maintained on anticoagulation during this hospitalization. Physical Exam Vital Signs: Temp Pulse Resp BP Pulse Ox 98.8 F 77 18 104/57 L 91 L 03/21/17 07:32 03/21/17 07:32 03/21/17 07:32 03/21/17 07:32 03/21/17 07:32 Intake & Output 03/20/17 03/21/17 03/22/17 06:59 06:59 06:59 Intake Total 1568 1676 Output Total 9589 8724 Balance -1182 -1649 Weight 64.5 kg 64.5 kg Additional comments: The patient appears to be her stated age, but, she does appear to be frail. Her cognition and mentation appear normal. The patient's oropharynx is benign. Lips and mucous membranes are moist. Her neck is supple. She does not have any JVD. Her lungs are clear to auscultation bilaterally. Her cardiovascular exam is regular without murmurs, gallops or rubs. The abdomen is softer today. She does have some induration around the staple line. There is some firmness to this area. The staple line is erythematous, but, not changed from yesterday or the day before. Bowel sounds are present in all 4 quadrants. The patient's lower extremities demonstrate only trace edema at this time. The skin is otherwise warm dry and intact without lesions or rashes. Results Laboratory Results: 03/21/17 05:25 03/21/17 05:25 03/21/17 03/21/17 05:25 05:25 WBC 6.7 RBC 2.25 L Hgb 8.2 L Hct 23.0 L MCV 102 H MCH 36.2 H MCHC 35.4 RDW 21.9 H Plt Count 482 H Sodium 128.1 L Potassium 3.6 Chloride 96 L Carbon Dioxide 30 Anion Gap 2 L BUN 18 Creatinine 0.66 Est GFR ( Amer) > 60 Est GFR (Non-Af Amer) > 60 Glucose 271 H Calcium 7.7 L Magnesium 1.5 L Impressions: Abdomen/Pelvis CT 03/11/17 00:00 IMPRESSION: 1. New bilateral lower lobar pneumonia. Small-moderate bilateral pleural effusions. Small pericarditis. 2. In 8.4 cm likely hematoma associated with the anterior pelvic wall without significant interval change. 3. Moderate -severe anasarca. 4. Subacute comminuted fractures of the superior and inferior pubic rami bilaterally; and nondisplaced fractures of bilateral aspects of the sacrum. Esophagus X-Ray 03/11/17 00:00 IMPRESSION: Post gastric bypass. Small hiatal hernia with reflux. Prompt emptying of the gastric fundal bypass pouch into the small bowel efferrent loop Guidance Fluoroscopy 03/11/17 00:00 IMPRESSION: SUCCESSFUL PLACEMENT OF A 5 FR DUAL LUMEN 35 CM PICC IN THE RIGHT BASILIC VEIN. Interventional Vascular Procedure 03/11/17 00:00 IMPRESSION: SUCCESSFUL PLACEMENT OF A 5 FR DUAL LUMEN 35 CM PICC IN THE RIGHT BASILIC VEIN. PICC Line Insertion 03/11/17 00:00 IMPRESSION: SUCCESSFUL PLACEMENT OF A 5 FR DUAL LUMEN 35 CM PICC IN THE RIGHT BASILIC VEIN. Qualifiers PATEINT BEING DISCHARGED WITH ANY OF THE FOLLOWING DIAGNOSIS?: No Plan Discharge Plan: The patient will be discharged to home with home health support. She will receive physical therapy at home. Medications and plans are otherwise addressed above. The patient will follow up with her primary care doctor on 28 March and she will follow-up with general surgery on the . The patient has been instructed to report any worsening shortness of breath, any bleeding, any foul discharge from the wound, any fevers.
[2017-03-21] MEDS: ASCORBIC ACID 500 MG TABLET PO SCH ×2 (14:04→17:16)
[2017-03-21 17:27] VITALS: BP 120/59
== END 2017-03-21 19:21 | disposition home health service (06) | DRG 383 ==
LOC: 3W 18:11
PROVIDERS: ADMIT Surgery; ATTEND Surgery
PROC: 02HV33Z Insertion of Infusion Device into Superior Vena Cava, Percutaneous Approach (ICD-10-PCS; 2017-03-11)
PROC: B518ZZA Fluoroscopy of Superior Vena Cava, Guidance (ICD-10-PCS; 2017-03-11)
PROC: B548ZZA Ultrasonography of Superior Vena Cava, Guidance (ICD-10-PCS; 2017-03-11)
PROC: 3E0234Z Introduction of Serum, Toxoid and Vaccine into Muscle, Percutaneous Approach (ICD-10-PCS; principal; 2017-03-21)
DX: K26.9 Duodenal ulcer, unspecified as acute or chronic, without hemorrhage or perforation (principal); E43 Unspecified severe protein-calorie malnutrition; J18.9 Pneumonia, unspecified organism; D68.59 Other primary thrombophilia; E87.1 Hypo-osmolality and hyponatremia; R10.9 Unspecified abdominal pain; J44.9 Chronic obstructive pulmonary disease, unspecified; E11.9 Type 2 diabetes mellitus without complications; E03.9 Hypothyroidism, unspecified; K21.9 Gastro-esophageal reflux disease without esophagitis; I10 Essential (primary) hypertension; G40.909 Epilepsy, unspecified, not intractable, without status epilepticus; E83.42 Hypomagnesemia; R62.7 Adult failure to thrive; I25.10 Atherosclerotic heart disease of native coronary artery without angina pectoris; K44.9 Diaphragmatic hernia without obstruction or gangrene; F51.04 Psychophysiologic insomnia; R60.1 Generalized edema; S32.592D Other specified fracture of left pubis, subsequent encounter for fracture with routine healing; S32.591D Other specified fracture of right pubis, subsequent encounter for fracture with routine healing; S32.10XD Unspecified fracture of sacrum, subsequent encounter for fracture with routine healing; X58.XXXD Exposure to other specified factors, subsequent encounter; Z68.30 Body mass index [BMI] 30.0-30.9, adult; Z23 Encounter for immunization; Z98.84 Bariatric surgery status; Z86.718 Personal history of other venous thrombosis and embolism; Z86.711 Personal history of pulmonary embolism; Z79.51 Long term (current) use of inhaled steroids; Z79.899 Other long term (current) drug therapy
CPT/HCPCS: 36415; 36569; 74176; 74220; 76937; 77001; 80048; 80053; 80202; 81001; 82330; 82570; 82607; 82746; 82962; 83690; 83735; 84134; 84300; 85025; 85027; 90686; 93005; 93010; 94799; J1642; J1815; J1940; J1953; J2270; J2543; J3370; J3475; J3490; J7060; P9047; S0119; S0164

== ENCOUNTER 2017-03-30 18:41 | Emergency (ER) | payer MEDICARE, MEDICAID ==
--- NOTE | 2017-03-30 18:47 | ER Document Report ---
ED GI/ - General Chief Complaint: Abdominal Pain Stated Complaint: ABDOMINAL PAIN Time Seen by Provider: 03/30/17 18:45 Notes: The patient is a 61-year-old female, past medical history exploratory laparotomy with extensive lysis of adhesions and primary repair of duodenal ulcer 3 weeks ago, chronic pain, presents with worsening abdominal pain and intermittent fevers up to 101. She saw Dr. Wade today in clinic and had her roberto removed. She was told that if her abdominal pain does not improve, return to the ER. Patient is also having nausea and peripheral edema after surgery, but denies vomiting, diarrhea, constipation, leg pain, urinary symptoms , chest pain, shortness of breath or headache. TRAVEL OUTSIDE OF THE [place] IN LAST 30 DAYS: No - Related Data Allergies/Adverse Reactions: divalproex sodium [From Depakote] Allergy (Verified 02/28/17 11:27) nortriptyline Allergy (Verified 02/28/17 11:27) phenytoin sodium extended [From Dilantin] Allergy (Verified 02/28/17 11:27) Past Medical History - General Information source: Patient - Social History Smoking Status: Unknown if Ever Smoked Family History: Hypertension, Other - Father had IHSS Mother with a-fib, dvt, - Past Medical History Cardiac Medical History: Reports: Hx DVT, Hx Heart Attack, Hx Hypertension, Hx Pulmonary Embolism Denies: Hx Atrial Fibrillation, Hx Congestive Heart Failure, Hx Coronary Artery Disease, Hx Hypercholesterolemia Pulmonary Medical History: Reports: Hx Pneumonia, Hx Intubation Denies: Hx Asthma, Hx COPD, Hx Sleep Apnea Neurological Medical History: Reports: Hx Seizures Endocrine Medical History: Reports: Hx Diabetes Mellitus Type 2 - Diet controlled, Hx Hypothyroidism. Denies: Hx Diabetes Mellitus Type 1, Hx Hyperthyroidism Renal/ Medical History: Denies: Hx Peritoneal Dialysis GI Medical History: Reports: Hx Gastroesophageal Reflux Disease. Denies: Hx Cirrhosis, Hx Hepatitis Musculoskeltal Medical History: Reports Hx Arthritis Psychiatric Medical History: Denies: Hx Depression Infectious Medical History: Denies: Hx Hepatitis Past Surgical History: Reports: Hx Abdominal Surgery - gastric bypass, Hx Cholecystectomy, Hx Gastric Bypass Surgery, Hx Hysterectomy, Hx Orthopedic Surgery - bria wrists, Hx Vascular Surgery - IVC filter, Other - Abdominoplasty, tracheostomy, PEG. Exploratory laparotomy with DU repair, Review of Systems - Review of Systems Notes: REVIEW OF SYSTEMS: CONSTITUTIONAL: -fevers, -chills EENT: -eye pain, -difficulty swallowing, -nasal congestion CARDIOVASCULAR:-chest pain, -syncope. RESPIRATORY: -cough, -SOB GASTROINTESTINAL: +abdominal pain, +nausea, -vomiting, -diarrhea GENITOURINARY: -dysuria, -hematuria MUSCULOSKELETAL: -back pain, -neck pain SKIN: -rash or skin lesions. HEMATOLOGIC: -easy bruising or bleeding. LYMPHATIC: -swollen, enlarged glands. NEUROLOGICAL: -altered mental status or loss of consciousness, -headache, - neurologic symptoms PSYCHIATRIC: -anxiety, -depression. ALL OTHER SYSTEMS REVIEWED AND NEGATIVE. Physical Exam - Vital signs Vitals: Temp Pulse Resp BP Pulse Ox 98.6 F 80 16 128/56 H 97 03/30/17 19:05 03/30/17 19:05 03/30/17 19:05 03/30/17 19:05 03/30/17 19:05 - Notes Notes: PHYSICAL EXAMINATION: GENERAL: Well-appearing, well-nourished and in no acute distress. HEAD: Atraumatic, normocephalic. EYES: Pupils equal round and reactive to light, extraocular movements intact, sclera anicteric, conjunctiva are normal. ENT: nares patent, oropharynx clear without exudates. Moist mucous membranes. NECK: Normal range of motion, supple without lymphadenopathy LUNGS: Breath sounds clear to auscultation bilaterally and equal. No wheezes rales or rhonchi. HEART: Regular rate and rhythm without murmurs ABDOMEN: Normal bowel sounds. Midline surgical wound with serous drainage. EXTREMITIES: 1+ pitting edema up to thighs NEUROLOGICAL: Cranial nerves grossly intact. Normal speech, normal gait. Normal sensory and motor exams. PSYCH: Normal mood, normal affect. SKIN: Warm, Dry, normal turgor, no rashes or lesions noted. Course - Re-evaluation Re-evalutation: Patient presents with abdominal pain after her surgery. Labs are unremarkable, other than elevated LFTs, which may be related to her recent surgery. She does not have any acute findings on right upper quadrant ultrasound. Her CT scan possible mild thickening of the ascending colon with unknown significance. She does not have any tenderness over this area. Her surgical wound does not appear to be infected and she does not have a leukocytosis or fever. Patient is requesting pain medicine. She saw her surgeon earlier today and she was instructed to take Tylenol. Her primary care physician has her set up with a pain management physician next month. Instructed her that the emergency room is unable to fill chronic pain medicine prescription, especially after surgery when she has seen a surgeon during the same day. Patient is also concerned about her peripheral edema that started after her surgery. Will begin 3 days of Lasix to help with the peripheral edema. She is also asking for Flexeril to help with her chronic back pain and spasming. No emergent condition is present at this time she will continue to follow-up with the surgeon and primary care physician for further evaluation and treatment. - Vital Signs Vital signs: Temp Pulse Resp BP Pulse Ox 98.3 F 80 11 L 122/111 H 98 03/30/17 22:10 03/30/17 19:05 03/31/17 00:01 03/31/17 00:01 03/31/17 00:01 - Laboratory Result Diagrams: 03/30/17 19:45 03/30/17 19:45 Laboratory results interpreted by me: 03/30/17 03/30/17 03/30/17 19:45 19:45 19:45 RBC 2.42 L Hgb 8.4 L Hct 24.8 L MCV 102 H MCH 34.7 H RDW 21.6 H Plt Count 532 H APTT 36.8 H Sodium 132.8 L Glucose 130 H Calcium 7.5 L Direct Bilirubin 0.6 H AST 222 H ALT 169 H Alkaline Phosphatase 203 H Creatine Kinase < 20 L Total Protein 4.3 L Albumin 1.8 L Lipase 16.8 L - Diagnostic Test Radiology reviewed: Image reviewed, Reports reviewed Radiology results interpreted by me: CT A/P: Mild Wall thickening is noted in the decompressed ascending colon without significant adjacent inflammatory changes, uncertain significance. Trace scattered free fluid in the mesentery. Diminishing size of the well defined hematoma subjacent to the left rectus sheath in the pre vesicular location, currently 4.5 cm in transverse dimension.Trace bilateral pleural effusions. RUQ US: No acute findings. Cholecystectomy. Limitation. CXR: NAD Discharge - Discharge Clinical Impression: Abdominal pain Qualifiers: Abdominal location: unspecified location Qualified Code(s): R10.9 - Unspecified abdominal pain Nausea & vomiting Qualifiers: Vomiting type: unspecified Vomiting Intractability: non-intractable Qualified Code(s): R11.2 - Nausea with vomiting, unspecified Condition: Stable Disposition: HOME, SELF-CARE Additional Instructions: VOMITING: Vomiting (or nausea without vomiting) can be caused by many other different problems. It can mean that something's wrong with the stomach, such as ulcers or inflammation or the intestinal tract, such as appendicitis. But it can also be a symptom of a problem that has nothing to do with the stomach or intestines. Vomiting is common with severe headaches, earaches, tonsillitis, and kidney infections, etc. We see it with pneumonia or heart attacks. Drugs can cause nausea and vomiting. Many abdominal problems cause vomiting; for example, gallstones, kidney stones, pancreatitis, and intestinal obstruction ( blocked bowels). In most cases, curing the vomiting depends on fixing the problem that caused it. For temporary relief, we may use an anti-nausea medicine. For home use, we can prescribe suppositories, chewable pills, pills that dissolve in the mouth, or liquid anti-nausea drugs. If the vomiting seems to be caused by a problem in the stomach, acid-suppressing drugs may be prescribed as well. It's important to avoid dehydration. Sip small amounts of clear liquids ( soft drinks, tea, broth, etc) . Try to take fluids frequently even if you are vomiting to prevent dehydration. Take increasing amounts of fluid and when liquids are being consumed successfully, advance to small amounts of bland food (toast, soups, mashed potatoes, etc.) until you are able to resume a regular diet. Avoid aspirin, tobacco, and alcohol. If the vomiting worsens, if the problem that's making you vomit worsens, or if there's evidence of bleeding in the stomach (such as black, tarry stool, or bloody or black vomit), you should return immediately. Also, return if abdominal pain worsens or becomes localized to one area or you develop high fever. Call your doctor if you aren't improved in 24 hours. ANTINAUSEA MEDICATION: You have been given a medication to suppress nausea and vomiting. This type of medication can be given as a shot, pill, or suppository. It will usually last for many hours. Pills and shots usually last six to eight hours. For the typical illness, only one or two doses of the medication may be necessary. Mild lightheadedness may occur. This type of medicine can cause drowsiness. Do not drive or operate dangerous machinery while under its influence. Do not mix with alcohol. See your doctor at once if you have muscle spasms or tightness, or uncontrollable motions (particularly of the neck, mouth, or jaw). Persistent vomiting or severe lightheadedness should also be evaluated by the physician. FOLLOW-UP CARE: If you have been referred to a physician for follow-up care, call the physician s office for an appointment as you were instructed or within the next two days. If you experience worsening or a significant change in your symptoms, notify the physician immediately or return to the Emergency Department at any time for re-evaluation. ABDOMINAL PAIN: There are many causes of abdominal pain. Pain can mean a serious problem requiring surgery (such as appendicitis). It can also be an innocent problem that goes away on its own (such as a viral infection). Often, time must pass to determine the cause of pain. The physician does not feel that hospitalization is necessary, at present. Things may change within the next 24 hours. Call the doctor or come back for re- examination if any problems occur, such as: (1) Pain that becomes more severe, steady, or becomes concentrated in one specific area. Also, pain that is more severe with movement or coughing. (2) Vomiting that persists or becomes more frequent. (3) Blood in the vomitus, urine, or bowel movements. Blood in the stool may have a tarry or black appearance. (4) Shaking chills or fever greater than 100 degrees F. (5) The abdomen becomes more distended or swollen. (6) Bowel movements cease. (7) Failure to improve as expected. NORMAL EXAM AND WORKUP: At this time, your examination and workup show no significant abnormality. No significant abnormal physical findings are noted. All laboratory, EKG, and imaging (x-ray, CT scans, ultrasound) studies that were ordered show no significant abnormality. Although your examination and all studies that were ordered showed no significant abnormal finding, there are no examinations and no studies that are 100% accurate. There is always the possibility that some abnormality could exist and not be detected with physical examination or within the limits and capabilities of laboratory and other studies. You should return or follow up as you were instructed on your visit today for further evaluation if your symptoms do not resolve. ANTISPASMODICS: You have been given a prescription for an antispasmodic medicine. This type of drug is used to decrease cramping and pain in the intestines. It is also used to decrease secretion of internal fluids (such as stomach acid in ulcer disease or pancreatic juice in pancreas disease). This medicine may cause drowsiness, especially with the first dose. Do not operate machinery or drive until all side effects have resolved. Do not combine with alcohol. Other common side effects include dry mouth and eyes. In older persons, antispasmodics can occasionally cause urinary retention, constipation, or trouble focusing the eyes. Glaucoma may be worsened by this medicine. FOLLOW-UP CARE: If you have been referred to a physician for follow-up care, call the physician s office for an appointment as you were instructed or within the next two days. If you experience worsening or a significant change in your symptoms, notify the physician immediately or return to the Emergency Department at any time for re-evaluation. Prescriptions: Cyclobenzaprine HCl [Flexeril 10 mg Tablet] 10 mg PO TIDP PRN #15 tab PRN Reason: Furosemide [Lasix 20 mg Tablet] 20 mg PO QAM #3 tablet Ondansetron [Zofran Odt 4 mg Tablet] 1 - 2 tab PO Q4H PRN #15 tab.rapdis PRN Reason: For Nausea/Vomiting Referrals: MARLIN WADE MD [ACTIVE STAFF] - Follow up as needed
--- NOTE | 2017-03-30 19:22 | RADIOLOGY REPORT (SQ) ---
EXAM DESCRIPTION: CHEST SINGLE VIEW COMPLETED DATE/TIME: 03/30/2017 7:12 pm REASON FOR STUDY: abdominal pain, assess for free air COMPARISON: 03/08/2017 EXAM PARAMETERS: NUMBER OF VIEWS: One view. TECHNIQUE: Single frontal radiographic view of the chest acquired. RADIATION DOSE: NA LIMITATIONS: None. FINDINGS: LUNGS AND PLEURA: No acute opacities, masses or pneumothorax. No pleural effusion. MEDIASTINUM AND HILAR STRUCTURES: Stable. HEART AND VASCULAR STRUCTURES: Heart normal in size. Normal vasculature. BONES: No acute findings. HARDWARE: None in the chest. OTHER: No other significant finding. IMPRESSION: NO ACUTE RADIOGRAPHIC FINDING IN THE CHEST. TECHNICAL DOCUMENTATION: JOB ID: [id number]
[2017-03-30] MEDS ORDERED: ONDANSETRON HCL INJ/PF 4 MG/2 ML SDV IV ONE (20:01)
[2017-03-30] MEDS ORDERED: NORMAL SALINE 1000 ML 1,000 ML IV ONE (20:01)
[2017-03-30] MEDS ORDERED: MORPHINE SULFATE 10 MG/ML INJ IV ONE ×2 (20:01→22:41)
[2017-03-30 20:13] LABS: ABSOLUTE LYMPHOCYTES (AUTO) 2.3 10^3/uL (0.5-4.7); ABSOLUTE MONOCYTES (AUTO) 0.3 10^3/uL (0.1-1.4); ABSOLUTE NEUT (AUTO) 2.9 10^3/uL (1.7-8.2); BASOPHILS % (AUTO) 0.6 % (0-2); EOSINOPHILS % (AUTO) 0.3 % (0-6); HEMATOCRIT 24.8 % (36.0-47.0); HEMOGLOBIN 8.4 g/dL (12.0-15.5); HGB HCT DIFFERENCE 0.4; LYMPHOCYTES % (AUTO) 41.3 % (13-45); MEAN CORPUSCULAR HEMOGLOBIN 34.7 pg (27.0-33.4); MEAN CORPUSCULAR HGB CONC 33.9 g/dL (32.0-36.0); MEAN CORPUSCULAR VOLUME 102 fl (80-97); MONOCYTES % (AUTO) 5.1 % (3-13); RED BLOOD COUNT 2.42 10^6/uL (3.72-5.28); RED CELL DISTRIBUTION WIDTH 21.6 % (11.5-14.0); SEGMENTED NEUTROPHILS % (AUTO) 52.7 % (42-78); WHITE BLOOD COUNT 5.5 10^3/uL (4.0-10.5)
[2017-03-30 20:21] LABS: PROTHROMBIN TIME 15.4 SEC (11.4-15.4)
[2017-03-30 20:22] LABS: ALANINE AMINOTRANSFERASE 169 U/L (9-52); ALBUMIN 1.8 g/dL (3.5-5.0); ALKALINE PHOSPHATASE 203 U/L (38-126); ANION GAP 6 (5-19); ASPARTATE AMINO TRANSFERASE 222 U/L (14-36); BILIRUBIN,DIRECT 0.6 mg/dL (0.0-0.4); BILIRUBIN,TOTAL 0.6 mg/dL (0.2-1.3); BLOOD UREA NITROGEN 10 mg/dL (7-20); CALCIUM 7.5 mg/dL (8.4-10.2); CARBON DIOXIDE 24 mmol/L (22-30); CHLORIDE 103 mmol/L (98-107); CREATININE RESULT 0.64 mg/dL (0.52-1.25); GLUCOSE 130 mg/dL (75-110); LIPASE 16.8 U/L (23-300); PARTIAL THROMBOPLASTIN TIME 36.8 SEC (23.5-35.8); POTASSIUM 4.1 mmol/L (3.6-5.0); SODIUM 132.8 mmol/L (137-145); TOTAL PROTEIN 4.3 g/dL (6.3-8.2)
[2017-03-30 20:27] LABS: CREATINE KINASE < 20 U/L (30-135)
--- NOTE | 2017-03-30 22:29 | RADIOLOGY REPORT (SQ) ---
EXAM DESCRIPTION: CT ABD/PELVIS WITH IV ORAL COMPLETED DATE/TIME: 03/30/2017 10:01 pm REASON FOR STUDY: abdominal pain, recent perforated duodenal ulcer COMPARISON: None. TECHNIQUE: CT scan of the abdomen and pelvis performed using helical scanning technique with dynamic intravenous contrast injection. No oral contrast. Images reviewed with lung, soft tissue, and bone windows. Reconstructed coronal and sagittal MPR images reviewed. Delayed images for evaluation of the urinary system also acquired. All images stored on PACS. All CT scanners at this facility use dose modulation, iterative reconstruction, and/or weight based d osing when appropriate to reduce radiation dose to as low as reasonably achievable (ALARA). [facility]: Dose Right [facility]: CareDose [facility]: Dose Right [facility]: Teradose 4D [facility]: SeeMore Interactive CONTRAST TYPE AND DOSE: contrast/concentration: Isovue 370.00 mg/ml; Total Contrast Delivered: 62.0 ml; Total Saline Delivered: 35.0 ml RENAL FUNCTION: GFR > 60. RADIATION DOSE: Up-to-date CT equipment and radiation dose reduction techniques were employed. CTDIv ol: 8.9 - 12.5 mGy. DLP: 1071 mGy-cm.. LIMITATIONS: None. FINDINGS: LOWER CHEST: Trace bilateral pleural effusions. LIVER: Normal size. No masses. No dilated ducts. SPLEEN: Normal size. No focal lesions. PANCREAS: No masses. No significant calcifications. No adjacent inflammation or peripancreatic fluid collections. Pancreatic duct not dilated. GALLBLADDER: Surgically absent. ADRENAL GLANDS: No significant masses or asymmetry. RIGHT KIDNEY AND URETER: No solid masses. Small upper pole cysts. No significant calcifications. No hydronephrosis or hydroureter. LEFT KIDNEY AND URETER: No solid masses. No significant calcifications. No hydronephrosis or hydr oureter. AORTA AND VESSELS: IVC filter. No aneurysm. No dissection. Renal arteries, SMA, celiac without high -grade stenosis. RETROPERITONEUM: No bulky retroperitoneal adenopathy. BOWEL AND PERITONEAL CAVITY: Mild Wall thickening is noted in the decompressed ascending colon withou t significant adjacent inflammatory changes, uncertain significance. Trace scattered free fluid in t he mesentery. Postsurgical changes are noted in the GE junction and proximal small bowel. Contrast material passes through the small bowel to the colon. APPENDIX: Not visualized. PELVIS: No intra-pelvic fluid collection. Normal bladder. ABDOMINAL WALL: Diminishing size of the well defined hematoma subjacent to the left rectus sheath in the pre vesicular location, currently 4.5 cm in transverse dimension BONES: No significant or acute findings. OTHER: No other significant finding. IMPRESSION: Mild Wall thickening is noted in the decompressed ascending colon without significant ad jacent inflammatory changes, uncertain significance. Trace scattered free fluid in the mesentery. D iminishing size of the well defined hematoma subjacent to the left rectus sheath in the pre vesicular location, currently 4.5 cm in transverse dimension.Trace bilateral pleural effusions. TECHNICAL DOCUMENTATION: JOB ID: [id number] Quality ID # [id number]: Final reports with documentation of one or more dose reduction techniques (e.g., Au tomated exposure control, adjustment of the mA and/or kV according to patient size, use of iterative reconstruction technique) 2010 [employer]- All Rights Reserved
[2017-03-31 00:13] LABS: APPEARANCE,URINE CLEAR; BILIRUBIN,URINE NEGATIVE (NEGATIVE); GLUCOSE, URINE NEGATIVE (NEGATIVE); KETONES,URINE NEGATIVE (NEGATIVE); LEUKOCYTE ESTERASE,URINE NEGATIVE (NEGATIVE); NITRITE,URINE NEGATIVE (NEGATIVE); PROTEIN,URINE NEGATIVE (NEGATIVE); URINE SPECIFIC GRAVITY 1.019; UROBILINOGEN,URINE NEGATIVE mg/dL (<2.0)
--- NOTE | 2017-03-31 00:42 | RADIOLOGY REPORT (SQ) ---
EXAM DESCRIPTION: U/S ABDOMEN LIMITED W/O DOP COMPLETED DATE/TIME: 03/30/2017 11:33 pm REASON FOR STUDY: abnormal lfts COMPARISON: None. TECHNIQUE: Dynamic and static grayscale images acquired of the abdomen and recorded on PACS. Additio nal selected color Doppler and spectral images recorded. LIMITATIONS: As below. FINDINGS: PANCREAS: Obscured. LIVER: Partially obscured left hepatic lobe. No masses. Echotexture normal. LIVER VASCULATURE: Partially obscured left hepatic lobe. Normal directional flow of the main portal vein and hepatic veins. GALLBLADDER: Surgically absent. ULTRASOUND-DETECTED SHAH'S SIGN: Negative. INTRAHEPATIC DUCTS AND COMMON DUCT: 1.2 cm diameter common bile duct, post cholecystectomy. Intrahep atic ducts normal caliber. No filling defects. INFERIOR VENA CAVA: Normal flow. AORTA: Partially obscured. RIGHT KIDNEY: Normal size. Normal echogenicity. No solid or suspicious masses. No hydronephrosis. No calcifications. PERITONEAL AND RIGHT PLEURAL SPACE: No ascites or effusions. OTHER: No other significant findings. IMPRESSION: No acute findings. Cholecystectomy. Limitation. TECHNICAL DOCUMENTATION: JOB ID: [id number] [employer]- All Rights Reserved
[2017-03-31] MEDS ORDERED: ONDANSETRON 4 MG TAB.RAPDIS PO ONE (01:20)
[2017-03-31] MEDS ORDERED: CYCLOBENZAPRINE HCL 10 MG TABLET PO ONE (01:20)
[2017-03-31 02:06] VITALS: BP 126/60
== END 2017-03-31 02:17 | disposition home or self-care (01) ==
LOC: ER 18:41
DX: R10.9 Unspecified abdominal pain (principal); R11.2 Nausea with vomiting, unspecified; R50.9 Fever, unspecified
CPT/HCPCS: 96376; 99285; 96361; 96374; 96375; 36415; 82550; 83690; 85025; 85610; 85730; 80053; 81001; 84484; 83605; 71010; 76705; 74177; L3650; A9270 ×2; J2270; J2405; J7030; S0119